=== PATIENT | male | born 1975 | race Caucasian/White ===

== ENCOUNTER 2020-08-22 19:32 | Emergency (ER) | payer OTHER, SELFPAY ==
--- NOTE | ~2020-08-22 | XR_ITS ---
XR toe 1st RT min 2V DATE: 08/22/2020 19:53 INDICATION: Injury; patient with toe backwards. Proximal phalanx pain. TECHNIQUE: 4 views COMPARISON: None FINDINGS: There is mild osteoarthritis at the first metatarsophalangeal joint. No fracture, dislocation, periosteal reaction or bone destruction. IMPRESSION: No fracture or dislocation Reviewed, dictated and finalized at location A. IMPRESSION: No fracture or dislocation
--- NOTE | 2020-08-22 19:42 | ED.LOWEXIN ---
HPI - Extremity Injury (Lower) General Chief Complaint: Extremity Injury, Lower Stated Complaint: right big toe Time Seen by Provider: 08/22/20 19:34 Source: patient and RN notes reviewed Limitations: no limitations History of Present Illness HPI Narrative: This is a 45-year-old male that presented to urgent care today with complaints of right great toe pain status post injury that occurred today. The patient tripped over a stick and his big great toe turned upward. Afterwards he developed pain with discoloration to the right toe. Patient is able to bear weight on that right foot no neurological deficiency, normal capillary refill pulses are palpable sensation present patient able to flex digits. The patient denies SOB, CP, palpitation, extremity numbness, lightheadedness, dizziness, constipation, diarrhea, chills, or fever. MD complaint: foot injury (Right great toe) Related Data Home Medications Medication Instructions Recorded Confirmed Jardiance 25 mg DAILY 08/22/20 08/22/20 aspirin 325 mg DAILY 08/22/20 08/22/20 atorvastatin 40 mg DAILY 08/22/20 08/22/20 glimepiride 4 mg DAILY 08/22/20 08/22/20 lisinopril 40 mg DAILY 08/22/20 08/22/20 metformin 1,000 mg BID 08/22/20 08/22/20 niacin 1,000 mg PO DAILY 08/22/20 08/22/20 Allergies Allergy/AdvReac Type Severity Reaction Status Date / Time No Known Allergies Allergy Unknown Unverified 03/24/16 17:12 Review of Systems Review of Systems: Narrative: A 14 organ system Review of Systems was performed and pertinent positives included in the HPI, otherwise remaining ROS is negative. [facility] Family History Family History (Updated 08/22/20 @ 19:48 by SHY Wheatley) Other Family history non-contributory Social History Social History Gender identity (if verbalized by the patient): Male Exam Narrative: Exam Narrative: GENERAL: This is a well-nourished, well-developed patient, in no apparent distress. HEAD: normocephalic, atraumatic. EYES: PERRL. Sclera clear/white. Vision is grossly intact. EARS: External ears normal, auditory canals clear and without drainage, TMs normal without perforation. Hearing grossly intact. NOSE: External nose normal with no obvious nasal discharge, nares without redness, no rhinorrhea. THROAT: Mucous membranes moist, posterior pharynx clear. NECK: Neck supple, non-tender without lymphadenopathy, masses or thyromegaly. CARDIOVASCULAR: Regular rate and rhythm without murmurs, gallops, or rubs. RESPIRATORY: Clear to auscultation. Breath sounds equal bilaterally. No wheezes, rales, or rhonchi. GASTROINTESTINAL: Abdomen soft, non-tender, nondistended. Bowel sounds are active. No hepato-splenomegaly, or palpable masses. No guarding. SKIN: warm, intact with no suspicious lesions or rash, good texture and turgor. NEURO: awake, alert, and oriented to person, place and time. There were no obvious focal neurologic abnormalities. Steady gait EXTREMITIES: Normal range of motion. Pain with movement of the right great toe. Right great toe edema and ecchymosis. No calf tenderness. Negative Homans sign bilaterally. Right great toe and base painful with palpation BACK: Nontender without deformity or crepitance. No flank tenderness. Course Vital Signs Vital signs: Vital Signs Temperature 98.4 F 08/22/20 19:43 Pulse Rate 95 08/22/20 19:43 Respiratory Rate 20 08/22/20 19:43 Blood Pressure 129/92 H 08/22/20 19:43 Pulse Oximetry 100 08/22/20 19:43 Temperature 98.4 F 08/22/20 19:43 Pulse Rate 95 08/22/20 19:43 Respiratory Rate 20 08/22/20 19:43 Blood Pressure 129/92 H 08/22/20 19:43 Pulse Oximetry 100 08/22/20 19:43 MDM - Extremity Injury (Lower) Differential Diagnosis Differential diagnosis: Likely puncture wound of foot, fracture of toe and other (Foot sprain and strain) Discharge Plan Discharge Clinical Impression: Sprain and strain Traumatic ecchymosis of toe of right foot Qualifiers: Encounter
[2020-08-22 19:43] VITALS: BP 129/92; PULSE 95; RESP 20; TEMP 36.9; O2SAT 100
== END 2020-08-22 20:15 | disposition home or self-care (01) ==
PROVIDERS: Emergency Provider Nurse Practitioner; PCP Family Medicine
DX: S93.501A Unspecified sprain of right great toe, initial encounter (principal); S96.911A Strain of unspecified muscle and tendon at ankle and foot level, right foot, initial encounter; W22.8XXA Striking against or struck by other objects, initial encounter; S90.111A Contusion of right great toe without damage to nail, initial encounter
CPT/HCPCS: 73660; 99213; G0463

== ENCOUNTER 2020-10-23 19:32 | Emergency (ER) | payer OTHER, SELFPAY ==
--- NOTE | 2020-10-23 19:37 | ED.EYEPROB ---
HPI - Eye Problem General Chief complaint: Eye Problems Stated complaint: Rt eye Time Seen by Provider: 10/23/20 19:37 Source: patient and RN notes reviewed Mode of arrival: ambulatory Limitations: no limitations History of Present Illness HPI Narrative: 45-year-old male presents to the [facility] with complaints of a bruise to the medial aspect lower lid right eye. Denies any trauma to the eye. Denies any blurry vision or change in vision. States it was not there when he got up this morning to brush his teeth and brushes hair. Noticed it approximately 2 PM today. Denies any painful area. Does not wear glasses nor contacts. Related Data Home Medications Medication Instructions Recorded Confirmed Jardiance 25 mg DAILY 08/22/20 10/23/20 aspirin 325 mg DAILY 08/22/20 10/23/20 atorvastatin 40 mg DAILY 08/22/20 10/23/20 glimepiride 4 mg DAILY 08/22/20 10/23/20 lisinopril 40 mg DAILY 08/22/20 10/23/20 metformin 1,000 mg BID 08/22/20 10/23/20 niacin 1,000 mg PO DAILY 08/22/20 10/23/20 Allergies Allergy/AdvReac Type Severity Reaction Status Date / Time No Known Allergies Allergy Unknown Verified 10/23/20 19:34 Review of Systems Review of Systems: All systems reviewed & are unremarkable except as noted in HPI and below Constitutional: Constitutional: Reports no additional constitutional complaints, Denies chills and Denies fever(s) Eyes: Eyes: Reports as per HPI, Denies change in vision and Denies photophobia Comments: bruising right medial lid ENT: Reports system reviewed and no additional complaints, except as documented Cardiovascular: Cardiovascular: Reports no additional cardiovascular complaints Respiratory: Respiratory: Reports no additional respiratory complaints Musculoskeletal: Musculoskeletal: Reports no additional musculoskeletal complaints Integumentary/Breasts: Skin/Breast: Reports as per HPI, Denies erythema and Denies rash Neurologic: Reports system reviewed and no additional complaints, except as documented Hematologic/Lymphatic: Hematologic/Lymphatic: Reports as per HPI and Reports easy bruising Allergic/Immunologic: Allergic/Immunologic: Reports no additional allergic/immunologic complaints PMFSH Past Medical History Medical History (Updated 10/23/20 @ 19:53 by Gayathri Mann) Diabetes Hypertension Family History Family History Other Family history non-contributory Social History Social History Gender identity (if verbalized by the patient): Male Comments At the time of my signature, I reviewed and agree with the nursing past medical, surgical, social, and family history. There is no relevant family history pertinent to the patient complaint. Exam Const: General: healthy appearing, no acute distress and alert Nutritional Appearance: well nourished Orientation/consciousness: patient oriented x3 Limitations: no limitations HENMT: Head: normal to inspection Ears: external ears normal General nose exam: Normal external nose present, Normal nares present and Normal nasal mucous membranes and turbinates present Face and sinus: face symmetric Mouth: Yes Normal oral and palatal mucosa present and Yes lip normal Eyes: General: appearance normal, both eyes and all related structures Visual Palacio: normal visual palacio by confrontation Alignment and Position: alignment normal and position normal Periorbital: periorbital findings abnormal right periorbital ecchymosis (0.5 x 1 cm bruising medial lower lid); no swelling and no tenderness Conjunctivae: conjunctivae normal Sclera: sclerae normal Cornea: corneas normal and fluorescein used Pupils: Equal, round and reactive pupils present EOM: EOMs intact bilaterally Direct Ophthalmoscopy: no photophobia Eyes/upper lids images: 1. 0.5 x 1 cm bruise noted with no eye involvement. No conjunctival swelling. No hyphema. Rodrigues lamp exam d
[2020-10-23 19:43] VITALS: BP 143/91; PULSE 97; RESP 18; TEMP 36.2; O2SAT 97
[2020-10-23 19:44] VITALS: BP 143/91; PULSE 97; RESP 18; TEMP 36.2; O2SAT 97
== END 2020-10-23 20:01 | disposition home or self-care (01) ==
PROVIDERS: Emergency Provider Nurse Practitioner; PCP Family Medicine
DX: S00.11XA Contusion of right eyelid and periocular area, initial encounter (principal); X58.XXXA Exposure to other specified factors, initial encounter; E11.9 Type 2 diabetes mellitus without complications; I10 Essential (primary) hypertension; Z79.82 Long term (current) use of aspirin
CPT/HCPCS: 99212; A9270; G0463

== ENCOUNTER 2020-11-24 18:50 | Emergency (ER) | payer OTHER, SELFPAY ==
--- NOTE | ~2020-11-24 | XR_ITS ---
XR hip RT min 2V DATE: 11/24/2020 19:30 INDICATION: Hip pain. TECHNIQUE: AP, lateral and crosstable lateral views of right hip COMPARISON: None FINDINGS: Possible old fracture deformities of the right superior and inferior pubic rami. Normal alignment at the pubic symphysis and sacroiliac joint. Degenerative change at the right sacroi liac joint. Transitional lumbosacral vertebra. No recent fracture or dislocation of the right hip. No evidence of avascular necrosis or bone destruc tion. Small calcifications are noted at the superolateral aspect of the right hip joint. IMPRESSION: Possible old fracture deformities of the right superior and inferior pubic rami Transitional lumbosacral vertebra Degenerative change of the right sacroiliac joint. No recent fracture, dislocation, avascular necrosis or bone destruction of right hip Reviewed, dictated and finalized at location A. IMPRESSION: Possible old fracture deformities of the right superior and inferio r pubic rami Transitional lumbosacral vertebra Degenerative change of the right sacroiliac joint. No recent fracture, dislocation, avascular necrosis or bone destruction of righ t hip
[2020-11-24 19:07] VITALS: BP 141/81; PULSE 89; RESP 16; TEMP 36.9; O2SAT 98
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
== END 2020-11-24 19:52 | disposition home or self-care (01) ==
PROVIDERS: Emergency Provider Nurse Practitioner; PCP Family Medicine
DX: S76.211A Strain of adductor muscle, fascia and tendon of right thigh, initial encounter (principal); E11.9 Type 2 diabetes mellitus without complications; I10 Essential (primary) hypertension; Z79.82 Long term (current) use of aspirin; Z79.84 Long term (current) use of oral hypoglycemic drugs; X58.XXXA Exposure to other specified factors, initial encounter
CPT/HCPCS: 73502; 99213; G0463

== ENCOUNTER → 2020-12-02 13:59 | Outpatient (CLI) | payer OTHER, SELFPAY ==
--- NOTE | ~2020-12-02 | XR_ITS ---
EXAMINATION: XR knee RT 2V DATE: 12/02/2020 14:17 INDICATION: Right knee pain. TECHNIQUE: 2 views of right knee standing were obtained. COMPARISON: None. FINDINGS: Bone alignment is normal. No fracture. There is mild tricompartmental osteoarthritis charac terized by tiny osteophytes. No joint space narrowing. There is a small knee joint effusion. IMPRESSION: 1. Mild right knee osteoarthritis. 2. Small right knee joint effusion. Reviewed, dictated and finalized at location A.
== END ==
PROVIDERS: PCP Physician Assistant; Visit Provider Physician Assistant
DX: M25.561 Pain in right knee (principal); M17.11 Unilateral primary osteoarthritis, right knee; M25.461 Effusion, right knee
CPT/HCPCS: 73560

== ENCOUNTER 2022-03-22 01:10 | Day surgery (SDC) | payer OTHER, SELFPAY ==
[2022-03-09 10:01] VITALS: BMI 30.6
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
[2022-03-22 10:18] VITALS: BP 134/68; PULSE 90; RESP 18; TEMP 36.5; O2SAT 99
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
[2022-03-22] MEDS: LACTATED RINGERS 1,000 ML 150 ML IV CONT (10:27)
[2022-03-22 10:33] LABS: Glucose Point of Care 127 mg/dl (65-105)
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
[2022-03-22 11:08] VITALS: BP 110/71; PULSE 84; RESP 15; O2SAT 100
[2022-03-22 11:18] VITALS: BP 127/90; PULSE 84; RESP 16; O2SAT 99
[2022-03-22 11:20] VITALS: BP 130/84; PULSE 86; RESP 19; O2SAT 98
== END 2022-03-22 11:38 | disposition home or self-care (01) ==
PROVIDERS: PCP Physician Assistant; Visit Provider Internal Medicine Gastroenterology
PROC: 0DJD8ZZ Inspection of Lower Intestinal Tract, Via Natural or Artificial Opening Endoscopic (ICD-10-PCS; CPT 45378; principal; 2022-03-22 11:00)
DX: Z12.11 Encounter for screening for malignant neoplasm of colon (principal); K63.5 Polyp of colon; K64.8 Other hemorrhoids; Z83.71 Family history of colonic polyps; I25.10 Atherosclerotic heart disease of native coronary artery without angina pectoris; E11.9 Type 2 diabetes mellitus without complications; E78.5 Hyperlipidemia, unspecified; I10 Essential (primary) hypertension; F17.210 Nicotine dependence, cigarettes, uncomplicated; E66.9 Obesity, unspecified; Z68.33 Body mass index [BMI] 33.0-33.9, adult; Z79.82 Long term (current) use of aspirin; Z79.84 Long term (current) use of oral hypoglycemic drugs
CPT/HCPCS: 45385; 82948; 88305; J2704; J7120

== ENCOUNTER 2022-05-04 15:54 | Outpatient (CLI) | payer OTHER, SELFPAY ==
--- NOTE | ~2022-05-04 | XR_ITS ---
XR shoulder RT min 2V 05/04/2022 16:22 Indication: Right shoulder pain Procedure: 4 views right shoulder Comparison: 09/04/2018 Findings: There is mild osteoarthritis of the acromioclavicular joint. No fracture, subluxation or di slocation. No significant soft tissue abnormality. The lung parenchyma is unremarkable. Impression: 1: Mild osteoarthritis of the right acromioclavicular joint. Reviewed, dictated and finalized at location B. R AND DELIVERY REGISTERED NURSE Impression: 1: Mild osteoarthritis of the right acromioclavicular joint.
== END 2022-05-04 15:55 | disposition home or self-care (01) ==
PROVIDERS: PCP Physician Assistant; Visit Provider Physician Assistant
DX: M19.011 Primary osteoarthritis, right shoulder (principal)
CPT/HCPCS: 73030

== ENCOUNTER 2022-09-30 09:02 | Outpatient (CLI) | payer OTHER, SELFPAY ==
--- NOTE | ~2022-09-30 | MR_ITS ---
MRI of the cervical spine Clinical History: Radiculopathy Technique: Axial T2-weighted and gradient images, and sagittal T1-weighted, T2-weighted, and STIR joslyn ges were acquired. COMPARISON: 08/26/2029 Findings: There is no acute fracture or subluxation of the cervical spine. There is anterior fusion f rom the C5-C6 vertebral bodies, with associated susceptibility artifact. No suspicious bone marrow si gnal abnormality seen. At C2-C3, there is no disc bulge or herniation. No spinal canal stenosis, cord compression, or neural foraminal narrowing. At C3-C4, there is minimal disc ossify convex. No spinal canal stenosis, cord compression, or neural foraminal narrowing. At C4-C5, there is minimal disc osteophyte complex. No spinal canal stenosis, cord compression, or ne ural foraminal narrowing. At C5-C6, there is no disc bulge or herniation. No spinal canal stenosis, cord compression, or neural foraminal narrowing. At C6-C7, there is no disc bulge or herniation. No spinal canal stenosis or cord compression. Probabl e mild bilateral neural foraminal narrowing present. No abnormal signal seen in the spinal cord. Paravertebral soft tissues are otherwise unremarkable. Impression: Anterior fusion hardware from C5 to C6. Minimal degenerative spondylosis otherwise, as above. Reviewed, dictated and finalized at location . Impression: Anterior fusion hardware from C5 to C6. Minimal degenerative spondylosis otherwise, as above.
== END 2022-09-30 09:03 | disposition home or self-care (01) ==
PROVIDERS: PCP Physician Assistant; Visit Provider Nurse Practitioner Acute Care
DX: M50.10 Cervical disc disorder with radiculopathy, unspecified cervical region (principal); Z98.1 Arthrodesis status; M47.22 Other spondylosis with radiculopathy, cervical region
CPT/HCPCS: 72141

== ENCOUNTER 2023-04-04 06:36 | Day surgery (SDC) | payer OTHER, SELFPAY ==
[2023-03-29 09:50] VITALS: BMI 33.9
[2023-04-04 07:54] VITALS: BP 135/87; PULSE 90; RESP 18; TEMP 36.6; O2SAT 94; BMI 33.4
[2023-04-04] MEDS: LACTATED RINGERS 1,000 ML 150 ML IV CONT (08:13)
[2023-04-04 08:22] LABS: Glucose Point of Care 184 mg/dl (65-105)
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
[2023-04-04] MEDS: SIMETHICONE ORAL SUSPENSION 20 MG/0.3 ML 30 ML BOTTLE 0.6 ML IRRIGATION (09:08)
[2023-04-04 09:27] VITALS: BP 112/81; PULSE 92; RESP 16; O2SAT 96
[2023-04-04 09:37] VITALS: BP 117/81; PULSE 84; RESP 16; O2SAT 95
[2023-04-04 09:48] VITALS: BP 133/100; PULSE 88; RESP 16; O2SAT 94
--- NOTE | 2023-04-04 09:49 | WPDANESPN ---
Anes - Prog Note Post-Op Date/Time: 04/04/23 09:49 Cardiovascular status: normal Respiratory status: normal Airway patency: baseline Mental status: baseline Post-Op hydration status: normal Vital Signs: Last Vital Signs Temp 36.6 C 04/04/23 07:54 Pulse 88 04/04/23 09:48 Resp 16 04/04/23 09:48 BP 133/100 H 04/04/23 09:48 Pulse Ox 94 04/04/23 09:48 O2 Del Method Room Air 04/04/23 09:48 Pain Score (VAS): 0/10 I/O: Intake & Output 04/03/23 04/04/23 04/04/23 23:59 07:59 15:59 Intake Total 500 Balance 500 04/04/23 08:20 POC Capillary Glucose 184 H Patient Feedback: Patient satisfied with anesthetic care.
== END 2023-04-04 10:00 | disposition home or self-care (01) ==
PROVIDERS: PCP Physician Assistant; Visit Provider Internal Medicine Gastroenterology
PROC: 0DJD8ZZ Inspection of Lower Intestinal Tract, Via Natural or Artificial Opening Endoscopic (ICD-10-PCS; CPT 45378; principal; 2023-04-04 09:00)
DX: Z86.010 Personal history of colon polyps (principal); D12.5 Benign neoplasm of sigmoid colon; K64.8 Other hemorrhoids
CPT/HCPCS: 45385

== ENCOUNTER 2023-04-04 07:12 | Outpatient (NON) | payer OTHER, SELFPAY | END 2023-04-04 07:13 | disposition home or self-care (01) | LOC: ANHLAB 04-05 07:14 | PROVIDERS: PCP Physician Assistant; Visit Provider Internal Medicine Gastroenterology | DX: Z12.11 Encounter for screening for malignant neoplasm of colon (principal); K63.5 Polyp of colon | CPT/HCPCS: 88305 ==

== ENCOUNTER 2023-09-08 08:13 | Emergency (ER) | payer OTHER, SELFPAY ==
[2023-09-08 08:20] VITALS: BP 130/72; PULSE 90; RESP 16; TEMP 36.3; O2SAT 97
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
== END 2023-09-08 09:11 | disposition home or self-care (01) ==
PROVIDERS: Emergency Provider Nurse Practitioner Family; PCP Family Medicine
DX: L60.0 Ingrowing nail (principal); F17.210 Nicotine dependence, cigarettes, uncomplicated; M19.90 Unspecified osteoarthritis, unspecified site; I25.10 Atherosclerotic heart disease of native coronary artery without angina pectoris; E11.9 Type 2 diabetes mellitus without complications; E78.5 Hyperlipidemia, unspecified; I10 Essential (primary) hypertension
CPT/HCPCS: 99213; G0463

== ENCOUNTER 2024-02-29 09:14 | Emergency (ER) | payer OTHER, SELFPAY ==
--- NOTE | ~2024-02-29 | XR_ITS ---
EXAMINATION: XR chest 2V DATE: 02/29/2024 10:10 INDICATION: Cough. TECHNIQUE: Frontal and lateral views of the chest were obtained. COMPARISON: Chest 2 views 12/08/2006 FINDINGS: There is no pneumonia, pleural effusion, or pneumothorax. The heart size is normal. There a re changes of anterior fusion procedure in cervical spine. IMPRESSION: 1. No acute cardiopulmonary disease. Reviewed, dictated and finalized at location A. 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
[2024-02-29 09:34] VITALS: BP 131/74; PULSE 88; RESP 18; TEMP 36.5; O2SAT 97
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
--- OUTSIDE RECORDS SUMMARY | 2024-03-07 11:04 | XMS_ITS | Encounter Summary ---
Author Name [facility] [place] [facility] Address [address] [place] [address] Care Team Providers Care Supervisor Cereal Name Role Phone SANDRA MUNOZ Primary Care Provider Unavailabl e Insurance Providers: All historical and current Section Date Range: From patient's date of to the date document was created. This section includes the names of all active insurance providers for the patient. Insurance Provider Type of Coverage Plan Name Start of Policy Coverage End of Policy Coverage Group Number Member ID Insurance Provider's Telephone Number Policy Sparks's Name Patient's Relationship to Policy Sparks [employer] PRES[employer] ION RX PLAN Apr 11, 2019 [id number] [phone] Christoph TILLEY SPOUSE [facility] Mar 11, 2017 [id number] [phone] Nino TILLEY SPOUSE [facility] Mar 11, 2019 [id number] [phone] Nino TILLEY SPOUSE [facility] POINT OF SERVICE [facility] Mar 11, 2017 [id number] [phone] Nino TILLEY SPOUSE Selected Encounter This section includes the information on record at [place] for the Encounter. Date/Time Encounter Type Encounter Description Reason Provider Source Apr 26, 2023 03:30 PM OFFICE O/P NEW MOD 45 MIN ENDOCRINOLOGY ICD-10-CM E78.5 Hyperlipidemia, unspecified DORANROBIN [facility] Encounter Template Text not used by [place] Assessments - Encounter Diagnoses This section includes the primary and secondary diagnoses documented for the Encounter. Date/Time Primary/Secondary Diagnosis Diagnosis Name Provider Source May 20, 2023 11:58 AM PRIMARY Hyperlipidemia, unspecified ESDRASROBIN M [facility] May 20, 2023 11:58 AM SECONDARY Type 2 diabetes mellitus without complications ESDRASROBIN M [facility] Plan of Treatment: Future Appointments (+ 6 months) and Future Tests (+/- 45 days) The Plan of Treatment section includes future care activities for the patient [facility] [place] [facility] This section includes future appointments and future orders which are active, pending or scheduled. Future Appointments This section includes appointments that were scheduled to occur 6 months from the date of the Encounter, up to a maximum of 20 appointments. The data comes from all [place] treatment facilities. Appointment Date/Time Appointment Type Appointme nt Facility Name May 01, 2023 11:30 AM AMBULATORY - MEDICINE [facility] July 24, 2023 10:00 AM AMBULATORY - SURGERY [facility] July 26, 2023 12:00 PM AMBULATORY - MEDICINE [facility] Lab Results: +/- 30 days of the encounter This section includes the Chemistry and Hematology Lab Results on record with [place] for the patient. Radiology Reports and Pathology Reports are provided separately, in subsequent sections. Lab Results This section contains the Chemistry/Hematology Results that were resulted 30 days before or 30 daysafter the date of the Encounter. Date/Time Source Result Type Result - Unit Interpretation Reference Range Comment May 01, 2023 11:32 AM [facility] GLUCOSE,BLOOD-poct (STL) Specimen Type: BLOOD Comment: Test Performed by: [id number] Meter #: [id number] Ordering Provider: SANDAR MUNOZ Report Released Date/Time: May 01, 2023 04:01 PM Reporting Lab: [address] [address] Performing Lab: [address] [address] GLUCOSE,BLOOD- poct (STL) 120 mg/dL H 72-99 Apr 30, 2023 08:28 AM [facility] MICRAL/CREAT PROFILE (STL) Specimen Type: URINE No comment entered. Ordering Provider: ROBIN DORAN Report Released Date/Time: Apr 26, 2023 04:19 PM Reporting Lab: [facility] [address] [address] Performing Lab: [facility] [address] [facility] [address] URINE ALBUMIN (PB-STL) 29.6 mg/L uACR (STL) 47 mg/g H 0-29 CREATININE URINE/OTHERS 62.7 mg/dL L 63-166 Apr 30, 2023 08:17 AM [facility] LIPID PANEL (STL) Specimen Type: PLASMA Comment: LDL Unable to be calculated LDL calculation invalid when Triglyceride exceeds 250 mg/dl Direct LDL invalid when Triglyceride exceeds 1420 mg/dl CALCULATED LDL reported incorrectly as EXCEPTION by [[id number]] . Changed to comment on Apr 30, 2023@09:54 by [[id number]] . DIRECT LDL units reported incorrectly as mg/dL by [[id number]] . Changed to mg/dl on Apr 30, 2023@09:54 by [[id number]] . DIRECT LDL reference low reported incorrectly as 100 by [[id number]] . Changed to <no value> on Apr 30, 2023@09:54 by [[id number]] . DIRECT LDL reference high reported incorrectly as <no value> by [[id number]] . Changed to 99.9 on Apr 30, 2023@09:54 by [[id number]] . Ordering Provider: ROBIN DORAN Report Released Date/Time: Apr 26, 2023 03:58 PM Reporting Lab: [facility] [address] [facility] [address] Performing Lab: [facility] [address] [address] CHOLESTEROL 330 mg/dL H 0-200 TRIGLYCERIDE 1999 mg/dL H 0-150 DIRECT LDL comment mg/dL <99.9 CALCULATED LDL comment mg/dL HDL(New) 33 mg/dL L >40 Apr 30, 2023 08:17 AM [facility] TSH (MA-PB-STL) Specimen Type: SERUM No comment entered. Ordering Provider: ROBIN DORAN Report Released Date/Time: Apr 26, 2023 04:19 PM Reporting Lab: [address] [address] Performing Lab: [address] [address] TSH 0.643 u[IU]/mL 0.47-5 Apr 30, 2023 08:17 AM [facility] FREE T4 Specimen Type: SERUM No comment entered. Ordering Provider: ROBIN DORAN Report Released Date/Time: Apr 26, 2023 04:19 PM Reporting Lab: [address] [address] Performing Lab: [address] [address] FREE T4 0.85 ng/mL 0.7-1.48 Vital Signs: All taken on the encounter date This section contains inpatient and outpatient Vital Signs collected on the date of the Encounter. Date/Time Temperature Pulse Blood Pressure Respiratory Rate SP02 Pain Height Weight Body Mass Index Source Apr 26, 2023 03:18 PM 146/79 [facility] N Apr 26, 2023 03:18 PM 97.4 105 146/68 18 94 4 256.[address] [facility] N Encounter Notes: All associated encounter notes This section contains the clinical notes associated to the Encounter. Date/Time Encounter Note(s) Provider Source May 30, 2023 11:43 AM ADDENDUM: LOCAL TITLE: Addendum STANDARD TITLE: ADDENDUM DATE OF NOTE: MAY 30, 2023@11:43:54 ENTRY DATE: MAY 30, 2023@11:43:55 AUTHOR: BLAKE LANGE EXP COSIGNER: URGENCY: STATUS: COMPLETED [place] left message on endo VM, wanting to know if his results/progress note back from outside, Social Media Project Manager, came to through fax. Returned his call, and he said he spoke with Bill about getting the papers. Contacted Endo operations manager station, Kayce, and he wanted to know the following: He does have the papers, and Dr. Doran has to review them, likely tomorrow, then I'm assuming his Ozempic or other GLP-1 will be approved. Mr. Tilley was satisfied with the return phone call and information. /es/ BLAKE LANGE REGISTERED NURSE Signed: 05/30/2023 11:50 Receipt Acknowledged By: 05/30/2023 12:06 /es/ Kayce Robert RN, BSN REGISTERED NURSE 06/01/2023 13:28 /es/ ROBIN DORAN MD Endocrinology Physician --- Original Document --- 04/26/23 ENDOCRINOLOGY OUTPATIENT CONSULT STL: HPI: BRODY TILLEY is a 47 yo WHITE MALE with PMH T2DM, Htn presenting for initial consult for hypertriglyceridemia. 1.) Hypertriglyceridemia: No prior pancreatitis He thinks parents had hyperlipidemia, but not confirmed Diet: AM-eggs in the AM, 2 pancakes, 2 sausage links, carlin, hashbrowns at [facility], [employer], 4 slices of pizza Alcohol: 3-4 per week Currently on niacin 100 mg qhs He thinks labs from 03/02 was fasting Report Released Date/Time: Mar 08, 2023@09:54 TRIGLYCERIDE 1053 H mg/dL 0 - 150 [657] Report Released Date/Time: Aug 17, 2022@12:53 TRIGLYCERIDE 228 H mg/dL 0 - 150 [657] Report Released Date/Time: Aug 28, 2018@07:56 TRIGLYCERIDE 437 H mg/dl Ref: <=150 [657] 2.)T2DM: Duration:20 yrs A1c: 7.3 Regimen: metformin 1 g BID, alogliptin, glimepiride 4 mg BID, jardiance 25 mg No prior DKA/HHNS Bg: he does not check bg at home Diet: see above Exercise/Weight: Alcohol/smokin drinks/week, cigs/day Denies prior pancreatitis, personal or FH of MTC/MEN syndrome Complications: Optho: no known retinopathy, teleretinal screen 08/31 Macrovascular: no SD/CVA, no chest pain Neuropathy:no and no prior amputations Nephropathy: none, UACR 32 on lisinopril 40 mg HLD:LDL 69 on lipitor 80 mg Family history: Father-HF, Both-diabetes SOCIAL HISTORY: Marital status: Tobacco: yes 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-pt ROS neg except HPI Active Outpatient Medications (including Supplies): Active Outpatient Medications Status 1) ACCU-CHEK GUIDE (GLUCOSE) TEST STRIP USE 1 STRIP FOR ACTIVE BLOOD TEST WEEKLY FOR BLOOD SUGAR MONITORING AND NEEDED FOR LOW BLOOD SUGAR *HYPOGLYCEMIA, 100 STRIPS PER YEAR* Oct 365 DAY SUPPLY 2) ALCOHOL PREP PAD USE/APPLY PAD TO AFFECTED AREA(S) ACTIVE NEEDED DIRECTED FOR SKIN CLEANSING 3) ALOGLIPTIN 25MG TAB TAKE ONE TABLET BY MOUTH ONCE A ACTIVE (S) DAY FOR DIABETES 4) ASPIRIN 81MG EC TAB TAKE ONE TABLET BY MOUTH ONCE A ACTIVE DAY WITH FOOD FOR PREVENTION OF HEART DISEASE 5) ATORVASTATIN CALCIUM 80MG TAB TAKE ONE-HALF TABLET BY ACTIVE MOUTH EVERY EVENING FOR HIGH CHOLESTEROL 6) CHOLECALCIF 50MCG (D3-2,000UNIT) TAB TAKE ONE TABLET ACTIVE (S) BY MOUTH ONCE A DAY 7) EMPAGLIFLOZIN 25MG TAB TAKE ONE TABLET BY MOUTH ONCE ACTIVE A DAY FOR DIABETES 8) GLIMEPIRIDE 4MG TAB TAKE TWO TABLETS BY MOUTH EVERY ACTIVE MORNING FOR DIABETES TAKE WITH BREAKFAST OR FIRST FOOD. 9) LANCET,SOFTCLIX USE LANCET FOR BLOOD TEST DIRECTED ACTIVE FOR BLOOD SUGAR MONITORING *MUST USE NEW NEEDLE EACH TIME* 10) LISINOPRIL 40MG TAB TAKE ONE TABLET BY MOUTH ONCE A ACTIVE DAY FOR HIGH BLOOD PRESSURE 11) LORATADINE 10MG TAB TAKE ONE TABLET BY MOUTH ONCE A ACTIVE DAY FOR ALLERGIC RHINITIS ON EMPTY STOMACH 12) METFORMIN HCL 1000MG TAB TAKE ONE TABLET BY MOUTH ACTIVE (S) TWICE A DAY WITH MEALS FOR DIABETES TAKE WITH FOOD. AVOID ALCOHOL. DISCONTINUE BEFORE GETTING XRAY DYE. 13) NIACIN (EQV-NIASPAN) 1000MG SA TAB TAKE ONE TABLET BY ACTIVE MOUTH AT BEDTIME FOR HIGH CHOLESTEROL AFTER A LOW FAT SNACK Active Non-VA Medications Status 1) Non-VA METFORMIN HCL 1000MG TAB 1000MG BY MOUTH ACTIVE DAILY. 14 Total Medications Allergies: Patient has answered NKA PAST HISTORY: 1) Diabetes mellitus 2) Hypertension 3) Shoulder pain 4) Abnormal liver function 5) Medical examinations/reports status 6) Cervical radiculopathy 7) Vitamin D deficiency 8) Tobacco use 9) Erectile dysfunction PHYSICAL EXAM: Vital Signs- Temperature: 97.4 F [36.3 C] (04/26/2023 15:18) HR: 105 (04/26/2023 15:18) BP: Measurement DT BP 04/26/2023 15:18 146/79 04/26/2023 15:18 146/68 12/05/2022 10:50 149/75 Weight: 256.2 lb [116.21 kg] (04/26/2023 15:18) Patient Weight History - Last Four 1. 256.2 lbs. / 116.2 kg. on APR 26, 2023@15:18:24 2. 250.0 lbs. / 113.4 kg. on OCT 26, 2022@10:00:29 3. 250.0 lbs. / 113.4 kg. on AUG 17, 2022@08:56:06 4. 246.4 lbs. / 111.8 kg. 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 LABS: SODIUM 139 mEq/L 03/08/2023 08:56 POTASSIUM 4.2 mEq/L 03/08/2023 08:56 CHLORIDE 106 mEq/L 03/08/2023 08:56 UREA NITROGEN 14.4 mg/dL 03/08/2023 08:56 CREATININE 0.83 mg/dL 03/08/2023 08:56 CALCIUM 9.1 mg/dL 03/08/2023 08:56 CARBON DIOXIDE 21 L mEq/L 03/08/2023 08:56 GLUCOSE 143 H mg/dL 03/08/2023 08:56 EGFR (CKD-EPI 2020) 107.3 03/08/2023 08:56 Microalb/creat: CREATuF: 78.3 (03/22/23 07:17) M/CREAT: 32 (03/22/23 07:17) MICRAL: 25.3 (03/22/23 07:17) No MICRAL/CREAT RATIO (STL) data found HGA1C 7.3 H % 03/08/2023 08:56 HGA1C 7.0 H % 08/17/2022 10:34 HGA1C 7.0 H % 08/28/2018 07:03 Lipid Panel: TRIGLYCERIDE 1053 H mg/dL 03/08/2023 08:56 CHOLESTEROL 273 H mg/dL 03/08/2023 08:56 HDL(New) 33 L mg/dL 03/08/2023 08:56 DIRECT LDL 69 L mg/dL 03/08/2023 08:56 CALCULATED LDL comment mg/dL 03/08/2023 08:56 TSH 0.592 uIU/mL 08/17/2022 10:34 A/P: BRODY TILLEY Rodolfo is a 47 yo WHITE MALE with PMH T2DM, Htn presenting for initial consult for hypertriglyceridemia. 1.) Type 2 diabetes: above goal A1c 7.3 recently on 4 agents. Will stop alogliptin and start Ozempic titrated to 1 mg. -continue metformin 1 g BID, glimepiride 4 mg BID, jardiance 25 mg -my try to wean off sulfonylurea in the future Optho: no known retinopathy, teleretinal screen 08/31 Macrovascular: no SD/CVA, no chest pain Neuropathy:no and no prior amputations Nephropathy: none, UACR 32 on lisinopril 40 mg, repeat UACR and may need additional agent if elevated HLD:LDL 69 on lipitor 80 mg 2.) Hypertriglyceridemia: likely genetic with dietary contribution. Reviewed foods to reduce and avoid alcohol. No medicaitons. Will stop niacin and start fenofibrate. No prior pancreatitis. -stop niacin, continue lipitor 80 mg, start fenofibrate 160 mg -dietary guidelines provided -check TSH, FT4 /kristen DORAN MD Endocrinology Physician Signed: 04/26/2023 16:18 04/26/2023 ADDENDUM STATUS: COMPLETED IN Please schedule him for follow up wtih me in 3 mos Thanks /kristen DORAN MD Endocrinology Physician Signed: 04/26/2023 16:18 Receipt Acknowledged By: 05/18/2023 14:00 /bennett/ MIA FRANCIS ADVANCED DRILLING ASSISTANT 05/03/2023 ADDENDUM STATUS: COMPLETED I called patient: his Tg was 1998 and discussed risk of pancreatitis. we have sent a form of foods to avoid and particularly alcohol. He will start fenofibrate, and I have put in request for vascepa. HE should start on niacin, but this is less effective than the others. He can't get eye appt until June. [place] [facility] [facility] [place] this is [place]. /bennett/ ROBIN DORAN MD Endocrinology Physician Signed: 05/03/2023 16:19 05/04/2023 ADDENDUM STATUS: COMPLETED Al I placed an outside Rx order in your box. Would you be able to mail to patient? Thanks! Jenifer /kristen DORAN MD Endocrinology Physician Signed: 05/04/2023 05:49 Receipt Acknowledged By: 05/06/2023 10:49 /bennett/ Kayce Robert, RN, BSN REGISTERED NURSE 05/13/2023 ADDENDUM STATUS: COMPLETED Mr. Tilley requires prior authorization be requested via [employer] ([employer]) before an order for Ozempic will be covered by them. That process requires an MD, I am unable to complete it. Another option might be to offer Mr. Tilley a PO weight loss medication, gauge his response, and then request [facility]epbound through [facility] after a trial of PO. I will try to revisit this before the end of this week. Alerting Dr. Doran in the mean time. /bennett/ Kayce Robert, RN, BSN REGISTERED NURSE Signed: 05/13/2023 10:53 Receipt Acknowledged By: 05/13/2023 11:51 /kristen DORAN MD Endocrinology Physician 05/13/2023 ADDENDUM STATUS: COMPLETED Hi Please let him know we will not be able to complete the [facility] outside [facility]. He needs to get his eye appointment updated PAT so we can get ozempic here for his diabetes. /kristen DORAN MD Endocrinology Physician Signed: 05/13/2023 11:56 Receipt Acknowledged By: 05/14/2023 14:17 /bennett/ Kayce Robert, RN, BSN REGISTERED NURSE 05/14/2023 ADDENDUM STATUS: COMPLETED Mr. Tilley sees [facility] on 07/07. He may try to move that appointment up. Otherwise will await those results and anticipate efforts to have [facility]empic provided through [facility] afterward. /bennett/ Kayce Robert RN, BSN REGISTERED NURSE Signed: 05/14/2023 14:18 BLAKE LANGE [facility] May 13, 2023 11:55 AM ADDENDUM: LOCAL TITLE: Addendum STANDARD TITLE: ADDENDUM DATE OF NOTE: MAY 13, 2023@11:55:41 ENTRY DATE: MAY 13, 2023@11:55:42 AUTHOR: ROBIN DORAN EXP COSIGNER: URGENCY: STATUS: COMPLETED Hi Please let him know we will not be able to complete the [place] [facility]. He needs to get his eye appointment updated PAT so we can get ozempic here for his diabetes. /kristen DORAN MD Endocrinology Physician Signed: 05/13/2023 11:56 Receipt Acknowledged By: 05/14/2023 14:17 /bennett/ Kayce Robert, RN, BSN REGISTERED NURSE --- Original Document --- 04/26/23 ENDOCRINOLOGY OUTPATIENT CONSULT STL: HPI: BRODY TILLEY is a 47 yo WHITE MALE with PMH T2DM, Htn presenting for initial consult for hypertriglyceridemia. 1.) Hypertriglyceridemia: No prior pancreatitis He thinks parents had hyperlipidemia, but not confirmed Diet: AM-eggs in the AM, 2 pancakes, 2 sausage links, carlin, hashbrowns at [employer], [place], 4 slices of pizza Alcohol: 3-4 per week Currently on niacin 100 mg qhs He thinks labs from 03/02 was fasting Report Released Date/Time: Mar 08, 2023@09:54 TRIGLYCERIDE 1053 H mg/dL 0 - 150 [657] Report Released Date/Time: Aug 17, 2022@12:53 TRIGLYCERIDE 228 H mg/dL 0 - 150 [657] Report Released Date/Time: Aug 28, 2018@07:56 TRIGLYCERIDE 437 H mg/dl Ref: <=150 [657] 2.)T2DM: Duration:20 yrs A1c: 7.3 Regimen: metformin 1 g BID, alogliptin, glimepiride 4 mg BID, jardiance 25 mg No prior DKA/HHNS Bg: he does not check bg at home Diet: see above Exercise/Weight: Alcohol/smokin drinks/week, cigs/day Denies prior pancreatitis, personal or FH of MTC/MEN syndrome Complications: Optho: no known retinopathy, teleretinal screen 08/31 Macrovascular: no SD/CVA, no chest pain Neuropathy:no and no prior amputations Nephropathy: none, UACR 32 on lisinopril 40 mg HLD:LDL 69 on lipitor 80 mg Family history: Father-HF, Both-diabetes SOCIAL HISTORY: Marital status: Tobacco: yes 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-pt ROS neg except HPI Active Outpatient Medications (including Supplies): Active Outpatient Medications Status 1) ACCU-CHEK GUIDE (GLUCOSE) TEST STRIP USE 1 STRIP FOR ACTIVE BLOOD TEST WEEKLY FOR BLOOD SUGAR MONITORING AND NEEDED FOR LOW BLOOD SUGAR *HYPOGLYCEMIA, 100 STRIPS PER YEAR* Oct 365 DAY SUPPLY 2) ALCOHOL PREP PAD USE/APPLY PAD TO AFFECTED AREA(S) ACTIVE NEEDED DIRECTED FOR SKIN CLEANSING 3) ALOGLIPTIN 25MG TAB TAKE ONE TABLET BY MOUTH ONCE A ACTIVE (S) DAY FOR DIABETES 4) ASPIRIN 81MG EC TAB TAKE ONE TABLET BY MOUTH ONCE A ACTIVE DAY WITH FOOD FOR PREVENTION OF HEART DISEASE 5) ATORVASTATIN CALCIUM 80MG TAB TAKE ONE-HALF TABLET BY ACTIVE MOUTH EVERY EVENING FOR HIGH CHOLESTEROL 6) CHOLECALCIF 50MCG (D3-2,000UNIT) TAB TAKE ONE TABLET ACTIVE (S) BY MOUTH ONCE A DAY 7) EMPAGLIFLOZIN 25MG TAB TAKE ONE TABLET BY MOUTH ONCE ACTIVE A DAY FOR DIABETES 8) GLIMEPIRIDE 4MG TAB TAKE TWO TABLETS BY MOUTH EVERY ACTIVE MORNING FOR DIABETES TAKE WITH BREAKFAST OR FIRST FOOD. 9) LANCET,SOFTCLIX USE LANCET FOR BLOOD TEST DIRECTED ACTIVE FOR BLOOD SUGAR MONITORING *MUST USE NEW NEEDLE EACH TIME* 10) LISINOPRIL 40MG TAB TAKE ONE TABLET BY MOUTH ONCE A ACTIVE DAY FOR HIGH BLOOD PRESSURE 11) LORATADINE 10MG TAB TAKE ONE TABLET BY MOUTH ONCE A ACTIVE DAY FOR ALLERGIC RHINITIS ON EMPTY STOMACH 12) METFORMIN HCL 1000MG TAB TAKE ONE TABLET BY MOUTH ACTIVE (S) TWICE A DAY WITH MEALS FOR DIABETES TAKE WITH FOOD. AVOID ALCOHOL. DISCONTINUE BEFORE GETTING XRAY DYE. 13) NIACIN (EQV-NIASPAN) 1000MG SA TAB TAKE ONE TABLET BY ACTIVE MOUTH AT BEDTIME FOR HIGH CHOLESTEROL AFTER A LOW FAT SNACK Active Non-VA Medications Status 1) Non-VA METFORMIN HCL 1000MG TAB 1000MG BY MOUTH ACTIVE DAILY. 14 Total Medications Allergies: Patient has answered NKA PAST HISTORY: 1) Diabetes mellitus 2) Hypertension 3) Shoulder pain 4) Abnormal liver function 5) Medical examinations/reports status 6) Cervical radiculopathy 7) Vitamin D deficiency 8) Tobacco use 9) Erectile dysfunction PHYSICAL EXAM: Vital Signs- Temperature: 97.4 F [36.3 C] (04/26/2023 15:18) HR: 105 (04/26/2023 15:18) BP: Measurement DT BP 04/26/2023 15:18 146/79 04/26/2023 15:18 146/68 12/05/2022 10:50 149/75 Weight: 256.2 lb [116.21 kg] (04/26/2023 15:18) Patient Weight History - Last Four 1. 256.2 lbs. / 116.2 kg. on APR 26, 2023@15:18:24 2. 250.0 lbs. / 113.4 kg. on OCT 26, 2022@10:00:29 3. 250.0 lbs. / 113.4 kg. on AUG 17, 2022@08:56:06 4. 246.4 lbs. / 111.8 kg. 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 LABS: SODIUM 139 mEq/L 03/08/2023 08:56 POTASSIUM 4.2 mEq/L 03/08/2023 08:56 CHLORIDE 106 mEq/L 03/08/2023 08:56 UREA NITROGEN 14.4 mg/dL 03/08/2023 08:56 CREATININE 0.83 mg/dL 03/08/2023 08:56 CALCIUM 9.1 mg/dL 03/08/2023 08:56 CARBON DIOXIDE 21 L mEq/L 03/08/2023 08:56 GLUCOSE 143 H mg/dL 03/08/2023 08:56 EGFR (CKD-EPI 2020) 107.3 03/08/2023 08:56 Microalb/creat: CREATuF: 78.3 (03/22/23 07:17) M/CREAT: 32 (03/22/23 07:17) MICRAL: 25.3 (03/22/23 07:17) No MICRAL/CREAT RATIO (STL) data found HGA1C 7.3 H % 03/08/2023 08:56 HGA1C 7.0 H % 08/17/2022 10:34 HGA1C 7.0 H % 08/28/2018 07:03 Lipid Panel: TRIGLYCERIDE 1053 H mg/dL 03/08/2023 08:56 CHOLESTEROL 273 H mg/dL 03/08/2023 08:56 HDL(New) 33 L mg/dL 03/08/2023 08:56 DIRECT LDL 69 L mg/dL 03/08/2023 08:56 CALCULATED LDL comment mg/dL 03/08/2023 08:56 TSH 0.592 uIU/mL 08/17/2022 10:34 A/P: BRODY TILLEY is a 47 yo WHITE MALE with PMH T2DM, Htn presenting for initial consult for hypertriglyceridemia. 1.) Type 2 diabetes: above goal A1c 7.3 recently on 4 agents. Will stop alogliptin and start Ozempic titrated to 1 mg. -continue metformin 1 g BID, glimepiride 4 mg BID, jardiance 25 mg -my try to wean off sulfonylurea in the future Optho: no known retinopathy, teleretinal screen 08/31 Macrovascular: no SD/CVA, no chest pain Neuropathy:no and no prior amputations Nephropathy: none, UACR 32 on lisinopril 40 mg, repeat UACR and may need additional agent if elevated HLD:LDL 69 on lipitor 80 mg 2.) Hypertriglyceridemia: likely genetic with dietary contribution. Reviewed foods to reduce and avoid alcohol. No medicaitons. Will stop niacin and start fenofibrate. No prior pancreatitis. -stop niacin, continue lipitor 80 mg, start fenofibrate 160 mg -dietary guidelines provided -check TSH, FT4 /bennett/ ROBIN DORAN MD Endocrinology Physician Signed: 04/26/2023 16:18 04/26/2023 ADDENDUM STATUS: COMPLETED HI Please schedule him for follow up wtih me in 3 mos Thanks /bnenett/ ROBIN DORAN MD Endocrinology Physician Signed: 04/26/2023 16:18 Receipt Acknowledged By: * AWAITING SIGNATURE * MIA FRANCIS 05/03/2023 ADDENDUM STATUS: COMPLETED I called patient: his Tg was 1998 and discussed risk of pancreatitis. we have sent a form of foods to avoid and particularly alcohol. He will start fenofibrate, and I have put in request for vascepa. HE should start on niacin, but this is less effective than the others. He can't get eye appt until June. [place] [facility] [place] is completed. /bennett/ ROBIN DORAN MD Endocrinology Physician Signed: 05/03/2023 16:19 05/04/2023 ADDENDUM STATUS: COMPLETED Hi I placed an outside Rx order in your box. Would you be able to mail to patient? Thanks! Jenifer /bennett/ ROBIN DORAN MD Endocrinology Physician Signed: 05/04/2023 05:49 Receipt Acknowledged By: 05/06/2023 10:49 /bennett/ Kayce Robert RN, BSN REGISTERED NURSE 05/13/2023 ADDENDUM STATUS: COMPLETED Mr. Tilley requires prior authorization be requested via [employer] ([employer]) before an order for Ozempic will be covered by them. That process requires an MD, I am unable to complete it. Another option might be to offer Mr. Tilley a PO weight loss medication, gauge his response, and then request [facility] after a trial of PO. I will try to revisit this before the end of this week. Alerting Dr. Doran in the mean time. /bennett/ Kayce Robert RN, BSN REGISTERED NURSE Signed: 05/13/2023 10:53 Receipt Acknowledged By: 05/13/2023 11:51 /bennett/ ROBIN DORAN MD Endocrinology Physician 05/14/2023 ADDENDUM STATUS: UNSIGNED You may not VIEW this UNSIGNED Addendum. ROBIN DROAN [facility] May 13, 2023 10:48 AM ADDENDUM: LOCAL TITLE: Addendum STANDARD TITLE: ADDENDUM DATE OF NOTE: MAY 13, 2023@10:48:40 ENTRY DATE: MAY 13, 2023@10:48:41 AUTHOR: KAYCE ROBERT EXP COSIGNER: URGENCY: STATUS: COMPLETED Mr. Tilley requires prior authorization be requested via [employer]) before an order for Ozempic will be covered by them. That process requires an MD, I am unable to complete it. Another option might be to offer Mr. Tilley a PO weight loss medication, gauge his response, and then [facility] after a trial of PO. I will try to revisit this before the end of this week. Alerting Dr. Doran in the mean time. /es/ Kayce Robert, RN, BSN REGISTERED NURSE Signed: 05/13/2023 10:53 Receipt Acknowledged By: 05/13/2023 11:51 /es/ ROBIN DORAN MD Endocrinology Physician --- Original Document --- 04/26/23 ENDOCRINOLOGY OUTPATIENT CONSULT STL: HPI: BRODY TILLEY is a 47 yo WHITE MALE with PMH T2DM, Htn presenting for initial consult for hypertriglyceridemia. 1.) Hypertriglyceridemia: No prior pancreatitis He thinks parents had hyperlipidemia, but not confirmed Diet: AM-eggs in the AM, 2 pancakes, 2 sausage links, carlin, hashbrowns at [facility], 4 slices of pizza Alcohol: 3-4 per week Currently on niacin 100 mg qhs He thinks labs from 03/02 was fasting Report Released Date/Time: Mar 08, 2023@09:54 TRIGLYCERIDE 1053 H mg/dL 0 - 150 [657] Report Released Date/Time: Aug 17, 2022@12:53 TRIGLYCERIDE 228 H mg/dL 0 - 150 [657] Report Released Date/Time: Aug 28, 2018@07:56 TRIGLYCERIDE 437 H mg/dl Ref: <=150 [657] 2.)T2DM: Duration:20 yrs A1c: 7.3 Regimen: metformin 1 g BID, alogliptin, glimepiride 4 mg BID, jardiance 25 mg No prior DKA/HHNS Bg: he does not check bg at home Diet: see above Exercise/Weight: Alcohol/smokin drinks/week, cigs/day Denies prior pancreatitis, personal or FH of MTC/MEN syndrome Complications: Optho: no known retinopathy, teleretinal screen 08/31 Macrovascular: no SD/CVA, no chest pain Neuropathy:no and no prior amputations Nephropathy: none, UACR 32 on lisinopril 40 mg HLD:LDL 69 on lipitor 80 mg Family history: Father-HF, Both-diabetes SOCIAL HISTORY: Marital status: Tobacco: yes 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-pt ROS neg except HPI Active Outpatient Medications (including Supplies): Active Outpatient Medications Status 1) ACCU-CHEK GUIDE (GLUCOSE) TEST STRIP USE 1 STRIP FOR ACTIVE BLOOD TEST WEEKLY FOR BLOOD SUGAR MONITORING AND NEEDED FOR LOW BLOOD SUGAR *HYPOGLYCEMIA, 100 STRIPS PER YEAR* Oct 365 DAY SUPPLY 2) ALCOHOL PREP PAD USE/APPLY PAD TO AFFECTED AREA(S) ACTIVE NEEDED DIRECTED FOR SKIN CLEANSING 3) ALOGLIPTIN 25MG TAB TAKE ONE TABLET BY MOUTH ONCE A ACTIVE (S) DAY FOR DIABETES 4) ASPIRIN 81MG EC TAB TAKE ONE TABLET BY MOUTH ONCE A ACTIVE DAY WITH FOOD FOR PREVENTION OF HEART DISEASE 5) ATORVASTATIN CALCIUM 80MG TAB TAKE ONE-HALF TABLET BY ACTIVE MOUTH EVERY EVENING FOR HIGH CHOLESTEROL 6) CHOLECALCIF 50MCG (D3-2,000UNIT) TAB TAKE ONE TABLET ACTIVE (S) BY MOUTH ONCE A DAY 7) EMPAGLIFLOZIN 25MG TAB TAKE ONE TABLET BY MOUTH ONCE ACTIVE A DAY FOR DIABETES 8) GLIMEPIRIDE 4MG TAB TAKE TWO TABLETS BY MOUTH EVERY ACTIVE MORNING FOR DIABETES TAKE WITH BREAKFAST OR FIRST FOOD. 9) LANCET,SOFTCLIX USE LANCET FOR BLOOD TEST DIRECTED ACTIVE FOR BLOOD SUGAR MONITORING *MUST USE NEW NEEDLE EACH TIME* 10) LISINOPRIL 40MG TAB TAKE ONE TABLET BY MOUTH ONCE A ACTIVE DAY FOR HIGH BLOOD PRESSURE 11) LORATADINE 10MG TAB TAKE ONE TABLET BY MOUTH ONCE A ACTIVE DAY FOR ALLERGIC RHINITIS ON EMPTY STOMACH 12) METFORMIN HCL 1000MG TAB TAKE ONE TABLET BY MOUTH ACTIVE (S) TWICE A DAY WITH MEALS FOR DIABETES TAKE WITH FOOD. AVOID ALCOHOL. DISCONTINUE BEFORE GETTING XRAY DYE. 13) NIACIN (EQV-NIASPAN) 1000MG SA TAB TAKE ONE TABLET BY ACTIVE MOUTH AT BEDTIME FOR HIGH CHOLESTEROL AFTER A LOW FAT SNACK Active Non-VA Medications Status 1) Non-VA METFORMIN HCL 1000MG TAB 1000MG BY MOUTH ACTIVE DAILY. 14 Total Medications Allergies: Patient has answered NKA PAST HISTORY: 1) Diabetes mellitus 2) Hypertension 3) Shoulder pain 4) Abnormal liver function 5) Medical examinations/reports status 6) Cervical radiculopathy 7) Vitamin D deficiency 8) Tobacco use 9) Erectile dysfunction PHYSICAL EXAM: Vital Signs- Temperature: 97.4 F [36.3 C] (04/26/2023 15:18) HR: 105 (04/26/2023 15:18) BP: Measurement DT BP 04/26/2023 15:18 146/79 04/26/2023 15:18 146/68 12/05/2022 10:50 149/75 Weight: 256.2 lb [116.21 kg] (04/26/2023 15:18) Patient Weight History - Last Four 1. 256.2 lbs. / 116.2 kg. on APR 26, 2023@15:18:24 2. 250.0 lbs. / 113.4 kg. on OCT 26, 2022@10:00:29 3. 250.0 lbs. / 113.4 kg. on AUG 17, 2022@08:56:06 4. 246.4 lbs. / 111.8 kg. 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 LABS: SODIUM 139 mEq/L 03/08/2023 08:56 POTASSIUM 4.2 mEq/L 03/08/2023 08:56 CHLORIDE 106 mEq/L 03/08/2023 08:56 UREA NITROGEN 14.4 mg/dL 03/08/2023 08:56 CREATININE 0.83 mg/dL 03/08/2023 08:56 CALCIUM 9.1 mg/dL 03/08/2023 08:56 CARBON DIOXIDE 21 L mEq/L 03/08/2023 08:56 GLUCOSE 143 H mg/dL 03/08/2023 08:56 EGFR (CKD-EPI 2020) 107.3 03/08/2023 08:56 Microalb/creat: CREATuF: 78.3 (03/22/23 07:17) M/CREAT: 32 (03/22/23 07:17) MICRAL: 25.3 (03/22/23 07:17) No MICRAL/CREAT RATIO (STL) data found HGA1C 7.3 H % 03/08/2023 08:56 HGA1C 7.0 H % 08/17/2022 10:34 HGA1C 7.0 H % 08/28/2018 07:03 Lipid Panel: TRIGLYCERIDE 1053 H mg/dL 03/08/2023 08:56 CHOLESTEROL 273 H mg/dL 03/08/2023 08:56 HDL(New) 33 L mg/dL 03/08/2023 08:56 DIRECT LDL 69 L mg/dL 03/08/2023 08:56 CALCULATED LDL comment mg/dL 03/08/2023 08:56 TSH 0.592 uIU/mL 08/17/2022 10:34 A/P: BRODY TILLEY is a 47 yo WHITE MALE with PMH T2DM, Htn presenting for initial consult for hypertriglyceridemia. 1.) Type 2 diabetes: above goal A1c 7.3 recently on 4 agents. Will stop alogliptin and start Ozempic titrated to 1 mg. -continue metformin 1 g BID, glimepiride 4 mg BID, jardiance 25 mg -my try to wean off sulfonylurea in the future Optho: no known retinopathy, teleretinal screen 08/31 Macrovascular: no SD/CVA, no chest pain Neuropathy:no and no prior amputations Nephropathy: none, UACR 32 on lisinopril 40 mg, repeat UACR and may need additional agent if elevated HLD:LDL 69 on lipitor 80 mg 2.) Hypertriglyceridemia: likely genetic with dietary contribution. Reviewed foods to reduce and avoid alcohol. No medicaitons. Will stop niacin and start fenofibrate. No prior pancreatitis. -stop niacin, continue lipitor 80 mg, start fenofibrate 160 mg -dietary guidelines provided -check TSH, FT4 /bennett/ ROBIN DORAN MD Endocrinology Physician Signed: 04/26/2023 16:18 04/26/2023 ADDENDUM STATUS: COMPLETED IN Please schedule him for follow up wtih me in 3 mos Thanks /kristen DORAN MD Endocrinology Physician Signed: 04/26/2023 16:18 Receipt Acknowledged By: * AWAITING SIGNATURE * MIA FRANCIS 05/03/2023 ADDENDUM STATUS: COMPLETED I called patient: his Tg was 1998 and discussed risk of pancreatitis. we have sent a form of foods to avoid and particularly alcohol. He will start fenofibrate, and I have put in request for vascepa. HE should start on niacin, but this is less effective than the others. He can't get eye appt until June. [facility] is [facility]. /kristen DORAN MD Endocrinology Physician Signed: 05/03/2023 16:19 05/04/2023 ADDENDUM STATUS: COMPLETED Al I placed an outside Rx order in your box. Would you be able to mail to patient? Thanks! Jenifer /kristen DORAN MD Endocrinology Physician Signed: 05/04/2023 05:49 Receipt Acknowledged By: 05/06/2023 10:49 /bennett/ Kayce Robert, RN, BSN REGISTERED NURSE ROSANNA,KAYCE Langford [facility] May 04, 2023 05:48 AM ADDENDUM: LOCAL TITLE: Addendum STANDARD TITLE: ADDENDUM DATE OF NOTE: MAY 04, 2023@05:48:39 ENTRY DATE: MAY 04, 2023@05:48:39 AUTHOR: ROBIN DORAN EXP COSIGNER: URGENCY: STATUS: COMPLETED Al I placed an outside Rx order in your box. Would you be able to mail to patient? Thanks! Jenifer cabrera/ ROBIN DORAN MD Endocrinology Physician Signed: 05/04/2023 05:49 Receipt Acknowledged By: 05/06/2023 10:49 /bennett/ Kayce Robert, RN, BSN REGISTERED NURSE --- Original Document --- 04/26/23 ENDOCRINOLOGY OUTPATIENT CONSULT STL: HPI: BRODY TILLEY is a 47 yo WHITE MALE with PMH T2DM, Htn presenting for initial consult for hypertriglyceridemia. 1.) Hypertriglyceridemia: No prior pancreatitis He thinks parents had hyperlipidemia, but not confirmed Diet: AM-eggs in the AM, 2 pancakes, 2 sausage links, carlin, hashbrowns at [employer], [facility], 4 slices of pizza Alcohol: 3-4 per week Currently on niacin 100 mg qhs He thinks labs from 03/02 was fasting Report Released Date/Time: Mar 08, 2023@09:54 TRIGLYCERIDE 1053 H mg/dL 0 - 150 [657] Report Released Date/Time: Aug 17, 2022@12:53 TRIGLYCERIDE 228 H mg/dL 0 - 150 [657] Report Released Date/Time: Aug 28, 2018@07:56 TRIGLYCERIDE 437 H mg/dl Ref: <=150 [657] 2.)T2DM: Duration:20 yrs A1c: 7.3 Regimen: metformin 1 g BID, alogliptin, glimepiride 4 mg BID, jardiance 25 mg No prior DKA/HHNS Bg: he does not check bg at home Diet: see above Exercise/Weight: Alcohol/smokin drinks/week, cigs/day Denies prior pancreatitis, personal or FH of MTC/MEN syndrome Complications: Optho: no known retinopathy, teleretinal screen 08/31 Macrovascular: no SD/CVA, no chest pain Neuropathy:no and no prior amputations Nephropathy: none, UACR 32 on lisinopril 40 mg HLD:LDL 69 on lipitor 80 mg Family history: Father-HF, Both-diabetes SOCIAL HISTORY: Marital status: Tobacco: yes 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-pt ROS neg except HPI Active Outpatient Medications (including Supplies): Active Outpatient Medications Status 1) ACCU-CHEK GUIDE (GLUCOSE) TEST STRIP USE 1 STRIP FOR ACTIVE BLOOD TEST WEEKLY FOR BLOOD SUGAR MONITORING AND NEEDED FOR LOW BLOOD SUGAR *HYPOGLYCEMIA, 100 STRIPS PER YEAR* Oct 365 DAY SUPPLY 2) ALCOHOL PREP PAD USE/APPLY PAD TO AFFECTED AREA(S) ACTIVE NEEDED DIRECTED FOR SKIN CLEANSING 3) ALOGLIPTIN 25MG TAB TAKE ONE TABLET BY MOUTH ONCE A ACTIVE (S) DAY FOR DIABETES 4) ASPIRIN 81MG EC TAB TAKE ONE TABLET BY MOUTH ONCE A ACTIVE DAY WITH FOOD FOR PREVENTION OF HEART DISEASE 5) ATORVASTATIN CALCIUM 80MG TAB TAKE ONE-HALF TABLET BY ACTIVE MOUTH EVERY EVENING FOR HIGH CHOLESTEROL 6) CHOLECALCIF 50MCG (D3-2,000UNIT) TAB TAKE ONE TABLET ACTIVE (S) BY MOUTH ONCE A DAY 7) EMPAGLIFLOZIN 25MG TAB TAKE ONE TABLET BY MOUTH ONCE ACTIVE A DAY FOR DIABETES 8) GLIMEPIRIDE 4MG TAB TAKE TWO TABLETS BY MOUTH EVERY ACTIVE MORNING FOR DIABETES TAKE WITH BREAKFAST OR FIRST FOOD. 9) LANCET,SOFTCLIX USE LANCET FOR BLOOD TEST DIRECTED ACTIVE FOR BLOOD SUGAR MONITORING *MUST USE NEW NEEDLE EACH TIME* 10) LISINOPRIL 40MG TAB TAKE ONE TABLET BY MOUTH ONCE A ACTIVE DAY FOR HIGH BLOOD PRESSURE 11) LORATADINE 10MG TAB TAKE ONE TABLET BY MOUTH ONCE A ACTIVE DAY FOR ALLERGIC RHINITIS ON EMPTY STOMACH 12) METFORMIN HCL 1000MG TAB TAKE ONE TABLET BY MOUTH ACTIVE (S) TWICE A DAY WITH MEALS FOR DIABETES TAKE WITH FOOD. AVOID ALCOHOL. DISCONTINUE BEFORE GETTING XRAY DYE. 13) NIACIN (EQV-NIASPAN) 1000MG SA TAB TAKE ONE TABLET BY ACTIVE MOUTH AT BEDTIME FOR HIGH CHOLESTEROL AFTER A LOW FAT SNACK Active Non-VA Medications Status 1) Non-VA METFORMIN HCL 1000MG TAB 1000MG BY MOUTH ACTIVE DAILY. 14 Total Medications Allergies: Patient has answered NKA PAST HISTORY: 1) Diabetes mellitus 2) Hypertension 3) Shoulder pain 4) Abnormal liver function 5) Medical examinations/reports status 6) Cervical radiculopathy 7) Vitamin D deficiency 8) Tobacco use 9) Erectile dysfunction PHYSICAL EXAM: Vital Signs- Temperature: 97.4 F [36.3 C] (04/26/2023 15:18) HR: 105 (04/26/2023 15:18) BP: Measurement DT BP 04/26/2023 15:18 146/79 04/26/2023 15:18 146/68 12/05/2022 10:50 149/75 Weight: 256.2 lb [116.21 kg] (04/26/2023 15:18) Patient Weight History - Last Four 1. 256.2 lbs. / 116.2 kg. on APR 26, 2023@15:18:24 2. 250.0 lbs. / 113.4 kg. on OCT 26, 2022@10:00:29 3. 250.0 lbs. / 113.4 kg. on AUG 17, 2022@08:56:06 4. 246.4 lbs. / 111.8 kg. 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 LABS: SODIUM 139 mEq/L 03/08/2023 08:56 POTASSIUM 4.2 mEq/L 03/08/2023 08:56 CHLORIDE 106 mEq/L 03/08/2023 08:56 UREA NITROGEN 14.4 mg/dL 03/08/2023 08:56 CREATININE 0.83 mg/dL 03/08/2023 08:56 CALCIUM 9.1 mg/dL 03/08/2023 08:56 CARBON DIOXIDE 21 L mEq/L 03/08/2023 08:56 GLUCOSE 143 H mg/dL 03/08/2023 08:56 EGFR (CKD-EPI 2020) 107.3 03/08/2023 08:56 Microalb/creat: CREATuF: 78.3 (03/22/23 07:17) M/CREAT: 32 (03/22/23 07:17) MICRAL: 25.3 (03/22/23 07:17) No MICRAL/CREAT RATIO (STL) data found HGA1C 7.3 H % 03/08/2023 08:56 HGA1C 7.0 H % 08/17/2022 10:34 HGA1C 7.0 H % 08/28/2018 07:03 Lipid Panel: TRIGLYCERIDE 1053 H mg/dL 03/08/2023 08:56 CHOLESTEROL 273 H mg/dL 03/08/2023 08:56 HDL(New) 33 L mg/dL 03/08/2023 08:56 DIRECT LDL 69 L mg/dL 03/08/2023 08:56 CALCULATED LDL comment mg/dL 03/08/2023 08:56 TSH 0.592 uIU/mL 08/17/2022 10:34 A/P: BRODY TILLEY is a 47 yo WHITE MALE with PMH T2DM, Htn presenting for initial consult for hypertriglyceridemia. 1.) Type 2 diabetes: above goal A1c 7.3 recently on 4 agents. Will stop alogliptin and start Ozempic titrated to 1 mg. -continue metformin 1 g BID, glimepiride 4 mg BID, jardiance 25 mg -my try to wean off sulfonylurea in the future Optho: no known retinopathy, teleretinal screen 08/31 Macrovascular: no SD/CVA, no chest pain Neuropathy:no and no prior amputations Nephropathy: none, UACR 32 on lisinopril 40 mg, repeat UACR and may need additional agent if elevated HLD:LDL 69 on lipitor 80 mg 2.) Hypertriglyceridemia: likely genetic with dietary contribution. Reviewed foods to reduce and avoid alcohol. No medicaitons. Will stop niacin and start fenofibrate. No prior pancreatitis. -stop niacin, continue lipitor 80 mg, start fenofibrate 160 mg -dietary guidelines provided -check TSH, FT4 /kristen DORAN MD Endocrinology Physician Signed: 04/26/2023 16:18 04/26/2023 ADDENDUM STATUS: COMPLETED HI Please schedule him for follow up wtih me in 3 mos Thanks /kristen DORAN MD Endocrinology Physician Signed: 04/26/2023 16:18 Receipt Acknowledged By: * AWAITING SIGNATURE * MIA FRANCIS 05/03/2023 ADDENDUM STATUS: COMPLETED I called patient: his Tg was 1998 and discussed risk of pancreatitis. we have sent a form of foods to avoid and particularly alcohol. He will start fenofibrate, and I have put in request for vascepa. HE should start on niacin, but this is less effective than the others. He can't get eye appt until June. [facility] is completed. /kristen DORAN MD Endocrinology Physician Signed: 05/03/2023 16:19 ROBIN DORAN [facility] May 03, 2023 04:19 PM PHARMACY OUTPATIEN T NOTE: LOCAL TITLE: OUTSIDE PRESCRIPTIONS ST STANDARD TITLE: PHARMACY OUTPATIENT NOTE DATE OF NOTE: MAY 03, 2023@16:19 ENTRY DATE: MAY 03, 2023@16:19:35 AUTHOR: ROBIN DORAN EXP COSIGNER: URGENCY: STATUS: COMPLETED [facility] Division of the [address] [address] ext [phone] LYNDA #: Date: MAY 03, 2023 Patient: BRODY TILLEY Address: [address] [place] [address] ID: [id number] [place] Date of : Jun BIN: [id number] Person Code: 01 PCN: [id number] RX Group: [id number] For questions, please call the [facility] Pocket[facility] Pharm[facility] Help Desk at . *Hours of Operation: 24 Hours a Day / 7 Days a Week / 365 Days a Year Medication: ozempic 0.5 mg Qty: 2 Sig: Month 1: 0.25 mg under skn weekly, Month 2: 0.5 mg weekly Refills: 1 Medication: ozempic 1 mg weekly Qty: 2 Sig: Month 3: 1 mg under skin weekly and continue Refills: 1 ___ Substitution Permitted Dispense As Written /bennett/ ROBIN DORAN MD Endocrinology Physician Signed: 05/03/2023 16:20 ROBIN DORAN [facility] Apr 26, 2023 04:18 PM ADDENDUM: LOCAL TITLE: Addendum STANDARD TITLE: ADDENDUM DATE OF NOTE: APR 26, 2023@16:18:18 ENTRY DATE: APR 26, 2023@16:18:19 AUTHOR: ROBIN DORAN EXP COSIGNER: URGENCY: STATUS: COMPLETED HI Please schedule him for follow up wtih me in 3 mos Thanks /bennett/ ROBIN DORAN MD Endocrinology Physician Signed: 04/26/2023 16:18 Receipt Acknowledged By: 05/18/2023 14:00 /bennett/ MIA FRANCIS ADVANCED DRILLING ASSISTANT --- Original Document --- 04/26/23 ENDOCRINOLOGY OUTPATIENT CONSULT STL: HPI: TILLEYBRODY DELGADILLO is a 47 yo WHITE MALE with PMH T2DM, Htn presenting for initial consult for hypertriglyceridemia. 1.) Hypertriglyceridemia: No prior pancreatitis He thinks parents had hyperlipidemia, but not confirmed Diet: AM-eggs in the AM, 2 pancakes, 2 sausage links, carlin, hashbrowns at [facility], 4 slices of pizza Alcohol: 3-4 per week Currently on niacin 100 mg qhs He thinks labs from 03/02 was fasting Report Released Date/Time: Mar 08, 2023@09:54 TRIGLYCERIDE 1053 H mg/dL 0 - 150 [657] Report Released Date/Time: Aug 17, 2022@12:53 TRIGLYCERIDE 228 H mg/dL 0 - 150 [657] Report Released Date/Time: Aug 28, 2018@07:56 TRIGLYCERIDE 437 H mg/dl Ref: <=150 [657] 2.)T2DM: Duration:20 yrs A1c: 7.3 Regimen: metformin 1 g BID, alogliptin, glimepiride 4 mg BID, jardiance 25 mg No prior DKA/HHNS Bg: he does not check bg at home Diet: see above Exercise/Weight: Alcohol/smokin drinks/week, cigs/day Denies prior pancreatitis, personal or FH of MTC/MEN syndrome Complications: Optho: no known retinopathy, teleretinal screen 08/31 Macrovascular: no SD/CVA, no chest pain Neuropathy:no and no prior amputations Nephropathy: none, UACR 32 on lisinopril 40 mg HLD:LDL 69 on lipitor 80 mg Family history: Father-HF, Both-diabetes SOCIAL HISTORY: Marital status: Tobacco: yes 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-pt ROS neg except HPI Active Outpatient Medications (including Supplies): Active Outpatient Medications Status 1) ACCU-CHEK GUIDE (GLUCOSE) TEST STRIP USE 1 STRIP FOR ACTIVE BLOOD TEST WEEKLY FOR BLOOD SUGAR MONITORING AND NEEDED FOR LOW BLOOD SUGAR *HYPOGLYCEMIA, 100 STRIPS PER YEAR* Oct 365 DAY SUPPLY 2) ALCOHOL PREP PAD USE/APPLY PAD TO AFFECTED AREA(S) ACTIVE NEEDED DIRECTED FOR SKIN CLEANSING 3) ALOGLIPTIN 25MG TAB TAKE ONE TABLET BY MOUTH ONCE A ACTIVE (S) DAY FOR DIABETES 4) ASPIRIN 81MG EC TAB TAKE ONE TABLET BY MOUTH ONCE A ACTIVE DAY WITH FOOD FOR PREVENTION OF HEART DISEASE 5) ATORVASTATIN CALCIUM 80MG TAB TAKE ONE-HALF TABLET BY ACTIVE MOUTH EVERY EVENING FOR HIGH CHOLESTEROL 6) CHOLECALCIF 50MCG (D3-2,000UNIT) TAB TAKE ONE TABLET ACTIVE (S) BY MOUTH ONCE A DAY 7) EMPAGLIFLOZIN 25MG TAB TAKE ONE TABLET BY MOUTH ONCE ACTIVE A DAY FOR DIABETES 8) GLIMEPIRIDE 4MG TAB TAKE TWO TABLETS BY MOUTH EVERY ACTIVE MORNING FOR DIABETES TAKE WITH BREAKFAST OR FIRST FOOD. 9) LANCET,SOFTCLIX USE LANCET FOR BLOOD TEST DIRECTED ACTIVE FOR BLOOD SUGAR MONITORING *MUST USE NEW NEEDLE EACH TIME* 10) LISINOPRIL 40MG TAB TAKE ONE TABLET BY MOUTH ONCE A ACTIVE DAY FOR HIGH BLOOD PRESSURE 11) LORATADINE 10MG TAB TAKE ONE TABLET BY MOUTH ONCE A ACTIVE DAY FOR ALLERGIC RHINITIS ON EMPTY STOMACH 12) METFORMIN HCL 1000MG TAB TAKE ONE TABLET BY MOUTH ACTIVE (S) TWICE A DAY WITH MEALS FOR DIABETES TAKE WITH FOOD. AVOID ALCOHOL. DISCONTINUE BEFORE GETTING XRAY DYE. 13) NIACIN (EQV-NIASPAN) 1000MG SA TAB TAKE ONE TABLET BY ACTIVE MOUTH AT BEDTIME FOR HIGH CHOLESTEROL AFTER A LOW FAT SNACK Active Non-VA Medications Status 1) Non-VA METFORMIN HCL 1000MG TAB 1000MG BY MOUTH ACTIVE DAILY. 14 Total Medications Allergies: Patient has answered NKA PAST HISTORY: 1) Diabetes mellitus 2) Hypertension 3) Shoulder pain 4) Abnormal liver function 5) Medical examinations/reports status 6) Cervical radiculopathy 7) Vitamin D deficiency 8) Tobacco use 9) Erectile dysfunction PHYSICAL EXAM: Vital Signs- Temperature: 97.4 F [36.3 C] (04/26/2023 15:18) HR: 105 (04/26/2023 15:18) BP: Measurement DT BP 04/26/2023 15:18 146/79 04/26/2023 15:18 146/68 12/05/2022 10:50 149/75 Weight: 256.2 lb [116.21 kg] (04/26/2023 15:18) Patient Weight History - Last Four 1. 256.2 lbs. / 116.2 kg. on APR 26, 2023@15:18:24 2. 250.0 lbs. / 113.4 kg. on OCT 26, 2022@10:00:29 3. 250.0 lbs. / 113.4 kg. on AUG 17, 2022@08:56:06 4. 246.4 lbs. / 111.8 kg. 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 LABS: SODIUM 139 mEq/L 03/08/2023 08:56 POTASSIUM 4.2 mEq/L 03/08/2023 08:56 CHLORIDE 106 mEq/L 03/08/2023 08:56 UREA NITROGEN 14.4 mg/dL 03/08/2023 08:56 CREATININE 0.83 mg/dL 03/08/2023 08:56 CALCIUM 9.1 mg/dL 03/08/2023 08:56 CARBON DIOXIDE 21 L mEq/L 03/08/2023 08:56 GLUCOSE 143 H mg/dL 03/08/2023 08:56 EGFR (CKD-EPI 2020) 107.3 03/08/2023 08:56 Microalb/creat: CREATuF: 78.3 (03/22/23 07:17) M/CREAT: 32 (03/22/23 07:17) MICRAL: 25.3 (03/22/23 07:17) No MICRAL/CREAT RATIO (STL) data found HGA1C 7.3 H % 03/08/2023 08:56 HGA1C 7.0 H % 08/17/2022 10:34 HGA1C 7.0 H % 08/28/2018 07:03 Lipid Panel: TRIGLYCERIDE 1053 H mg/dL 03/08/2023 08:56 CHOLESTEROL 273 H mg/dL 03/08/2023 08:56 HDL(New) 33 L mg/dL 03/08/2023 08:56 DIRECT LDL 69 L mg/dL 03/08/2023 08:56 CALCULATED LDL comment mg/dL 03/08/2023 08:56 TSH 0.592 uIU/mL 08/17/2022 10:34 A/P: BRODY TILLEY is a 47 yo WHITE MALE with PMH T2DM, Htn presenting for initial consult for hypertriglyceridemia. 1.) Type 2 diabetes: above goal A1c 7.3 recently on 4 agents. Will stop alogliptin and start Ozempic titrated to 1 mg. -continue metformin 1 g BID, glimepiride 4 mg BID, jardiance 25 mg -my try to wean off sulfonylurea in the future Optho: no known retinopathy, teleretinal screen 08/31 Macrovascular: no SD/CVA, no chest pain Neuropathy:no and no prior amputations Nephropathy: none, UACR 32 on lisinopril 40 mg, repeat UACR and may need additional agent if elevated HLD:LDL 69 on lipitor 80 mg 2.) Hypertriglyceridemia: likely genetic with dietary contribution. Reviewed foods to reduce and avoid alcohol. No medicaitons. Will stop niacin and start fenofibrate. No prior pancreatitis. -stop niacin, continue lipitor 80 mg, start fenofibrate 160 mg -dietary guidelines provided -check TSH, FT4 /bennett/ ROBIN DORAN MD Endocrinology Physician Signed: 04/26/2023 16:18 05/03/2023 ADDENDUM STATUS: COMPLETED I called patient: his Tg was 1998 and discussed risk of pancreatitis. we have sent a form of foods to avoid and particularly alcohol. He will start fenofibrate, and I have put in request for vascepa. HE should start on niacin, but this is less effective than the others. He can't get eye appt until June. Will send for [facility]empic outside [facility] until this is completed. /bennett/ ROBIN DORAN MD Endocrinology Physician Signed: 05/03/2023 16:19 05/04/2023 ADDENDUM STATUS: COMPLETED Hi I placed an outside Rx order in your box. Would you be able to mail to patient? Thanks! Jenifer /bennett/ ROBIN DORAN MD Endocrinology Physician Signed: 05/04/2023 05:49 Receipt Acknowledged By: 05/06/2023 10:49 /bennett/ Kayce Robert RN, BSN REGISTERED NURSE 05/13/2023 ADDENDUM STATUS: COMPLETED Mr. Tilley requires prior authorization be requested via [employer]) before an order for Ozempic will be covered by them. That process requires an MD, I am unable to complete it. Another option might be to offer Mr. Tilley a PO weight loss medication, gauge his response, and [facility] after a trial of PO. I will try to revisit this before the end of this week. Alerting Dr. Doran in the mean time. /kristen Robert RN, BSN REGISTERED NURSE Signed: 05/13/2023 10:53 Receipt Acknowledged By: 05/13/2023 11:51 /bennett/ ROBIN DORAN MD Endocrinology Physician 05/13/2023 ADDENDUM STATUS: COMPLETED Hi Please let him know we will not be able to complete the [facility] outside [facility]. He needs to get his eye appointment updated [facility] so we can get ozempic here for his diabetes. /kristen DORAN MD Endocrinology Physician Signed: 05/13/2023 11:56 Receipt Acknowledged By: 05/14/2023 14:17 /bennett/ Kayce Robert RN, BSN REGISTERED NURSE 05/14/2023 ADDENDUM STATUS: COMPLETED Mr. Tilley sees [facility] on 07/07. He may try to move that appointment up. Otherwise will await those results and anticipate efforts to have Ozempic provided through [facility] afterward. /kristen Robert RN, BSN REGISTERED NURSE Signed: 05/14/2023 14:18 ROBIN DORAN [facility] Apr 26, 2023 03:20 PM ENDOCRINOLOGY CONS ULT: LOCAL TITLE: ENDOCRINOLOGY OUTPATIENT CONSULT STL STANDARD TITLE: ENDOCRINOLOGY CONSULT DATE OF NOTE: APR 26, 2023@15:20 ENTRY DATE: APR 26, 2023@15:20:53 AUTHOR: ROBIN DORAN EXP COSIGNER: URGENCY: STATUS: COMPLETED ENDOCRINOLOGY OUTPATIENT CONSULT STL Has ADDENDA HPI: BRODY TILLEY is a 47 yo WHITE MALE with PMH T2DM, Htn presenting for initial consult for hypertriglyceridemia. 1.) Hypertriglyceridemia: No prior pancreatitis He thinks parents had hyperlipidemia, but not confirmed Diet: AM-eggs in the AM, 2 pancakes, 2 sausage links, carlin, hashbrowns at [place], subway, 4 slices of pizza Alcohol: 3-4 per week Currently on niacin 100 mg qhs He thinks labs from 03/02 was fasting Report Released Date/Time: Mar 08, 2023@09:54 TRIGLYCERIDE 1053 H mg/dL 0 - 150 [657] Report Released Date/Time: Aug 17, 2022@12:53 TRIGLYCERIDE 228 H mg/dL 0 - 150 [657] Report Released Date/Time: Aug 28, 2018@07:56 TRIGLYCERIDE 437 H mg/dl Ref: <=150 [657] 2.)T2DM: Duration:20 yrs A1c: 7.3 Regimen: metformin 1 g BID, alogliptin, glimepiride 4 mg BID, jardiance 25 mg No prior DKA/HHNS Bg: he does not check bg at home Diet: see above Exercise/Weight: Alcohol/smokin drinks/week, cigs/day Denies prior pancreatitis, personal or FH of MTC/MEN syndrome Complications: Optho: no known retinopathy, teleretinal screen 08/31 Macrovascular: no SD/CVA, no chest pain Neuropathy:no and no prior amputations Nephropathy: none, UACR 32 on lisinopril 40 mg HLD:LDL 69 on lipitor 80 mg Family history: Father-HF, Both-diabetes SOCIAL HISTORY: Marital status: Tobacco: yes 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-pt ROS neg except HPI Active Outpatient Medications (including Supplies): Active Outpatient Medications Status 1) ACCU-CHEK GUIDE (GLUCOSE) TEST STRIP USE 1 STRIP FOR ACTIVE BLOOD TEST WEEKLY FOR BLOOD SUGAR MONITORING AND NEEDED FOR LOW BLOOD SUGAR *HYPOGLYCEMIA, 100 STRIPS PER YEAR* Oct 365 DAY SUPPLY 2) ALCOHOL PREP PAD USE/APPLY PAD TO AFFECTED AREA(S) ACTIVE NEEDED DIRECTED FOR SKIN CLEANSING 3) ALOGLIPTIN 25MG TAB TAKE ONE TABLET BY MOUTH ONCE A ACTIVE (S) DAY FOR DIABETES 4) ASPIRIN 81MG EC TAB TAKE ONE TABLET BY MOUTH ONCE A ACTIVE DAY WITH FOOD FOR PREVENTION OF HEART DISEASE 5) ATORVASTATIN CALCIUM 80MG TAB TAKE ONE-HALF TABLET BY ACTIVE MOUTH EVERY EVENING FOR HIGH CHOLESTEROL 6) CHOLECALCIF 50MCG (D3-2,000UNIT) TAB TAKE ONE TABLET ACTIVE (S) BY MOUTH ONCE A DAY 7) EMPAGLIFLOZIN 25MG TAB TAKE ONE TABLET BY MOUTH ONCE ACTIVE A DAY FOR DIABETES 8) GLIMEPIRIDE 4MG TAB TAKE TWO TABLETS BY MOUTH EVERY ACTIVE MORNING FOR DIABETES TAKE WITH BREAKFAST OR FIRST FOOD. 9) LANCET,SOFTCLIX USE LANCET FOR BLOOD TEST DIRECTED ACTIVE FOR BLOOD SUGAR MONITORING *MUST USE NEW NEEDLE EACH TIME* 10) LISINOPRIL 40MG TAB TAKE ONE TABLET BY MOUTH ONCE A ACTIVE DAY FOR HIGH BLOOD PRESSURE 11) LORATADINE 10MG TAB TAKE ONE TABLET BY MOUTH ONCE A ACTIVE DAY FOR ALLERGIC RHINITIS ON EMPTY STOMACH 12) METFORMIN HCL 1000MG TAB TAKE ONE TABLET BY MOUTH ACTIVE (S) TWICE A DAY WITH MEALS FOR DIABETES TAKE WITH FOOD. AVOID ALCOHOL. DISCONTINUE BEFORE GETTING XRAY DYE. 13) NIACIN (EQV-NIASPAN) 1000MG SA TAB TAKE ONE TABLET BY ACTIVE MOUTH AT BEDTIME FOR HIGH CHOLESTEROL AFTER A LOW FAT SNACK Active Non-VA Medications Status 1) Non-VA METFORMIN HCL 1000MG TAB 1000MG BY MOUTH ACTIVE DAILY. 14 Total Medications Allergies: Patient has answered NKA PAST HISTORY: 1) Diabetes mellitus 2) Hypertension 3) Shoulder pain 4) Abnormal liver function 5) Medical examinations/reports status 6) Cervical radiculopathy 7) Vitamin D deficiency 8) Tobacco use 9) Erectile dysfunction PHYSICAL EXAM: Vital Signs- Temperature: 97.4 F [36.3 C] (04/26/2023 15:18) HR: 105 (04/26/2023 15:18) BP: Measurement DT BP 04/26/2023 15:18 146/79 04/26/2023 15:18 146/68 12/05/2022 10:50 149/75 Weight: 256.2 lb [116.21 kg] (04/26/2023 15:18) Patient Weight History - Last Four 1. 256.2 lbs. / 116.2 kg. on APR 26, 2023@15:18:24 2. 250.0 lbs. / 113.4 kg. on OCT 26, 2022@10:00:29 3. 250.0 lbs. / 113.4 kg. on AUG 17, 2022@08:56:06 4. 246.4 lbs. / 111.8 kg. 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 LABS: SODIUM 139 mEq/L 03/08/2023 08:56 POTASSIUM 4.2 mEq/L 03/08/2023 08:56 CHLORIDE 106 mEq/L 03/08/2023 08:56 UREA NITROGEN 14.4 mg/dL 03/08/2023 08:56 CREATININE 0.83 mg/dL 03/08/2023 08:56 CALCIUM 9.1 mg/dL 03/08/2023 08:56 CARBON DIOXIDE 21 L mEq/L 03/08/2023 08:56 GLUCOSE 143 H mg/dL 03/08/2023 08:56 EGFR (CKD-EPI 2020) 107.3 03/08/2023 08:56 Microalb/creat: CREATuF: 78.3 (03/22/23 07:17) M/CREAT: 32 (03/22/23 07:17) MICRAL: 25.3 (03/22/23 07:17) No MICRAL/CREAT RATIO (STL) data found HGA1C 7.3 H % 03/08/2023 08:56 HGA1C 7.0 H % 08/17/2022 10:34 HGA1C 7.0 H % 08/28/2018 07:03 Lipid Panel: TRIGLYCERIDE 1053 H mg/dL 03/08/2023 08:56 CHOLESTEROL 273 H mg/dL 03/08/2023 08:56 HDL(New) 33 L mg/dL 03/08/2023 08:56 DIRECT LDL 69 L mg/dL 03/08/2023 08:56 CALCULATED LDL comment mg/dL 03/08/2023 08:56 TSH 0.592 uIU/mL 08/17/2022 10:34 A/P: BRODY TILLEY is a 47 yo WHITE MALE with PMH T2DM, Htn presenting for initial consult for hypertriglyceridemia. 1.) Type 2 diabetes: above goal A1c 7.3 recently on 4 agents. Will stop alogliptin and start Ozempic titrated to 1 mg. -continue metformin 1 g BID, glimepiride 4 mg BID, jardiance 25 mg -my try to wean off sulfonylurea in the future Optho: no known retinopathy, teleretinal screen 08/31 Macrovascular: no SD/CVA, no chest pain Neuropathy:no and no prior amputations Nephropathy: none, UACR 32 on lisinopril 40 mg, repeat UACR and may need additional agent if elevated HLD:LDL 69 on lipitor 80 mg 2.) Hypertriglyceridemia: likely genetic with dietary contribution. Reviewed foods to reduce and avoid alcohol. No medicaitons. Will stop niacin and start fenofibrate. No prior pancreatitis. -stop niacin, continue lipitor 80 mg, start fenofibrate 160 mg -dietary guidelines provided -check TSH, FT4 /bennett/ ROBIN DORAN MD Endocrinology Physician Signed: 04/26/2023 16:18 04/26/2023 ADDENDUM STATUS: COMPLETED HI Please schedule him for follow up wtih me in 3 mos Thanks /bennett/ ROBIN DORAN MD Endocrinology Physician Signed: 04/26/2023 16:18 Receipt Acknowledged By: 05/18/2023 14:00 /bennett/ MIA FRANCIS ADVANCED DRILLING ASSISTANT 05/03/2023 ADDENDUM STATUS: COMPLETED I called patient: his Tg was 1998 and discussed risk of pancreatitis. we have sent a form of foods to avoid and particularly alcohol. He will start fenofibrate, and I have put in request for vascepa. HE should start on niacin, but this is less effective than the others. He can't get eye appt until June. [facility] until this is completed. /bennett/ ROBIN DORAN MD Endocrinology Physician Signed: 05/03/2023 16:19 05/04/2023 ADDENDUM STATUS: COMPLETED Hi I placed an outside Rx order in your box. Would you be able to mail to patient? Thanks! Jenifer /kristen DORAN MD Endocrinology Physician Signed: 05/04/2023 05:49 Receipt Acknowledged By: 05/06/2023 10:49 /bennett/ Kayce Robert RN, BSN REGISTERED NURSE 05/13/2023 ADDENDUM STATUS: COMPLETED Mr. Tilley requires prior authorization be requested via [employer]) before an order for Ozempic will be covered by them. That process requires an MD, I am unable to complete it. Another option might be to offer Mr. Tilley a PO weight loss medication, gauge his response, and then request [facility] after a trial of PO. I will try to revisit this before the end of this week. Alerting Dr. Doran in the mean time. /bennett/ Kayce Robert, RN, BSN REGISTERED NURSE Signed: 05/13/2023 10:53 Receipt Acknowledged By: 05/13/2023 11:51 /kristen DORAN MD Endocrinology Physician 05/13/2023 ADDENDUM STATUS: COMPLETED Hi Please let him know we will not be able to complete the [facility] outside [facility]. He needs to get his eye appointment updated [facility] so we can get ozempic here for his diabetes. /kristen DORAN MD Endocrinology Physician Signed: 05/13/2023 11:56 Receipt Acknowledged By: 05/14/2023 14:17 /bennett/ Kayce Robert, RN, BSN REGISTERED NURSE 05/14/2023 ADDENDUM STATUS: COMPLETED Mr. Tilley sees [facility] on 07/07. He may try to move that appointment up. Otherwise will await those results and anticipate efforts to have Ozempic provided through [facility] afterward. /bennett/ Kayce Robert, RN, BSN REGISTERED NURSE Signed: 05/14/2023 14:18 05/30/2023 ADDENDUM STATUS: COMPLETED [place] left message on endo VM, wanting to know if his results/progress note back from outside, Social Media Project Manager, came to [facility] through fax. Returned his call, and he said he spoke with Bill about getting the papers. Contacted Endo operations manager station, Kayce, and he wanted to know the following: He does have the papers, and Dr. Doran has to review them, likely tomorrow, then I'm assuming his Ozempic or other GLP-1 will be approved. Mr. Tilley was satisfied with the return phone call and information. /bennett/ BLAKE LANGE REGISTERED NURSE Signed: 05/30/2023 11:50 Receipt Acknowledged By: * AWAITING SIGNATURE * KAYCE ROBERT * AWAITING SIGNATURE * ROBIN DORAN RONG M [facility]
--- OUTSIDE RECORDS SUMMARY | 2024-03-07 11:04 | XMS_ITS ---
Author Name [facility] Address [address] [place] [address] Care Team Providers Care Customer Service Cashier Name Role Phone TAMMY SANDRA Primary Care Provider Unavailabl e Insurance Providers: [...] ION RX PLAN Apr 11, 2019 [id number] [phone] Christoph TILLEY SPOUSE [facility] Mar 11, 2017 [id number] [phone] Nino TILLEY SPOUSE [facility] Mar 11, 2019 [id number] [phone] Nino TILLEY SPOUSE [facility] POINT OF SERVICE [facility] Mar 11, 2017 [id number] [phone] Nino TILLEY SPOUSE Selected Encounter This section includes the information on record at [place] for the Encounter. Date/Time Encounter Type Encounter Description Reason Provider Source Apr 24, 2023 12:30 PM Outpatient Encounter TELEPHONE/MEDICINE ICD-10-CM Z72.0 Tobacco use FRANCISCA MCGILL [facility] Encounter Template Text not used by [place] Assessments - Encounter Diagnoses This section includes the primary and secondary diagnoses documented for the Encounter. Date/Time Primary/Secondary Diagnosis Diagnosis Name Provider Source Apr 24, 2023 12:30 PM PRIMARY Tobacco use FRANCISCA MCGILL [facility] Apr 24, 2023 12:30 PM SECONDARY Elevated white blood cell count, unspecified FRANCSICA MCGILL [facility] Apr 24, 2023 12:30 PM SECONDARY Secondary polycythemia FRANCISCA MCGILL [facility] Plan of Treatment: Future Appointments (+ 6 months) and Future Tests (+/- 45 days) The Plan of Treatment section includes [facility] care activities for the [facility] [place] [facility] This section includes future appointments and future orders which are active, pending or scheduled. Future Appointments This section includes appointments that were scheduled to occur 6 months from the date of the Encounter, up to a maximum of 20 appointments. The data comes from all [place] treatment facilities. Appointment Date/Time Appointment Type Appointme nt Facility Name Apr 26, 2023 03:30 PM AMBULATORY - MEDICINE [facility] May 01, 2023 11:30 AM AMBULATORY - MEDICINE [facility] July 24, 2023 10:00 AM AMBULATORY - SURGERY [facility] July 26, 2023 12:00 PM AMBULATORY - MEDICINE [facility] Lab Results: +/- 30 days of the encounter This section includes the Chemistry and Hematology Lab Results on record with [place] for the patient. Radiology Reports and Pathology Reports are provided separately, in subsequent sections. Lab Results This section contains the Chemistry/Hematology Results that were resulted 30 days before or 30 daysafter the date of the Encounter. Date/Time Source Result Type Result - Unit Interpretation Reference Range Comment May 01, 2023 11:32 AM [facility] GLUCOSE,BLOOD-poct (STL) Specimen Type: BLOOD Comment: Test Performed by: [id number] Meter #: [id number] Ordering Provider: SANDRA MUNOZ Report Released Date/Time: May 01, 2023 04:01 PM Reporting Lab: [address] [address] Performing Lab: [facility] [address] [facility] [address] GLUCOSE,BLOOD- poct (STL) 120 mg/dL H 72-99 Apr 30, 2023 08:28 AM [facility] MICRAL/CREAT PROFILE (STL) Specimen Type: URINE No comment entered. Ordering Provider: ROBIN DEWITT Report Released Date/Time: Apr 26, 2023 04:19 PM Reporting Lab: [facility] [address] [facility] [address] Performing Lab: [facility] [address] [facility] [address] URINE ALBUMIN (PB-STL) 29.6 mg/L uACR (STL) 47 mg/g H 0-29 CREATININE URINE/OTHERS 62.7 mg/dL L 63-166 Apr 30, 2023 08:17 AM [facility] LIPID PANEL (STL) Specimen Type: PLASMA Comment: LDL Unable to be calculated LDL calculation invalid when Triglyceride exceeds 250 mg/dl Direct LDL invalid when Triglyceride exceeds 1420 mg/dl CALCULATED LDL reported incorrectly as EXCEPTION by [[id number]] . Changed to comment on Apr 30, 2023@09:54 by [[id number]] . DIRECT LDL units reported incorrectly as mg/dL by [[id number]] . Changed to mg/dl on Apr 30, 2023@09:54 by [[id number]] . DIRECT LDL reference low reported incorrectly as 100 by [[id number]] . Changed to <no value> on Apr 30, 2023@09:54 by [[id number]] . DIRECT LDL reference high reported incorrectly as <no value> by [[id number]] . Changed to 99.9 on Apr 30, 2023@09:54 by [[id number]] . Ordering Provider: ROBIN DEWITT Report Released Date/Time: Apr 26, 2023 03:58 PM Reporting Lab: [facility] [address] [facility] [address] Performing Lab: [facility] [address] [facility] [address] CHOLESTEROL 330 mg/dL H 0-200 TRIGLYCERIDE 1999 mg/dL H 0-150 DIRECT LDL comment mg/dL <99.9 CALCULATED LDL comment mg/dL HDL(New) 33 mg/dL L >40 Apr 30, 2023 08:17 AM [facility] TSH (MA-PB-STL) Specimen Type: SERUM No comment entered. Ordering Provider: ROBIN DEWITT Report Released Date/Time: Apr 26, 2023 04:19 PM Reporting Lab: [facility] [address] [facility] [address] Performing Lab: [address] [address] TSH 0.643 u[IU]/mL 0.47-5 Apr 30, 2023 08:17 AM [facility] FREE T4 Specimen Type: SERUM No comment entered. Ordering Provider: ROBIN DEWITT Report Released Date/Time: Apr 26, 2023 04:19 PM Reporting Lab: [place] [address] [facility] [address] Performing Lab: [address] [address] FREE T4 0.85 ng/mL 0.7-1.48 Encounter Notes: All associated encounter notes This section contains the clinical notes associated to the Encounter. Date/Time Encounter Note(s) Provider Source Apr 24, 2023 02:53 PM HEMATOLOGY AND ONC OLOGY TELEPHONE ENCOUNTER NOTE: LOCAL TITLE: HEMATOLOGY ONCOLOGY TELEPHONE NOTE [facility] STANDARD TITLE: HEMATOLOGY AND ONCOLOGY TELEPHONE ENCOUNTER NOTE DATE OF NOTE: APR 24, 2023@14:53 ENTRY DATE: APR 24, 2023@14:53:30 AUTHOR: NETO MCGILL EXP COSIGNER: URGENCY: STATUS: COMPLETED Telephone Visit: Patient verbally agreed to a telephone visit in place of today's face to face visit to minimize patient and healthcare worker exposure during COVID-19. Patient verified name and last 4 of his SSN prior to the start of the visit. Call Start Time: 1445 Call End Time: 1452 INTERIM HISTORY: This is a phone visit to follow-up on laboratory work-up that was done for the patient's initial consultation for Leukocytosis and subsequent polycythemia. On phone visit today, no changes since he initially saw us in November 2022. He did recently see his primary care physician and is planning on exploring the whole health programs to consider weight reduction and healthy lifestyle. RECENT CLINICAL DATA: All: Patient has answered NKA Current Meds: Reviewed as per CPRS PE: Temperature: 97.3 F [36.3 C] (12/05/2022 10:50) Blood Pressure: 149/75 (12/05/2022 10:50) Pulse: 110 (12/05/2022 10:50) Respirations: 20 (12/05/2022 10:50) Limited Exam Given Phone Visit: GEN: Pleasant in NAD RESP: Speaking in full sentences, no audible respiratory distress PSYCH: Mood appropriate, Judgement normal NEURO: A/Ox3 Lab Data: Reviewed recent laboratory data in CPRS with notable findings: BCR ABL negative JAK2 negative Erythropoietin 10.1 IMPRESSION/PLAN: Leukocytosis and polycythemia, reactive secondary to tobacco exposure as well as obesity I reviewed the above with the patient. No additional hematologic work-up is required at this time. Encouraged healthy lifestyle and smoking cessation. Follow-up as needed. /bennett/ NETO MCGILL MD STAFF PHYSICIAN, HEMATOLOGY/ONCOLOGY Signed: 04/24/2023 14:55 NETO MCGILL [facility]
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
--- OUTSIDE RECORDS SUMMARY | 2024-03-07 11:04 | XMS_ITS | Continuity of Care Document ---
Author Name [facility] Organization [facility] Care Team Providers Care Bee Rancher Name Role Phone [facility] Unavailable Unavailable Problems Combined list of problems from Department of Defense and Veterans Affairs facilities. It does not include entries that were removed or entered in error. Problem Status Onset Date Problem Type Date of Resolution Comments Source Abnormal liver function Active Condition [facility] Acute sinusitis Active Condition [facility] Back pain Active Condition [facility] Cervical radiculopathy Active Condition [facility] Chronic pain Active Condition [facility] Diabetes mellitus Active Condition [facility] Erectile dysfunction Active Condition [facility] Hyperlipidemia Active Condition [facility] Hypertension Active Condition [facility] Medical examinations/report s status Active Condition [facility] Shoulder pain Active Condition [facility] Tobacco use Active Condition [facility] Vitamin D deficiency Active Condition [facility] Diagnosis: ICD-10-CM Z12.2 Encntr screen for malignant neoplasm of respiratory organs Active Diagnosis [facility] Diagnosis: ICD-10-CM E78.5 Hyperlipidemia, unspecified Active Diagnosis [facility] Diagnosis: ICD-10-CM Z13.5 Encounter for screening for eye and ear disorders Active Diagnosis [facility] Diagnosis: ICD-10-CM 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 Diagnosis [facility] Diagnosis: ICD-10-CM M54.50 Low back pain, unspecified Active Diagnosis [facility] Diagnosis: ICD-10-CM E11.9 Type 2 diabetes mellitus without complications Active Diagnosis [facility] Diagnosis: ICD-10-CM M54.2 Cervicalgia Active Diagnosis [facility] Diagnosis: ICD-10-CM Z23 Encounter for immunization Active Diagnosis [facility] Diagnosis: ICD-10-CM G89.29 Other chronic pain Active Diagnosis [facility] Diagnosis: ICD-10-CM Z72.0 Tobacco use Active Diagnosis [facility] Diagnosis: ICD-10-CM N52.9 Male erectile dysfunction, unspecified Active Diagnosis [facility] Diagnosis: ICD-10-CM D72.829 Elevated white blood cell count, unspecified Active Diagnosis [facility] Diagnosis: ICD-10-CM I10 Essential (primary) hypertension Active Diagnosis [facility] Diagnosis: ICD-10-CM M99.51 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 Medication Details Route Status Patient Instructions Prescription Expires Prescription Number Last Dispense Date Ordering Provider Order Date Order Qty Source ALOGLIPTIN 25MG TAB TAKE ONE TABLET BY MOUTH ONCE A DAY FOR DIABETES ORAL DISCONT INUED BY PROVIDE R 03/21/2024 [id number] 4 SKYE MUNOZ 2023 90 [facility] ALOGLIPTIN 25MG TAB TAKE ONE TABLET BY MOUTH ONCE A DAY FOR DIABETES ORAL DISCONT INUED 09/05/2023 [id number] 4 SKYE MUNOZ 2022 90 [facility] aspirin 325 mg oral tablet TAKE ONE TABLET DAILY, # 90 EA, 3 total refill(s ), Acute Complet ed 04/16/2023 90.0 Ambulat ory Pharmac y ASPIRIN 81MG TAB,EC TAKE ONE TABLET BY MOUTH ONCE A DAY WITH FOOD FOR PREVENTI ON OF HEART DISEASE ORAL ACTIVE 05/10/2024 [id number] 4 SKYE MUNOZ 2023 120 [facility] ASPIRIN 81MG TAB,EC TAKE ONE TABLET BY MOUTH ONCE A DAY WITH FOOD FOR PREVENTI ON OF HEART DISEASE ORAL DISCONT INUED 03/15/2024 [id number] 4 SKYE MUNOZ 2023 120 [facility] ASPIRIN 81MG TAB,EC TAKE ONE TABLET BY MOUTH ONCE A DAY WITH FOOD FOR PREVENTI ON OF HEART DISEASE ORAL DISCONT INUED 10/27/2023 [id number] 4 Lester HUERTA 2022 120 [facility] atorvastati n 40 mg oral tablet TAKE ONE TABLET DAILY, # 90 EA, 2 total refill(s ), Acute Complet ed 04/16/2023 90.0 Ambulat ory Pharmac y ATORVASTATI N CA 80MG TAB TAKE ONE TABLET BY MOUTH EVERY EVENING FOR HIGH CHOLESTE ROL ORAL SUSPEND ED 02/10/2025 [id number] 5 SKYE MUNOZ N 2024 90 [facility] ATORVASTATI N CA 80MG TAB TAKE ONE TABLET BY MOUTH EVERY EVENING FOR HIGH CHOLESTE ROL ORAL DISCONT INUED 05/01/2024 [id number] 4 SKYE MUNOZ N 2023 90 [facility] ATORVASTATI N CA 80MG TAB TAKE ONE-HALF TABLET BY MOUTH EVERY EVENING FOR HIGH CHOLESTE ROL ORAL DISCONT INUED (EDIT) 09/05/2023 [id number] 4 SKYE MUNOZ N 2022 45 [facility] CAMPHOR/MEN THOL/METHYL SALICYLATE LARGE PATCH APPLY 1 PATCH TO SKIN SITE ONCE A DAY (EXTERNA L USE ONLY) TRANSD ERMAL ACTIVE 02/10/2025 [id number] 4 SKYE MUNOZ N 2023 30 [facility] CHOLECALCIF DANA 50MCG (2,000UNIT) TAB TAKE ONE TABLET BY MOUTH ONCE A DAY ORAL SUSPEND ED 02/10/2025 [id number] 5 SKYE MUNOZ N 2024 100 [facility] CHOLECALCIF DANA 50MCG (2,000UNIT) TAB TAKE ONE TABLET BY MOUTH ONCE A DAY ORAL DISCONT INUED 03/21/2024 [id number] 4 SKYE MUNOZ N 2023 100 [facility] CHOLECALCIF DANA 50MCG (2,000UNIT) TAB TAKE ONE TABLET BY MOUTH ONCE A DAY ORAL DISCONT INUED 08/19/2023 [id number] 3 SKYE MUNOZ N 2022 100 [facility] CYCLOBENZAP RINE HCL 10MG TAB TAKE ONE TABLET BY MOUTH THREE TIMES A DAY MAY CAUSE DROWSINE SS. DO NOT DRINK ALCOHOL WHILE TAKING THIS MEDICATI ON. ORAL 12/19/2023 [id number] 4 GASTON LIND 2023 21 [facility] empaglifloz in 25 mg oral tablet TAKE ONE TABLET DAILY, # 90 EA, 3 total refill(s ), Acute Complet ed 02/20/2023 90.0 Ambulat ory Pharmac y EMPAGLIFLOZ IN 25MG TAB TAKE ONE TABLET BY MOUTH ONCE A DAY FOR DIABETES ORAL ACTIVE 07/26/2024 [id number] 4 Lester HUERTA 2023 90 [facility] EMPAGLIFLOZ IN 25MG TAB TAKE ONE TABLET BY MOUTH ONCE A DAY FOR DIABETES ORAL DISCONT INUED 10/27/2023 [id number] 4 Lester HUERTA 2022 90 [facility] FENOFIBRATE 145MG TAB TAKE ONE-HALF TABLET BY MOUTH ONCE A DAY - TAKE WITH FOOD ORAL ACTIVE 02/10/2025 [id number] 4 SKYE MUNOZ N 2023 45 [facility] FENOFIBRATE 160MG TAB TAKE ONE TABLET BY MOUTH ONCE A DAY FOR HIGH TRIGLYCE RIDES - TAKE WITH FOOD ORAL DISCONT INUED (EDIT) 01/17/2025 [id number] 5 SEN DEWITT 2024 90 [facility] FENOFIBRATE 160MG TAB TAKE ONE TABLET BY MOUTH ONCE A DAY FOR HIGH TRIGLYCE RIDES - TAKE WITH FOOD ORAL DISCONT INUED 04/26/2024 [id number] 4 SEN DEWITT 2023 90 [facility] FLUTICASONE PROPIONATE 50MCG/SPRAY SOLN,NASAL, 16GM INSTILL 1 SPRAY IN NOSTRIL( S) ONCE A DAY (MUST BE USED DIRECTED FOR MINIMUM OF 21 DAYS TO PROVIDE ADEQUATE BENEFITS ) NASAL ACTIVE 02/10/2025 [id number] 4 SKYE MUNOZA N 2023 2 [facility] glimepiride 4 mg oral tablet TAKE TWO TABLETS BY MOUTH EVERY DAY DIRECTED , # 180 EA, 2 total refill(s ), Acute Complet ed 04/16/2023 180.0 Ambulat ory Pharmac y GLIMEPIRIDE 4MG TAB TAKE ONE TABLET BY MOUTH EVERY MORNING TAKE WITH BREAKFAS T OR FIRST FOOD. ORAL ACTIVE 02/10/2025 [id number] 4 SKYE MUNOZA N 2023 90 [facility] GLIMEPIRIDE 4MG TAB TAKE TWO TABLETS BY MOUTH EVERY MORNING FOR DIABETES TAKE WITH BREAKFAS T OR FIRST FOOD. ORAL DISCONT INUED (EDIT) 11/21/2024 [id number] 4 SKYE MUNOZA N 2023 180 [facility] GLIMEPIRIDE 4MG TAB TAKE TWO TABLETS BY MOUTH EVERY MORNING FOR DIABETES TAKE WITH BREAKFAS T OR FIRST FOOD. ORAL DISCONT INUED 09/05/2023 [id number] 4 SKYE MUNOZ N 2022 180 [facility] Januvia 100 mg tablet See dose instruct ions in comments , # 90 EA, 2 total refill(s ), Acute Complet ed 04/16/2023 90.0 Ambulat ory Pharmac y Jardiance 25 mg tablet See dose instruct ions in comments , # 90 EA, 3 total refill(s ), Acute Complet ed 04/16/2023 90.0 Ambulat ory Pharmac y lisinopril 40 mg oral tablet TAKE ONE TABLET BY MOUTH EVERY DAY, # 90 EA, 1 total refill(s ), Acute Complet ed 12/25/2022 90.0 Ambulat ory Pharmac y LISINOPRIL 40MG TAB TAKE ONE TABLET BY MOUTH ONCE A DAY FOR HIGH BLOOD PRESSURE ORAL SUSPEND ED 02/10/2025 [id number] 5 SKYE MUNOZA N 2024 90 [facility] LISINOPRIL 40MG TAB TAKE ONE TABLET BY MOUTH ONCE A DAY FOR HIGH BLOOD PRESSURE ORAL DISCONT INUED 03/21/2024 [id number] 4 SKYE MUNOZA N 2023 90 [facility] LISINOPRIL 40MG TAB TAKE ONE TABLET BY MOUTH ONCE A DAY FOR HIGH BLOOD PRESSURE ORAL DISCONT INUED 09/05/2023 [id number] 3 SKYE MUNOZA N 2022 90 [facility] LORATADINE 10MG TAB TAKE ONE TABLET BY MOUTH ONCE A DAY FOR ALLERGIC RHINITIS ON EMPTY STOMACH ORAL SUSPEND ED 09/24/2024 [id number] 5 SKYE MUNOZA N 2023 90 [facility] LORATADINE 10MG TAB TAKE ONE TABLET BY MOUTH ONCE A DAY FOR ALLERGIC RHINITIS ON EMPTY STOMACH ORAL DISCONT INUED 08/18/2023 [id number] 4 SKYE MUNOZ N 2022 90 [facility] MELOXICAM 15MG TAB TAKE ONE TABLET BY MOUTH ONCE A DAY FOR OSTEOART HRITIS ORAL ACTIVE 11/06/2024 [id number] 4 SKYE MUNOZA N 2023 90 [facility] MELOXICAM 15MG TAB TAKE ONE TABLET BY MOUTH ONCE A DAY FOR OSTEOART HRITIS ORAL DISCONT INUED 05/01/2024 [id number] 4 SKYE MUNOZA N 2023 90 [facility] MENTHOL/MET HYL SALICYLATE (10-15%) LOW CONC. CREAM,TOP APPLY LIGHTLY TO AFFECTED AREA(S) FOUR TIMES A DAY FOR PAIN (EXTERNA L USE ONLY) TOPICA L ACTIVE 05/01/2024 [id number] 4 SKYE MUNOZA N 2023 90 [facility] metFORMIN 1000 mg oral tablet TAKE ONE TABLET BY MOUTH TWICE A DAY, # 180 EA, 3 total refill(s ), Acute Complet ed 04/16/2023 180.0 Ambulat ory Pharmac y METFORMIN HCL 1000MG TAB TAKE ONE TABLET BY MOUTH TWICE A DAY WITH MEALS FOR DIABETES TAKE WITH FOOD. AVOID ALCOHOL. DISCONTI NUE BEFORE GETTING XRAY DYE. ORAL SUSPEND ED 02/10/2025 [id number] 5 SKYE MUNOZ N 2024 180 [facility] METFORMIN HCL 1000MG TAB TAKE ONE TABLET BY MOUTH TWICE A DAY WITH MEALS FOR DIABETES TAKE WITH FOOD. AVOID ALCOHOL. DISCONTI NUE BEFORE GETTING XRAY DYE. ORAL DISCONT INUED 03/21/2024 [id number] 4 SKYE MUNOZA N 2023 180 [facility] METFORMIN HCL 1000MG TAB TAKE ONE TABLET BY MOUTH TWICE A DAY WITH MEALS FOR DIABETES TAKE WITH FOOD. AVOID ALCOHOL. DISCONTI NUE BEFORE GETTING XRAY DYE. ORAL DISCONT INUED 09/05/2023 [id number] 4 SKYE MUONZ N 2022 180 [facility] METFORMIN HCL 1000MG TAB TAKE ONE TABLET BY MOUTH DAILY. ORAL ACTIVE SKYE MUNOZ N 2022 [facility] NIACIN (EQV-NIASPA N) 1000MG TAB,SA TAKE ONE TABLET BY MOUTH AT BEDTIME AFTER A LOW FAT SNACK ORAL DISCONT INUED BY PROVIDE R 05/01/2024 [id number] SEN DEWITT 2023 90 [facility] NIACIN (EQV-NIASPA N) 1000MG TAB,SA TAKE ONE TABLET BY MOUTH AT BEDTIME FOR HIGH CHOLESTE ROL AFTER A LOW FAT SNACK ORAL DISCONT INUED BY PROVIDE R 09/05/2023 [id number] 4 SKYE MUNOZ MARA N 2022 90 [facility] niacin 1000 mg oral tablet, extended release TAKE ONE TABLET BY MOUTH ONCE DAILY, # 90 EA, 2 total refill(s ), Acute Complet ed 04/17/2023 90.0 Ambulat ory Pharmac y OMEGA-3-ACI D ETHYL ESTERS 1000MG CAP,ORAL TAKE TWO CAPSULES BY MOUTH TWICE A DAY FOR HIGH TRIGLYCE RIDES ORAL ACTIVE 05/09/2024 [id number] 4 SEN DEWITT 2023 120 [facility] SEMAGLUTIDE 0.25MG/0.37 5ML INJ,SOLN,PE N,3ML INJECT 0.5MG UNDER THE SKIN EVERY WEEK FOR DIABETES SUBCUT ANEOUS DISCONT INUED BY JOSE Bernard 06/01/2024 [id number] SEN DEWITT 2023 1 [facility] SEMAGLUTIDE 0.25MG/0.37 5ML INJ,SOLN,PE N,3ML INJECT 0.25MG UNDER THE SKIN EVERY WEEK FOR 4 WEEKS, THEN INJECT 0.5MG EVERY WEEK FOR DIABETES SUBCUT ANEOUS DISCONT INUED 06/01/2024 [id number] 4 SEN DEWITT 2023 1 [facility] SEMAGLUTIDE 1MG/0.75ML INJ,SOLN,PE N,3ML INJECT 1MG UNDER THE SKIN EVERY WEEK FOR DIABETES SUBCUT ANEOUS DISCONT INUED 07/26/2024 [id number] 4 SEN DEWITT 2023 1 [facility] SEMAGLUTIDE 2MG/0.75ML INJ,SOLN,PE N,3ML INJECT 2MG UNDER THE SKIN EVERY WEEK FOR DIABETES SUBCUT ANEOUS ACTIVE 02/28/2025 [id number] 4 SEN DEWITT 2023 3 [facility] SEMAGLUTIDE 2MG/0.75ML INJ,SOLN,PE N,3ML INJECT 2MG UNDER THE SKIN EVERY WEEK FOR DIABETES SUBCUT ANEOUS DISCONT INUED 08/31/2024 [id number] 4 SEN DEWITT 2023 1 [facility] SEMAGLUTIDE 2MG/0.75ML INJ,SOLN,PE N,3ML INJECT 2MG UNDER THE SKIN EVERY WEEK FOR DIABETES SUBCUT ANEOUS DISCONT INUED 07/26/2024 [id number] 4 SEN DEWITT 2023 3 [facility] SILDENAFIL CITRATE 100MG TAB TAKE ONE-HALF TABLET BY MOUTH ONE HOUR PRIOR TO SEXUAL ACTIVITY NEEDED - LIMIT 6 DOSES PER 30 DAYS ORAL ACTIVE 02/10/2025 [id number] 4 TAMMYSKYE TERRY N 2023 9 [facility] SITagliptin 100 mg oral tablet TAKE ONE TABLET BY MOUTH EVERY DAY, # 90 EA, 1 total refill(s ), Acute Complet ed 12/25/2022 90.0 Ambulat ory Pharmac y SODIUM CHLORIDE 0.65% SOLN,NASAL SPRAY USE 1 SPRAY INTO NOSTRIL( S) EVERY 4 HOURS NEEDED NASAL ACTIVE 02/10/2025 [id number] 4 TAMMYSKYE TERRY N 2023 45 [facility] Results Combined list of recent chemistry, hematology and other laboratory results from Department of Defense and Veterans Affairs, ranging from 15 months to all on record, depending upon the facility. Order Name Results Value Reference Range Date Interpretation Specimen Comments Source GLUCOSE,B LOOD-poct (STL) GLUCOSE [MASS/VOLUM E] IN BLOOD BY AUTOMATED TEST STRIP 118 mg/dL 72 - 99 02/09 H Specimen Type: BLOOD Comment: Test Performed by: [id number] Meter #: [id number] Ordering Provider: TERELL MARQUEZ Report Released Date/Time: Feb 10, 2024 04:17 PM Reporting Lab: [address] [address] Performing Lab: [address] [phone] [facility] MICRAL/CR EAT PROFILE (STL) ALBUMIN [MASS/VOLUM E] IN URINE 9.6 mg/L 01/23 Specimen Type: URINE No comment entered. Ordering Provider: KIARA MUNOZ Report Released Date/Time: May 01, 2023 12:17 PM Reporting Lab: [facility] [address] [place] [phone] Performing Lab: [facility] [address] [place] [phone] [facility] MICRAL/CR EAT PROFILE (STL) ALBUMIN/CRE ATININE [MASS RATIO] IN URINE 16 mg/g 0 - 29 01/23 Specimen Type: URINE No comment entered. Ordering Provider: KIARA MUNOZ Report Released Date/Time: May 01, 2023 12:17 PM Reporting Lab: [address] [phone] Performing Lab: [address] [phone] [facility] MICRAL/CR EAT PROFILE (STL) CREATININE [MASS/VOLUM E] IN URINE 61.8 mg/dL 63 - 166 01/23 L Specimen Type: URINE No comment entered. Ordering Provider: KIARA MUNOZ Report Released Date/Time: May 01, 2023 12:17 PM Reporting Lab: [address] [phone] Performing Lab: [address] [phone] [facility] LIPID PANEL (STL) CHOLESTEROL [MASS/VOLUM E] IN SERUM OR PLASMA 95 mg/dL 0 - 200 01/23 Specimen Type: PLASMA Comment: No hemolysis noted. Ordering Provider: KIARA MUNOZ Report Released Date/Time: May 01, 2023 12:17 PM Reporting Lab: [address] [phone] Performing Lab: [address] [address] [facility] LIPID PANEL (STL) TRIGLYCERID E [MASS/VOLUM E] IN SERUM OR PLASMA 57 mg/dL 0 - 150 01/23 Specimen Type: PLASMA Comment: No hemolysis noted. Ordering Provider: KIARA MUNOZ Report Released Date/Time: May 01, 2023 12:17 PM Reporting Lab: [address] [phone] Performing Lab: [address] [place] [address] [facility] LIPID PANEL (STL) CHOLESTEROL IN LDL [MASS/VOLUM E] IN SERUM OR PLASMA BY CALCULATION 49 mg/dL 01/23 Specimen Type: PLASMA Comment: No hemolysis noted. Ordering Provider: KIARA MUNOZ Report Released Date/Time: May 01, 2023 12:17 PM Reporting Lab: [address] [phone] Performing Lab: [address] [phone] [facility] LIPID PANEL (STL) CHOLESTEROL IN HDL [MASS/VOLUM E] IN SERUM OR PLASMA 35 mg/dL 40 01/23 L Specimen Type: PLASMA Comment: No hemolysis noted. Ordering Provider: KIARA MUNOZ Report Released Date/Time: May 01, 2023 12:17 PM Reporting Lab: [address] [address] Performing Lab: [address] [address] [facility] HGA1C HEMOGLOBIN A1C/HEMOGLO BIN.TOTAL IN BLOOD 5.8 4.0 - 6.0 01/23 Specimen Type: BLOOD No comment entered. Ordering Provider: KIARA MUNOZ Report Released Date/Time: May 01, 2023 12:17 PM Reporting Lab: [address] [address] Performing Lab: [address] [address] [facility] COMPREHEN SIVE METABOLIC PANEL CREATININE [MASS/VOLUM E] IN SERUM OR PLASMA 0.95 mg/dL 0.7 - 1.3 01/23 Specimen Type: PLASMA Comment: No hemolysis noted. Ordering Provider: KIARA MUNOZ Report Released Date/Time: May 01, 2023 12:17 PM Reporting Lab: [address] [phone] Performing Lab: [facility] [address] [facility] [phone] [facility] COMPREHEN SIVE METABOLIC PANEL UREA NITROGEN [MASS/VOLUM E] IN SERUM OR PLASMA 23.5 mg/dL 9.0 - 25.0 01/23 Specimen Type: PLASMA Comment: No hemolysis noted. Ordering Provider: KIARA MUNOZ Report Released Date/Time: May 01, 2023 12:17 PM Reporting Lab: [facility] [address] [place] [phone] Performing Lab: [address] [phone] [facility] COMPREHEN SIVE METABOLIC PANEL GLUCOSE [MASS/VOLUM E] IN SERUM OR PLASMA 110 mg/dL 72 - 99 01/23 H Specimen Type: PLASMA Comment: No hemolysis noted. Ordering Provider: KIARA MUNOZ Report Released Date/Time: May 01, 2023 12:17 PM Reporting Lab: [address] [address] Performing Lab: [address] [phone] [facility] COMPREHEN SIVE METABOLIC PANEL SODIUM [MOLES/VOLU ME] IN SERUM OR PLASMA 144 meq/L 136 - 145 01/23 Specimen Type: PLASMA Comment: No hemolysis noted. Ordering Provider: KIARA MUNOZ Report Released Date/Time: May 01, 2023 12:17 PM Reporting Lab: [facility] [address] [place] [phone] Performing Lab: [address] [phone] [facility] COMPREHEN SIVE METABOLIC PANEL POTASSIUM [MOLES/VOLU ME] IN SERUM OR PLASMA 4.4 meq/L 3.5 - 5 01/23 Specimen Type: PLASMA Comment: No hemolysis noted. Ordering Provider: KIARA MUNOZ Report Released Date/Time: May 01, 2023 12:17 PM Reporting Lab: [facility] [address] [facility] [address] Performing Lab: [facility] [address] [facility] [phone] [facility] COMPREHEN SIVE METABOLIC PANEL CHLORIDE [MOLES/VOLU ME] IN SERUM OR PLASMA 111 meq/L 98 - 107 01/23 H Specimen Type: PLASMA Comment: No hemolysis noted. Ordering Provider: KIARA MUNOZ Report Released Date/Time: May 01, 2023 12:17 PM Reporting Lab: [facility] [address] [place] [phone] Performing Lab: [address] [address] [facility] COMPREHEN SIVE METABOLIC PANEL CARBON DIOXIDE, TOTAL [MOLES/VOLU ME] IN SERUM OR PLASMA 24 meq/L 22 - 31 01/23 Specimen Type: PLASMA Comment: No hemolysis noted. Ordering Provider: KIARA MUNOZ Report Released Date/Time: May 01, 2023 12:17 PM Reporting Lab: [facility] [address] [place] [phone] Performing Lab: [address] [address] [facility] COMPREHEN SIVE METABOLIC PANEL CALCIUM [MASS/VOLUM E] IN SERUM OR PLASMA 10.4 mg/dL 8.4 - 10.4 01/23 Specimen Type: PLASMA Comment: No hemolysis noted. Ordering Provider: KIARA MUNOZ Report Released Date/Time: May 01, 2023 12:17 PM Reporting Lab: [facility] [address] [place] [phone] Performing Lab: [facility] [address] [place] [phone] [facility] COMPREHEN SIVE METABOLIC PANEL PROTEIN [MASS/VOLUM E] IN SERUM OR PLASMA 7.2 g/dL 6 - 8.6 01/23 Specimen Type: PLASMA Comment: No hemolysis noted. Ordering Provider: KIARA MUNOZ Report Released Date/Time: May 01, 2023 12:17 PM Reporting Lab: [facility] [address] [facility] [address] Performing Lab: [facility] [address] [place] [phone] [facility] COMPREHEN SIVE METABOLIC PANEL ALBUMIN [MASS/VOLUM E] IN SERUM OR PLASMA 4.5 g/dL 3.4 - 5 01/23 Specimen Type: PLASMA Comment: No hemolysis noted. Ordering Provider: KIARA MUNOZ Report Released Date/Time: May 01, 2023 12:17 PM Reporting Lab: [address] [address] Performing Lab: [address] [phone] [place] [address] COMPREHEN SIVE METABOLIC PANEL BILIRUBIN.T OTAL [MASS/VOLUM E] IN SERUM OR PLASMA 0.4 mg/dL 0.2 - 1.2 01/23 Specimen Type: PLASMA Comment: No hemolysis noted. Ordering Provider: KIARA MUNOZ Report Released Date/Time: May 01, 2023 12:17 PM Reporting Lab: [address] [address] Performing Lab: [address] [address] [facility] COMPREHEN SIVE METABOLIC PANEL ALKALINE PHOSPHATASE [ENZYMATIC ACTIVITY/VO LUME] IN SERUM OR PLASMA 29 U/L 40 - 150 01/23 L Specimen Type: PLASMA Comment: No hemolysis noted. Ordering Provider: KIARA MUNOZ Report Released Date/Time: May 01, 2023 12:17 PM Reporting Lab: [facility] [address] [place] [phone] Performing Lab: [address] [address] [facility] COMPREHEN SIVE METABOLIC PANEL ASPARTATE AMINOTRANSF ERASE [ENZYMATIC ACTIVITY/VO LUME] IN SERUM OR PLASMA 23 U/L 5 - 34 01/23 Specimen Type: PLASMA Comment: No hemolysis noted. Ordering Provider: KIARA MUNOZ Report Released Date/Time: May 01, 2023 12:17 PM Reporting Lab: [address] [address] Performing Lab: [phone] [place] [address] COMPREHEN SIVE METABOLIC PANEL ALANINE AMINOTRANSF ERASE [ENZYMATIC ACTIVITY/VO LUME] IN SERUM OR PLASMA 29 U/L 8 - 40 01/23 Specimen Type: PLASMA Comment: No hemolysis noted. Ordering Provider: KIARA MUNOZ Report Released Date/Time: May 01, 2023 12:17 PM Reporting Lab: [address] [phone] Performing Lab: [phone] [place] [address] COMPREHEN SIVE METABOLIC PANEL GLOMERULAR FILTRATION RATE/1.73 SQ M.PREDICTED [VOLUME RATE/AREA] IN SERUM, PLASMA OR BLOOD BY CREATININE- BASED FORMULA (CKD-EPI 2020) 97.5 60 01/23 Specimen Type: PLASMA Comment: No hemolysis noted. Ordering Provider: KIARA MUNOZ Report Released Date/Time: May 01, 2023 12:17 PM Reporting Lab: [address] [phone] Performing Lab: [phone] [place] [address] PROST. SPECIFIC AG.(PB-ST L) PROSTATE SPECIFIC AG [MASS/VOLUM E] IN SERUM OR PLASMA 0.508 ng/mL 0 - 4 01/23 Specimen Type: SERUM Comment: The listed sex of this patient may not be a typical indication for this test. Therefore, reference ranges or interpretiv e criteria listed may not be valid. Clinical correlation suggested. Ordering Provider: KIARA MUNOZ Report Released Date/Time: May 01, 2023 12:17 PM Reporting Lab: [address] [place] [address] Performing Lab: [address] VITAMIN D, 25-HYDROX Y 25-HYDROXYV ITAMIN D3 [MASS/VOLUM E] IN SERUM OR PLASMA 30.5 ng/mL 30 - 96 01/23 Specimen Type: SERUM Comment: The listed sex of this patient may not be a typical indication for this test. Therefore, reference ranges or interpretiv e criteria listed may not be valid. Clinical correlation suggested. Ordering Provider: KIARA MUNOZ Report Released Date/Time: May 01, 2023 12:17 PM Reporting Lab: [place] [address] Performing Lab: [address] HGA1C HEMOGLOBIN A1C/HEMOGLO BIN.TOTAL IN BLOOD 6.8 4.0 - 6.0 07/25 H Specimen Type: BLOOD No comment entered. Ordering Provider: ROBIN DEWITT Report Released Date/Time: July 26, 2023 12:26 PM Reporting Lab: [place] [phone] Performing Lab: [phone] [place] [address] LIPID PANEL (STL) CHOLESTEROL [MASS/VOLUM E] IN SERUM OR PLASMA 132 mg/dL 0 - 200 07/25 Specimen Type: PLASMA No comment entered. Ordering Provider: ROBIN DEWITT Report Released Date/Time: July 26, 2023 12:26 PM Reporting Lab: [place] [address] Performing Lab: [phone] LIPID PANEL (STL) TRIGLYCERID E [MASS/VOLUM E] IN SERUM OR PLASMA 118 mg/dL 0 - 150 07/25 Specimen Type: PLASMA No comment entered. Ordering Provider: ROBIN DEWITT Report Released Date/Time: July 26, 2023 12:26 PM Reporting Lab: [address] [phone] Performing Lab: [address] [phone] [facility] LIPID PANEL (STL) CHOLESTEROL IN LDL [MASS/VOLUM E] IN SERUM OR PLASMA BY CALCULATION 68 mg/dL 07/25 Specimen Type: PLASMA No comment entered. Ordering Provider: ROBIN DEWITT Report Released Date/Time: July 26, 2023 12:26 PM Reporting Lab: [address] [phone] Performing Lab: [address] [phone] [facility] LIPID PANEL (STL) CHOLESTEROL IN HDL [MASS/VOLUM E] IN SERUM OR PLASMA 40 mg/dL 40 07/25 Specimen Type: PLASMA No comment entered. Ordering Provider: ROBIN DEWITT Report Released Date/Time: July 26, 2023 12:26 PM Reporting Lab: [address] [phone] Performing Lab: [address] [phone] [facility] GLUCOSE,B LOOD-poct (L) GLUCOSE [MASS/VOLUM E] IN BLOOD BY AUTOMATED TEST STRIP 120 mg/dL 72 - 99 05/01 H Specimen Type: BLOOD Comment: Test Performed by: [id number] Meter #: [id number] Ordering Provider: KIARA MUNOZ Report Released Date/Time: May 01, 2023 04:01 PM Reporting Lab: [address] [phone] Performing Lab: [address] [phone] [facility] Vital Signs Combined list of inpatient and outpatient Vital Signs from Department of Defense and Veterans Affairs, ranging from 12 months to all on record, depending upon the facility. Vital Sign Value Date Comments Source No data available for this section Ambulatory Pharm acy SYSTOLIC BLOOD PRESSURE 170 02/10/20 13:59:34 [facility] DIASTOLIC BLOOD PRESSURE 98 024 13:59:34 [facility] PULSE OXIMETRY 96 02/10/2024 13:59:34 [facility] WEIGHT 221.5 02/10/2024 13:59:34 [facility] BMI 30kg/m2 02/10/2024 13:59:34 [facility] PAIN 5 02/10/2024 13:59:34 [facility] HEIGHT 72 02/10/2024 13:59:34 [facility] TEMPERATURE 98 02/10/2024 13:59:34 [facility] PULSE 86 02/10/2024 13:59:34 [facility] RESPIRATION 18 02/10/2024 13:59:34 [facility] SYSTOLIC BLOOD PRESSURE 112 11/19/19 24 10:00:00 [facility] DIASTOLIC BLOOD PRESSURE 76 024 10:00:00 [facility] PAIN 4 11/19/2023 10:00:00 [facility] TEMPERATURE 98.4 11/19/2023 10:00:00 [facility] PULSE 87 11/19/2023 10:00:00 [facility] RESPIRATION 16 11/19/2023 10:00:00 [facility] SYSTOLIC BLOOD PRESSURE 144 07/26/19 24 12:02:00 [facility] DIASTOLIC BLOOD PRESSURE 80 024 12:02:00 [facility] PULSE OXIMETRY 96 07/26/2023 12:02:00 [facility] WEIGHT 244 07/26/2023 12:02:00 [facility] BMI 33kg/m2 07/26/2023 12:02:00 [facility] PAIN 2 07/26/2023 12:02:00 [facility] TEMPERATURE 97.6 07/26/2023 12:02:00 [facility] PULSE 89 07/26/2023 12:02:00 [facility] RESPIRATION 18 07/26/2023 12:02:00 [facility] SYSTOLIC BLOOD PRESSURE 133 05/01/19 24 11:29:49 [facility] DIASTOLIC BLOOD PRESSURE 86 024 11:29:49 [facility] PULSE OXIMETRY 96 05/01/2023 11:29:49 [facility] WEIGHT 259 05/01/2023 11:29:49 [facility] BMI 35kg/m2 05/01/2023 11:29:49 [facility] PAIN 3 05/01/2023 11:29:49 [facility] HEIGHT 72 05/01/2023 11:29:49 [facility] TEMPERATURE 97.6 05/01/2023 11:29:49 [facility] PULSE 92 05/01/2023 11:29:49 [facility] RESPIRATION 18 05/01/2023 11:29:49 [facility] SYSTOLIC BLOOD PRESSURE 146 04/26/19 15:18:24 [facility] DIASTOLIC BLOOD PRESSURE 68 024 15:18:24 [facility] PULSE OXIMETRY 94 04/26/2023 15:18:24 [facility] WEIGHT 256.2 04/26/2023 15:18:24 [facility] BMI 35kg/m2 04/26/2023 15:18:24 [facility] PAIN 4 04/26/2023 15:18:24 [facility] TEMPERATURE 97.4 04/26/2023 15:18:24 [facility] PULSE 105 04/26/2023 15:18:24 [facility] RESPIRATION 18 04/26/2023 15:18:24 [facility] Encounters Combined list of: 1) Encounters from Department of [facility] Affairs facilities going back up to thelast 18 months. 2) Encounters from the Department of Defense facilities going back up to 280 months. Location Location Details Encounter Type Encounter Number Reason For Visit Attending Provider ADM Date DC Date Status Disposition Source [facility] OFFICE O/P EST LOW 20-29 MIN [id number] Diagnos is: ICD-10- CM M54.12 Radicul opathy, cervica l region< br/> ROSI MUNOZ N 09/13 [facility] Outpatient Encounter [id number] SELENE PLAZA L 09/13 [facility] Outpatient Encounter [id number] 10/02 [facility] Outpatient Encounter [id number] Diagnos is: ICD-10- CM 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< br/> JOHN RAMAN RIL L 10/03 [facility] OFF/OP CONSLTJ NEW/EST HI 55 [id number] Diagnos is: ICD-10- CM E11.9 Type 2 diabete s mellitu s without complic ations< br/> CHRISSIE KELLEY M 10/26 [facility] 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 Out[facility] Encounter [id number] 11/02 [facility] Outpatient Encounter [id number] 11/09 [facility] Outpatient Encounter [id number] 11/13 [facility] OFF/OP CNSLTJ NEW/EST LOW 30 [id number] Diagnos is: ICD-10- CM D72.829 Elevate d white blood cell count, unspeci fied
NETO MCGILL 12/05 [facility] Outpatient Encounter [id number] 12/27 [facility] OFFICE O/P EST MOD 30-39 MIN [id number] Diagnos is: ICD-10- CM M54.2 Cervica lgia
SAW,GUNNAR HN 01/16 [facility] Outpatient Encounter [id number] ROSI MUNOZ ROHIT N 02/27 [facility] Outpatient Encounter [id number] ROSI MUNOZ ROHIT N 03/21 [facility] Outpatient Encounter [id number] Diagnos is: ICD-10- CM N52.9 Male erectil e dysfunc tion, unspeci fied
ROSI MUNOZ ROHIT N 03/21 [facility] Outpatient Encounter [id number] Diagnos is: ICD-10- CM Z72.0 Tobacco use<br/ > NANO ,NETO M 04/24 [facility] OFFICE O/P NEW MOD 45 MIN [id number] Diagnos is: ICD-10- CM E78.5 Hyperli pidemia , unspeci fied
ROBIN DEWITT M 04/26 [facility] N [facility] OFFICE O/P EST MOD 30 MIN [id number] Diagnos is: ICD-10- CM G89.29 Other chronic pain
ROSI MUNOZ N 05/01 [facility] QNHP OL DIG ASSMT&MGMT 5-10 [id number] Diagnos is: ICD-10- CM E78.5 Hyperli pidemia , unspeci fied
NICHOLAS CHANDLER 05/02 [facility] QNHP OL DIG ASSMT&MGMT 5-10 [id number] Diagnos is: ICD-10- CM E78.5 Hyperli pidemia , unspeci fied
NICHOLAS CHANDLER [facility] FLU IMM NO ADMIN DOC MAYANK [id number] Diagnos is: ICD-10- CM Z23 Encount er for immuniz ation<b r/> TRISTAN BRASWELL RA 05/09 [facility] QNHP OL DIG ASSMT&MGMT 5-10 [id number] Diagnos is: ICD-10- CM E11.9 Type 2 diabete s mellitu s without complic ations< br/> SHWETHA ESPARZA 06/[address] [facility] [facility] [address] [facility] HC PRO PHONE CALL 5-10 MIN [id number] Diagnos is: ICD-10- CM E11.9 Type 2 diabete s mellitu s without complic ations< br/> SHIRLEY ARAGON M 07/09 [facility] OFFICE O/P EST MOD 30 MIN [id number] Diagnos is: ICD-10- CM M54.2 Cervica lgia
DANISHAAP RIL L 07/23 [facility] Outpatient Encounter [id number] 07/24 [facility] OFFICE O/P EST MOD 30 MIN [id number] Diagnos is: ICD-10- CM E11.9 Type 2 diabete s mellitu s without complic ations< br/> DEWITTSENG M 07/25 [facility] Outpatient Encounter [id number] HALLEY JOHANSEN R 07/28 [facility] Outpatient Encounter [id number] 08/25 [facility] Outpatient Encounter [id number] 10/07 [facility] EMERGENCY DEPT VISIT LOW MDM [id number] [id number] Diagnos is: ICD-10- CM M54.50 Low back pain, unspeci fied
MUDALLAL,O MAR 11/18 [facility] Outpatient Encounter [id number] 01/16 [facility] Outpatient Encounter [id number] SELENE PLAZA L 01/22 [facility] Outpatient Encounter [id number] 02/02 [facility] Outpatient Encounter [id number] 02/06 [facility] OFFICE O/P EST MOD 30 MIN [id number] Diagnos is: ICD-10- CM M54.51 Vertebr ogenic low back pain
ROSI MUNOZ N 02/09 [facility] Outpatient Encounter [id number] 02/09 [facility] FUNDUS PHOTOGRAPH Y W/I&R [id number] Diagnos is: ICD-10- CM Z13.5 Encount er for screeni ng for eye and ear disorde rs
STACIE MARQUEZ 02/09 [facility] Outpatient Encounter [id number] Diagnos is: ICD-10- CM Z13.5 Encount er for screeni ng for eye and ear disorde rs
STACIE MARQUEZ C 02/09 [facility] OFFICE O/P EST MOD 30 MIN [id number] Diagnos is: ICD-10- CM E78.5 Hyperli pidemia , unspeci fied
VICTORIANO,MEHD IA 03/02 [facility] OFF/OP CNSLTJ NEW/EST LOW 30 [id number] Diagnos is: ICD-10- CM Z12.2 Encntr screen for maligna nt neoplas m of respira tory organs< br/> Leonid SEGURA JR 03/02 [facility] Procedures Combined list of: 1) Procedures from Department of [facility] facilities [facility], not all [place] non-surgical procedures are included; 2) All procedures from the Department of [facility] facilities. Procedure Procedure Type Code Date Perfomer Comments Sourc e No data available for this section Ambulato ry Pharmacy NONINVASIVE EAR OR PULSE OXIMETRY FOR OXYGEN SATURATION; SINGLE DETERMINATION 12/31/2001 [facility] Social History Combined list of available smoking, tobacco, and other social history from Department of [facility] and [facility] facilities. 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 DoD Assessment and Plan Combined list of future care activities from Department of Defense and Veterans Affairs facilities (e.g., assessment and plan notes, appointments, orders, and referrals). Additional future care activities may be listed in the Plan of Care section. Result Assessment and Plan Date Source Assessment and Plan No data available for this section 03/07/2024 Ambulatory Pharmacy Plan of Care List of future care activities from Department [facility] facilities. Additional future care activities may be listed in the Assessment and Plan section. Date/Time Care Activity Care Activity Detail Facili ty 03/10/2024 AMBULATORY - MEDICINE AMBULATORY - MEDICI NE [facility] 03/10/2024 AMBULATORY - REHAB MEDICINE AMBULATORY - REHAB MEDICINE [facility] 04/09/2024 AMBULATORY - NONE AMBULATORY - NONE [facility] 07/20/2024 AMBULATORY - MEDICINE AMBULATORY - MEDICI NE [facility] 08/10/2024 AMBULATORY - MEDICINE AMBULATORY - MEDICI NE [facility] 02/10/2024 Consult Order PT OUTPT STL Con s Pharmaceutical Service Representative's Choice [facility] 03/02/2024 Laboratory - Dentofacial Orthopedics Dentist ry Order LIPID PANEL (STL) GREEN LI/HEP BLD/PLAS PLASMA SP [facility] 03/02/2024 Laboratory - Dentofacial Orthopedics Dentist ry Order [id number] BLOOD SP [facility] 04/09/2024 Imaging - CT Scan Order LDCT ASIF G CANCER SCREENING [facility] Functional Status Combined list of recent functional and cognitive assessments recorded at Department of Defense and Veterans Affairs ([facility]).VA Functional Evans Measurement (FIM) Scale: 1 = Total Assistance (Subject = 0% +), 2 = Maximal Assistance (Subject = 25% +), 3 = Moderate Assistance (Subject = 50% +), 4 = Minimal Assistance (Subject = 75% +), 5 = Supervision, 6 = Modified Evans (Device), 7 = Complete Evans (Timely, Safely). Assessment Date/Time Source Assessment Type Assessment Skill Assessment Score Assessment Details No data available for this section
--- OUTSIDE RECORDS SUMMARY | 2024-03-07 11:04 | XMS_ITS | Encounter Summary ---
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 Sandra Munoz MD. Staff Physcian. Signed: 10/12/2023 20:39 Receipt Acknowledged By: 10/15/2023 11:42 /bennett/ YENI DAVEY RN REGISTERED NURSE 10/15/2023 ADDENDUM STATUS: COMPLETED RNCM called to inform [facility] of above information. /bennett/ YENI DAVEY RN REGISTERED NURSE Signed: 10/15/2023 11:43 SANDRA MUNOZ [facility] May 01, 2023 11:35 AM NURSING NOTE: LOCAL TITLE: V15 PACT FACE TO FACE NOTE STL STANDARD TITLE: NURSING NOTE DATE OF NOTE: MAY 01, 2023@11:35 ENTRY DATE: MAY 01, 2023@11:35:10 AUTHOR: MARY ANN PLAZA EXP COSIGNER: URGENCY: STATUS: COMPLETED Provider Visit: Patient Identifiers : Full Name Date of Reason for visit: Established Follow-Up Mode of Arrival: Ambulatory Allergy Review: Patient has answered NKA Allergy list reviewed and remains current. Recent Vital Signs: Temperature: 97.6 F [36.4 C] (05/01/2023 11:29) Pulse: 92 (05/01/2023 11:29) Respiration: 18 (05/01/2023 11:29) B/P: 133/86 (05/01/2023 11:29) Pain: 3 (05/01/2023 11:29) Wt: 259 lb [117.48 kg] (05/01/2023 11:29) Ht: 72 in [182.9 cm] (05/01/2023 11:29) BMI: 35.2 POX: 96% (05/01/2023 11:29) PERSONAL HEALTH INVENTORY Notes: No data available for PHI note titles PERSONAL HEALTH INVENTORY - MAP: 09/13/2022 Phis What Do You Live For Living life Would you like to discuss any personal problem, family problem, alcohol use, drug use, or a mental or emotional illness? No My [facility] ([facility]), please select appointment type: Face to face: No- Are you interested in getting this done? No Contact provided Primary Care phone number and encouraged to call if any questions or concerns. Review that after hours nurse line [phone] and emergency room are available 01/10 for patient use. Contact verbalized good understanding. /bennett/ MARY ANN PLAZA LPN LICENSED PRACTICAL NURSE Signed: 05/01/2023 11:36 MARY ANN PLAZA [facility]
--- OUTSIDE RECORDS SUMMARY | 2024-03-07 11:04 | XMS_ITS | Encounter Summary ---
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 Name Role Phone SANDRA MUNOZ Primary Care [...] ION RX PLAN Apr 11, 2019 [id number] [phone] Christoph TILLEY SPOUSE [facility] COMM Mar 11, 2017 [id number] [phone] Nino TILLEY SPOUSE [facility] COMM Mar 11, 2019 [id number] [phone] Nino TILLEY SPOUSE [facility] POINT OF SERVICE [facility] COMM Mar 11, 2017 [id number] [phone] Nino TILLEY SPOUSE Selected Encounter This section includes the information on record at [place] for the Encounter. Date/Time Encounter Type Encounter Description Reason Provider Source Mar 21, 2023 10:30 AM Outpatient Encounter PRIMARY CARE/MEDICINE SANDRA MUNOZ IHNino Encounter Template Text not used by [place] Plan of Treatment: Future Appointments (+ 6 months) and Future Tests (+/- 45 days) The Plan of Treatment section includes future care activities for the patient from [facility] This section includes future appointments and future orders which are active, pending or scheduled. Future Appointments This section includes appointments that were scheduled to occur 6 months from the date of the Encounter, up to a maximum of 20 appointments. The data comes from all [place] treatment facilities. Appointment Date/Time Appointment Type Appointme nt Facility Name Apr 24, 2023 12:30 PM AMBULATORY - MEDICINE [facility] Apr 26, 2023 03:30 PM AMBULATORY - MEDICINE [facility] May 01, 2023 11:30 AM AMBULATORY - MEDICINE [facility] July 24, 2023 10:00 AM AMBULATORY - SURGERY [facility] July 26, 2023 12:00 PM AMBULATORY - MEDICINE [facility] Lab Results: +/- 30 days of the encounter This section includes the Chemistry and Hematology Lab Results on record with [place] for the patient. Radiology Reports and Pathology Reports are provided separately, in subsequent sections. Lab Results This section contains the Chemistry/Hematology Results that were resulted 30 days before or 30 daysafter the date of the Encounter. Date/Time Source Result Type Result - Unit Interpretation Reference Range Comment Mar 22, 2023 07:17 AM [facility] MICRAL/CREAT PROFILE (STL) Specimen Type: URINE No comment entered. Ordering Provider: SANDRA MUNOZ Report Released Date/Time: Mar 21, 2023 10:53 AM Reporting Lab: [facility] [address] [facility] [address] Performing Lab: [facility] [address] [address] URINE ALBUMIN (PB-STL) 25.3 mg/L uACR (STL) 32 mg/g H 0-29 CREATININE URINE/OTHERS 78.3 mg/dL 63-166 Mar 22, 2023 07:15 AM [facility] TESTOSTERONE, FREE PANEL Specimen Type: SERUM Comment: For additional information, please refer to http://[email or web address].KaraokeSmart.co/faq/ TotalTestosteron [id number] (This link is being provided for informational/ educational purposes only.) This test was developed and its analytical performance characteristics have been determined by [facility] [place], [place]. It has not been cleared or approved by the U.S. Food and Drug Administration. This assay has been validated pursuant to the CLIA regulations and is used for clinical purposes. Test Performed by [facility], [facility], [address] [place], [place] Hunter Tejada M.D., Ph.D., Director of Laboratories , CLIA [id number] Ordering Provider: SANDRA MUNOZ Report Released Date/Time: Mar 21, 2023 10:54 AM Reporting Lab: [facility] [address] [place] [phone] Performing Lab: [facility] [id number] [place] [address] TESTOSTERONE, TOTAL 315 ng/dL 250-1100 ALBUMIN (PB-sendout) 4.5 g/dL 3.6-5.1 TESTOSTERONE,FR EE (sendout) 87.7 pg/mL 46.0-224.0 TESTOSTERONE,BI OAVAILABLE (MA-PB-SO 180.4 ng/dL 110.0-575. 0 SEX HORMONE BINDING GLOBULIN 10 nmol/L 10-50 Mar 08, 2023 08:56 AM [facility] LIPID PANEL (STL) Specimen Type: PLASMA Comment: LDL calculation invalid when Triglyceride exceeds 250 mg/dl Ordering Provider: SANDRA MUNOZ Report Released Date/Time: Sep 13, 2022 10:42 AM Reporting Lab: [facility] [address] [place] [phone] Performing Lab: [address] [address] CHOLESTEROL 273 mg/dL H 0-200 TRIGLYCERIDE 1053 mg/dL H 0-150 DIRECT LDL 69 mg/dL L >100 CALCULATED LDL comment mg/dL HDL(New) 33 mg/dL L >40 Mar 08, 2023 08:56 AM [facility] COMPREHENSIVE METABOLIC PANEL Specimen Type: PLASMA Comment: LDL calculation invalid when Triglyceride exceeds 250 mg/dl Ordering Provider: SANDRA MUNOZ Report Released Date/Time: Sep 13, 2022 10:42 AM Reporting Lab: [facility] [address] [facility] [address] Performing Lab: [place] [address] [facility] [address] CREATININE 0.83 mg/dL 0.7-1.3 UREA NITROGEN 14.4 [...] 107.3 >60 Mar 08, 2023 08:56 AM [facility] HGA1C Specimen Type: BLOOD No comment entered. Ordering Provider: SANDRA MUNOZ Report Released Date/Time: Sep 13, 2022 10:42 AM Reporting Lab: [facility] [address] [facility] [address] Performing Lab: [address] [address] HGA1C 7.3 H 4.0-6.0 Mar 08, 2023 08:56 AM [facility] VITAMIN D, 25-HYDROXY Specimen Type: SERUM No comment entered. Ordering Provider: SANDRA MUNOZ Report Released Date/Time: Sep 13, 2022 10:42 AM Reporting Lab: [address] [address] Performing Lab: [address] [address] VITAMIN D, 25-HYDROXY 29.3 ng/mL L 30-96 Mar 08, 2023 08:[address] [facility] ERYTHROPOIETIN Specimen Type: SERUM Comment: Test Performed by [facility], [facility], [address] [place] [address] Hunter Tejada M.D., Ph.D., Director of Laboratories , CAPRIIA [id number] Ordering Provider: CRISTI MCGILL Report Released Date/Time: Dec 11, 2022 03:28 PM Reporting Lab: [address] [address] Performing Lab: [facility] [id number] [place] [address] ERYTHROPOIETIN 10.1 m[IU]/mL 2.6-18.5 Mar 08, 2023 08:55 AM [facility] JAK2 MUTATION (STL-PB) Specimen Type: PLASMA Comment: [...] Dec 11, 2022 03:28 PM Reporting Lab: [facility] [address] [place] [address] Performing Lab: [facility] [id number] [place] [address] JAK2 MUTATION (STL-PB) NOT DETECTED NOT DETECTED Social History: Smoking Status (Most current) and Tobacco Use (All prior to encounter date) This section includes the most current, and the historical, smoking and tobacco- related health factors from the [place] facility where the Encounter took place. Current Smoking Status This section includes the most current smoking, or tobacco-related health factor, from the [place] facility where the Encounter took place. Date/Time Current Smoking Status Comment Facil ity Aug 17, 2022 09:00 AM VA-TOBACCO USE WI 30 MIN OF WAKEUP [facility] Tobacco Use History This section includes a history of the smoking, or tobacco-related health factors, that were collected on or before the date of the Encounter. The data comes from the [place] facility where the Encounter took place. Date/Time Smoking Status/Tobacco Use Comment F acility Aug 17, 2022 09:00 AM VA-TOBACCO USE ADVICE [facility] Aug 17, 2022 09:00 AM VA-TOBACCO USE UNIT COORDINATOR NO [facility] Aug 17, 2022 09:00 AM VA-TOBACCO USE MED NO [facility] Aug 17, 2022 09:00 AM VA-TOBACCO USE WI 30 MIN OF WAKEUP [facility] Aug 17, 2022 09:00 AM VA-TOBACCO USER EVERY DAY [facility] Aug 27, 2018 11:37 AM VA-TOBACCO DOESNT USE WI 30 MIN [facility] Aug 27, 2018 11:37 AM VA-TOBACCO USE > 1 5 LESS THAN 30 YEARS [facility] Aug 27, 2018 11:37 AM VA-TOBACCO USE ADVICE [facility] Aug 27, 2018 11:37 AM VA-TOBACCO USE UNIT COORDINATOR NO [facility] Aug 27, 2018 11:37 AM VA-TOBACCO USE MED [facility] Aug 27, 2018 11:37 AM VA-TOBACCO USER EVERY DAY [facility]
--- OUTSIDE RECORDS SUMMARY | 2024-03-07 11:05 | XMS_ITS | Encounter Summary ---
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 Date/Time Encounter Type Encounter Description Reason Pro vider Source July 25, 2023 09:53 AM Outpatient Encounter CLINICAL PHARMACY [facility] Encounter Template Text not used by [place] Plan of Treatment: Future Appointments (+ 6 months) and Future Tests (+/- 45 days) The Plan of Treatment section includes future care activities for the patient from all [place] [facility] This section includes future appointments and future orders which are active, pending or scheduled. Future Appointments This section includes appointments that were scheduled to occur 6 months from the date of the Encounter, up to a maximum of 20 appointments. The data comes from all [place] treatment facilities. Appointment Date/Time Appointment Type Appointme nt Facility Name July 26, 2023 12:00 PM AMBULATORY - MEDICINE [facility] Nov 19, 2023 09:49 AM AMBULATORY - MEDICINE [facility] Lab Results: +/- 30 days of the encounter This section includes the Chemistry and Hematology Lab Results on record with [place] for the patient. Radiology Reports and Pathology Reports are provided separately, in subsequent sections. Lab Results This section contains the Chemistry/Hematology Results that were resulted 30 days before or 30 daysafter the date of the Encounter. Date/Time Source Result Type Result - Unit Interpretation Reference Range Comment July 26, 2023 12:36 PM [facility] HGA1C Specimen Type: BLOOD No comment entered. Ordering Provider: ROBIN DEWITT Report Released Date/Time: July 26, 2023 12:26 PM Reporting Lab: [address] [address] Performing Lab: [address] [address] HGA1C 6.8 H 4.0-6.0 July 26, 2023 12:36 PM [facility] LIPID PANEL (STL) Specimen Type: PLASMA No comment entered. Ordering Provider: ROBIN DEWITT Report Released Date/Time: July 26, 2023 12:26 PM Reporting Lab: [address] [address] Performing Lab: [address] [address] CHOLESTEROL 132 mg/dL 0-200 TRIGLYCERIDE 118 mg/dL 0-150 CALCULATED LDL 68 mg/dL HDL(New) 40 mg/dL >40 Encounter Notes: All associated encounter notes This section contains the clinical notes associated to the Encounter. Date/Time Encounter Note(s) Provider Source July 25, 2023 09:53 AM ADMINISTRATIVE NOT E: LOCAL TITLE: ADMINISTRATIVE STL STANDARD TITLE: ADMINISTRATIVE NOTE DATE OF NOTE: JULY 25, 2023@09:53 ENTRY DATE: JULY 25, 2023@09:53:43 AUTHOR: JESSICA CHANDLER EXP COSIGNER: URGENCY: STATUS: COMPLETED Covering CPP alerted to auto-renewal request for: EMPAGLIFLOZIN TAB,ORAL 25MG TAKE ONE TABLET BY MOUTH ONCE A DAY FOR DIABETES Quantity: 90 Refills: 3 Indication: FOR DIABETES Vet last seen by CPP 10/2022. Alerting care team for further renewals if deemed clinically appropriate. /es/ Jessica Chandler, Pharm.D., BCPS Clinical Filter Pulp Washer Signed: 07/25/2023 09:55 Receipt Acknowledged By: 07/27/2023 10:52 /es/ Sandra Munoz MD. [facility] 07/26/2023 12:02 /es/ ROBIN DEWITT MD Endocrinology Physician JESSICA CHANDLER [facility]
--- OUTSIDE RECORDS SUMMARY | 2024-03-07 11:05 | XMS_ITS | Encounter Summary ---
Author Name [facility] ([place]) Organization [facility] Address [address] [place] [address] Care Team Providers Care Silviculture Professor Name Role Phone SANDRA MUNOZ Primary Care [...] ION RX PLAN Apr 11, 2019 [id number] [phone] Christoph TILLEY SPOUSE [facility] Mar 11, 2017 [id number] [phone] Nino TILLEY SPOUSE [facility] Mar 11, 2019 [id number] [phone] Nino TILLEY SPOUSE [facility] POINT OF SERVICE [facility] COMM Mar 11, 2017 [id number] [phone] Nino TILLEY SPOUSE Selected Encounter This section includes the information on record at [place] for the Encounter. Date/Time Encounter Type Encounter Description Reason Provider Source July 24, 2023 10:00 AM OFFICE O/P EST MOD 30 MIN NEUROSURGERY ICD-10-CM M54.2 Cervicalgia BETO RAMAN IHE Encounter Template Text not used by [place] Assessments - Encounter Diagnoses This section includes the primary and secondary diagnoses documented for the Encounter. Date/Time Primary/Secondary Diagnosis Diagnosis Name Provider Source August 06, 2023 07:42 AM PRIMARY Cervicalgia BETO RAMAN [facility] August 06, 2023 07:42 AM SECONDARY Other cervical disc degeneration, unsp cervical region BETO RAMAN [facility] Plan of Treatment: Future Appointments (+ 6 months) and Future Tests (+/- 45 days) The Plan of Treatment section includes future care activities for the patient from all [place] [facility] This section includes future appointments and future orders which are active, pending or scheduled. Future Appointments This section includes appointments that were scheduled to occur 6 months from the date of the Encounter, up to a maximum of 20 appointments. The data comes from all [place] treatment facilities. Appointment Date/Time Appointment Type Appointme nt Facility Name July 26, 2023 12:00 PM AMBULATORY - MEDICINE [facility] Nov 19, 2023 09:49 AM AMBULATORY - MEDICINE [facility] Lab Results: +/- 30 days of the encounter This section includes the Chemistry and Hematology Lab Results on record with [place] for the patient. Radiology Reports and Pathology Reports are provided separately, in subsequent sections. Lab Results This section contains the Chemistry/Hematology Results that were resulted 30 days before or 30 daysafter the date of the Encounter. Date/Time Source Result Type Result - Unit Interpretation Reference Range Comment July 26, 2023 12:36 PM [facility] HGA1C Specimen Type: BLOOD No comment entered. Ordering Provider: ROBIN DEWITT Report Released Date/Time: July 26, 2023 12:26 PM Reporting Lab: [facility] [address] [facility] [id number] Performing Lab: [facility] [address] [place] [id number] HGA1C 6.8 H 4.0-6.0 July 26, 2023 12:36 PM [facility] LIPID PANEL (STL) Specimen Type: PLASMA No comment entered. Ordering Provider: ROBIN DEWITT Report Released Date/Time: July 26, 2023 12:26 PM Reporting Lab: [facility] [address] [facility] [address] Performing Lab: [facility] [address] [facility] [address] CHOLESTEROL 132 mg/dL 0-200 TRIGLYCERIDE 118 mg/dL 0-150 CALCULATED LDL 68 mg/dL HDL(New) 40 mg/dL >40 Encounter Notes: All associated encounter notes This section contains the clinical notes associated to the Encounter. Date/Time Encounter Note(s) Provider Source July 24, 2023 09:52 AM NEUROSURGERY NOTE: LOCAL TITLE: NEUROSURGERY ST STANDARD TITLE: NEUROSURGERY NOTE DATE OF NOTE: JULY 24, 2023@09:52 ENTRY DATE: JULY 24, 2023@09:52:28 AUTHOR: BETO RAMAN EXP COSIGNER: URGENCY: STATUS: COMPLETED Modality of Care: Clinical Telehealth Visit conducted by Clinical PHONE Telehealth. Patient/surrogate provided verbal consent for PHONE telehealth. Patient location confirmed. Emergency number confirmed. Patient Contact Details: Address:[address] [place] [address], [place] [address] HPI: Too Tilley is a pleasant 48 y/o with a h/o ACDF C5-6 in 2013, seen in consultation 10/03/22, with neck pain and tingling radiating down the LEFT arm to the hand and all of the fingers. He denied pain radiating down the arms. He denied known injury to the neck. He denied bowel or bladder incontinence or urinary retention. He stated looking up and left made the pain worse. Pain was better if he stretched his neck to the right. CT cervical spine revealed post-surgical changes of ACDF C5-6, multilevel degenerative changes with small disc osteophytes without significant canal stenosis. There is bilateral foraminal narrowing at C6-7. There was no cervical MRI available for review but he reported having a recent MRI done at an OSH. At that time, I recommended obtain cervical MRI CD and report from [facility], obtain cervical MRI CD and reports and operative note from [facility] from 2016- present, & consider EMG LUE if MRI did not explain his symptoms. OP report received--> ACDF C5-6 done in 2013. MRI cervical spine done at [facility] in 09/2022--> revealed postsurgical changes at C5-6. At C6-7, there was a left sided disc protrusion resulting in left sided foraminal stenosis. on 11/07/22, I spoke with regarding the results. He stated his arm symptoms were not bothering him anymore but he still had neck pain and stiffness. He stated the pain was worse with PT. We discussed other options for treatment, such as pain mgmt injections, massage, acupuncture. He stated he wanted to try pain mgmt injections. Order was placed. On 01/16/23, he had a follow up visit with ANNALISE Whyte. He reported doing well. He reported an intermittent dull achy pain in the neck but denied radicular arm pain. He reported intermittent tingling in the LEFT arm, hand, and all fingers. He was offered an EMG/NVC for the LEFT upper extremity to r/o a peripheral ulnar or median nerve entrapment vs acute or chronic cervical radiculopathy; however, he declined this. He states he was not interested in surgery at the time. He was advised to follow up in 6 months Today, 07/24/23, he reports ongoing intermittent dull achy pain in the neck but denies radicular arm pain. He reports ongoing intermittent tingling in the LEFT arm, hand, and all fingers and states it only occurs 1-2 times a week , which is better than it had been last year. He states they were way worse in 2022. He denies bowel or bladder incontinence or urinary retention. He voices no new concerns. Conservative therapy: PT made the pain worse. He states he did not proceed with cervical injection in because the pain is not at that point . 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 SMOKING HISTORY: 1 PPD or less ETOH: couple drinks per week DRUG ABUSE: negative PAST SPINE SURGERY: ACDF C5-[address] Mundo Jaimes in 2013 (not 2017 as previously reported) SIGNIFICANT PAST MEDICAL HISTORY: 1) Diabetes mellitus 2) Hypertension 3) Shoulder pain 4) Abnormal liver function 5) Medical examinations/reports status 6) Cervical radiculopathy 7) Vitamin D deficiency 8) Tobacco use 9) Erectile dysfunction 10) Chronic pain Active Outpatient Medications (including Supplies): Active Outpatient [...] DISEASE 4) ATORVASTATIN CALCIUM 80MG TAB TAKE ONE TABLET BY ACTIVE MOUTH EVERY EVENING FOR [...] FOR ALLERGIC RHINITIS ON EMPTY STOMACH 12) MELOXICAM 15MG TAB TAKE ONE TABLET BY MOUTH ONCE A ACTIVE DAY FOR OSTEOARTHRITIS 13) MENTHOL/M-SALICYLATE 10-15% TOP CREAM APPLY LIGHTLY ACTIVE TO AFFECTED AREA(S) FOUR TIMES A DAY FOR PAIN (EXTERNAL USE ONLY) 14) METFORMIN HCL 1000MG TAB TAKE ONE TABLET BY MOUTH ACTIVE TWICE A DAY WITH MEALS FOR DIABETES TAKE WITH FOOD. AVOID ALCOHOL. DISCONTINUE BEFORE GETTING XRAY DYE. 15) NIACIN (EQV-NIASPAN) 1000MG SA TAB TAKE ONE TABLET BY ACTIVE MOUTH AT BEDTIME AFTER A LOW FAT SNACK 16) HWEMH-3-ELRN ETHYL ESTERS 1000MG CAP TAKE TWO ACTIVE CAPSULES BY MOUTH TWICE A DAY FOR HIGH TRIGLYCERIDES 17) SEMAGLUTIDE 0.25MG/0.375ML INJ PEN 3ML INJECT 0.5MG ACTIVE UNDER THE SKIN EVERY WEEK FOR DIABETES Active Non-VA Medications Status 1) Non-VA METFORMIN HCL 1000MG TAB 1000MG BY MOUTH ACTIVE DAILY. EXAMINATION: limited by C General evaluation and mental status: Pleasant, alert and oriented to time, place and person, memory and speech intact Mood: Normal He is moving all extremities. IMAGING: [facility] 09/30/22 MRI of the cervical spine Findings: There is no acute fracture or subluxation of the cervical spine. There is anterior fusion from the C5-C6 vertebral bodies, with associated susceptibility artifact. No suspicious bone marrow, signal abnormality seen. At C2-C3, there is no disc bulge or herniation. No spinal canal stenosis, cord compression, or neural foraminal narrowing. At C3-C4, there is minimal disc ossify convex, No spinal canal stenosis, cord compression, or neural foraminal narrowing. At C4-C5, there is minimal disc osteophyte complex. No spinal canal stenosis, cord compression, or neural foraminal arriving. At C5-C6, there is no disc bulge or herniation. No spinal canal stenosis, cord compression, or neural foraminal narrowing. At C6-C7, there is no disc bulge or herniation. No spinal canal stenosis or cord compression. Probable mild bilateral neural foraminal narrowing present No abnormal signal seen in the spinal cord. Paravertebral soft tissues are otherwise unremarkable. Impression: Anterior fusion hardware from C5 to C6, Minimal degenerative spondylosis otherwise. as above. Electronically signed by Tamanna Brown, on Report Status: Verified Date Reported: SEP 07, 2022 Date Verified: SEP 07, 2022 Garden Machinery Mechanic E-Sig:/ES/SHANE SAXENA Report: INDICATION: evaluate cervical radiculopathy COMPARISON: Radiographs 08/17/2022 TECHNIQUE: CT cervical spine without intravenous contrast. FINDINGS: There is opacification in the visualized right maxillary sinus. Straightening. There are postsurgical changes of anterior discectomy and interbody fusion at C5-C6. There is osseous bridging between the C5 and C6 vertebral body centrally. Nonspecific subcentimeter lymph nodes scattered in the neck. 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 No abnormal thickening of the prevertebral soft tissues. No acute displaced fracture. No traumatic subluxation. CT lacks the tissue resolution of MRI to evaluate the central canal. C2-C3: No significant osseous neuroforaminal stenosis. C3-C4: Small posterior marginal osteophytes. No significant osseous neuroforaminal stenosis. C4-C5: Small posterior marginal osteophytes. No significant osseous neuroforaminal stenosis. C5-C6: Artifact limits evaluation. Residual marginal osteophytes extending into bilateral neural foramina asymmetric on the left and into the central canal. There is resulting mild osseous central canal stenosis. C6-C7: Subtotal intervertebral disc space height loss, endplate remodeling and marginal osteophyte formation. Left greater than right osseous neuroforaminal stenosis. C7-T1: Facet arthropathy asymmetric on the right with trace vacuum phenomena. Mild right-sided osseous neuroforaminal stenosis. T1-T2: Facet arthropathy results in osseous neuroforaminal stenosis. Impression: Post-surgical changes of anterior discectomy and interbody fusion at C5-C6. Degenerative changes as discussed above. Primary Interpreting Staff: SHANE SAXENA, RADIOLOGIST (Garden Machinery Mechanic) / NEUROSURGERY IMPRESSION & PLAN: Too Tilley is a pleasant 47 y/o with a h/o ACDF C5-6 in 2013 who continues to experience intermittent dull achy neck pain with intermittent tingling (1-2 x/week) radiating down the LEFT arm to the hand and all of the fingers. CT cervical spine from 2022 revealed post-surgical changes of ACDF C5-6, multilevel degenerative changes with small disc osteophytes without significant canal stenosis. There is bilateral foraminal narrowing at C6-7. MRI cervical spine in 09/2022 revealed post-surgical changes at C5-6. At C6-7, there was a left sided disc protrusion resulting in left sided foraminal stenosis. We again discussed treatment options. he tried PT without significant relief. He did not follow through with the pain mgmt consult for cervical injections because he does not feel the pain is bad enough to warrant steroid injections at this time. He is not interested in further work up with EMG and is not interested in surgery. Therefore, I recommend he continue conservative mgmt of his symptoms and follow up with us PRN should his symptoms worsen or he develop new symptoms. He is in agreement with this. RTC: PRN He has my direct contact information and was instructed to call if any new or worsening symptoms. He verbalized understanding and is in agreement with the plan of care. /bennett/ BETO RAMAN DNP, BUCKLE ATTACHER, BC NURSE PRACTITIONER, NEUROSURGERY Signed: 07/24/2023 10:18 BETO RAMAN [facility]
--- OUTSIDE RECORDS SUMMARY | 2024-03-07 11:05 | XMS_ITS | Encounter Summary ---
Author Name [facility] [place] Organization [facility] Address [address] [place] [address] Care Team Providers Care Beef Boner Name Role Phone SANDRA MUNOZ Primary Care [...] ION RX PLAN Apr 11, 2019 [id number] [phone] Christoph TILLEY SPOUSE [facility] Mar 11, 2017 [id number] [phone] Nino TILLEY SPOUSE [facility] Mar 11, 2019 [id number] [phone] Nino TILLEY SPOUSE [facility] POINT OF SERVICE [facility] COMM Mar 11, 2017 [id number] [phone] Nino TILLEY SPOUSE Selected Encounter This section includes the information on record at [place] for the Encounter. Date/Time Encounter Type Encounter Description Reason Provider Source July 10, 2023 02:31 PM HC PRO PHONE CALL 5-10 MIN TELEPHONE/MEDICIN E ICD-10-CM E11.9 Type 2 diabetes mellitus without complications BLAINE ARAGON [facility] Encounter Template Text not used by [place] Assessments - Encounter Diagnoses This section includes the primary and secondary diagnoses documented for the Encounter. Date/Time Primary/Secondary Diagnosis Diagnosis Name Provider Source July 10, 2023 02:31 PM PRIMARY Type 2 diabetes mellitus without complications CHRISTIAN ARAGON [facility] Plan of Treatment: Future Appointments (+ 6 months) and Future Tests (+/- 45 days) The Plan of Treatment section includes future care activities for the patient from all [place] [facility]. This section includes future appointments and future orders which are active, pending or scheduled. Future Appointments This section includes appointments that were scheduled to occur 6 months from the date of the Encounter, up to a maximum of 20 appointments. The data comes from all [place] treatment facilities. Appointment Date/Time Appointment Type Appointme nt Facility Name July 24, 2023 10:00 AM AMBULATORY - SURGERY [facility] July 26, 2023 12:00 PM AMBULATORY - MEDICINE [facility] Nov 19, 2023 09:49 AM AMBULATORY - MEDICINE [facility] Lab Results: +/- 30 days of the encounter This section includes the Chemistry and Hematology Lab Results on record with [place] for the patient. Radiology Reports and Pathology Reports are provided separately, in subsequent sections. Lab Results This section contains the Chemistry/Hematology Results that were resulted 30 days before or 30 daysafter the date of the Encounter. Date/Time Source Result Type Result - Unit Interpretation Reference Range Comment July 26, 2023 12:36 PM [facility] HGA1C Specimen Type: BLOOD No comment entered. Ordering Provider: ROBIN DEWITT Report Released Date/Time: July 26, 2023 12:26 PM Reporting Lab: [facility] [address] [facility] [id number] Performing Lab: [facility] [address] [facility] [address] HGA1C 6.8 H 4.0-6.0 July 26, 2023 12:36 PM [facility] LIPID PANEL (STL) Specimen Type: PLASMA No comment entered. Ordering Provider: ROBIN DEWITT Report Released Date/Time: July 26, 2023 12:26 PM Reporting Lab: [facility] [address] [facility] [address] Performing Lab: [facility] [address] [facility] [address] CHOLESTEROL 132 mg/dL 0-200 TRIGLYCERIDE 118 mg/dL 0-150 CALCULATED LDL 68 mg/dL HDL(New) 40 mg/dL >40 Encounter Notes: All associated encounter notes This section contains the clinical notes associated to the Encounter. Date/Time Encounter Note(s) Provider Source July 10, 2023 02:35 PM INTERNAL MEDICINE NOTE: LOCAL TITLE: MEDICINE SERVICE E-ASSESSMENT STL STANDARD TITLE: INTERNAL MEDICINE NOTE DATE OF NOTE: JULY 10, 2023@14:35 ENTRY DATE: JULY 10, 2023@14:35:04 AUTHOR: SUSAN ARAGON EXP COSIGNER: URGENCY: STATUS: COMPLETED Medical decision:medication refill Time spent in minutes:5 /bennett/ SUSAN DEMARCO RN REGISTERED NURSE Signed: 07/10/2023 14:35 SUSAN ARAGON [facility] July 10, 2023 02:31 PM NURSING NOTE: LOCAL TITLE: [place] PROGRESS NOTE STL STANDARD TITLE: NURSING NOTE DATE OF NOTE: JULY 10, 2023@14:31 ENTRY DATE: JULY 10, 2023@14:31:59 AUTHOR: SUSAN ARAGON EXP COSIGNER: URGENCY: STATUS: COMPLETED 1432: RTN call to regarding his Ozempic refill -left message on recorder -medication released on 07/09 and should be receiving medication in the mail. /bennett/ SUSAN DEMARCO RN REGISTERED NURSE Signed: 07/10/2023 14:34 SUSAN ARAGON [facility]
--- OUTSIDE RECORDS SUMMARY | 2024-03-07 11:05 | XMS_ITS | Encounter Summary ---
Author Name [facility] [place] Organization [facility] [place] Address [address] [place] [address] Care Team Providers Care Service Desk Specialist Name Role Phone SANDRA MUNOZ Primary Care [...] ION RX PLAN Apr 11, 2019 [id number] [phone] Christoph TILLYE SPOUSE [facility] Mar 11, 2017 [id number] [phone] Nino TILLEY SPOUSE [facility] Mar 11, 2019 [id number] [phone] Nino TILLEY SPOUSE [facility] POINT OF SERVICE [facility] Mar 11, 2017 [id number] [id number] [phone] Nino TILLEY SPOUSE Selected Encounter This section includes the information on record at [place] for the Encounter. Date/Time Encounter Type Encounter Description Reason Pro vider Source Oct 08, 2023 08:20 AM Outpatient Encounter ADMIN PAT ACTIVTIES (MASNONCT) IHE Encounter Template Text not used by [place] Plan of Treatment: Future Appointments (+ 6 months) and Future Tests (+/- 45 days) The Plan of Treatment section includes future care activities for the patient from all [place] [facility]. This section includes future appointments and future orders which are active, pending or scheduled. Future Appointments This section includes appointments that were scheduled to occur 6 months from the date of the Encounter, up to a maximum of 20 appointments. The data comes from all [place] treatment facilities. Appointment Date/Time Appointment Type Appointme nt Facility Name Nov 19, 2023 09:49 AM AMBULATORY - MEDICINE [facility] Feb 10, 2024 02:00 PM AMBULATORY - MEDICINE [facility] Feb 10, 2024 03:00 PM AMBULATORY - NONE [facility] Mar 02, 2024 08:00 AM AMBULATORY - MEDICINE [facility] Mar 02, 2024 09:00 AM AMBULATORY - MEDICINE [facility] Mar 10, 2024 08:30 AM AMBULATORY - MEDICINE [facility] Mar 10, 2024 09:30 AM AMBULATORY - REHAB [facility] Apr 09, 2024 08:00 AM AMBULATORY - NONE [facility] Encounter Notes: All associated encounter notes This section contains the clinical notes associated to the Encounter. Date/Time Encounter Note(s) Provider Source Oct 08, 2023 08:20 AM ADMINISTRATIVE NOT E: LOCAL TITLE: ADMINISTRATIVE STL STANDARD TITLE: ADMINISTRATIVE NOTE DATE OF NOTE: OCT 08, 2023@08:20 ENTRY DATE: OCT 08, 2023@08:20:52 AUTHOR: COLTON WAGNER EXP COSIGNER: URGENCY: STATUS: COMPLETED FAX RECEIVED FROM [employer] AND PLACED INTO PCP FOLDER /bennett/ COLTON WAGNER ADVANCED NDT INSPECTOR Signed: 10/08/2023 08:21 COLTON WAGNER [facility]
--- OUTSIDE RECORDS SUMMARY | 2024-03-07 11:05 | XMS_ITS ---
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 Date/Time Encounter Type Encounter Description Reason Provider Source May 10, 2023 02:29 PM FLU IMM NO ADMIN DOC [facility] PRIMARY CARE/MEDICINE ICD-10-CM Z23 Encounter for immunization ZEYNEP BRASWELL IHNino Encounter Template Text not used by [place] Assessments - Encounter Diagnoses This section includes the primary and secondary diagnoses documented for the Encounter. Date/Time Primary/Secondary Diagnosis Diagnosis Name Provider Source May 20, 2023 03:18 PM PRIMARY Encounter for immunization ZEYNEP BRASWELL [facility] Plan of Treatment: Future Appointments (+ 6 months) and Future Tests (+/- 45 days) The Plan of Treatment section includes future care activities for the patient from all [place] treatmentfacilities. This section includes future appointments and future orders which are active, pending or scheduled. Future Appointments This section includes appointments that were scheduled to occur 6 months from the date of the Encounter, up to a maximum of 20 appointments. The data comes from all [place] treatment facilities. Appointment Date/Time Appointment Type Appointme nt Facility Name July 24, 2023 10:00 AM AMBULATORY - SURGERY [facility] July 26, 2023 12:00 PM [facility] Lab Results: +/- 30 days of the encounter This section includes the Chemistry and Hematology Lab Results on record with [place] for the patient. Radiology Reports and Pathology Reports are provided separately, in subsequent sections. Lab Results This section contains the Chemistry/Hematology Results that were resulted 30 days before or 30 daysafter the date of the Encounter. Date/Time Source Result Type Result - Unit Interpretation Reference Range Comment May 01, 2023 11:32 AM [facility] GLUCOSE,BLOOD-poct (STL) Specimen Type: BLOOD Comment: Test Performed by: [id number] Meter #: [id number] Ordering Provider: SANDRA MUNOZ Report Released Date/Time: May 01, 2023 04:01 PM Reporting Lab: [address] [address] Performing Lab: [address] [address] GLUCOSE,BLOOD- poct (STL) 120 mg/dL H 72-99 Apr 30, 2023 08:28 AM [facility] MICRAL/CREAT PROFILE (STL) Specimen Type: URINE No comment entered. Ordering Provider: ROBIN DEWITT Report Released Date/Time: Apr 26, 2023 04:19 PM Reporting Lab: [facility] [address] [facility] [address] Performing Lab: [facility] [address] [facility] [address] URINE ALBUMIN (PB-STL) 29.6 mg/L uACR (STL) 47 mg/g H 0-29 CREATININE URINE/OTHERS 62.7 mg/dL L 63-166 Apr 30, 2023 08:17 AM [facility] LIPID PANEL (STL) Specimen Type: PLASMA Comment: LDL Unable to be calculated LDL calculation invalid when Triglyceride exceeds 250 mg/dl Direct LDL invalid when Triglyceride exceeds 1420 mg/dl CALCULATED LDL reported incorrectly as EXCEPTION by [[id number]] . Changed to comment on Apr 30, 2023@09:54 by [[id number]] . DIRECT LDL units reported incorrectly as mg/dL by [[id number]] . Changed to mg/dl on Apr 30, 2023@09:54 by [[id number]] . DIRECT LDL reference low reported incorrectly as 100 by [[id number]] . Changed to <no value> on Apr 30, 2023@09:54 by [[id number]] . DIRECT LDL reference high reported incorrectly as <no value> by [[id number]] . Changed to 99.9 on Apr 30, 2023@09:54 by [[id number]] . Ordering Provider: ROBIN DEWITT Report Released Date/Time: Apr 26, 2023 03:58 PM Reporting Lab: [facility] [address] [facility] [address] Performing Lab: [facility] [address] [facility] [address] CHOLESTEROL 330 mg/dL H 0-200 TRIGLYCERIDE 1999 mg/dL H 0-150 DIRECT LDL comment mg/dL <99.9 CALCULATED LDL comment mg/dL HDL(New) 33 mg/dL L >40 Apr 30, 2023 08:17 AM [facility] TSH (MA-PB-STL) Specimen Type: SERUM No comment entered. Ordering Provider: ROBIN DEWITT Report Released Date/Time: Apr 26, 2023 04:19 PM Reporting Lab: [place] [address] [facility] [address] Performing Lab: [address] [address] TSH 0.643 u[IU]/mL 0.47-5 Apr 30, 2023 08:17 AM [facility] FREE T4 Specimen Type: SERUM No comment entered. Ordering Provider: ROBIN DEWITT Report Released Date/Time: Apr 26, 2023 04:19 PM Reporting Lab: [address] [address] Performing Lab: [address] [address] FREE T4 0.85 ng/mL 0.7-1.48 Encounter Notes: All associated encounter notes This section contains the clinical notes associated to the Encounter. Date/Time Encounter Note(s) Provider Source May 10, 2023 02:29 PM IMMUNIZATION NOTE: LOCAL TITLE: FLU [facility] STANDARD TITLE: IMMUNIZATION NOTE DATE OF NOTE: MAY 10, 2023@14:29 ENTRY DATE: MAY 10, 2023@14:29:35 AUTHOR: ZEYNEP BRASWELL EXP COSIGNER: URGENCY: STATUS: COMPLETED Influenza Immunization: The patient declines to receive the recommended dose of seasonal influenza vaccine. Immunization: INFLUENZA, UNSPECIFIED FORMULATION Refusal Reason: PATIENT DECISION Patient refuses all immunization(s) in the FLU group Date Documented: 05/10/23 14:29 Only verbalized in our phone conversation that he dosen't want to receive the flu vaccine for this season. /bennett/ ZEYNEP BRASWELL RN BSN Vaccine Solar Resource Assessor Signed: 05/10/2023 14:31 ZEYNEP BRASWELL [facility]
--- OUTSIDE RECORDS SUMMARY | 2024-03-07 11:05 | XMS_ITS | Encounter Summary ---
Author Name [facility] Address [address] [place] [address] Care Team Providers Care Zanjero Name Role Phone SANDRA MUNOZ Primary Care [...] ION RX PLAN Apr 11, 2019 [id number] [phone] Christoph TILLEY SPOUSE [facility] Mar 11, 2017 [id number] [phone] Nino TILLEY SPOUSE [facility] COMM Mar 11, 2019 [id number] [phone] Nino TILLEY SPOUSE [facility] POINT OF SERVICE [facility] COMM Mar 11, 2017 [id number] [id number] [phone] Nino TILLEY SPOUSE Selected Encounter This section includes the information on record at [place] for the Encounter. Date/Time Encounter Type Encounter Description Reason Provider Source July 26, 2023 12:00 PM OFFICE O/P EST MOD 30 MIN ENDOCRINOLOGY ICD-10-CM E11.9 Type 2 diabetes mellitus without complications ROBIN DEWITT [facility] Encounter Template Text not used by [place] Assessments - Encounter Diagnoses This section includes the primary and secondary diagnoses documented for the Encounter. Date/Time Primary/Secondary Diagnosis Diagnosis Name Provider Source August 04, 2023 08:19 AM PRIMARY Type 2 diabetes mellitus without complications ROBIN DEWITT [facility] August 04, 2023 08:19 AM SECONDARY Essential (primary) hypertension ROBIN DEWITT [facility] August 04, 2023 08:19 AM SECONDARY Hyperlipidemia, unspecified ROBIN DEWITT [facility] Plan of Treatment: Future Appointments (+ 6 months) and Future Tests (+/- 45 days) The Plan of Treatment section includes [facility] care [facility] the [facility] [place] [facility] This section includes future appointments and future orders which are active, pending or scheduled. Future Appointments This section includes appointments that were scheduled to occur 6 months from the date of the Encounter, up to a maximum of 20 appointments. The data comes from all [place] treatment facilities. Appointment Date/Time Appointment Type Appointme nt Facility Name Nov 19, 2023 09:49 AM AMBULATORY - MEDICINE [facility] Lab Results: +/- 30 days of the encounter This section includes the Chemistry and Hematology Lab Results on record with [place] for the patient. Radiology Reports and Pathology Reports are provided separately, in subsequent sections. Lab Results This section contains the Chemistry/Hematology Results that were resulted 30 days before or 30 daysafter the date of the Encounter. Date/Time Source Result Type Result - Unit Interpretation Reference Range Comment July 26, 2023 12:36 PM [facility] HGA1C Specimen Type: BLOOD No comment entered. Ordering Provider: ROBIN DEWITT Report Released Date/Time: July 26, 2023 12:26 PM Reporting Lab: [facility] [address] [facility] [address] Performing Lab: [place] [id number] [facility] [address] HGA1C 6.8 H 4.0-6.0 July 26, 2023 12:36 PM [facility] LIPID PANEL (STL) Specimen Type: PLASMA No comment entered. Ordering Provider: ROBIN DEWITT Report Released Date/Time: July 26, 2023 12:26 PM Reporting Lab: [facility] [address] [facility] [address] Performing Lab: [facility] [address] [facility] [address] CHOLESTEROL 132 mg/dL 0-200 TRIGLYCERIDE 118 mg/dL 0-150 CALCULATED LDL 68 mg/dL HDL(New) 40 mg/dL >40 Vital Signs: All taken on the encounter date This section contains inpatient and outpatient Vital Signs collected on the date of the Encounter. Date/Time Temperature Pulse Blood Pressure Respiratory Rate SP02 Pain Height Weight Body Mass Index Source July 26, 2023 12:02 PM 138/80 [facility] N July 26, 2023 12:02 PM 97.6 89 144/80 18 96 2 244 33 [facility] N Encounter Notes: All associated encounter notes This section contains the clinical notes associated to the Encounter. Date/Time Encounter Note(s) Provider Source July 26, 2023 02:28 PM ADDENDUM: LOCAL TITLE: Addendum STANDARD TITLE: ADDENDUM DATE OF NOTE: JULY 26, 2023@14:28:07 ENTRY DATE: JULY 26, 2023@14:28:09 AUTHOR: ROBIN DEWITT EXP COSIGNER: URGENCY: STATUS: COMPLETED Hi Pt was interested in getting a portable CPAP mask-not sure he does this? Thanks /bennett/ ROBIN DEWITT MD Endocrinology Physician Signed: 07/26/2023 14:29 Receipt Acknowledged By: 07/27/2023 10:51 /es/ Sandra Munoz MD. Staff Physcian. 07/29/2023 13:58 /bennett/ TAMICA PALMER, RN REGISTERED NURSE for YENI HOYOS --- Original Document --- 07/26/23 ENDOCRINOLOGY OUTPATIENT FOLLOW UP STL: HPI: BRODY TILLEY is a 47 yo WHITE MALE with PMH T2DM, Htn presenting for initial consult for hypertriglyceridemia. 1.) Hypertriglyceridemia: last visit Tg 1998 not fasting No prior pancreatitis He thinks parents had hyperlipidemia, but not confirmed Diet: AM-eggs +/- carlin, No Lunch, Dinner-pizza, subway, steak Alcohol: drinking 0-1 case Currently: lipitor 80 mg, fenofibrate 160 mg, fish oil 1000 mg Previously on niacin 1000 mg, but stopped at last visit He thinks labs from 03/02 was fasting Report Released Date/Time: Mar 08, 2023@09:54 TRIGLYCERIDE 1053 H mg/dL 0 - 150 [657] Report Released Date/Time: Aug 17, 2022@12:53 TRIGLYCERIDE 228 H mg/dL 0 - 150 [657] Report Released Date/Time: Aug 28, 2018@07:56 TRIGLYCERIDE 437 H mg/dl Ref: <=150 [657] 2.)T2DM: Duration: 20 yrs A1c: 7.3 Regimen: ozempic 0.5 mg, metformin 1 g qhs, glimepiride 4 mg BID, jardiance 25 mg Stopped alogliptin No prior DKA/HHNS Bg: he does not check bg at home Diet: see above, has reduced appetite from ozempic Exercise/Weight: lost 12 lbs since 05/04, walking daily Alcohol/smokin drinks/week, cigs/day Denies prior pancreatitis, personal or FH of MTC/MEN syndrome Complications: Optho: no known retinopathy, teleretinal screen 08/31 but [facility] Macrovascular: no MA/CVA, no chest pain Neuropathy: no and no prior amputations Nephropathy: none, UACR 32 on lisinopril 40 mg HLD:LDL 69 on lipitor 80 mg Family history: Father-HF, Both-diabetes SOCIAL HISTORY: Marital status: Tobacco: yes ETOH:yes 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 19 Total Medications Allergies: Patient has answered NKA PAST HISTORY: 1) Diabetes mellitus 2) Hypertension 3) Shoulder pain 4) Abnormal liver function 5) Medical examinations/reports status 6) Cervical radiculopathy 7) Vitamin D deficiency 8) Tobacco use 9) Erectile dysfunction 10) Chronic pain PHYSICAL EXAM: Vital Signs- Temperature: 97.6 F [36.4 C] (05/01/2023 11:29) HR: 92 (05/01/2023 11:29) BP: Measurement DT BP 05/01/2023 11:29 133/86 04/26/2023 15:18 146/79 04/26/2023 15:18 146/68 Weight: 259 lb [117.48 kg] (05/01/2023 11:29) Patient Weight History - Last Four 1. 259.0 lbs. / 117.5 kg. on MAY 01, 2023@11:29:49 2. 256.2 lbs. / 116.2 kg. on APR 26, 2023@15:18:24 3. 250.0 lbs. / 113.4 kg. on OCT 26, 2022@10:00:29 4. 250.0 lbs. / 113.4 kg. on AUG 17, 2022@08:56:06 BMI: 35.2 General: 50MALE NAD, WNWD HEENT: sclera anicteric NECK: Supple, no thyromegaly LUNGS: CTAB, regular unlabored CVS: RRR, S1 S2, no S3 S4 or murmurs GI: obese/non distended, +BS EXT: no edema FEET: no lesion/calluses/deformities, 2+pedal pulses MOOD: appropriate, pleasant TOE TRIMMER: non focal LABS: SODIUM 139 mEq/L 03/08/2023 08:56 POTASSIUM 4.2 mEq/L 03/08/2023 08:56 CHLORIDE 106 mEq/L 03/08/2023 08:56 UREA NITROGEN 14.4 mg/dL 03/08/2023 08:56 CREATININE 0.83 mg/dL 03/08/2023 08:56 CALCIUM 9.1 mg/dL 03/08/2023 08:56 CARBON DIOXIDE 21 L mEq/L 03/08/2023 08:56 GLUCOSE 143 H mg/dL 03/08/2023 08:56 EGFR (CKD-EPI 2020) 107.3 03/08/2023 08:56 Microalb/creat: CREATuF: 62.7 (04/30/23 08:28) M/CREAT: 47 (04/30/23 08:28) MICRAL: 29.6 (04/30/23 08:28) No MICRAL/CREAT RATIO (STL) data found HGA1C 7.3 H % 03/08/2023 08:56 HGA1C 7.0 H % 08/17/2022 10:34 HGA1C 7.0 H % 08/28/2018 07:03 Lipid Panel: TRIGLYCERIDE 1999 H mg/dL 04/30/2023 08:17 CHOLESTEROL 330 H mg/dL 04/30/2023 08:17 HDL(New) 33 L mg/dL 04/30/2023 08:17 DIRECT LDL comment mg/dl 04/30/2023 08:17 CALCULATED LDL comment mg/dL 04/30/2023 08:17 TSH 0.643 uIU/mL 04/30/2023 08:17 A/P: BRODY TILLEY Rodolfo is a 48 yo WHITE MALE with PMH T2DM, Htn presenting for initial consult for hypertriglyceridemia. 1.) Type 2 diabetes: He is doing well on ozempic and will increase to optimize weight loss benefits -continue metformin 1 g BID, glimepiride 4 mg BID, jardiance 25 mg -increase ozempic to 1 mg->2 mg Optho: no known retinopathy, teleretinal screen 08/31, [place] 20[place] Macrovascular: no MA/CVA, no chest pain Neuropathy:no and no prior amputations Nephropathy: UACR 47 on lisinopril 40 mg HLD:LDL 69 on lipitor 80 mg 2.) Hypertriglyceridemia: likely genetic with dietary contribution. Reviewed foods to reduce and avoid alcohol-unlikely patient will adhere to these per his report. No prior pancreatitis. Will recheck Tg on current regimen -continue lipitor 80 mg, fenofibrate 160 mg, fish oil 1000 mg daily -dietary guidelines provided -check lipids /es/ ROBIN DEWITT MD Endocrinology Physician Signed: 07/26/2023 14:25 07/28/2023 ADDENDUM STATUS: COMPLETED I called pt: his A1c is at goal 6.8 and Tg improved to 118. Will continue current regimen /bennett/ ROBIN DEWITT MD Endocrinology Physician Signed: 07/28/2023 21:25 ROBIN DEWITT [facility] July 26, 2023 11:58 AM [facility] NOTE: LOCAL TITLE: ENDOCRINOLOGY OUTPATIENT FOLLOW UP ST STANDARD TITLE: ENDOCRINOLOGY OUTPATIENT NOTE DATE OF NOTE: JULY 26, 2023@11:58 ENTRY DATE: JULY 26, 2023@11:58:39 AUTHOR: ROBIN DEWITT EXP COSIGNER: URGENCY: STATUS: COMPLETED ENDOCRINOLOGY OUTPATIENT FOLLOW UP ST Has ADDENDA HPI: BRODY TILLEY is a 47 yo WHITE MALE with PMH T2DM, Htn presenting for initial consult for hypertriglyceridemia. 1.) Hypertriglyceridemia: last visit Tg 1998 not fasting No prior pancreatitis He thinks parents had hyperlipidemia, but not confirmed Diet: AM-eggs +/- carlin, No Lunch, Dinner-pizza, subway, steak Alcohol: drinking 0-1 case Currently: lipitor 80 mg, fenofibrate 160 mg, fish oil 1000 mg Previously on niacin 1000 mg, but stopped at last visit He thinks labs from 03/02 was fasting Report Released Date/Time: Mar 08, 2023@09:54 TRIGLYCERIDE 1053 H mg/dL 0 - 150 [657] Report Released Date/Time: Aug 17, 2022@12:53 TRIGLYCERIDE 228 H mg/dL 0 - 150 [657] Report Released Date/Time: Aug 28, 2018@07:56 TRIGLYCERIDE 437 H mg/dl Ref: <=150 [657] 2.)T2DM: Duration: 20 yrs A1c: 7.3 Regimen: ozempic 0.5 mg, metformin 1 g qhs, glimepiride 4 mg BID, jardiance 25 mg Stopped alogliptin No prior DKA/HHNS Bg: he does not check bg at home Diet: see above, has reduced appetite from ozempic Exercise/Weight: lost 12 lbs since 05/04, walking daily Alcohol/smokin drinks/week, cigs/day Denies prior pancreatitis, personal or FH of MTC/MEN syndrome Complications: Optho: no known retinopathy, teleretinal screen 08/31 but [facility] Macrovascular: no MA/CVA, no chest pain Neuropathy: no and no prior amputations Nephropathy: none, UACR 32 on lisinopril 40 mg HLD:LDL 69 on lipitor 80 mg Family history: Father-HF, Both-diabetes SOCIAL HISTORY: Marital status: Tobacco: yes ETOH: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 19 Total Medications Allergies: Patient has answered NKA PAST HISTORY: 1) Diabetes mellitus 2) Hypertension 3) Shoulder pain 4) Abnormal liver function 5) Medical examinations/reports status 6) Cervical radiculopathy 7) Vitamin D deficiency 8) Tobacco use 9) Erectile dysfunction 10) Chronic pain PHYSICAL EXAM: Vital Signs- Temperature: 97.6 F [36.4 C] (05/01/2023 11:29) HR: 92 (05/01/2023 11:29) BP: Measurement DT BP 05/01/2023 11:29 133/86 04/26/2023 15:18 146/79 04/26/2023 15:18 146/68 Weight: 259 lb [117.48 kg] (05/01/2023 11:29) Patient Weight History - Last Four 1. 259.0 lbs. / 117.5 kg. on MAY 01, 2023@11:29:49 2. 256.2 lbs. / 116.2 kg. on APR 26, 2023@15:18:24 3. 250.0 lbs. / 113.4 kg. on OCT 26, 2022@10:00:29 4. 250.0 lbs. / 113.4 kg. on AUG 17, 2022@08:56:06 BMI: 35.2 General: 50MALE NAD, WNWD HEENT: sclera anicteric NECK: Supple, no thyromegaly LUNGS: CTAB, regular unlabored CVS: RRR, S1 S2, no S3 S4 or murmurs GI: obese/non distended, +BS EXT: no edema FEET: no lesion/calluses/deformities, 2+pedal pulses MOOD: appropriate, pleasant TOE TRIMMER: non focal LABS: SODIUM 139 mEq/L 03/08/2023 08:56 POTASSIUM 4.2 mEq/L 03/08/2023 08:56 CHLORIDE 106 mEq/L 03/08/2023 08:56 UREA NITROGEN 14.4 mg/dL 03/08/2023 08:56 CREATININE 0.83 mg/dL 03/08/2023 08:56 CALCIUM 9.1 mg/dL 03/08/2023 08:56 CARBON DIOXIDE 21 L mEq/L 03/08/2023 08:56 GLUCOSE 143 H mg/dL 03/08/2023 08:56 EGFR (CKD-EPI 2020) 107.3 03/08/2023 08:56 Microalb/creat: CREATuF: 62.7 (04/30/23 08:28) M/CREAT: 47 (04/30/23 08:28) MICRAL: 29.6 (04/30/23 08:28) No MICRAL/CREAT RATIO (STL) data found HGA1C 7.3 H % 03/08/2023 08:56 HGA1C 7.0 H % 08/17/2022 10:34 HGA1C 7.0 H % 08/28/2018 07:03 Lipid Panel: TRIGLYCERIDE 1999 H mg/dL 04/30/2023 08:17 CHOLESTEROL 330 H mg/dL 04/30/2023 08:17 HDL(New) 33 L mg/dL 04/30/2023 08:17 DIRECT LDL comment mg/dl 04/30/2023 08:17 CALCULATED LDL comment mg/dL 04/30/2023 08:17 TSH 0.643 uIU/mL 04/30/2023 08:17 A/P: BRODY TILLEY is a 48 yo WHITE MALE with PMH T2DM, Htn presenting for initial consult for hypertriglyceridemia. 1.) Type 2 diabetes: He is doing well on ozempic and will increase to optimize weight loss benefits -continue metformin 1 g BID, glimepiride 4 mg BID, jardiance 25 mg -increase ozempic to 1 mg->2 mg Optho: no known retinopathy, teleretinal screen [place]31, [place] [facility] Macrovascular: no MA/CVA, no chest pain Neuropathy:no and no prior amputations Nephropathy: UACR 47 on lisinopril 40 mg HLD:LDL 69 on lipitor 80 mg 2.) Hypertriglyceridemia: likely genetic with dietary contribution. Reviewed foods to reduce and avoid alcohol-unlikely patient will adhere to these per his report. No prior pancreatitis. Will recheck Tg on current regimen -continue lipitor 80 mg, fenofibrate 160 mg, fish oil 1000 mg daily -dietary guidelines provided -check lipids /bennett/ ROBIN DEWITT MD Endocrinology Physician Signed: 07/26/2023 14:25 07/26/2023 ADDENDUM STATUS: COMPLETED Nm Pt was interested in getting a portable CPAP mask-not sure he does this? Thanks /bennett/ ROBIN DEWITT MD Endocrinology Physician Signed: 07/26/2023 14:29 Receipt Acknowledged By: 07/27/2023 10:51 /es/ Sandra Munoz MD. Staff Physcian. * AWAITING SIGNATURE * YENI HOYOS 07/28/2023 ADDENDUM STATUS: COMPLETED I called pt: his A1c is at goal 6.8 and Tg improved to 118. Will continue current regimen /bennett/ ROBIN DEWITT MD Endocrinology Physician Signed: 07/28/2023 21:25 ROBIN DEWITT [facility]
--- OUTSIDE RECORDS SUMMARY | 2024-03-07 11:05 | XMS_ITS | Encounter Summary ---
Author Name [facility] [place] Organization [facility] [place] Address [address] [place] [address] Care Team Providers Care Bumper Straightener Name Role Phone TAMMY, SANDRA Primary Care Provider Unavailabl e Insurance [...] ION RX PLAN Apr 11, 2019 [id number] [phone] Christoph TILLEY SPOUSE [facility] Mar 11, 2017 [id number] [phone] Nino TILLEY SPOUSE [facility] Mar 11, 2019 [id number] [phone] Nino TILLEY SPOUSE [facility] POINT OF SERVICE [facility] Mar 11, 2017 [id number] [phone] Nino TILLEY SPOUSE Selected Encounter This section includes the information on record at [place] for the Encounter. Date/Time Encounter Type Encounter Description Reason Provider Source July 29, 2023 02:01 PM Outpatient Encounter TELEPHONE PRIMARY CARE ELENO,KASEY R IHE Encounter Template Text not used by [facility] Plan of Treatment: Future Appointments (+ 6 months) and Future Tests (+/- 45 days) The Plan of Treatment section includes future care activities for the patient from all [place] [facility] This section includes future appointments and future orders which are active, pending or scheduled. Future Appointments This section includes appointments that were scheduled to occur 6 months from the date of the Encounter, up to a maximum of 20 appointments. The data comes from all [place] treatment facilities. Appointment Date/Time Appointment Type Appointme nt Facility Name Nov 19, 2023 09:49 AM AMBULATORY - MEDICINE [facility] Lab Results: +/- 30 days of the encounter This section includes the Chemistry and Hematology Lab Results on record with [place] for the patient. Radiology Reports and Pathology Reports are provided separately, in subsequent sections. Lab Results This section contains the Chemistry/Hematology Results that were resulted 30 days before or 30 daysafter the date of the Encounter. Date/Time Source Result Type Result - Unit Interpretation Reference Range Comment July 26, 2023 12:36 PM [facility] HGA1C Specimen Type: BLOOD No comment entered. Ordering Provider: ROBIN DEWITT Report Released Date/Time: July 26, 2023 12:26 PM Reporting Lab: [facility] [address] [facility] [address] Performing Lab: [address] [address] HGA1C 6.8 H 4.0-6.0 July 26, 2023 12:36 PM [facility] LIPID PANEL (STL) Specimen Type: PLASMA No comment entered. Ordering Provider: ROBIN DEWITT Report Released Date/Time: July 26, 2023 12:26 PM Reporting Lab: [facility] [address] [facility] [address] Performing Lab: [address] [address] CHOLESTEROL 132 mg/dL 0-200 TRIGLYCERIDE 118 mg/dL 0-150 CALCULATED LDL 68 mg/dL HDL(New) 40 mg/dL >40 Encounter Notes: All associated encounter notes This section contains the clinical notes associated to the Encounter. Date/Time Encounter Note(s) Provider Source July 29, 2023 02:01 PM NURSING NOTE: LOCAL TITLE: V15 PACT TELEPHONE CONTACT NOTE ST[facility] STANDARD TITLE: NURSING NOTE DATE OF NOTE: JULY 29, 2023@14:01 ENTRY DATE: JULY 29, 2023@14:01:29 AUTHOR: KASEY JOHANSEN EXP COSIGNER: URGENCY: STATUS: COMPLETED Patient/Other contacted: Patient Patient Identifiers : Full Name Date of Other: Re: Portable CPAP Mask Denies current symptoms, recent trauma/exposure, or other health concerns; confirmed patient safety. Contact provided Primary Care phone number and encouraged to call if any questions or concerns. Review that after hours nurse line ext. [phone] and emergency room are available 01/10 for patient use. Comments: Called and provided contact information for [facility]AP Clinic ext. [phone] to inquire about a portable CPAP mask. Contact understanding verified by teach back: Yes Total time spent on phone: 5-10 minutes /bennett/ TAMICA PALMER, RN REGISTERED NURSE Signed: 07/29/2023 14:04 KASEY JOHANSEN [facility]
--- OUTSIDE RECORDS SUMMARY | 2024-03-07 11:05 | XMS_ITS | Encounter Summary ---
Author Name [facility] [place] [facility] Address [address] [place] [address] Care Team Providers Care Replenishment Merchandising Associate Name Role Phone SANDRA MUNOZ Primary Care [...] ION RX PLAN Apr 11, 2019 [id number] 09 [phone] Christoph TILLEY SPOUSE [facility] Mar 11, 2017 [id number] [phone] Nino TILLEY SPOUSE [facility] Mar 11, 2019 [id number] [phone] Nino TILLEY SPOUSE [facility] POINT OF SERVICE [facility] Mar 11, 2017 [id number] [phone] Nino TILLEY SPOUSE Selected Encounter This section includes the information on record at [place] for the Encounter. Date/Time Encounter Type Encounter Description Reason Provider Source May 09, 2023 12:14 PM Q[facility]P OL DIG ASSMT&MGMT 5-10 CLINICAL PHARMACY ICD-10-CM E78.5 Hyperlipidemia, unspecified JESSICA CHANDLER IHNino Encounter Template Text not used by [place] Assessments - Encounter Diagnoses This section includes the primary and secondary diagnoses documented for the Encounter. Date/Time Primary/Secondary Diagnosis Diagnosis Name Provider Source May 09, 2023 12:18 PM PRIMARY Hyperlipidemia, unspecified JESSICA CHANDLER [facility] Plan of Treatment: Future Appointments (+ 6 months) and Future Tests (+/- 45 days) The Plan of Treatment section includes future care activities for the patient from all [place] [facility]. This section includes future appointments and future orders which are active, pending or scheduled. Future Appointments This section includes appointments that were scheduled to occur 6 months from the date of the Encounter, up to a maximum of 20 appointments. The data comes from all [place] treatment facilities. Appointment Date/Time Appointment Type Appointme nt Facility Name July 24, 2023 10:00 AM AMBULATORY - SURGERY [facility] July 26, 2023 12:00 PM AMBULATORY - MEDICINE [facility] Lab Results: +/- 30 days of the encounter This section includes the Chemistry and Hematology Lab Results on record with [place] for the patient. Radiology Reports and Pathology Reports are provided separately, in subsequent sections. Lab Results This section contains the Chemistry/Hematology Results that were resulted 30 days before or 30 daysafter the date of the Encounter. Date/Time Source Result Type Result - Unit Interpretation Reference Range Comment May 01, 2023 11:32 AM [facility] GLUCOSE,BLOOD-poct (STL) Specimen Type: BLOOD Comment: Test Performed by: [id number] Meter #: [id number] Ordering Provider: SANDRA MUNOZ Report Released Date/Time: May 01, 2023 04:01 PM Reporting Lab: [address] [address] Performing Lab: [address] [address] GLUCOSE,BLOOD- poct (STL) 120 mg/dL H 72-99 Apr 30, 2023 08:28 AM [facility] MICRAL/CREAT PROFILE (STL) Specimen Type: URINE No comment entered. Ordering Provider: ROBIN DEWITT Report Released Date/Time: Apr 26, 2023 04:19 PM Reporting Lab: [facility] [address] [facility] [address] Performing Lab: [facility] [address] [facility] [address] URINE ALBUMIN (PB-STL) 29.6 mg/L uACR (STL) 47 mg/g H 0-29 CREATININE URINE/OTHERS 62.7 mg/dL L 63-166 Apr 30, 2023 08:17 AM [facility] LIPID PANEL (STL) Specimen Type: PLASMA Comment: LDL Unable to be calculated LDL calculation invalid when Triglyceride exceeds 250 mg/dl Direct LDL invalid when Triglyceride exceeds 1420 mg/dl CALCULATED LDL reported incorrectly as EXCEPTION by [[id number]] . Changed to comment on Apr 30, 2023@09:54 by [[id number]] . DIRECT LDL units reported incorrectly as mg/dL by [[id number]] . Changed to mg/dl on Apr 30, 2023@09:54 by [[id number]] . DIRECT LDL reference low reported incorrectly as 100 by [[id number]] . Changed to <no value> on Apr 30, 2023@09:54 by [[id number]] . DIRECT LDL reference high reported incorrectly as <no value> by [[id number]] . Changed to 99.9 on Apr 30, 2023@09:54 by [[id number]] . Ordering Provider: ROBIN DEWITT Report Released Date/Time: Apr 26, 2023 03:58 PM Reporting Lab: [facility] [address] [facility] [address] Performing Lab: [facility] [address] [facility] [address] CHOLESTEROL 330 mg/dL H 0-200 TRIGLYCERIDE 1999 mg/dL H 0-150 DIRECT LDL comment mg/dL <99.9 CALCULATED LDL comment mg/dL HDL(New) 33 mg/dL L >40 Apr 30, 2023 08:17 AM [facility] TSH (MA-PB-STL) Specimen Type: SERUM No comment entered. Ordering Provider: ROBIN DEWITT Report Released Date/Time: Apr 26, 2023 04:19 PM Reporting Lab: [facility] [address] [facility] [address] Performing Lab: [facility] [address] [place] [address] TSH 0.643 u[IU]/mL 0.47-5 Apr 30, 2023 08:17 AM [facility] FREE T4 Specimen Type: SERUM No comment entered. Ordering Provider: ROBIN DEWITT Report Released Date/Time: Apr 26, 2023 04:19 PM Reporting Lab: [address] [address] Performing Lab: [address] [address] FREE T4 0.85 ng/mL 0.7-1.48 Encounter Notes: All associated encounter notes This section contains the clinical notes associated to the Encounter. Date/Time Encounter Note(s) Provider Source May 09, 2023 12:14 PM PHARMACY CONSULT: LOCAL TITLE: PHARMACY PRIOR APPROVAL CONSULT [facility] STANDARD TITLE: PHARMACY CONSULT DATE OF NOTE: MAY 09, 2023@12:14 ENTRY DATE: MAY 09, 2023@12:14:56 AUTHOR: JESSICA CHANDLER EXP COSIGNER: URGENCY: STATUS: COMPLETED The medical record has been reviewed with regard to this prior authorization drug request. Medication requested: [id number] ETHYL ESTERS 1000MG CAP Medication indication: HLD Medical history relevant to this request: BRODY TILLEY is a 47 yo, WHITE, MALE with pertinent PMH significant for HLD, HTN, DM. Endo requesting initiation of Lovaza (keuig-0-dvqc ethyl esters). Current HLD Regimen: niacin (stopped per 04/2023 endo note), atorvastatin 80mg daily, fenofibrate 160mg PO daily (started 04/2023) Pertinent Labs: SODIUM 139 mEq/L 03/08/2023 08:56 POTASSIUM 4.2 [...] 08:56 EGFR (CKD-EPI 2020) 107.3 03/08/2023 08:56 Lipid Panel: TRIGLYCERIDE 1999 H mg/dL 04/30/2023 08:17 CHOLESTEROL 330 H mg/dL 04/30/2023 08:17 HDL(New) 33 L mg/dL 04/30/2023 08:17 DIRECT LDL comment mg/dl 04/30/2023 08:17 CFU Inclusion Criteria: (+) Fasting triglyceride level of > 500 mg/dL on two occasions D/t contract termination w/ fish oil + hx of TG > 500 mg/dl, request approved. The request is approved - A documented therapeutic failure of the preferred formulary alternative(s) exists - No formulary-preferred alternative TIME REVIEWING CHART: 7 minutes /bennett/ Jessica Chandler, Pharm.D., BCPS Clinical Camp Nurse Signed: 05/09/2023 12:22 JESSICA CHANDLER [facility]
--- OUTSIDE RECORDS SUMMARY | 2024-03-07 11:05 | XMS_ITS ---
Author Name [facility] [place] [facility] Address [address] [place] [address] Care Team Providers Care Diver Assistant Name Role Phone SANDRA MUNOZ Primary Care [...] ION RX PLAN Apr 11, 2019 [id number] [phone] Christoph TILLEY SPOUSE [facility] Mar 11, 2017 [id number] [phone] Nino TILLEY SPOUSE [facility] Mar 11, 2019 [id number] [phone] Nino TILLEY SPOUSE [facility] POINT OF SERVICE [facility] Mar 11, 2017 [id number] [id number] [phone] Nino TILLEY SPOUSE Selected Encounter This section includes the information on record at [place] for the Encounter. Date/Time Encounter Type Encounter Description Reason Provider Source May 02, 2023 09:15 AM Q[facility]P OL DIG ASSMT&MGMT 5-10 CLINICAL PHARMACY ICD-10-CM E78.5 Hyperlipidemia, unspecified JESSICA CHANDLER IHNino Encounter Template Text not used by [place] Assessments - Encounter Diagnoses This section includes the primary and secondary diagnoses documented for the Encounter. Date/Time Primary/Secondary Diagnosis Diagnosis Name Provider Source May 02, 2023 09:24 AM PRIMARY Hyperlipidemia, unspecified JESSICA CHANDLER [facility] Plan of Treatment: Future Appointments (+ 6 months) and Future Tests (+/- 45 days) The Plan of Treatment section includes future care activities for the patient from all [place] [facility]. This section includes future appointments and future orders which are active, pending or scheduled. Future Appointments This section includes appointments that were scheduled to occur 6 months from the date of the Encounter, up to a maximum of 20 appointments. The data comes from all [place] treatment facilities. Appointment Date/Time Appointment Type Appointme nt Facility Name July 24, 2023 10:00 AM AMBULATORY - SURGERY [facility] July 26, 2023 12:00 PM AMBULATORY - MEDICINE [facility] Lab Results: +/- 30 days of the encounter This section includes the Chemistry and Hematology Lab Results on record with [place] for the patient. Radiology Reports and Pathology Reports are provided separately, in subsequent sections. Lab Results This section contains the Chemistry/Hematology Results that were resulted 30 days before or 30 daysafter the date of the Encounter. Date/Time Source Result Type Result - Unit Interpretation Reference Range Comment May 01, 2023 11:32 AM [facility] GLUCOSE,BLOOD-poct (STL) Specimen Type: BLOOD Comment: Test Performed by: [id number] Meter #: [id number] Ordering Provider: SANDRA MUNOZ Report Released Date/Time: May 01, 2023 04:01 PM Reporting Lab: [address] [address] Performing Lab: [address] [address] GLUCOSE,BLOOD- poct (STL) 120 mg/dL H 72-99 Apr 30, 2023 08:28 AM [facility] MICRAL/CREAT PROFILE (STL) Specimen Type: URINE No comment entered. Ordering Provider: ROBIN DEWITT Report Released Date/Time: Apr 26, 2023 04:19 PM Reporting Lab: [facility] [address] [facility] [address] Performing Lab: [facility] [address] [facility] [address] URINE ALBUMIN (PB-STL) 29.6 mg/L uACR (STL) 47 mg/g H 0-29 CREATININE URINE/OTHERS 62.7 mg/dL L 63-166 Apr 30, 2023 08:17 AM [facility] LIPID PANEL (STL) Specimen Type: PLASMA Comment: LDL Unable to be calculated LDL calculation invalid when Triglyceride exceeds 250 mg/dl Direct LDL invalid when Triglyceride exceeds 1420 mg/dl CALCULATED LDL reported incorrectly as EXCEPTION by [[id number]] . Changed to comment on Apr 30, 2023@09:54 by [[id number]] . DIRECT LDL units reported incorrectly as mg/dL by [[id number]] . Changed to mg/dl on Apr 30, 2023@09:54 by [[id number]] . DIRECT LDL reference low reported incorrectly as 100 by [[id number]] . Changed to <no value> on Apr 30, 2023@09:54 by [[id number]] . DIRECT LDL reference high reported incorrectly as <no value> by [[id number]] . Changed to 99.9 on Apr 30, 2023@09:54 by [[id number]] . Ordering Provider: ROBIN DEWITT Report Released Date/Time: Apr 26, 2023 03:58 PM Reporting Lab: [facility] [address] [facility] [address] Performing Lab: [facility] [address] [facility] [address] CHOLESTEROL 330 mg/dL H 0-200 TRIGLYCERIDE 1999 mg/dL H 0-150 DIRECT LDL comment mg/dL <99.9 CALCULATED LDL comment mg/dL HDL(New) 33 mg/dL L >40 Apr 30, 2023 08:17 AM [facility] TSH (MA-PB-STL) Specimen Type: SERUM No comment entered. Ordering Provider: ROBIN DEWITT Report Released Date/Time: Apr 26, 2023 04:19 PM Reporting Lab: [facility] [address] [facility] [address] Performing Lab: [facility] [address] [place] [address] TSH 0.643 u[IU]/mL 0.47-5 Apr 30, 2023 08:17 AM [facility] FREE T4 Specimen Type: SERUM No comment entered. Ordering Provider: ROBIN DEWITT Report Released Date/Time: Apr 26, 2023 04:19 PM Reporting Lab: [address] [address] Performing Lab: [address] [address] FREE T4 0.85 ng/mL 0.7-1.48 Encounter Notes: All associated encounter notes This section contains the clinical notes associated to the Encounter. Date/Time Encounter Note(s) Provider Source May 02, 2023 09:16 AM PHARMACY CONSULT: LOCAL TITLE: PHARMACY PRIOR APPROVAL CONSULT [facility] STANDARD TITLE: PHARMACY CONSULT DATE OF NOTE: MAY 02, 2023@09:16 ENTRY DATE: MAY 02, 2023@09:16:39 AUTHOR: JESSICA CHANDLER EXP COSIGNER: URGENCY: STATUS: COMPLETED The medical record has been reviewed with regard to this prior authorization drug request. Medication requested: ICOSAPENT ETHYL 1GM CAP Medication indication: HLD Medical history relevant to this request: BRODY TILLEY is a 47 yo, WHITE, MALE with pertinent PMH signficant for DM, HTN. Endocrinology requesting initiation of icosapent ethyl. Current HLD Regimen: fenofibrate 160mg PO daily (ordered 04/26/23); atorvastatin 80mg PO QPM, niacin 1000mg PO QHS Pertinent Labs: SODIUM 139 mEq/L 03/08/2023 08:56 [...] DIRECT LDL comment mg/dl 04/30/2023 08:17 CFU Exclusion Criteria: (-) Contraindication: History of hypersensitivity to icosapent ethyl or to any of its components (-) Not on a statin or unable to tolerate statins (-) Severe NYHA Class IV congestive heart failure (-) Severe renal insufficiency (e.g., creatinine clearance <30 mL/min) or on dialysis (-) Severe comorbid non-cardiovascular condition(s) expected to limit life expectancy to <2 years (-) Uncontrolled or poorly controlled diabetes (e.g., HGB A1C > 10 %) A1c 7.3% 02/2023 CFU Inclusion Criteria: (-) > 45 years of age with established cardiovascular disease (+) Receiving a moderate to high dose statin (or maximally tolerated statin) and LDL is between 41 mg/dL and 100 mg/dL. Statin doses should be maximized (as tolerated) prior to adding icosapent ethyl. (+) Fasting triglyceride level of > 150 mg/dL Vet without hx of ASCVD per chart review, not eligible to receive Vascepa at this time. Can consider addition of Lovaza as TG > 500 mg/dl x2. The request does not meet criteria - Compelling evidence for the requested indication is lacking TIME REVIEWING CHART:7. (minutes) /bennett/ Jessica Chandler, Pharm.D., BCPS Clinical Pathological Technician Signed: 05/02/2023 09:25 Receipt Acknowledged By: 05/04/2023 05:48 /bennett/ ROBIN DEWITT MD Endocrinology Physician JESSICA CHANDLER [facility]
--- OUTSIDE RECORDS SUMMARY | 2024-03-07 11:05 | XMS_ITS ---
Author Name [facility] [place] [facility] Address [address] [place] [address] Care Team Providers Care Edge Finisher Name Role Phone SANDRA MUNOZ Primary Care [...] ION RX PLAN Apr 11, 2019 [id number] [phone] Christoph TILLEY SPOUSE [facility] Mar 11, 2017 [id number] [phone] Nino TILLEY SPOUSE [facility] Mar 11, 2019 [id number] [phone] Nino TILLEY SPOUSE [facility] POINT OF SERVICE [facility] Mar 11, 2017 [id number] [phone] Nino TILLEY SPOUSE Selected Encounter This section includes the information on record at [place] for the Encounter. Date/Time Encounter Type Encounter Description Reason Provider Source Jun 05, 2023 08:35 AM Q[facility]P OL DIG ASSMT&MGMT 5-10 CLINICAL PHARMACY ICD-10-CM E11.9 Type 2 diabetes mellitus without complications KENDRA ESPARZA IHE Encounter Template Text not used by [place] Assessments - Encounter Diagnoses This section includes the primary and secondary diagnoses documented for the Encounter. Date/Time Primary/Secondary Diagnosis Diagnosis Name Provider Source Jun 05, 2023 08:38 AM PRIMARY Type 2 diabetes mellitus without complications KENDRA ESPARZA [facility] Plan of Treatment: Future Appointments (+ 6 months) and Future Tests (+/- 45 days) The Plan of Treatment section includes future care activities for the patient from all [place] [facility]. This section includes future appointments and future orders which are active, pending or scheduled. Future Appointments This section includes appointments that were scheduled to occur 6 months from the date of the Encounter, up to a maximum of 20 appointments. The data comes from all [place] treatment facilities. Appointment Date/Time Appointment Type Appointme nt Facility Name July 24, 2023 10:00 AM AMBULATORY - SURGERY [facility] July 26, 2023 12:00 PM AMBULATORY - MEDICINE [facility] Nov 19, 2023 09:49 AM AMBULATORY - MEDICINE [facility] Encounter Notes: All associated encounter notes This section contains the clinical notes associated to the Encounter. Date/Time Encounter Note(s) Provider Source Jun 05, 2023 08:35 AM PHARMACY CONSULT: LOCAL TITLE: PHARMACY PRIOR APPROVAL CONSULT ST STANDARD TITLE: PHARMACY CONSULT DATE OF NOTE: JUN 05, 2023@08:35 ENTRY DATE: JUN 05, 2023@08:35:29 AUTHOR: KENDRA ESPARZA EXP COSIGNER: URGENCY: STATUS: COMPLETED The medical record has been reviewed with regard to this prior authorization drug request. Medication requested: SEMAGLUTIDE 0.25MG/0.375ML INJ PEN 3ML Medication indication: DM Medical history relevant to this request: HGA1C 7.3 H % 03/08/2023 08:56 Last Eye Exam:06/[address] History of pancreatitis or self/family history of thyroid cancer: NO If yes, please explain: Current Therapy or Previous Medications tried:Metformin, Sulfonylureas, SGLT2-inhibitors Justification: (Other therapies tried, pertinent patient history, other labs, etc) not controlled on 4 orals (alogliptin, empagliflozin, metformin and glimepiride) - no CI for use - switching alogliptin to ozempic - approved The request is approved - A documented therapeutic failure of the preferred formulary alternative(s) exists TIME REVIEWING CHART:5. (minutes) /bennett/ Kendra Esparza, PharmD, BCACP, [facility] TELEHEALTH CLINICAL PHARMACIST Signed: 06/05/2023 08:38 KENDRA ESPARZA [facility]
--- OUTSIDE RECORDS SUMMARY | 2024-03-07 11:05 | XMS_ITS ---
Author Name [facility] [place] [facility] [place] [facility] [place] Address [address] [place] [address] Care Team Providers Care Cook Ship Name Role Phone SANDRA MUNOZ Primary Care [...] ION RX PLAN Apr 11, 2019 [id number] [phone] Christoph TILLEY SPOUSE [facility] COMM Mar 11, 2017 [id number] [phone] Nino TILLEY SPOUSE [facility] COMM Mar 11, 2019 [id number] [phone] Nino TILLEY SPOUSE [facility] POINT OF SERVICE [facility] COMM Mar 11, 2017 [id number] [id number] [phone] Nino TILLEY SPOUSE Selected Encounter This section includes the information on record at [place] for the Encounter. Date/Time Encounter Type Encounter Description Reason Provider Source Nov 19, 2023 09:49 AM EMERGENCY DEPT VISIT LOW MDM EMERGENCY DEPT ICD-10-CM M54.50 Low back pain, unspecified GASTON LIND I[facility] Encounter Template Text not used by [place] Assessments - Encounter Diagnoses This section includes the primary and secondary diagnoses documented for the Encounter. Date/Time Primary/Secondary Diagnosis Diagnosis Name Provider Source Nov 19, 2023 11:09 AM PRIMARY Low back pain, unspecified GASTON LIND [facility] Plan of Treatment: Future Appointments (+ 6 months) and Future Tests (+/- 45 days) The Plan of Treatment section includes future care activities for the patient from all [place] [facility]. This section includes future appointments and future orders which are active, pending or scheduled. Future Appointments This section includes appointments that were scheduled to occur 6 months from the date of the Encounter, up to a maximum of 20 appointments. The data comes from all [facility]. Appointment Date/Time Appointment Type Appointme nt Facility Name Feb 10, 2024 02:00 PM AMBULATORY - MEDICINE [facility] Feb 10, 2024 03:00 PM AMBULATORY - NONE [facility] Mar 02, 2024 08:00 AM AMBULATORY - MEDICINE [facility] Mar 02, 2024 09:00 AM AMBULATORY - MEDICINE [facility] Mar 10, 2024 08:30 AM AMBULATORY - MEDICINE [facility] Mar 10, 2024 09:30 AM AMBULATORY - REHAB MEDICIN [facility] Apr 09, 2024 08:00 AM AMBULATORY - NONE [facility] Vital Signs: All taken on the encounter date This section contains inpatient and outpatient Vital Signs collected on the date of the Encounter. Date/Time Temperature Pulse Blood Pressure Respiratory Rate SP02 Pain Height Weight Body Mass Index Source Nov 19, 2023 10:00 AM 98.4 87 112/76 16 4 [facility] Encounter Notes: All associated encounter notes This section contains the clinical notes associated to the Encounter. Date/Time Encounter Note(s) Provider Source Nov 19, 2023 10:12 AM PHYSICIAN EMERGENC Y DEPT NOTE: LOCAL TITLE: EMERGENCY DEPARTMENT STL STANDARD TITLE: PHYSICIAN EMERGENCY DEPT NOTE DATE OF NOTE: NOV 19, 2023@10:12 ENTRY DATE: NOV 19, 2023@10:12:44 AUTHOR: MUDALLAL,GASTON EXP COSIGNER: URGENCY: STATUS: COMPLETED TRIAGE CHIEF COMPLAINT: back pain HPI: Patient is a 48 y.o. w/ M history of chronic back pain presents with acute flare for the past 2 days. Pain is triggered when he stands up. He denies fall/trauma, extremity weakness or numbness, fevers or chills, fecal or urinary incontinence. Pain is lumbosacral area, 2 out of 10, nonradiant. Currently he is pain free. REVIEW OF SYSTEMS: See HPI for further details. All 10 systems reviewed and otherwise negative unless otherwise detailed herein. PAST MEDICAL HISTORY: 1) Diabetes mellitus 2) Hypertension 3) Shoulder pain 4) Abnormal liver function 5) Medical examinations/reports status 6) Cervical radiculopathy 7) Vitamin D deficiency 8) Tobacco use 9) Erectile dysfunction 10) Chronic pain CURRENT MEDICATIONS: Active Outpatient Medications (including Supplies): Active Outpatient Medications Status 1) ATORVASTATIN CALCIUM 80MG TAB TAKE ONE TABLET BY ACTIVE MOUTH EVERY EVENING FOR HIGH CHOLESTEROL 2) CHOLECALCIF 50MCG (D3-2,000UNIT) TAB TAKE ONE TABLET ACTIVE BY MOUTH ONCE A DAY 3) EMPAGLIFLOZIN 25MG TAB TAKE ONE TABLET BY MOUTH ONCE ACTIVE A DAY FOR DIABETES 4) FENOFIBRATE 160MG TAB TAKE ONE TABLET BY MOUTH ONCE A ACTIVE DAY FOR HIGH TRIGLYCERIDES - TAKE WITH FOOD 5) LISINOPRIL 40MG TAB TAKE ONE TABLET BY MOUTH ONCE A ACTIVE DAY FOR HIGH BLOOD PRESSURE 6) LORATADINE 10MG TAB TAKE ONE TABLET BY MOUTH ONCE A ACTIVE DAY FOR ALLERGIC RHINITIS ON EMPTY STOMACH 7) MELOXICAM 15MG TAB TAKE ONE TABLET BY MOUTH ONCE A ACTIVE DAY FOR OSTEOARTHRITIS 8) MENTHOL/M-SALICYLATE 10-15% TOP CREAM APPLY LIGHTLY ACTIVE TO AFFECTED AREA(S) FOUR TIMES A DAY FOR PAIN (EXTERNAL USE ONLY) 9) METFORMIN HCL 1000MG TAB TAKE ONE TABLET BY MOUTH ACTIVE TWICE A DAY WITH MEALS FOR DIABETES TAKE WITH FOOD. AVOID ALCOHOL. DISCONTINUE BEFORE GETTING XRAY DYE. 10) [id number] ETHYL ESTERS 1000MG CAP TAKE TWO ACTIVE CAPSULES BY MOUTH TWICE A DAY FOR HIGH TRIGLYCERIDES 11) SEMAGLUTIDE 2MG/0.75ML INJ PEN 3ML INJECT 2MG UNDER ACTIVE THE SKIN EVERY WEEK FOR DIABETES Pending Outpatient Medications Status 1) CYCLOBENZAPRINE HCL 10MG TAB TAKE ONE TABLET BY MOUTH PENDING THREE TIMES A DAY MAY CAUSE DROWSINESS. DO NOT DRINK ALCOHOL WHILE TAKING THIS MEDICATION. 2) MENTHOL/M-SALICYLATE 10-15% TOP CREAM APPLY LIBERALLY PENDING TO AFFECTED AREA(S) FOUR TIMES A DAY (EXTERNAL USE ONLY) Active Non-VA Medications Status 1) Non-VA METFORMIN HCL 1000MG TAB 1000MG BY MOUTH ACTIVE DAILY. 14 Total Medications I have reviewed the patient's medication list with the patient and/or his/her care-metrologist. Any medication discrepancies have been resolved. Patient will be provided with an updated list of his/her medication(s). SURGICAL HISTORY: not pertinent FAMILY HISTORY: not pertinent SOCIAL HISTORY: Social History Main Topics: Smoking status: No data available for: Current Tobacco User Alcohol Use: not indorsed ____ Illicit Drug Use: not indorsed Sexual Activity: Other Topics of Concern: ALLERGIES: Review of patient's allergies indicates: Patient has answered NKA PHYSICAL EXAM: VITAL SIGNS: 112/76 (11/19/2023 10:00)87 (11/19/2023 10:00)96% (07/26/2023 12:02)98.4 F [36.9 C] (11/19/2023 10:00)16 (11/19/2023 10:00)The OBJECT WEIGHT LAST 3 was NOT found...Contact IRM. MAThe OBJECT was NOT found...Contact IRM.PAIN ASSESSMENTThe OBJECT was NOT found...Contact IRM. Measurement DT PAIN 11/19/2023 10:00 4 CONSTITUTIONAL: No acute distress, Non-toxic appearance BACK: No tenderness, No CVA tenderness EXTREMITIES: Normal range of motion, Intact distal pulses, No edema, No tenderness LYMPHATIC: No LAD appreciated NEUROLOGIC: Alert & oriented x 3, Normal motor function, Normal gait, no ataxia, No focal deficits appreciated on cursory screening exam SKIN: Warm, Dry, No erythema, No rash LABS: RADIOLOGY: ECG IMPRESSION: ED COURSE & MEDICAL DECISION MAKING: Nursing notes, medications, vital signs, allergies and pertinent labs & imaging studies reviewed (see chart for details) with lab results reviewed with patient/family and radiology results reviewed with patient/family. Stable, alert, nontoxic, nonfocal with clinically apparent 48 y.o. M p/w LBP w/o alarming signs/symptoms. He is pain free now. MEDICATIONS GIVEN IN ED: [ ] YES [ x] NO DECISION to ADMIT / DISCHARGE TIME: 1015 discharge. DISPOSITION CONDITION:[x ] Improved [ ] Unchanged [ ] Deteriorated CLINICAL IMPRESSION: 1 -back pain/sprain 2 - 3 - DISCHARGE INSTRUCTIONS AND PATIENT-DIRECTED FOLLOW-UP RECOMMENDATIONS: DIET: regular ACTIVITY: ad lynn NEW MEDS: Flexeril, Bengay. MEDICATION RECONCILIATION: CONTINUE ALL PRESCRIBED MEDICATIONS DIRECTED. FOLLOW-UP WITH [facility]IMARY [facility] INTERPRETIVE SPECIALIST/SPECIALIST: routine in 1-2 weeks if not improving, sooner if worse RETURN TO EMERGENCY: if any worries or concerns ADDITIONAL SIGNATURE PCP: [ ] YES [ ] NO [ ] not listed Active Outpatient Medications (including Supplies): Active Outpatient Medications Status 1) ATORVASTATIN CALCIUM 80MG TAB TAKE ONE TABLET BY ACTIVE MOUTH EVERY EVENING FOR HIGH CHOLESTEROL 2) CHOLECALCIF 50MCG (D3-2,000UNIT) TAB TAKE ONE TABLET ACTIVE BY MOUTH ONCE A DAY 3) EMPAGLIFLOZIN 25MG TAB TAKE ONE TABLET BY MOUTH ONCE ACTIVE A DAY FOR DIABETES 4) FENOFIBRATE 160MG TAB TAKE ONE TABLET BY MOUTH ONCE A ACTIVE DAY FOR HIGH TRIGLYCERIDES - TAKE WITH FOOD 5) LISINOPRIL 40MG TAB TAKE ONE TABLET BY MOUTH ONCE A ACTIVE DAY FOR HIGH BLOOD PRESSURE 6) LORATADINE 10MG TAB TAKE ONE TABLET BY MOUTH ONCE A ACTIVE DAY FOR ALLERGIC RHINITIS ON EMPTY STOMACH 7) MELOXICAM 15MG TAB TAKE ONE TABLET BY MOUTH ONCE A ACTIVE DAY FOR OSTEOARTHRITIS 8) MENTHOL/M-SALICYLATE 10-15% TOP CREAM APPLY LIGHTLY ACTIVE TO AFFECTED AREA(S) FOUR TIMES A DAY FOR PAIN (EXTERNAL USE ONLY) 9) METFORMIN HCL 1000MG TAB TAKE ONE TABLET BY MOUTH ACTIVE TWICE A DAY WITH MEALS FOR DIABETES TAKE WITH FOOD. AVOID ALCOHOL. DISCONTINUE BEFORE GETTING XRAY DYE. 10) OORXZ-5-UVCO ETHYL ESTERS 1000MG CAP TAKE TWO ACTIVE CAPSULES BY MOUTH TWICE A DAY FOR HIGH TRIGLYCERIDES 11) SEMAGLUTIDE 2MG/0.75ML INJ PEN 3ML INJECT 2MG UNDER ACTIVE THE SKIN EVERY WEEK FOR DIABETES Pending Outpatient Medications Status 1) CYCLOBENZAPRINE HCL 10MG TAB TAKE ONE TABLET BY MOUTH PENDING THREE TIMES A DAY MAY CAUSE DROWSINESS. DO NOT DRINK ALCOHOL WHILE TAKING THIS MEDICATION. 2) MENTHOL/M-SALICYLATE 10-15% TOP CREAM APPLY LIBERALLY PENDING TO AFFECTED AREA(S) FOUR TIMES A DAY (EXTERNAL USE ONLY) Active Non-VA Medications Status 1) Non-VA METFORMIN HCL 1000MG TAB 1000MG BY MOUTH ACTIVE DAILY. 14 Total Medications /es/ GASTON LIND M.D. EMERGENCY MEDICINE PHYSICIAN Signed: 11/19/2023 10:15 GASTON LIND [facility] Nov 19, 2023 09:59 AM EMERGENCY DEPT TRI AGE NOTE: LOCAL TITLE: EMERGENCY DEPARTMENT TRIAGE NOTE STANDARD TITLE: EMERGENCY DEPT TRIAGE NOTE DATE OF NOTE: NOV 19, 2023@09:59 ENTRY DATE: NOV 19, 2023@09:59:17 AUTHOR: TANYA HOPKINS COSIGNER: URGENCY: STATUS: COMPLETED Emergency Department/Urgent Care Center Triage Patient age:48 Sex: MALE On arrival patient was: AMBULATORY Patient phone number: Allergies: Patient has answered NKA Subjective/Chief Complaint: low back pain Objective: mid low back pain x 2 days. no injury. pt has taken nothing for pain at home. The patient is not a fall risk. BP: P: R: WT: T: HT: Temperature 98.4 F (36.9 C) Pulse 87 Respirations 16 Blood Pressure 112/76 Pain scale recorded: 4 Pulse Oximetry 98 Sepsis Screening Evaluation Emergency Severity Index (CHRIS) level Level 4 Current Medications: Active Outpatient Medications (including Supplies): Active Outpatient Medications Status 1) ATORVASTATIN CALCIUM 80MG TAB TAKE ONE TABLET BY ACTIVE MOUTH EVERY EVENING FOR HIGH CHOLESTEROL 2) CHOLECALCIF 50MCG (D3-2,000UNIT) TAB TAKE ONE TABLET ACTIVE BY MOUTH ONCE A DAY 3) EMPAGLIFLOZIN 25MG TAB TAKE ONE TABLET BY MOUTH ONCE ACTIVE A DAY FOR DIABETES 4) FENOFIBRATE 160MG TAB TAKE ONE TABLET BY MOUTH ONCE A ACTIVE DAY FOR HIGH TRIGLYCERIDES - TAKE WITH FOOD 5) LISINOPRIL 40MG TAB TAKE ONE TABLET BY MOUTH ONCE A ACTIVE DAY FOR HIGH BLOOD PRESSURE 6) LORATADINE 10MG TAB TAKE ONE TABLET BY MOUTH ONCE A ACTIVE DAY FOR ALLERGIC RHINITIS ON EMPTY STOMACH 7) MELOXICAM 15MG TAB TAKE ONE TABLET BY MOUTH ONCE A ACTIVE DAY FOR OSTEOARTHRITIS 8) MENTHOL/M-SALICYLATE 10-15% TOP CREAM APPLY LIGHTLY ACTIVE TO AFFECTED AREA(S) FOUR TIMES A DAY FOR PAIN (EXTERNAL USE ONLY) 9) METFORMIN HCL 1000MG TAB TAKE ONE TABLET BY MOUTH ACTIVE TWICE A DAY WITH MEALS FOR DIABETES TAKE WITH FOOD. AVOID ALCOHOL. DISCONTINUE BEFORE GETTING XRAY DYE. 10) [id number] ETHYL ESTERS 1000MG CAP TAKE TWO ACTIVE CAPSULES BY MOUTH TWICE A DAY FOR HIGH TRIGLYCERIDES 11) SEMAGLUTIDE 2MG/0.75ML INJ PEN 3ML INJECT 2MG UNDER ACTIVE THE SKIN EVERY WEEK FOR DIABETES Active Non-VA Medications Status 1) Non-VA METFORMIN HCL 1000MG TAB 1000MG BY MOUTH ACTIVE DAILY. 12 Total Medications Current Problems: 1) Diabetes mellitus 2) Hypertension 3) Shoulder pain 4) Abnormal liver function 5) Medical examinations/reports status 6) Cervical radiculopathy 7) Vitamin D deficiency 8) Tobacco use 9) Erectile dysfunction 10) Chronic pain Suicide Screen: [place] Suicide Severity Rating Scale (C-SSRS) screener 1. Over the past month, have you wished you were or wished you could go to sleep and not wake up? No 2. Over the past month, have you had any actual thoughts of killing yourself? No 3. Over the past month, have you been thinking about how you might do this? Response not required due to responses to other questions. 4. Over the past month, have you had these thoughts and had some intention of acting on them? Response not required due to responses to other questions. 5. Over the past month, have you started to work out or worked out the details of how to kill yourself? Response not required due to responses to other questions. 6. If yes, at any time in the past month did you intend to carry out this plan? Response not required due to responses to other questions. 7. In your lifetime, have you ever done anything, started to do anything, or prepared to do anything to end your life (for example, collected pills, obtained a gun, gave away valuables, went to the roof but didn't jump)? No 8. If YES, was this within the past 3 months? Response not required due to responses to other questions. /bennett/ TANYA DUTTAN RN REGISTERED NURSE Signed: 11/19/2023 10:00 TANYA HOPKINS [facility]
--- OUTSIDE RECORDS SUMMARY | 2024-03-07 11:05 | XMS_ITS ---
Author Name [facility] [place] Organization [facility] [place] Address [address] [place] [address] Care Team Providers Care Agency Operator Name Role Phone SANDRA MUNOZ Primary Care [...] ION RX PLAN Apr 11, 2019 [id number] [phone] Christoph TILLEY SPOUSE [facility] COMM Mar 11, 2017 [id number] [phone] Nino TILLEY SPOUSE [facility] COMM Mar 11, 2019 [id number] [phone] Nino TILLEY SPOUSE [facility] POINT OF SERVICE [facility] COMM Mar 11, 2017 [id number] [phone] Nino TILLEY SPOUSE Selected Encounter This section includes the information on record at [place] for the Encounter. Date/Time Encounter Type Encounter Description Reason Pro vider Source Aug 26, 2023 08:25 PM Outpatient Encounter ADMIN PAT ACTIVTIES (MASNONCT) IHE Encounter Template Text not used by [place] Plan of Treatment: Future Appointments (+ 6 [...] 19, 2023 09:49 AM AMBULATORY - MEDICINE [facility] Feb 10, 2024 02:00 PM AMBULATORY - MEDICINE [facility] Feb 10, 2024 03:00 PM AMBULATORY - NONE [facility] Encounter Notes: All associated encounter notes This section contains the clinical notes associated to the Encounter. Date/Time Encounter Note(s) Provider Source Aug 26, 2023 08:25 PM ADMINISTRATIVE NOT E: LOCAL TITLE: CCC: SCHEDULING ADMINISTRATION STANDARD TITLE: ADMINISTRATIVE NOTE DATE OF NOTE: AUG 26, 2023@20:25:57 ENTRY DATE: AUG 26, 2023@20:25:58 AUTHOR: SHYAM DIAZ EXP COSIGNER: URGENCY: STATUS: COMPLETED Patient Demographics Patient Name: BRODY TILLEY Patient Primary Phone: [phone] Patient Primary Address: [address] [place] [address] Patient : 1975 Patient Age: 48 Call Back Number: [phone] Caller/Recipient Relation to Patient: Self Scheduling Patient Expects Callback: Yes Administrative Administrative Note Reason: Other Administrative Note Comments: Paden has taken second shot of 1mg ozempic. /bennett/ SHYAM DIAZ CCCMSA Signed: 08/26/2023 20:26 Receipt Acknowledged By: 08/31/2023 14:01 /bennett/ ROBIN DEWITT MD Endocrinology Physician SHYAM DIAZ [facility]
--- OUTSIDE RECORDS SUMMARY | 2024-03-07 11:06 | XMS_ITS | Encounter Summary ---
Author Organization [facility] Address [address] [place] [address]. [place] [address] [place] [address] Care Team Providers Care Slot Editor Name Role Phone Samuel Jeffries MD Primary Care Provider [phone] Encounter Details Date Type Department Care Team (Latest Contact Info) Description 11/02/2022 Travel Social History Tobacco Use Types Packs/Day Years Used Date Smoking Tobacco: Never Assessed Sex and Gender Information Value Date Recorded Sex Assigned at Not on file Legal Sex Male 5:41 PM CDT Gender Identity Not on file Sexual Orientation Not on file documented as of this encounter Plan of Treatment Not on file documented as of this encounter Visit Diagnoses Not on filedocumented in this encounter Care Teams Slot Editor Relationship Specialty Start Date End Date Samuel Jeffries MD [address] [place] [id number] PCP - General FAMILY PRACTICE 11/02/22 documented as of this encounter
--- OUTSIDE RECORDS SUMMARY | 2024-03-07 11:06 | XMS_ITS | Encounter Summary ---
Author Organization [facility] Address [address] [place] [address]. [place], [place] [id number] [place] [address] Care Team Providers Care Granite Polisher Machine Name Role Phone Unavailable Primary Care Provider Unavailabl e Encounter Details Date Type Department Care Team (Latest Contact Info) Description 08/21/2012 Abstract [facility] Social History Tobacco Use Types Packs/Day Years [...]
--- OUTSIDE RECORDS SUMMARY | 2024-03-07 11:06 | XMS_ITS | Encounter Summary ---
Author Name [facility] [place] [facility] Address [address] [place] [address] Care Team Providers Care Highway Patrol Pilot Name Role Phone TAMMY, SANDRA Primary Care [...] ION RX PLAN Apr 11, 2019 [id number] [phone] Christoph TILLEY SPOUSE [facility] Mar 11, 2017 [id number] [phone] Nino TILLEY SPOUSE [facility] Mar 11, 2019 [id number] [phone] Nino TILLEY SPOUSE [facility] POINT OF SERVICE [facility] Mar 11, 2017 [id number] [phone] Nino TILLEY SPOUSE Selected Encounter This section includes the information on record at [place] for the Encounter. Date/Time Encounter Type Encounter Description Reason Provider Source Jan 23, 2024 01:34 PM Outpatient Encounter TELEPHONE PRIMARY CARE [facility] Nino Encounter Template Text not used by [facility] Plan of Treatment: Future Appointments (+ 6 months) and Future Tests (+/- 45 days) The Plan of Treatment section includes future care activities for the patient from all [place] [facility]. This section includes future appointments and future orders which are active, pending or scheduled. Future Appointments This section includes appointments that were scheduled to occur 6 months from the date of the Encounter, up to a maximum of 20 appointments. The data comes from all [facility]. Appointment Date/Time Appointment Type Appointme nt Facility Name Feb 10, 2024 02:00 PM AMBULATORY - MEDICINE [facility] Feb 10, 2024 03:00 PM AMBULATORY - NONE [facility] Mar 02, 2024 08:00 AM AMBULATORY - MEDICINE [facility] Mar 02, 2024 09:00 AM AMBULATORY - MEDICINE [facility] Mar 10, 2024 08:30 AM AMBULATORY - MEDICINE [facility] Mar 10, 2024 09:30 AM AMBULATORY - REHAB MEDICIN E [facility] Apr 09, 2024 08:00 AM AMBULATORY - NONE [facility] July 20, 2024 09:00 AM AMBULATORY - MEDICINE [facility] Active, Pending, and Scheduled Orders This section includes a listing of several types of active, pending, and scheduled orders, including clinic medications orders, diagnostic test orders, procedure orders and consult orders; where the start date of the order is 45 days before the date of the Encounter or 45 days after the date of theEncounter. The data comes from all [facility]. Test Date/Time Test Type Test Details Facility Name Feb 10, 2024 02:46 PM Consult Order PT OUTPT S TL Cons Branner Machine T[employer] [facility] Mar 02, 2024 12:00 AM Laboratory - Chemi stry Order LIPID PANEL (STL) GREEN LI/HEP BLD/PLAS PLASMA SP [facility] Mar 02, 2024 12:00 AM Laboratory - Chemi stry Order HGA1C BLOOD SP [facility] Lab Results: +/- 30 days of the encounter This section includes the Chemistry and Hematology Lab Results on record with [facility] for the patient. Radiology Reports and Pathology Reports are provided separately, in subsequent sections. Lab Results This section contains the Chemistry/Hematology Results that were resulted 30 days before or 30 daysafter the date of the Encounter. Date/Time Source Result Type Result - Unit Interpretation Reference Range Comment Feb 10, 2024 02:07 PM [facility] GLUCOSE,BLOOD-poct (STL) Specimen Type: BLOOD Comment: Test Performed by: [id number] Meter #: [id number] Ordering Provider: TERELL MARQUEZ Report Released Date/Time: Feb 10, 2024 04:17 PM Reporting Lab: [facility] [address] [facility] [id number] Performing Lab: [address] [address] GLUCOSE,BLOOD-p oct (STL) 118 mg/dL H 72-99 Jan 24, 2024 08:36 AM [facility] MICRAL/CREAT PROFILE (STL) Specimen Type: URINE No comment entered. Ordering Provider: SANDRA MUNOZ Report Released Date/Time: May 01, 2023 12:17 PM Reporting Lab: [facility] [address] [facility] [address] Performing Lab: [facility] [address] [facility] [address] URINE ALBUMIN (PB-STL) 9.6 mg/L uACR (STL) 16 mg/g 0-29 CREATININE URINE/OTHERS 61.8 mg/dL L 63-166 Jan 24, 2024 08:29 AM [facility] LIPID PANEL (STL) Specimen Type: PLASMA Comment: No hemolysis noted. Ordering Provider: SANDRA MUNOZ Report Released Date/Time: May 01, 2023 12:17 PM Reporting Lab: [facility] [address] [facility] [address] Performing Lab: [facility] [address] [place] [phone] CHOLESTEROL 95 mg/dL 0-200 TRIGLYCERIDE 57 mg/dL 0-150 CALCULATED LDL 49 mg/dL HDL(New) 35 mg/dL L >40 Jan 24, 2024 08:29 AM [facility] COMPREHENSIVE METABOLIC PANEL Specimen Type: PLASMA Comment: No hemolysis noted. Ordering Provider: SANDRA MUNOZ Report Released Date/Time: May 01, 2023 12:17 PM Reporting Lab: [address] [address] Performing Lab: [address] [address] CREATININE 0.95 mg/dL 0.7-1.3 UREA NITROGEN 23.5 mg/dL 9.0-25.0 GLUCOSE 110 mg/dL H 72-99 SODIUM 144 meq/L 136-145 POTASSIUM 4.4 meq/L 3.5-5 CHLORIDE 111 meq/L H 98-107 CARBON DIOXIDE 24 meq/L 22-31 CALCIUM 10.4 mg/dL 8.4-10.4 PROTEIN 7.2 g/dL 6-8.6 ALBUMIN 4.5 g/dL 3.4-5 TOTAL BILIRUBIN 0.4 mg/dL 0.2-1.2 ALKALINE PHOSPHATASE 29 U/L L 40-150 AST/SGOT 23 U/L 5-34 ALT/SGPT 29 U/L 8-40 EGFR (CKD-EPI 2020) 97.5 >60 Jan 24, 2024 08:29 AM [facility] PROST. SPECIFIC AG.(PB-STL) Specimen Type: SERUM Comment: The listed sex of this patient may not be a typical indication for this test. Therefore, reference ranges or interpretive criteria listed may not be valid. Clinical correlation suggested. Ordering Provider: SANDRA MUNOZ Report Released Date/Time: May 01, 2023 12:17 PM Reporting Lab: [address] [address] Performing Lab: [address] [address] PROST. SPECIFIC AG.(PB-STL) 0.508 ng/mL 0-4 Jan 24, 2024 08:29 AM [facility] HGA1C Specimen Type: BLOOD No comment entered. Ordering Provider: SANDRA MUNOZ Report Released Date/Time: May 01, 2023 12:17 PM Reporting Lab: [address] [address] Performing Lab: [address] [address] HGA1C 5.8 4.0-6.0 Jan 24, 2024 08:29 AM [facility] VITAMIN D, 25-HYDROXY Specimen Type: SERUM Comment: The listed sex of this patient may not be a typical indication for this test. Therefore, reference ranges or interpretive criteria listed may not be valid. Clinical correlation suggested. Ordering Provider: SANDRA MUNOZ Report Released Date/Time: May 01, 2023 12:17 PM Reporting Lab: [facility] [address] [facility] [address] Performing Lab: [facility] [address] [facility] [address] VITAMIN D, 25-HYDROXY 30.5 ng/mL - Encounter Notes: All associated encounter notes This section contains the clinical notes associated to the Encounter. Date/Time Encounter Note(s) Provider Source Jan 23, 2024 01:34 PM NURSING NOTE: LOCAL TITLE: V15 PACT TELEPHONE CONTACT NOTE [facility] STANDARD TITLE: NURSING NOTE DATE OF NOTE: JAN 23, 2024@13:34 ENTRY DATE: JAN 23, 2024@13:34:39 AUTHOR: M[facility] EXP COSIGNER: URGENCY: STATUS: COMPLETED Unable to contact: Left general message and directed to contact team with questions. Outbound call to patient for: 02/03/24 10:00 am [facility] pact b4 pcp Message left regarding labs. /bennett/ MARY [facility] LPN LICENSED PRACTICAL NURSE Signed: 01/23/2024 13:36 M[facility]ZA [facility]
--- OUTSIDE RECORDS SUMMARY | 2024-03-07 11:06 | XMS_ITS | Encounter Summary ---
Author Organization [facility] Address [address] [place] [address]. [place], [place] [id number] [place] [address] Care Team Providers Care Self Propelled Mining Machine Operator Name Role Phone Unavailable Primary Care Provider Unavailabl e Encounter Details Date Type Department Care Team (Latest Contact Info) Description 10/15/2012 Abstract [facility] Social History Tobacco Use [...]
--- OUTSIDE RECORDS SUMMARY | 2024-03-07 11:06 | XMS_ITS | Encounter Summary ---
Author Organization [facility] Address [address] [place] [address]. [place], [place] [address] [place] [address] Care Team Providers Care Post Doctoral Researcher Name Role Phone Unavailable Primary Care Provider Unavailabl e Reason for Referral * Sleep Lab (Routine) - Closed Specialty Diagnoses / Procedures Referred By Davon johns Referred To Contact [facility] Sleep Disorders Diagnoses JIMENA (obstructive sleep apnea) Procedures Diagnostic PSG (79552, [id number]) Christian Grier MD [address] [place] [address] Phone: tel: fax: [facility] [address] [place] [address] Phone: tel: fax: Referral ID Status Reason Start Date Expiration Date Visits Re quested Visits Authorized [id number] Closed 09/05/2022 03/04/2023 1 1 Encounter Details Date Type Department Care Team (Late st Contact Info) Description 09/05/2022 Transcribe Orders [facility] [address] [place], [place] [id number] Rosaline Brooks, [facility] Social History Tobacco Use Types Packs/Day Years Used Date Smoking Tobacco: Never Assessed Sex and Gender Information Value Date Recorded Sex Assigned at Not on file Legal Sex Male 5:41 PM CDT Gender Identity Not on file Sexual Orientation Not on file documented as of this encounter Plan of Treatment Not on file documented as of this encounter Results * Diagnostic PSG (25683, [id number]) (11/02/2022 8:30 PM CDT) Narrative [facility] - 11/02/2022 8:30 PM CDT Logan Garcia MD ? 11/29/2022 ??2:31 PM ??[facility] ?[place], [place] ?SPLIT NIGHT POLYSOMNOGRAM INTERPRETATION ? PATIENT NAME: Too Chu DATE OF : 1975 DATE OF SERVICE: 11/02/2022 PATIENT TYPE: CLI Ordering Phy Exam Description Christian Grier MD SL PSG 4+PARAMETERS W/CPAP ATTENDING PHYSICIAN: Logan Garcia MD REFERRING PHYSICIAN: Christian Grier MD GENERAL INFORMATION Total Sleep Time: 414.0 minutes Sleep Efficiency Index: 87.4% Sleep Latency: 2.1 minutes REM Latency: 119.0 minutes Apnea-Hypopnea Index: 60.2 per hour ?? Post Apnea-Hypopnea Index: 0.8 per hour on CPAP of 12.0 cm h2O Procedure: The overnight polysomnogram was an attended study using a multiple channel system including simultaneous monitoring and recording of electroencephalography (EEG), right and left electrooculography (EOC), submental electromyography (EOG), submental electromyography (EMG), EKG, oral/nasal airflow, snoring, respiratory effort, oxygen saturations, right and left anterior tibialis electromyography, and body position. Sleep Architecture: During the diagnostic phase of the study, the patient slept for of 130.5 minutes during 161.1 minutes of recording time. Latency to sleep onset was 2.1 minutes with sleep efficiency of 81.0% and a REM latency of 119.0 minutes. Patient spent 34.5% (45.0 minutes) in stage N1, 52.5% (68.5 minutes) in stage N2, 2.3% (3.0 minutes) in Stage N3, 10.7% (14.0 minutes) in REM. The patient slept 19.2% of the time in supine position, 0.0% of the time in prone position, 38.3% of the time in left-sided position, and 42.5% of the time in right-sided position. There were 128 arousals, of which 93 were associated with respiratory events and 22 were spontaneous. Arousal index was 58.9 per hour. During the treatment phase of the study, the patient slept for of 283.5 minutes during 312.4 minutes of recording time. Latency to sleep onset was 1.5 minutes with sleep efficiency of 90.7%. Slow-wave sleep represented 0.0% of sleep time. REM sleep represented 23.6% of sleep time, with a REM latency of 57.0 minutes. Patient spent 10.1% (28.5 minutes) in stage N1, 66.3% (188.0 minutes) in stage N2, 0.0% (0.0 minutes) in Stage N3, 23.6% (67.0 minutes) in REM. The patient slept 52.6% of the time in supine position, 0.0% of the time in prone position, 47.4% of the time in left-sided position, and 0.0% of the time in right-sided position. There were 51 arousals, of which 11 were associated with respiratory events and 28 were spontaneous. Arousal index was 10.8 per hour. Limb Activity Summary: During the diagnostic phase of the study, the patient demonstrated a total of 15 leg movements during the night, of which 9 had the appearance of periodic limb movements. There were a total of 13 arousals associated with leg movements for an arousal index with leg movements of 6.0 per hour. The periodic limb movement index was 4.1 per hour. During the treatment phase of the study, the patient demonstrated a total of 14 leg movements during the night, of which 5 had the appearance of periodic limb movements. There were a total of 12 arousals associated with leg movements for an arousal index with leg movements of 2.5 per hour. The periodic limb movement index was 1.1 per hour. Cardiac Events Summary: The average heart rate was 75.5 beats per minute. No cardiac events were noted during this study. Respiratory Events Summary: During the diagnostic phase of the study, there were a total of 140 apneas and hypopneas, of which - were apneas. Of those apneas, - were Obstructive, - were Central and - were Mixed. There were an additional 30 respiratory event-related arousals. The overall AHI was 60.2 per hour and the overall RDI was 74.0 per hour.?? During non-supine sleep, the overall AHI was 51.8 per hour.?? During supine sleep, the overall AHI was96.0 per hour. NREM AHI was 59.7 per hour and REM AHI was 64.3 per hour. During the treatment phase of the study, there were a total of 4 apneas and hypopneas, of which - were apneas. Of those apneas, - were Obstructive, - were Central and - were Mixed. There were an additional 11 respiratory event-related arousals. The overall AHI was 0.8 per hour and the overall RDI was 3.2 per hour. During non-supine sleep, the overall AHI was - per hour. During supine sleep, the overall AHI was 1.6 per hour. NREM AHI was - per hour and REM AHI was 3.6 per hour. Oxygen Saturation Summary: During the diagnostic phase of the test, the patient? s average saturation was 89.3% during REM and 90.2% during NREM.?? The patient? s lowest saturation was 85.0% during REM and 84.0% during NREM. Saturation was less than or equal to 88% for 21.9 minutes. During the treatment phase of the test, the patient? s average saturation was 92.1% during REM and 92.6% during NREM.?? The patient? s lowest saturation was 86.0% during REM and 89.0% during NREM. Saturation was 90% or higher for 96.9% of the total sleep time. Saturation was less than or equal to 88% for 0.2% of the total sleep time or 0.7 minutes. CPAP/BiLevel Therapy Summary: The patient underwent CPAP titration starting at 8 cm H2O, up to a maximum of 12 cm H2O. The patient slept for 165.0 minutes while on the optimal pressure of 12 cm H2O with an AHI of 0.0 per hour, arousal index of 7.3 per hour and minimum oxygen saturation of 90.0%. ASSESMENT/PLAN: Severe Obstructive Sleep Apnea. This patient was fully titrated in the allotted time during this study. I recommend initiation of CPAP at home set at 12.0 cm h2O with heated humidity. A one month follow up should be scheduled with the ordering physician to assess the benefit and tolerance of this therapy. If respiratory events persist, further evaluation and possible pressure adjustments may need to be made as clinically indicated. The patient used a ResMed AirFit P10 nasal pillow mask, size medium, during this study. This patient? s oxygen saturation was at or below 88.0% for 21.9 minutes during the diagnostic segment of this study. Possible need to do additional testing with full night titration with possible supplemental oxygen addition if there are still significant desaturations when patient? s AHI is within normal limits should be considered.?? Also, the possibility of additional medical evaluation based on noted desaturations should be considered. This patient should maintain a consistent sleep/wake schedule with adequate hours of sleep and avoid hazardous activities when sleepy. The patient should be cautioned about factors that may potentially exacerbate snoring and other sleep-related issues, such as [employer] depressants, especially at bedtime. This document was electronically signed by: Logan Garcia M.D. on 11/29/2022 at 10:50 AM. Christian Grier MD SLEEP CENTER ORDERABLES Final R esult [facility] [address] [place] [address], [place] [phone] documented in this encounter Visit Diagnoses Diagnosis JIMENA (obstructive sleep apnea)- Primary Obstructive sleep apnea (adult) (pediatric) JIMENA (obstructive sleep apnea) Obstructive sleep apnea (adult) (pediatric) documented in this encounter
--- OUTSIDE RECORDS SUMMARY | 2024-03-07 11:06 | XMS_ITS | Encounter Summary ---
Author Name [facility] ([place]) Organization [facility] Address [address] [place] [address] Care Team Providers Care Sap Payroll Consultant Name Role Phone SANDRA MUNOZ Primary Care [...] ION RX PLAN Apr 11, 2019 [id number] [phone] Christoph TILLEY SPOUSE [facility] Mar 11, 2017 [id number] [phone] Nino TILLEY SPOUSE [facility] Mar 11, 2019 [id number] [phone] Nino TILLEY SPOUSE [facility] POINT OF SERVICE [facility] Mar 11, 2017 [id number] [phone] Nino TILLEY SPOUSE Selected Encounter This section includes the information on record at ID for the Encounter. Date/Time Encounter Type Encounter Description Reason Provider Source Feb 10, 2024 03:00 PM [employer] W/I&R EYE TELE SCREENING ICD-10-CM Z13.5 Encounter for screening for eye and ear disorders STACIE MARQUEZAndrea Goodwin [facility] Encounter Template Text not used by ID Assessments - Encounter Diagnoses This section includes the primary and secondary diagnoses documented for the Encounter. Date/Time Primary/Secondary Diagnosis Diagnosis Name Provider Source Feb 10, 2024 03:00 PM PRIMARY Encounter for screening for eye and ear disorders TERELL MARQUEZ [facility] Feb 10, 2024 03:00 PM SECONDARY Type 2 diabetes mellitus without complications TERELL MARQUEZ [facility] Plan of Treatment: Future Appointments (+ 6 months) and Future Tests (+/- 45 days) The Plan of Treatment section includes future care activities for the patient from all [facility]. This section includes future appointments and future orders which are active, pending or scheduled. Future Appointments This section includes appointments that were scheduled to occur 6 months from the date of the Encounter, up to a maximum of 20 appointments. The data comes from all [facility]. Appointment Date/Time Appointment Type Appointme nt Facility Name Mar 02, 2024 08:00 AM AMBULATORY - MEDICINE [facility] Mar 02, 2024 09:00 AM AMBULATORY - MEDICINE [facility] Mar 10, 2024 08:30 AM AMBULATORY - MEDICINE [facility] Mar 10, 2024 09:30 AM AMBULATORY - REHAB MEDICIN E [facility] Apr 09, 2024 08:00 AM AMBULATORY - NONE [facility] July 20, 2024 09:00 AM AMBULATORY - MEDICINE [facility] Aug 10, 2024 10:00 AM AMBULATORY - MEDICINE [facility] Active, Pending, and Scheduled Orders This section [...] Consult Order PT OUTPT S TL Cons Quill Fix[facility] Choice [facility] Mar 02, 2024 12:00 AM Laboratory - Chemi stry Order LIPID PANEL (STL) GREEN LI/HEP BLD/PLAS PLASMA SP [facility] Mar 02, 2024 12:00 AM Laboratory - Chemi stry Order HGA1C BLOOD SP [facility] Lab Results: +/- 30 days of the [...] Range Comment Feb 10, 2024 02:07 PM [facility] GLUCOSE,BLOOD-poct (STL) Specimen Type: BLOOD Comment: Test Performed by: [id number] Meter #: [id number] Ordering Provider: TERELL MARQUEZ Report Released Date/Time: Feb 10, 2024 04:17 PM Reporting Lab: [address] [address] Performing Lab: [address] [address] GLUCOSE,BLOOD-p oct (STL) 118 mg/dL H 72-99 Jan 24, 2024 08:36 AM [facility] MICRAL/CREAT PROFILE (STL) Specimen Type: URINE No comment entered. Ordering Provider: SANDRA MUNOZ Report Released Date/Time: May 01, 2023 12:17 PM Reporting Lab: [facility] [address] [place] [address] Performing Lab: [address] [address] URINE ALBUMIN (PB-STL) 9.6 mg/L uACR (STL) 16 mg/g 0-29 CREATININE URINE/OTHERS 61.8 mg/dL L 63-166 Jan 24, 2024 08:29 AM [facility] LIPID PANEL (STL) Specimen Type: PLASMA Comment: No hemolysis noted. Ordering Provider: SANDRA MUNOZ Report Released Date/Time: May 01, 2023 12:17 PM Reporting Lab: [address] [address] Performing Lab: [facility] [address] [place] [address] [place] [address] CHOLESTEROL 95 mg/dL 0-200 TRIGLYCERIDE 57 mg/dL 0-150 CALCULATED LDL 49 mg/dL HDL(New) 35 mg/dL L >40 Jan 24, 2024 08:29 AM [facility] HGA1C Specimen Type: BLOOD No comment entered. Ordering Provider: SANDRA MUNOZ Report Released Date/Time: May 01, 2023 12:17 PM Reporting Lab: [address] [address] Performing Lab: [address] [address] HGA1C 5.8 4.0-6.0 Jan 24, 2024 08:29 AM [facility] COMPREHENSIVE METABOLIC PANEL Specimen Type: PLASMA Comment: No hemolysis noted. Ordering Provider: SANDRA MUNOZ Report Released Date/Time: May 01, 2023 12:17 PM Reporting Lab: [address] [address] Performing Lab: [address] [address] CREATININE 0.95 mg/dL 0.7-1.3 UREA NITROGEN 23.5 [...] 97.5 >60 Jan 24, 2024 08:29 AM [facility] PROST. SPECIFIC AG.(PB-STL) Specimen Type: SERUM Comment: The listed sex of this patient may not be a typical indication for this test. Therefore, reference ranges or interpretive criteria listed may not be valid. Clinical correlation suggested. Ordering Provider: SANDRA MUNOZ Report Released Date/Time: May 01, 2023 12:17 PM Reporting Lab: [facility] [address] [facility] [address] Performing Lab: [address] [address] PROST. SPECIFIC AG.(PB-STL) 0.508 ng/mL 0-4 Jan 24, 2024 08:29 AM [facility] VITAMIN D, 25-HYDROXY Specimen Type: SERUM Comment: The listed sex of this patient may not be a typical indication for this test. Therefore, reference ranges or interpretive criteria listed may not be valid. Clinical correlation suggested. Ordering Provider: SANDRA MUNOZ Report Released Date/Time: May 01, 2023 12:17 PM Reporting Lab: [facility] [address] [facility] [address] Performing Lab: [address] [address] VITAMIN D, 25-HYDROXY 30.5 ng/mL 30-96 Vital Signs: All taken on the encounter date This section contains inpatient and outpatient Vital Signs collected on the date of the Encounter. Date/Time Temperature Pulse Blood Pressure Respiratory Rate SP02 Pain Height Weight Body Mass Index Source Feb 10, 2024 02:11 PM 155/88 [facility] Feb 10, 2024 01:59 PM 98 86 170/98 18 96 5 72 221.5 30 [facility] Social History: Smoking Status (Most current) and Tobacco Use (All prior to encounter date) This section includes the most current, and the historical, smoking and tobacco- related health factors from the [facility] where the Encounter took place. Current Smoking Status This section includes the most current smoking, or tobacco-related health factor, from the ID facility where the Encounter took place. Date/Time Current Smoking Status Comment Ansley mendosa Feb 10, 2024 02:00 PM VA-TOBACCO USE [place] RY DAY CIGARETTES [facility] Tobacco Use History This section includes a history of the smoking, or tobacco-related health factors, that were collected on or before the date of the Encounter. The data comes from the ID facility where the Encounter took place. Date/Time Smoking Status/Tobacco Use Comment F bethility Feb 10, 2024 02:00 PM VA-TOBACCO SCREEN FOLLOW-UP [facility] Feb 10, 2024 02:00 PM VA-TOBACCO USE ADVICE [facility] Feb 10, 2024 02:00 PM VA-TOBACCO USE WEIGHING STATION OPERATOR NO [facility] Feb 10, 2024 02:00 PM VA-TOBACCO USE [place] RY DAY CIGARETTES [facility] Feb 10, 2024 02:00 PM VA-TOBACCO USE MED NO [facility] Aug 17, 2022 09:00 AM VA-TOBACCO USE 30 YEARS OR MORE [facility] Aug 17, 2022 09:00 AM VA-TOBACCO USE ADVICE [facility] Aug 17, 2022 09:00 AM VA-TOBACCO USE 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 STATION 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 [facility] Aug 17, 2022 09:00 AM VA-TOBACCO USE MED NO [facility] Aug 17, 2022 09:00 AM VA-TOBACCO USE WI 30 MIN OF WAKEUP [facility] Aug 17, 2022 09:00 AM VA-TOBACCO USER EVERY DAY [facility] Aug 27, 2018 11:37 AM VA-TOBACCO DOESNT USE WI 30 MIN WAKEUP [facility] Aug 27, 2018 11:37 AM VA-TOBACCO USE > 1 5 LESS THAN 30 YEARS [facility] Aug 27, 2018 11:37 AM VA-TOBACCO USE ADVICE [facility] Aug 27, 2018 11:37 AM VA-TOBACCO USE 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 Date/Time Encounter Note(s) Provider Source Feb 10, 2024 02:55 PM OPTOMETRY CONSULT: LOCAL TITLE: TELE-EYE SCREENING CONSULT STANDARD TITLE: OPTOMETRY CONSULT DATE OF NOTE: FEB 10, 2024@14:55 ENTRY DATE: FEB 10, 2024@14:55:29 AUTHOR: TERELL MARQUEZ EXP COSIGNER: URGENCY: STATUS: COMPLETED INITIAL Note PATIENT DEMOGRAPHICS: Sex: MALE Date of : Jun Patient race: WHITE Patient ethnicity: NOT OR REASON FOR REQUEST: Tele-Eye Screening for patient at-risk for the following eye condition(s): Patient is diabetic and at risk for DIABETIC RETINOPATHY: Diabetes Diagnosis Information: Encounter Diagnosis: 01/24/2024@08:29 E11.9 (ICD-10-CM) Type 2 Diabetes Mellitus without Complications rank: SECONDARY Prov. Narr. - Type 2 Diabetes Mellitus without Complications There is a risk of developing and/or worsening of retinopathy during the first 18 months of GLP-1A use, so more frequent monitoring is recommended (e.g., 3-6 month intervals). GLP-1 AGONIST RETINOPATHY RISK Cohort: Reminder Term: [facility] SEMAGLUTIDE RX Drug: SEMAGLUTIDE 2MG/0.75ML INJ PEN 3ML Outpatient Medication: SEMAGLUTIDE 2MG/0.75ML INJ PEN 3ML 02/10/2024@06:45:34 Status: ACTIVE Start date: 02/10/2024@06:45:34 Stop date: 03/09/2024@06:45:34 Duration: 0 D Last release date: 02/10/2024@06:45:34 Days supply: 28 Type 2 Diabetic Patient Duration of diabetes (years): 6 or more years: Sep, 2018 Information obtained by: Chart documentation CURRENT DIABETES THERAPY: Oral agent Comment: Metformin/Empagliflozin History of diabetic eye treatment: None Patient states that there is family Hx of or Glaucoma on mother side. Patient states that there has been no significant eye trauma. Patient states that he is not having any eye pain or vision issues. Patient states he has lasik surgery in 2004. Patient identity was verified with 2 separate identifiers prior to the beginning of visit: Yes Patient was informed that their information and images will be uploaded securely to the ID computer system and sent to be remotely interpreted by a licensed ID eye care provider. Findings/recommendations will be conveyed to the primary care provider who will (either directly or by designee) ensure results are communicated timely and follow up care is coordinated as necessary. Patient verbalized understanding of process and consents to proceed: Yes Last Retinal Evaluation: OPTOMETRY CLINIC LOCATION LIST [place] Date: Nov Method of retinal evaluation: Energy Efficiency Engineer Exam Comment: Dr Oscar Rossi [facility] Eye care in [facility] Information obtained by: Patient report Date of Next Eye Appointment: FUTURE EYE APPT No future appointment scheduled: desires eye care through the [facility] LABS/VITALS: SLT - Lab Tests Selected Collection DT Specimen Test Name Result Units Ref Range 01/24/2024 08:29 BLOOD HGA1C 5.8 % 4.0 - 6.0 07/26/2023 12:36 BLOOD HGA1C 6.8 H % 4.0 - 6.0 03/08/2023 08:56 BLOOD HGA1C 7.3 H % 4.0 - 6.0 HgbA1c range: 4-6 Blood Pressure: 155/88 (02/10/2024 14:11) INTRAOCULAR PRESSURE (IOP) SCREENING: IOP measured by director of corporate sponsorships during eye screening Date/Time: Feb@03:00 Device Used: Rebound tonometer (iCare) Right Eye: IOP= 13 Left Eye: IOP= 13 PUPIL DILATION: Pupils NOT dilated by director of corporate sponsorships for eye screening EDUCATION: Patient received patient education on routine eye care and the following: Diabetic Eye Disease, Glaucoma, Macular Degeneration Patient was informed on how and when results should be received. Patient was instructed on how to contact the appropriate clinical area if results are not received within expected timeframe. Yes /es/ TERELL MARQUEZ Telehealth Clinical [place] Signed: 02/10/2024 15:05 TERELL MARQUEZ [facility]
--- OUTSIDE RECORDS SUMMARY | 2024-03-07 11:06 | XMS_ITS | Encounter Summary ---
Author Name Department of Vetera [facility] ([place]) Organization [facility] [place] Address [address] [place] [address] Care Team Providers Care Insurance Sales Specialist Name Role Phone SANDRA MUNOZ Primary [...] ION RX PLAN Apr 11, 2019 [id number] [phone] Christoph TILLEY SPOUSE [facility] Mar 11, 2017 [id number] [phone] Nino TILLEY SPOUSE [facility] Mar 11, 2019 [id number] [phone] Nino TILLEY SPOUSE [facility] POINT OF SERVICE [facility] COMM Mar 11, 2017 [id number] [phone] Nino TILLEY SPOUSE Selected Encounter This section includes the information on record at ND for the Encounter. Date/Time Encounter Type Encounter Description Reason Pro vider Source Feb 03, 2024 05:53 AM Outpatient Encounter ADMIN PAT ACTIVTIES (MASNONCT) IHE Encounter Template Text not used by [facility] Plan of Treatment: Future Appointments (+ 6 months) and Future Tests (+/- 45 days) The Plan of Treatment section includes future care activities for the patient from all [facility]. This section includes future appointments and future orders which are active, pending or scheduled. Future Appointments This section includes appointments that were scheduled to occur 6 months from the date of the Encounter, up to a maximum of 20 appointments. The data comes from all [facility]. Appointment Date/Time Appointment Type Appointme nt Facility Name Feb 10, 2024 02:00 PM AMBULATORY - MEDICINE [facility] Feb 10, 2024 03:00 PM AMBULATORY - NONE [facility] Mar 02, 2024 08:00 AM AMBULATORY - MEDICINE [facility] Mar 02, 2024 09:00 AM AMBULATORY - MEDICINE [facility] Mar 10, 2024 08:30 AM AMBULATORY - MEDICINE [facility] Mar 10, 2024 09:30 AM AMBULATORY - REHAB MEDICIN E [facility] Apr 09, 2024 08:00 AM AMBULATORY - NONE [facility] July 20, 2024 09:00 AM AMBULATORY - MEDICINE [facility] Active, Pending, and Scheduled Orders This section includes a listing of several types of active, pending, and scheduled orders, including clinic medications orders, diagnostic test orders, procedure orders and consult orders; where the start date of the order is 45 days before the date of the Encounter or 45 days after the date of theEncounter. The data comes from all [facility]. Test Date/Time Test Type Test Details Facility Name Feb 10, 2024 02:46 PM Consult Order PT OUTPT S TL Cons [employer] Teammate's Choice [facility] Mar 02, 2024 12:00 AM Laboratory - Chemi stry Order LIPID PANEL (STL) GREEN LI/HEP BLD/PLAS PLASMA SP [facility] Mar 02, 2024 12:00 AM Laboratory - Chemi stry Order HGA1C BLOOD SP [facility] Lab Results: +/- 30 days of [...] Range Comment Feb 10, 2024 02:07 PM [facility] GLUCOSE,BLOOD-poct (STL) Specimen Type: BLOOD Comment: Test Performed by: [id number] Meter #: [id number] Ordering Provider: TERELL MARQUEZ Report Released Date/Time: Feb 10, 2024 04:17 PM Reporting Lab: [facility] [address] [facility] [address] Performing Lab: [address] [address] GLUCOSE,BLOOD-p oct (STL) 118 mg/dL H 72-99 Jan 24, 2024 08:36 AM [facility] MICRAL/CREAT PROFILE (STL) Specimen Type: URINE No comment entered. Ordering Provider: SANDRA MUNOZ Report Released Date/Time: May 01, 2023 12:17 PM Reporting Lab: [facility] [address] [facility] [address] Performing Lab: [facility] [address] [facility] [address] URINE ALBUMIN (PB-STL) 9.6 mg/L uACR (STL) 16 mg/g 0-29 CREATININE URINE/OTHERS 61.8 mg/dL L 63-166 Jan 24, 2024 08:29 AM [facility] LIPID PANEL (STL) Specimen Type: PLASMA Comment: No hemolysis noted. Ordering Provider: SANDRA MUNOZ Report Released Date/Time: May 01, 2023 12:17 PM Reporting Lab: [facility] [address] [facility] [address] Performing Lab: [facility] [address] [facility] [address] CHOLESTEROL 95 mg/dL 0-200 TRIGLYCERIDE 57 mg/dL 0-150 CALCULATED LDL 49 mg/dL HDL(New) 35 mg/dL L >40 Jan 24, 2024 08:29 AM [facility] HGA1C Specimen Type: BLOOD No comment entered. Ordering Provider: SANDRA MUNOZ Report Released Date/Time: May 01, 2023 12:17 PM Reporting Lab: [place] [address] [facility] [address] Performing Lab: [address] [address] HGA1C 5.8 4.0-6.0 Jan 24, 2024 08:29 AM [facility] COMPREHENSIVE METABOLIC PANEL Specimen Type: PLASMA Comment: No hemolysis noted. Ordering Provider: SANDRA MUNOZ Report Released Date/Time: May 01, 2023 12:17 PM Reporting Lab: [place] [address] [facility] [address] Performing Lab: [address] [address] CREATININE 0.95 mg/dL 0.7-1.3 UREA NITROGEN 23.5 [...] 97.5 >60 Jan 24, 2024 08:29 AM [facility] PROST. SPECIFIC AG.(PB-STL) Specimen Type: SERUM Comment: The listed sex of this patient may not be a typical indication for this test. Therefore, reference ranges or interpretive criteria listed may not be valid. Clinical correlation suggested. Ordering Provider: SANDRA MUNOZ Report Released Date/Time: May 01, 2023 12:17 PM Reporting Lab: [place] [address] [facility] [address] Performing Lab: [place] [address] [facility] [address] PROST. SPECIFIC AG.(PB-STL) 0.508 ng/mL 0-4 Jan 24, 2024 08:29 AM [facility] VITAMIN D, 25-HYDROXY Specimen Type: SERUM Comment: The listed sex of this patient may not be a typical indication for this test. Therefore, reference ranges or interpretive criteria listed may not be valid. Clinical correlation suggested. Ordering Provider: SANDRA MUNOZ Report Released Date/Time: May 01, 2023 12:17 PM Reporting Lab: [facility] [address] [facility] [address] Performing Lab: [facility] [address] [facility] [address] VITAMIN D, 25-HYDROXY 30.5 ng/mL 30- Encounter Notes: All associated encounter notes This section contains the clinical notes associated to the Encounter. Date/Time Encounter Note(s) Provider Source Feb 03, 2024 05:53 AM ADMINISTRATIVE NOT E: LOCAL TITLE: CCC: SCHEDULING ADMINISTRATION STANDARD TITLE: ADMINISTRATIVE NOTE DATE OF NOTE: FEB 03, 2024@05:53:21 ENTRY DATE: FEB 03, 2024@05:53:21 AUTHOR: MARNI AVILEZ COSIGNER: URGENCY: STATUS: COMPLETED Patient Demographics Patient Name: BRODY TILLEY Patient Primary Phone: [phone] Patient Primary [address]: [address] [place] [address] Patient : 1975 Patient Age: 48 Caller/Recipient Relation to Patient: Self Caller Name: BRODY TILLEY Scheduling Patient Expects Callback: No Administrative Administrative Note Reason: Other Administrative Note Comments: [place] is not able to make the appointment for 02/02, he has to go to work. Appt rescheduled for 02/09. PN entered to alert the clinic IMPORTANT: This note was created by [facility] Clinical Contact Center staff. Please do not alert the staff member by adding them as a signer for future communications. Alerts are not monitored by this user. /bennett/ MARNI AVILEZ Signed: 02/03/2024 05:53 Receipt Acknowledged By: 02/04/2024 11:16 /bennett/ LUIS SKINNER [facility] 02/04/2024 08:17 /es/ MARY ANN PLAZA LPN LICENSED PRACTICAL NURSE MARNI AVILEZ [facility]
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
--- OUTSIDE RECORDS SUMMARY | 2024-03-07 11:06 | XMS_ITS | Encounter Summary ---
Author Name [facility] [place] [facility] [place] [facility] Address [address] [place] [address] Care Team Providers Care Miller Kil[employer] Dried Salt Name Role Phone SANDRA MUNOZ Primary Care [...] ION RX PLAN Apr 11, 2019 [id number] [phone] Christoph TILLEY SPOUSE [facility] Mar 11, 2017 [id number] [phone] Nino TILLEY SPOUSE [facility] Mar 11, 2019 [id number] [phone] Nino TILLEY SPOUSE [facility] POINT OF SERVICE [facility] Mar 11, 2017 [id number] [phone] Nino TILLEY SPOUSE Selected Encounter This section includes the information on record at [place] for the Encounter. Date/Time Encounter Type Encounter Description Reason Pro vider Source Jan 17, 2024 01:33 PM Outpatient Encounter TELEPHONE TRIAGE I[facility] Encounter Template Text not used by [facility] Plan of Treatment: Future Appointments (+ 6 months) and Future Tests (+/- 45 days) The Plan of Treatment section includes future care activities for the patient from all [place] [facility] This section includes future appointments and future orders which are active, pending or scheduled. Future Appointments This section includes appointments that were scheduled to occur 6 months from the date of the Encounter, up to a maximum of 20 appointments. The data comes from all [facility]. Appointment Date/Time Appointment Type Appointme nt Facility Name Feb 10, 2024 02:00 PM AMBULATORY - MEDICINE [facility] Feb 10, 2024 03:00 PM AMBULATORY - NONE [facility] Mar 02, 2024 08:00 AM AMBULATORY - MEDICINE [facility] Mar 02, 2024 09:00 AM AMBULATORY - MEDICINE [facility] Mar 10, 2024 08:30 AM AMBULATORY - MEDICINE [facility] Mar 10, 2024 09:30 AM AMBULATORY - REHAB MEDICIN E [facility] Apr 09, 2024 08:00 AM AMBULATORY - NONE [facility] Active, Pending, and Scheduled Orders This section includes a listing of several types of active, pending, and scheduled orders, including clinic medications orders, diagnostic test orders, procedure orders and consult orders; where the start date of the order is 45 days before the date of the Encounter or 45 days after the date of theEncounter. The data comes from all [facility]. Test Date/Time Test Type Test Details Facility Name Feb 10, 2024 02:46 PM Consult Order PT OUTPT S TL Cons Complex Case Manager's Choice [facility] Mar 02, 2024 12:00 AM Laboratory - Chemi stry Order LIPID PANEL (STL) GREEN LI/HEP BLD/PLAS PLASMA SP [facility] Mar 02, 2024 12:00 AM Laboratory - Chemi stry Order HGA1C BLOOD SP [facility] Lab Results: +/- 30 days [...] Range Comment Feb 10, 2024 02:07 PM [facility] GLUCOSE,BLOOD-poct (STL) Specimen Type: BLOOD Comment: Test Performed by: [id number] Meter #: [id number] Ordering Provider: TERELL MARQUEZ Report Released Date/Time: Feb 10, 2024 04:17 PM Reporting Lab: [address] [phone] Performing Lab: [address] [phone] GLUCOSE,BLOOD-p oct (STL) 118 mg/dL H 72-99 Jan 24, 2024 08:36 AM [facility] MICRAL/CREAT PROFILE (L) Specimen Type: URINE No comment entered. Ordering Provider: SANDRA MUNOZ Report Released Date/Time: May 01, 2023 12:17 PM Reporting Lab: [facility] [address] [place] [phone] Performing Lab: [facility] [address] [place] [phone] URINE ALBUMIN (PB-STL) 9.6 mg/L uACR (STL) 16 mg/g 0-29 CREATININE URINE/OTHERS 61.8 mg/dL L 63-166 Jan 24, 2024 08:29 AM [facility] LIPID PANEL (STL) Specimen Type: PLASMA Comment: No hemolysis noted. Ordering Provider: SANDRA MUNOZ Report Released Date/Time: May 01, 2023 12:17 PM Reporting Lab: [facility] [address] [place] [phone] Performing Lab: [facility] [address] [place] [phone] CHOLESTEROL 95 mg/dL 0-200 TRIGLYCERIDE 57 mg/dL 0-150 CALCULATED LDL 49 mg/dL HDL(New) 35 mg/dL L >40 Jan 24, 2024 08:29 AM [facility] COMPREHENSIVE METABOLIC PANEL Specimen Type: PLASMA Comment: No hemolysis noted. Ordering Provider: SANDRA MUNOZ Report Released Date/Time: May 01, 2023 12:17 PM Reporting Lab: [facility] [address] [facility] [phone] Performing Lab: [facility] [address] [facility] [phone] CREATININE 0.95 mg/dL 0.7-1.3 UREA NITROGEN 23.5 [...] 97.5 >60 Jan 24, 2024 08:29 AM [facility] HGA1C Specimen Type: BLOOD No comment entered. Ordering Provider: SANDRA MUNOZ Report Released Date/Time: May 01, 2023 12:17 PM Reporting Lab: [address] [phone] Performing Lab: [address] [address] HGA1C 5.8 4.0-6.0 Jan 24, 2024 08:29 AM [facility] PROST. SPECIFIC AG.(PB-STL) Specimen Type: SERUM Comment: The listed sex of this patient may not be a typical indication for this test. Therefore, reference ranges or interpretive criteria listed may not be valid. Clinical correlation suggested. Ordering Provider: SANDRA MUNOZ Report Released Date/Time: May 01, 2023 12:17 PM Reporting Lab: [facility] [address] [place] [phone] Performing Lab: [address] [phone] PROST. SPECIFIC AG.(PB-STL) 0.508 ng/mL 0-4 Jan 24, 2024 08:29 AM [facility] VITAMIN D, 25-HYDROXY Specimen Type: SERUM Comment: The listed sex of this patient may not be a typical indication for this test. Therefore, reference ranges or interpretive criteria listed may not be valid. Clinical correlation suggested. Ordering Provider: SANDRA MUNOZ Report Released Date/Time: May 01, 2023 12:17 PM Reporting Lab: [facility] [address] [facility] [phone] Performing Lab: [facility] [address] [facility] [phone] VITAMIN D, 25-HYDROXY 30.5 ng/mL 30- Encounter Notes: All associated encounter notes This section contains the clinical notes associated to the Encounter. Date/Time Encounter Note(s) Provider Source Jan 17, 2024 01:33 PM PHARMACY NOTE: LOCAL TITLE: PHARMACY CONTACT CENTER NOTE STANDARD TITLE: PHARMACY NOTE DATE OF NOTE: JAN 17, 2024@13:33 ENTRY DATE: JAN 17, 2024@13:33:22 AUTHOR: CARMEN QUINTERO EXP COSIGNER: URGENCY: STATUS: COMPLETED PHARMACY CONTACT CENTER NOTE Has ADDENDA MEDICATION RENEW [id number] SUBSTANCE: Who is contacting the [place]? [place]/Patient Contact via: Phone Requesting renewal of medication: FENOFIBRATE 160MG TAB [id number] ACTIVE 90 04/26/2024 04/26/2023 01/13/2024 0 ROBIN DEWITT 19.566 TAKE ONE TABLET BY MOUTH ONCE A DAY FOR HIGH TRIGLYCERIDES - TAKE WITH Please send medication: Mail Disposition: Notification forwarded to provider for review of renewal request. /bennett/ CARMEN QUINTERO Pharm D VISN 15 P[facility] PHARMACIST Signed: 01/17/2024 13:33 01/17/2024 ADDENDUM STATUS: COMPLETED endo provider no longer in [facility], 90 day rx filled a few days ago. vet has enough until february endo appointment /bennett/ CARMEN QUINTERO Pharm Natalia [facility] P[facility] PHARMACIST Signed: 01/17/2024 13:36 CARMEN QUINTERO [facility]
--- OUTSIDE RECORDS SUMMARY | 2024-03-07 11:06 | XMS_ITS | Encounter Summary ---
Author Organization [facility] - [facility] Address [address] [place] [address]. [place] [address] [place] [address] Care Team Providers Care Cmo Name Role Phone Unavailable Primary Care Provider Unavailabl e Encounter Details Date Type Department Care Team (Late st Contact Info) Description 10/27/2012 Abstract [facility] Medical Group Multispecialty Care - [address], [address] [place] [address] Elmer Harris MD Social History Tobacco Use Types Packs/Day Years Used Date Smoking Tobacco: Never Assessed Sex and Gender Information Value Date Recorded Sex Assigned at Not on file Legal Sex Male 5:41 PM CDT Gender Identity Not on file Sexual Orientation Not on file documented as of this encounter Last Filed Vital Signs Vital Sign Reading Time Taken Comments Blood Pressure 108/78 10/27/2012 3:57 PM CDT Pulse 88 10/27/2012 3:57 PM CDT Temperature - - Respiratory Rate - - Oxygen Saturation - - Inhaled Oxygen Concentration - - Weight 111.1 kg (245 lb) 10/27/2012 3:57 PM CDT Height 182.9 cm (6') 10/27/2012 3:57 PM CDT Body Mass Index 33.23 10/27/2012 3:57 PM CDT documented in this encounter Progress Notes * Elmer Harris MD - 10/27/2012 3:[address] 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 MRI C SPINE 08-26-12 XR C SPINE 08-21-12 LATEST INCIDENT STARTED WITH LEFT SHOULDER PAIN 2 MONTHS AG0. 4 YEARS AGO HAD PRIOR PAIN TO LEFT SHOULDER AND LEFT ARM THAT DIDNT GET BETTER WITH CORTISONE SHOT TO LEFT SHOULDER BUT DID GET BETTER PRIOR TO A MONTH OF THERAPY. INTERMITTENT ACHING PAIN, NUMBNESS AND TINGLING TO TOP OF LEFT SHOULDER TO POSTERIOR LEFT ARM TO ALL FINGERTIPS. LEFT ARM PAIN > NECK PAIN LAST TIME HAD PAIN TO NECK WAS 3 WEEKS AGO. INTERMITTENT. TILTING HEAD FORWARD AND TO THE LEFT INCREASES PAIN TO LEFT SIDE OF NECK. RAISING LEFT ARM ABOVE HEAD EASES PAIN. NO WEAKNESS TO LEFT ARM P.T. FOR ONE MONTH AFTER CORTISONE SHOT.. 4 YEARS AGO [facility] [place]...HAD TRACTION 4 DAYS AGO NO HELP CURRENTLY IN P.T. NO CHIRO DR.YANG DIAS MGMT FOUR YEARS AGO..HAD INJECTIONS THAT HELPED. RECENTLY...HAD 2ND INJECTION 1-2 WEEKS AGO HELPED NECK AND LEFT ARM PAIN 50% VICODIN 10/325MG TID PRN AND BACLOFEN DAILY FOR THE LAST 4-6 WEEKS. 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 He has been referred for evaluation of a cervical disc herniation. 3 months ago the patient developed left arm pain. He localizes the pain to the posterior arm. Raising his arm above his head relieves pain. He has had 2 epidural injections which have relieved the pain by 50%. He currently takes Vicodin 10 t.i.d. and baclofen. He currently is attending physical therapy which does not believe is helping. Social History ?? Tobacco Use 305.1 1PPD Vitals [id number] 03:57PM Heart Rate 88 Systolic 108 Diastolic 78 BMI Calculated 33.18 BSA Calculated 2.32 Height 6 ft Weight 245 lb Physical Exam Neurologic examination Higher function alert oriented x3, Ashley Coma Scale 15, speech fluent Cranial nerves pupils equal round react to light, extraocular muscles full, face symmetric, tongue midline Motor examination grossly 5 out 5 in the upper extremities Cerebellar examination no dysmetria finger-nose testing Results/Data MRI cervical spine from August 26, 2012 was reviewed. C5-6 large left paracentral disc herniation occluding the foramen. Assessment 1. Bulging Cervical Disc 722.0 Discussion/Summary Patient is a 37-year-old gentleman who has a 3 month history of left arm pain. MRI demonstrates a large left C5-6 disc herniation. Ultimately this is a surgical lesion. Patient is very anxious about surgery. I encouraged him to run the full course of epidural injections. I will see him in followup in 6-8 weeks. He needs to understand for himself that surgery is likely his best option. Unfortunately because of his insurance status he will not qualify for cervical arthroplasty. The patient smokesone pack per day. He will need to be smoke-free in the perioperative period if he pursues surgery. Thank you for allowing me to participate in his care. Signatures Electronically signed by : Francheska Ojeda, ; Oct 27 2012 4:29PM (Co-author) Electronically signed by : Elmer Harris M.D.; Oct 27 2012 4:54PM (Author) CH COMMUNICATION PROFESSOR documented in this encounter Plan of Treatment Not on file documented as of this encounter Visit Diagnoses Not on filedocumented in this encounter
--- OUTSIDE RECORDS SUMMARY | 2024-03-07 11:06 | XMS_ITS | Encounter Summary ---
Author Name [facility] [place] Organization [facility] Address [address] [place] [address] Care Team Providers Care Acoustics Teacher Name Role Phone SANDRA MUNOZ Primary Care [...] ION RX PLAN Apr 11, 2019 [id number] [phone] Christoph TILLEY SPOUSE [facility] Mar 11, 2017 [id number] [phone] Nino TILLEY SPOUSE [facility] Mar 11, 2019 [id number] [phone] Nino TILLEY SPOUSE [facility] POINT OF SERVICE [facility] Mar 11, 2017 [id number] [phone] Nino TILLEY SPOUSE Selected Encounter This section includes the information on record at [place] for the Encounter. Date/Time Encounter Type Encounter Description Reason Provider Source Feb 10, 2024 03:48 PM Outpatient Encounter EYE TELE SCREENING ICD-10-CM Z13.5 Encounter for screening for eye and ear disorders TERELL MARQUEZ E Encounter Template Text not used by [place] Assessments - Encounter Diagnoses This section includes the primary and secondary diagnoses documented for the Encounter. Date/Time Primary/Secondary Diagnosis Diagnosis Name Provider Source Feb 10, 2024 03:48 PM PRIMARY Encounter for screening for eye and ear disorders AMANDEEP MEMBRENO [facility] Feb 10, 2024 03:48 PM SECONDARY Type 2 diabetes mellitus without complications AMANDEEP MEMBRENO [facility] Plan of Treatment: Future Appointments (+ 6 months) and Future Tests (+/- 45 days) The Plan of Treatment section includes future care activities for the patient from all [place] [facility] This section includes future appointments and future orders which are active, pending or scheduled. Future Appointments This section includes appointments that were scheduled to occur 6 months from the date of the Encounter, up to a maximum of 20 appointments. The data comes from all [facility]. Appointment Date/Time Appointment Type Appointme nt Facility Name Mar 02, 2024 08:00 AM AMBULATORY - MEDICINE [facility] Mar 02, 2024 09:00 AM AMBULATORY - MEDICINE [facility] Mar 10, 2024 08:30 AM AMBULATORY - MEDICINE [facility] Mar 10, 2024 09:30 AM AMBULATORY - REHAB MEDICIN E [facility] Apr 09, 2024 08:00 AM AMBULATORY - NONE [facility] July 20, 2024 09:00 AM AMBULATORY - MEDICINE [facility] Aug 10, 2024 10:00 AM AMBULATORY - MEDICINE [facility] Active, Pending, and Scheduled Orders This section includes a listing of several types of active, pending, and scheduled orders, including clinic medications orders, diagnostic test orders, procedure orders and consult orders; where the start date of the order is 45 days before the date of the Encounter or 45 days after the date of theEncounter. The data comes from all [facility]. Test Date/Time Test Type Test Details Facility Name Feb 10, 2024 02:46 PM Consult Order PT OUTPT S TL Cons Librarian [employer] [facility] Mar 02, 2024 12:00 AM Laboratory - Chemi stry Order LIPID PANEL (STL) GREEN LI/HEP BLD/PLAS PLASMA SP [facility] Mar 02, 2024 12:00 AM Laboratory - Chemi stry Order HGA1C BLOOD SP [facility] Lab Results: +/- 30 days of [...] Range Comment Feb 10, 2024 02:07 PM [facility] GLUCOSE,BLOOD-poct (STL) Specimen Type: BLOOD Comment: Test Performed by: [id number] Meter #: [id number] Ordering Provider: TERELL MARQUEZ Report Released Date/Time: Feb 10, 2024 04:17 PM Reporting Lab: [address] [address] Performing Lab: [address] [address] GLUCOSE,BLOOD-p oct (STL) 118 mg/dL H 72-99 Jan 24, 2024 08:36 AM [facility] MICRAL/CREAT PROFILE (STL) Specimen Type: URINE No comment entered. Ordering Provider: SANDRA MUNOZ Report Released Date/Time: May 01, 2023 12:17 PM Reporting Lab: [facility] [address] [place] [phone] Performing Lab: [address] [address] URINE ALBUMIN (PB-STL) 9.6 mg/L uACR (STL) 16 mg/g 0-29 CREATININE URINE/OTHERS 61.8 mg/dL L 63-166 Jan 24, 2024 08:29 AM [facility] LIPID PANEL (STL) Specimen Type: PLASMA Comment: No hemolysis noted. Ordering Provider: SANDRA MUNOZ Report Released Date/Time: May 01, 2023 12:17 PM Reporting Lab: [facility] [address] [place] [phone] Performing Lab: [address] [place] [address] CHOLESTEROL 95 mg/dL 0-200 TRIGLYCERIDE 57 mg/dL 0-150 CALCULATED LDL 49 mg/dL HDL(New) 35 mg/dL L >40 Jan 24, 2024 08:29 AM [facility] COMPREHENSIVE METABOLIC PANEL Specimen Type: PLASMA Comment: No hemolysis noted. Ordering Provider: SANDRA MUNOZ Report Released Date/Time: May 01, 2023 12:17 PM Reporting Lab: [address] [address] Performing Lab: [address] [address] CREATININE 0.95 mg/dL 0.7-1.3 UREA NITROGEN 23.5 [...] 97.5 >60 Jan 24, 2024 08:29 AM [facility] HGA1C Specimen Type: BLOOD No comment entered. Ordering Provider: SANDRA MUNOZ Report Released Date/Time: May 01, 2023 12:17 PM Reporting Lab: [address] [address] Performing Lab: [address] [address] HGA1C 5.8 4.0-6.0 Jan 24, 2024 08:29 AM [facility] PROST. SPECIFIC AG.(PB-STL) Specimen Type: SERUM Comment: The listed sex of this patient may not be a typical indication for this test. Therefore, reference ranges or interpretive criteria listed may not be valid. Clinical correlation suggested. Ordering Provider: SANDRA MUNOZ Report Released Date/Time: May 01, 2023 12:17 PM Reporting Lab: [address] [address] Performing Lab: [place] [address] [facility] [address] PROST. SPECIFIC AG.(PB-STL) 0.508 ng/mL 0-4 Jan 24, 2024 08:29 AM [facility] VITAMIN D, 25-HYDROXY Specimen Type: SERUM Comment: The listed sex of this patient may not be a typical indication for this test. Therefore, reference ranges or interpretive criteria listed may not be valid. Clinical correlation suggested. Ordering Provider: SANDRA MUNOZ Report Released Date/Time: May 01, 2023 12:17 PM Reporting Lab: [address] [address] Performing Lab: [address] [address] VITAMIN D, 25-HYDROXY 30.5 ng/mL 30-96 Encounter Notes: All associated encounter notes This section contains the clinical notes associated to the Encounter. Date/Time Encounter Note(s) Provider Source Feb 11, 2024 02:27 PM LETTERS: LOCAL TITLE: TELE-EYE RESULTS LETTER STANDARD TITLE: LETTERS DATE OF NOTE: FEB 11, 2024@14:27 ENTRY DATE: FEB 11, 2024@14:27:32 AUTHOR: TERELL MARQUEZ EXP COSIGNER: URGENCY: STATUS: COMPLETED FEB 11, 2024 [place] [id number] [place], [place] [address] Dear Too Tilley: You are receiving this letter in regard to your recent [facility] E[facility] SCREEN[facility]. The purpose of the screening is to detect specific vision-threatening conditions such as diabetic retinopathy (if you are diabetic), macular degeneration, and glaucoma. Early detection of eye disease can be important to reduce the risk of permanent vision loss. Your information and testing was reviewed by a licensed [place] eye care provider. The date of review and findings are noted below: Screening Exam Findings 02/10/2024 No diabetic retinopathy apparent No macular degeneration apparent No glaucoma apparent No other time-sensitive findings apparent Recommendations: 02/10/2024 Return to either [facility] Op[facility] or Optometry in 1 YEAR *Please note that incidental findings outside the primary focus of this screening may be noted within the detailed report of the visit. This report can be accessed online through [employer] ([email or web address]) or requested through your [place] Medical Records/Release of Information office. If you have been seen by a non-VA eye care provider, please bring your records to your next [facility] appointment to be scanned into your medical record. If you are a tobacco user, [place] provides tobacco cessation services which can reduce the risk of eye disease as well as risks to your overall health. Please discuss with your [place] Primary Care team for more information. Thank you for allowing us to serve you. [place] Healthcare Team Digital retinal imaging has been shown to be an effective method of screening for specific eye conditions, but cannot substitute for a comprehensive eye exam. Comprehensive eye exams are recommended every 1-2 years, or more frequently as determined by the presence of risk factors, early signs or symptoms, or known history of eye disease. TERELL MARQUEZ [facility] Feb 10, 2024 03:48 PM OPTOMETRY CONSULT: LOCAL TITLE: DIABETIC TELERETINAL IMAGING CONSULT STANDARD TITLE: OPTOMETRY CONSULT DATE OF NOTE: FEB 10, 2024@15:48 ENTRY DATE: FEB 10, 2024@15:49:03 AUTHOR: CALEB MEMBRENO COSIGNER: URGENCY: STATUS: COMPLETED TELE-EYE SCREENING READER NOTE: IMAGE QUALITY ASSESSMENT: Image quality adequate TELE-EYE SCREENING ASSESSMENT: Diabetic Patient Type 2 RIGHT RETINAL IMAGES: Diabetic Retinopathy Assessment: No Retinopathy Apparent No indication of diabetic macular edema Macula Assessment: No apparent abnormalities Optic Nerve Head Assessment: No apparent abnormalities Other Assessment: No apparent abnormalities LEFT RETINAL IMAGES: Diabetic Retinopathy Assessment: No Retinopathy Apparent No indication of diabetic macular edema Macula Assessment: No apparent abnormalities Optic Nerve Head Assessment: No apparent abnormalities Other Assessment: No apparent abnormalities EYE SCREENING RESULTS: Diabetic Retinopathy: Normal - No diabetic retinopathy apparent Macular Degeneration: Normal - No macular degeneration apparent Glaucoma: Normal - No glaucomatous nerve damage apparent Other Findings: No other referrable findings TIME-SENSITIVITY: No time-sensitive, urgent, emergent or life-threatening results. RECOMMENDATIONS: Refer for [id number] [facility] eye exam Refer to: EITHER [facility] or [facility] Optometry 1 year: Feb Referral/appointment reason: Comprehensive eye exam recommended for next eye care visit Sturgeon verifies that a review of past eye clinic records has been completed (if available) and a review for future eye appointments has been completed to help reduce duplication of care. Yes Cumulative time of review and management: 5 minutes or more * Digital retinal imaging has been shown to be an effective method * * of screening for conditions such as diabetic retinopathy, but it * * cannot substitute for a comprehensive cqjy-qz-lsew eye exam. * * * * Comprehensive eye exams are recommended every 1-2 years, or more * * frequently as determined by the presence of risk factors, early * * signs or symptoms, or known history of ocular disease. * * * * [facility] is a self refer/direct-scheduling service that allows * * you to call to schedule an appointment without a referral being * * required. We recommend calling to schedule your appointment at * * least 90 days in advance of the desired appointment date. * Appendix (abbreviations): AC (Anterior Chamber); AREDS (Age Related Eye Disease Study); ARX (Auto Refraction); BID (Two Times Daily); C:D (Cup-to-Disc); CIC (Care In The Community); MANAGER LAW (Cyclophotocoagulation); CSME (Clinically Significant Macular Edema); DFE (Dilated Fundus Exam); Dorz/Timol (Dorzolamide/Timolol); DSEK (Descemet's Stripping Endothelial Keratoplasty); FAF (Fundus Autofluorescence); F/U (Follow up); GCC (Ganglion Cell Complex); Gonio (Gonioscopy); H/O (History Of); HTN (Hypertension); HVF (Everett Visual Field); IOL (Intraocular Lens); IOP (Intraocular Pressure); K (Keratometry); LASIK (Laser-Assisted In Situ Keratomileusis); MD (Mean Deviation when used with visual field); dB (decibels); MRx (Manifest Refraction); NeoPolyDex/Erythro (Neomycin Polymyxin B Dexamethasone/Erythromyci n); NFL (Nerve Fiber Layer); NPDR (Nonproliferative Diabetic Retinopathy); OCT (Optical Coherence Tomography); OD (Right Eye); OS (Left Eye); OU (Both Eyes); PDR (Proliferative Diabetic Retinopathy); PFATs (Preservative Free Artificial Tears); RK (Radial Keratotomy); RNFL (Retinal Nerve Fiber Layer); RTC (Return To Clinic); scVA (Visual Acuity Without Correction/Glasses); ABDELRAHMAN (Comoran Interactive Threshold Algorithm); TID (Three Times Daily); UV (Ultraviolet); VA (Visual Acuity); WRx (Prescription glasses currently worn); WRx VA (Visual Acuity With Prescription Glasses); YAG (Yttrium Aluminum Friedenswald) /bennett/ CALEB MEMBRENO Scheduling Assistant Signed: 02/10/2024 15:55 Receipt Acknowledged By: 02/11/2024 14:26 /bennett/ TERELL MARQUEZ Telehealth Clinical Lime Mixer CALEB MEMBRENO [facility]
--- OUTSIDE RECORDS SUMMARY | 2024-03-07 11:06 | XMS_ITS | Encounter Summary ---
Author Name [facility] [place] Organization [facility] [facility] [place] Address [address] [place] [address] Care Team Providers Care Memory Care Director Name Role Phone SANDRA MUNOZ Primary Care [...] ION RX PLAN Apr 11, 2019 [id number] [phone] Christoph TILLEY SPOUSE [facility] Mar 11, 2017 [id number] [phone] Nino TILLEY SPOUSE [facility] Mar 11, 2019 [id number] [phone] Nino TILLEY SPOUSE [facility] POINT OF SERVICE [facility] Mar 11, 2017 [id number] [id number] [phone] Nino TILLEY SPOUSE Selected Encounter This section includes the information on record at [place] for the Encounter. Date/Time Encounter Type Encounter Description Reason Pro vider Source Feb 10, 2024 03:00 PM Outpatient Encounter EVENT (HISTORICAL) IHE Encounter Template Text not used by [facility] Plan of Treatment: Future Appointments (+ 6 months) and Future Tests (+/- 45 days) The Plan of Treatment section includes future care activities for the patient from all [place] [facility]. This section includes future appointments and [...] 02, 2024 08:00 AM AMBULATORY - MEDICINE [facility] Mar 02, 2024 09:00 AM AMBULATORY - MEDICINE [facility] Mar 10, 2024 08:30 AM AMBULATORY - MEDICINE [facility] Mar 10, 2024 09:30 AM AMBULATORY - REHAB MEDICIN E [facility] Apr 09, 2024 08:00 AM AMBULATORY - NONE [facility] July 20, 2024 09:00 AM AMBULATORY MEDICINE [facility] Aug 10, 2024 10:00 AM AMBULATORY - MEDICINE [facility] Active, Pending, and Scheduled Orders This section [...] Consult Order PT OUTPT S TL Cons Drafter [employer] [facility] Mar 02, 2024 12:00 AM Laboratory - Chemi stry Order LIPID PANEL (STL) GREEN LI/HEP BLD/PLAS PLASMA SP [facility] Mar 02, 2024 12:00 AM Laboratory - Chemi stry Order HGA1C BLOOD SP [facility] Lab Results: +/- 30 days of the [...] Range Comment Feb 10, 2024 02:07 PM [facility] GLUCOSE,BLOOD-poct (STL) Specimen Type: BLOOD Comment: Test Performed by: [id number] Meter #: [id number] Ordering Provider: TERELL MARQUEZ Report Released Date/Time: Feb 10, 2024 04:17 PM Reporting Lab: [facility] [address] [facility] [address] Performing Lab: [facility] [address] [facility] [address] GLUCOSE,BLOOD-p oct (STL) 118 mg/dL H 72-99 Jan 24, 2024 08:36 AM [facility] MICRAL/CREAT PROFILE (STL) Specimen Type: URINE No comment entered. Ordering Provider: SANDRA MUNZO Report Released Date/Time: May 01, 2023 12:17 PM Reporting Lab: [facility] [address] [facility] [address] Performing Lab: [facility] [address] [facility] [address] URINE ALBUMIN (PB-STL) 9.6 mg/L uACR (STL) 16 mg/g 0-29 CREATININE URINE/OTHERS 61.8 mg/dL L 63-166 Jan 24, 2024 08:29 AM [facility] LIPID PANEL (STL) Specimen Type: PLASMA Comment: No hemolysis noted. Ordering Provider: SANDRA MUNOZ Report Released Date/Time: May 01, 2023 12:17 PM Reporting Lab: [facility] [address] [facility] [address] Performing Lab: [facility] [address] [facility] [address] CHOLESTEROL 95 mg/dL 0-200 TRIGLYCERIDE 57 mg/dL 0-150 CALCULATED LDL 49 mg/dL HDL(New) 35 mg/dL L >40 Jan 24, 2024 08:29 AM [facility] HGA1C Specimen Type: BLOOD No comment entered. Ordering Provider: SANDRA MUNOZ Report Released Date/Time: May 01, 2023 12:17 PM Reporting Lab: [facility] [address] [facility] [address] Performing Lab: [address] [address] HGA1C 5.8 4.0-6.0 Jan 24, 2024 08:29 AM [facility] COMPREHENSIVE METABOLIC PANEL Specimen Type: PLASMA Comment: No hemolysis noted. Ordering Provider: SANDRA MUNOZ Report Released Date/Time: May 01, 2023 12:17 PM Reporting Lab: [address] [address] Performing Lab: [address] [address] CREATININE 0.95 mg/dL 0.7-1.3 UREA NITROGEN 23.5 [...] 97.5 >60 Jan 24, 2024 08:29 AM [facility] PROST. SPECIFIC AG.(PB-STL) Specimen Type: SERUM Comment: The listed sex of this patient may not be a typical indication for this test. Therefore, reference ranges or interpretive criteria listed may not be valid. Clinical correlation suggested. Ordering Provider: SANDRA MUNOZ Report Released Date/Time: May 01, 2023 12:17 PM Reporting Lab: [address] [address] Performing Lab: [place] [address] [facility] [address] PROST. SPECIFIC AG.(PB-STL) 0.508 ng/mL 0-4 Jan 24, 2024 08:29 AM [facility] VITAMIN D, 25-HYDROXY Specimen Type: SERUM Comment: The listed sex of this patient may not be a typical indication for this test. Therefore, reference ranges or interpretive criteria listed may not be valid. Clinical correlation suggested. Ordering Provider: SANDRA MUNOZ Report Released Date/Time: May 01, 2023 12:17 PM Reporting Lab: [facility] [address] [facility] [address] Performing Lab: [facility] [address] [facility] [address] VITAMIN D, 25-HYDROXY 30.5 ng/mL -96
--- OUTSIDE RECORDS SUMMARY | 2024-03-07 11:06 | XMS_ITS | Encounter Summary ---
Author Organization [facility] Address [address] [place] [address]. [place], [place] [id number] [place] [address] Care Team Providers Care Top Trimmer Name Role Phone Unavailable Primary Care Provider Unavailabl e Encounter Details Date Type Department Care Team (Latest Contact Info) Description 08/26/2012 Abstract [facility] Social History Tobacco Use Types [...]
--- OUTSIDE RECORDS SUMMARY | 2024-03-07 11:06 | XMS_ITS ---
Author Name [facility] Organization [facility] [place] [facility] [place] Address [address] [place] [address] Care Team Providers Care Habitat Management Coordinator Name Role Phone SANDRA MUNOZ Primary Care [...] ION RX PLAN Apr 11, 2019 [id number] [phone] Christoph TILLEY SPOUSE [facility] Mar 11, 2017 [id number] [phone] Nino TILLEY SPOUSE [facility] Mar 11, 2019 [id number] [phone] Nino TILLEY SPOUSE [facility] Mar 11, 2017 [id number] [phone] Nino TILLEY SPOUSE Selected Encounter This section includes the information on record at [place] for the Encounter. Date/Time Encounter Type Encounter Description Reason Pro vider Source Feb 07, 2024 10:12 AM Outpatient Encounter ADMIN PAT ACTIVTIES (MASNONCT) [facility] Encounter Template Text not used by [facility] Plan of Treatment: Future Appointments (+ 6 months) and Future Tests (+/- 45 days) The Plan of Treatment section includes future care activities for the patient from all [place] [facility]. This section includes future appointments and future orders which are active, pending or scheduled. Future Appointments This section includes appointments that were scheduled to occur 6 months from the date of the Encounter, up to a maximum of 20 appointments. The data comes from all [facility]. Appointment Date/Time Appointment Type Appointme nt Facility Name Feb 10, 2024 02:00 PM AMBULATORY - MEDICINE [facility] Feb 10, 2024 03:00 PM AMBULATORY - NONE [facility] Mar 02, 2024 08:00 AM AMBULATORY - MEDICINE [facility] Mar 02, 2024 09:00 AM AMBULATORY - MEDICINE [facility] Mar 10, 2024 08:30 AM AMBULATORY - MEDICINE [facility] Mar 10, 2024 09:30 AM AMBULATORY - REHAB MEDICIN E [facility] Apr 09, 2024 08:00 AM AMBULATORY - NONE [facility] July 20, 2024 09:00 AM AMBULATORY - MEDICINE [facility] Active, Pending, and Scheduled Orders This section [...] comes from all [facility]. Test Date/Time Test Type Test Details Facility Name Feb 10, 2024 02:46 PM Consult Order PT OUTPT S TL Cons Contact Acid Plant Operator's Choice [facility] Mar 02, 2024 12:00 AM Laboratory - Chemi stry Order HGA1C BLOOD SP [facility] Mar 02, 2024 12:00 AM Laboratory - Chemi stry Order LIPID PANEL (STL) GREEN LI/HEP BLD/PLAS PLASMA SP [facility] Lab Results: +/- 30 days of the [...] Range Comment Feb 10, 2024 02:07 PM [facility] GLUCOSE,BLOOD-poct (STL) Specimen Type: BLOOD Comment: Test Performed by: [id number] Meter #: [id number] Ordering Provider: TERELL MARQUEZ Report Released Date/Time: Feb 10, 2024 04:17 PM Reporting Lab: [facility] [address] [facility] [address] Performing Lab: [address] [address] GLUCOSE,BLOOD-p oct (STL) 118 mg/dL H 72-99 Jan 24, 2024 08:36 AM [facility] MICRAL/CREAT PROFILE (STL) Specimen Type: URINE No comment entered. Ordering Provider: SANDRA MUNOZ Report Released Date/Time: May 01, 2023 12:17 PM Reporting Lab: [facility] [address] [facility] [address] Performing Lab: [facility] [address] [facility] [address] URINE ALBUMIN (PB-STL) 9.6 mg/L uACR (STL) 16 mg/g 0-29 CREATININE URINE/OTHERS 61.8 mg/dL L 63-166 Jan 24, 2024 08:29 AM [facility] LIPID PANEL (STL) Specimen Type: PLASMA Comment: No hemolysis noted. Ordering Provider: SANDRA MUNOZ Report Released Date/Time: May 01, 2023 12:17 PM Reporting Lab: [facility] [address] [facility] [address] Performing Lab: [facility] [address] [facility] [address] CHOLESTEROL 95 mg/dL 0-200 TRIGLYCERIDE 57 mg/dL 0-150 CALCULATED LDL 49 mg/dL HDL(New) 35 mg/dL L >40 Jan 24, 2024 08:29 AM [facility] COMPREHENSIVE METABOLIC PANEL Specimen Type: PLASMA Comment: No hemolysis noted. Ordering Provider: SANDRA MUNOZ Report Released Date/Time: May 01, 2023 12:17 PM Reporting Lab: [address] [address] Performing Lab: [address] [address] CREATININE 0.95 mg/dL 0.7-1.3 UREA NITROGEN 23.5 [...] 97.5 >60 Jan 24, 2024 08:29 AM [facility] HGA1C Specimen Type: BLOOD No comment entered. Ordering Provider: SANDRA MUNOZ Report Released Date/Time: May 01, 2023 12:17 PM Reporting Lab: [address] [address] Performing Lab: [address] [address] HGA1C 5.8 4.0-6.0 Jan 24, 2024 08:29 AM [facility] PROST. SPECIFIC AG.(PB-STL) Specimen Type: SERUM Comment: The listed sex of this patient may not be a typical indication for this test. Therefore, reference ranges or interpretive criteria listed may not be valid. Clinical correlation suggested. Ordering Provider: SANDRA MUNOZ Report Released Date/Time: May 01, 2023 12:17 PM Reporting Lab: [address] [address] Performing Lab: [address] [address] PROST. SPECIFIC AG.(PB-STL) 0.508 ng/mL 0-4 Jan 24, 2024 08:29 AM [facility] VITAMIN D, 25-HYDROXY Specimen Type: SERUM Comment: The listed sex of this patient may not be a typical indication for this test. Therefore, reference ranges or interpretive criteria listed may not be valid. Clinical correlation suggested. Ordering Provider: SANDRA MUNOZ Report Released Date/Time: May 01, 2023 12:17 PM Reporting Lab: [facility] [address] [facility] [address] Performing Lab: [facility] [address] [facility] [address] VITAMIN D, 25-HYDROXY 30.5 ng/mL 30-96 Encounter Notes: All associated encounter notes This section contains the clinical notes associated to the Encounter. Date/Time Encounter Note(s) Provider Source Feb 07, 2024 10:12 AM ADMINISTRATIVE NOT E: LOCAL TITLE: SCHEDULING NOTE STL STANDARD TITLE: ADMINISTRATIVE NOTE DATE OF NOTE: FEB 07, 2024@10:12 ENTRY DATE: FEB 07, 2024@10:12:11 AUTHOR: TERELL MARQUEZ EXP COSIGNER: URGENCY: STATUS: COMPLETED Additional comments: Called schedule tele-retinal imaging for 02/10/24 at 3pm per patient request. ADDITIONAL RESULTS FROM SCHEDULING ATTEMPTS: Spoke with [place]/Caregiver /bennett/ TERELL MARQUEZ Telehealth Clinical Balance Recesser Signed: 02/07/2024 10:14 TERELL MARQUEZ [facility]
--- OUTSIDE RECORDS SUMMARY | 2024-03-07 11:06 | XMS_ITS | Encounter Summary ---
Author Organization [facility] Address [address] [place] [address]. [place], [place] [address] [place] [address] Care Team Providers Care Director Of Field Coordination Name Role Phone Unavailable Primary Care Provider Unavailabl e Encounter Details Date Type Department Care Team (Late st Contact Info) Description 04/21/1996 Abstract [facility] CONVERSION [address] [place] [address] , Generic Conversion, Social History Tobacco Use Types Packs/Day Years [...]
--- OUTSIDE RECORDS SUMMARY | 2024-03-07 11:06 | XMS_ITS | Encounter Summary ---
Author Organization [facility] Address [address] [place] [address]. [place], [place] [address] [place] [address] Care Team Providers Care Counter Dish Carrier Name Role Phone Samuel Jeffries MD Primary Care Provider [phone] Reason for Referral * Sleep Lab (Routine) - Closed Specialty Diagnoses / Procedures Referred By Davon johns Referred To Contact [facility] Sleep Disorders Diagnoses JIMENA (obstructive sleep apnea) Procedures Diagnostic PSG (02994, [id number]) Christian Grier MD [address] [place] [address] Phone: tel: fax: [facility] Sleep Lab [address] [place] [address] Phone: tel: fax: Referral ID Status Reason Start Date Expiration Date Visits Re quested Visits Authorized [id number] Closed 09/05/2022 03/04/2023 1 1 Reason for Visit * Reason Comments Obstructive Sleep Apnea * Auth/Cert (Routine) Specialty Diagnoses / Procedures Referred By Contac t Referred To Contact Referral ID Status Reason Start Date Expiration Date Visits Re quested Visits Authorized [id number] 1 1 Encounter Details Date Type Department Care Team (Latest Contact Info) Description 11/02/2022 8:29 PM CDT - 11/02/2022 11:59 PM CDT Hospital Encounter [facility] Sleep Lab [address] [place], [place] [id number] Christian Grier MD [address] [place] [address] [place] [address] Obstructive Sleep Apnea Discharge Disposition: Home or Self Care (Routine Discharge) Social History Tobacco Use Types Packs/Day Years Used Date Smoking Tobacco: Never Assessed Sex and Gender Information Value Date Recorded Sex Assigned at Not on file Legal Sex Male 5:41 PM CDT Gender Identity Not on file Sexual Orientation Not on file documented as of this encounter Progress Notes * Logan Garcia MD - 11/02/2022 8:30 PM CDTEncounter addended by: Logan Garcia MD on: 11/29/2022 2:32 PM Actions taken: Pend clinical note, Clinical Note Signed documented in this encounter Procedure Notes * Logan Garcia MD - 11/02/2022 8:30 PM CDTAssociated Order(s): POLYSOMNOGRAPHY 4 OR MORE PARAMETERS [facility]???[place], [place] SPLIT NIGHT POLYSOMNOGRAM INTERPRETATION PATIENT NAME: Too Chu DATE OF : 1975 DATE OF SERVICE: 11/02/2022 PATIENT TYPE: CLI Ordering Phy Exam Description Christian Grier MD SL PSG 4+PARAMETERS W/CPAP ATTENDING PHYSICIAN: Logan Garcia MD REFERRING PHYSICIAN: Christian Grier MD GENERAL INFORMATION Total Sleep Time: 414.0 minutes Sleep Efficiency Index: 87.4% Sleep Latency: 2.1 minutes REM Latency: 119.0 minutes Apnea-Hypopnea Index: 60.2 per hour Post Apnea-Hypopnea Index: 0.8 per hour on CPAP of 12.0 cm h2O Procedure: The overnight polysomnogram was an attended study using a multiple channel system including simultaneous monitoring and recording of electroencephalography (EEG), right and left electrooculography (EOC), submental electromyography (EOG), submental electromyography (EMG), EKG, oral/nasal a irflow, snoring, respiratory effort, oxygen saturations, right and [...] time in prone position, 38.3% of the timein left-sided position, and 42.5% of the time in right-sided position. There were 128 arousals, of which 93 were associated with respiratory events and 22 were spontaneous. Arousal index was 58.9 perhour. During the treatment phase of the study, [...] 47.4% of the time in left-sided position, and0.0% of the time in right-sided position. There were 51 arousals, of which 11 were associated with respiratory events and 28 were spontaneous. Arousal index was 10.8 per hour. Limb Activity Summary: During the diagnostic phase of the study, the patient demonstrated a total of 15 leg movements during the night, of which 9 had the appearance of periodic limb movements. Therewere a total of 13 arousals associated with [...] - were Obstructive, - were Central and -were Mixed. There were an additional 30 respiratory [...] the diagnostic phase of the test, the patient???s average saturation was 89.3% during REM and 90.2% during NREM.?? The patient???s lowest saturation was 85.0% duringREM and 84.0% during NREM. Saturation was less than or equal to 88% for 21.9 minutes. During the treatment phase of the test, the patient???s average saturation was 92.1% during REM and92.6% during NREM.?? The patient???s lowest saturation was 86.0% during REM and 89.0% during NREM. Saturation was 90% or higher for 96.9% of the total sleep time. Saturation was less than or equal to88% for 0.2% of the total sleep time [...] set at 12.0 cm h2O with heated humidity.A one month follow up should be scheduled with the ordering physician to assess the benefit and tolerance of this therapy. If respiratory events persist, further evaluation and possible pressure adjustments may need to be made as clinically indicated. The patient used a ResMed AirFit P10 nasal pillow mask, size medium, during this study. This patient???s oxygen saturation was at or below 88.0% for 21.9 minutes during the diagnostic segment of this study. Possible need to do additional testing with full night titration with possible supplemental oxygen addition if there are still significant desaturations when patient???s AHI is within normal limits should be considered.?? Also, the possibility of additional medical evaluation based on noted desaturations should be considered. This patientshould maintain a consistent sleep/wake schedule with adequate hours of sleep and avoid hazardous activities when sleepy. The patient should be cautioned about factors that may potentially exacerbatesnoring and other sleep-related issues, such as SET UP MACHINIST depressants, especially at bedtime. This document was electronically signed by: Logan Garcia M.D. on 11/29/2022 at 10:50 AM. documented in this encounter Plan of Treatment Not on file documented as of this encounter Procedures Procedure Name Priority Date/Time Associated Diagnosis Comments POLYSOMNOGRAPHY 4 OR MORE PARAMETERS Routine 11/02/2022 8:30 PM CDT JIMENA (obstructive sleep apnea) documented in this encounter Results * Diagnostic PSG (60006, 06345) (11/02/2022 8:30 PM CDT) Narrative [facility] - 11/02/2022 8:30 PM CDT Logan Garcia MD ? 11/29/2022 ??2:31 PM ??[facility] ?[place], [place] ?SPLIT NIGHT POLYSOMNOGRAM INTERPRETATION ? PATIENT [...] snoring and other sleep-related issues, such as SET UP MACHINIST depressants, especially at bedtime. This document was electronically signed by: Logan Garcia M.D. on 11/29/2022 at 10:50 AM. us Christian Grier MD SLEEP CENTER ORDERABLES Final R esult [facility] [address] [place] [address], documented in this encounter Visit Diagnoses Diagnosis JIMENA (obstructive sleep apnea) Obstructive sleep apnea (adult) (pediatric) documented in this encounter Care Teams Counter Dish Carrier Relationship Specialty Start Date End Date Samuel Jeffries MD [address] [place] [address] PCP - General FAMILY PRACTICE 11/02/22 documented as of this encounter
--- OUTSIDE RECORDS SUMMARY | 2024-03-07 11:06 | XMS_ITS | Clinical Summary ---
Author Organization [facility] Address [address] [place] [address]. [place] [address] [place] [address] Care Team Providers Care Fisher Trot Line Name Role Phone Samuel Jeffries MD Primary Care Provider [phone] Social History Tobacco Use Types Packs/Day Years Used Date Smoking Tobacco: Never Assessed Sex and Gender Information Value Date Recorded Sex Assigned at Not on file Legal Sex Male 5:41 PM CDT Gender Identity Not on file Sexual Orientation Not on file Last Filed Vital Signs Vital Sign Reading [...] Mass Index 33.23 10/27/2012 3:57 PM CDT Plan of Treatment Health Maintenance Due Date Last Done Comments Colorectal Cancer Screening Colonoscopy (10 Years) 1975 Annual Physical 1976 Hepatitis C 06/13/1991 DTaP, Tdap and Td Vaccines ( 1 - Tdap) 1992 Hepatitis B Vaccines (1 of 3 - 19+ 3-dose series) 1992 Zoster Vaccines (1 of 2) 06/13/2023 COVID-19 Vaccine (3 - 2023-2 5 season) 2023 03/29/2021, 05/13/2020 Influenza Adult (#1) 2023 Meningococcal Vaccine Aged Out No maxx xochitl eligible based on patient's age to complete this topic Pneumococcal Vaccine: Pediatrics (0 to 5 Years) and At-Risk Patients (6 to 64 Years) Aged Out No longer eligible b ased on patient's age to complete this topic RSV Immunizations Under 20 Months Aged Out No longer eligible b ased on patient's age to complete this topic Insurance [facility] [employer] [facility] Care Teams Fisher Trot Line Relationship Specialty Start Date End Date Samuel Jeffries MD [address] [place] [address] PCP - General FAMILY PRACTICE 11/02/22
--- OUTSIDE RECORDS SUMMARY | 2024-03-07 11:08 | XMS_ITS | Encounter Summary ---
Author Organization [facility] Address [address] [place] [address] Phone Care Team Providers Care Manufacturing Tech Name Role Phone Anjelica Calvo Primary Care Provider [phone] Encounter Details Date Type Department Care Team (Late st Contact Info) Description 09/03/2022 Orders Only [facility] Neurosurgery [address] [facility] [address] [place] [address] Renu Urrutia, ANNALISE [address] [place] [address] Neck pain (Primary Dx) Social History Tobacco Use Types Packs/Day Years Used Date Smoking Tobacco: Some Days Cigarettes Smokeless Tobacco: Never Alcohol Use Standard Drinks/Week Comments Yes 0 (1 standard drink = 0.6 oz pur e alcohol) socially AUDIT-C Answer Date Recorded Q1: How often do you have a drink containing alc ohol? 2-3 times a week 09/07/2022 Q2: How many drinks containi ng alcohol do you have on a typical day when you are drinking? 1 or 2 09/07/2022 Q3: How often do you have si x or more drinks on one occasion? Never 09/07/2022 Sex and Gender Information Value Date Recorded Sex Assigned at Not on file Legal Sex Male 10:19 AM COATING SUPERVISOR Gender Identity Not on file Sexual Orientation Not on file documented as of this encounter Plan of Treatment Not on file documented as of this encounter Visit Diagnoses Diagnosis Neck pain- Primary Cervicalgia documented in this encounter Care Teams Manufacturing Tech Relationship Specialty Start Date End Date Anjelica Calvo PA [address] [place] [address] PCP - General Gastroenterology 09/05/18 12/10/23 documented as of this encounter
--- OUTSIDE RECORDS SUMMARY | 2024-03-07 11:08 | XMS_ITS | Encounter Summary ---
Author Organization [facility] Address [address] [place] [address] Phone Care Team Providers Care Non Emergency Services Ambulance Driver Name Role Phone Anjelica Calvo Primary Care Provider [phone] Encounter Details Date Type Department Care Team (Late st Contact Info) Description 11/06/2018 Orders Only [facility] Orthopaedic Surgery [address] [facility] Medical Office Building [address] [place] [address] Marlin Walker PA [address] [place], [place] [id number] Cervical radiculopathy (Primary Dx) Social History Tobacco Use Types Packs/Day Years Used Date Smoking Tobacco: Every Day Cigarettes Smokeless Tobacco: Never Alcohol Use Standard Drinks/Week Comments Yes 0 (1 standard drink = 0.6 oz pur e alcohol) socially Sex and Gender Information Value Date Recorded Sex Assigned at Not on file Legal Sex Male 10:19 AM PANTRY STEWARD/STEWARDESS Gender Identity Not on file Sexual Orientation Not on file documented as of this encounter Plan of Treatment Not on file documented as of this encounter Visit Diagnoses Diagnosis Cervical radiculopathy- Primary Brachial neuritis or radiculitis nos documented in this encounter Care Teams Non Emergency Services Ambulance Driver Relationship Specialty Start Date End Date Anjelica Calvo PA [address] [place] [address] PCP - General Gastroenterology 09/05/18 12/10/23 documented as of this encounter
--- OUTSIDE RECORDS SUMMARY | 2024-03-07 11:08 | XMS_ITS | Encounter Summary ---
Author Organization [facility] Address [address] [place] [address] Phone Care Team Providers Care Manufacturing Automation Engineer Name Role Phone Anjelica Calvo Primary Care Provider [phone] Reason for Referral * Diagnostic Imaging (Routine) - Closed Specialty Diagnoses / Procedures Referred By Contac t Referred To Contact Diagnoses Neck pain Procedures XR Spine Cervical Complete 4 Or 5 View Renu Urrutia NP [address] [place] [address] Phone: tel: fax: [address] [address] Referral ID Status Reason Start Date Expiration Date Visits Re quested Visits Authorized [id number] Closed 07/03/2022 08/02/2023 1 1 * Consultation (Routine) - Closed Specialty Diagnoses / Procedures Referred By Contac t Referred To Contact Neurosurgery Diagnoses Lumbar back pain Renu Urrutia NP [address] [place] [address] Phone: tel: fax: [facility] (All Locations) Referral ID Status Reason Start Date Expiration Date V isits Requested Visits Authorized [id number] Closed Specialty Services Required 05/21/2022 06/20/2023 1 1 Question Answer Please select the performing region: [facility] (All Locations) [[id number]] # of visits: 1 Reason for Visit * Consultation (Routine) - Closed Specialty Diagnoses / Procedures Referred By Davon t Referred To Contact Neurosurgery Diagnoses Lumbar back pain Renu Urrutia NP [address] [place] [address] Phone: tel: fax: [facility] (All Locations) Referral ID Status Reason Start Date Expiration Date V isits Requested Visits Authorized [id number] Closed Specialty Services Required 05/21/2022 06/20/2023 1 1 Encounter Details Date Type Department Care Team (Late st Contact Info) Description 07/03/2022 9:30 AM CDT Office Visit [facility] Neurosurgery [address] [place] [address] Medical Office Building [address] [place] [address] Renu Urrutia NP [address] [place] [address] Lumbar back pain (Primary Dx); Localized swelling, mass or lump of neck; Neck pain Social History Tobacco Use Types Packs/Day Years Used Date Smoking Tobacco: Some Days Cigarettes Smokeless Tobacco: Never Tobacco Cessation:Ready to Q uit: Not Asked; Counseling Given: Not Answered Alcohol Use Standard Drinks/Week Comments Yes 0 (1 standard drink = 0.6 oz pur e alcohol) socially AUDIT-C Answer Date Recorded Q1: How often do you have a drink containing alc ohol? 2-3 times a week 07/03/2022 Q2: How many drinks containi ng alcohol do you have on a typical day when you are drinking? 1 or 2 07/03/2022 Q3: How often do you have si x or more drinks on one occasion? 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 male Neck and back pain Patient Active Problem List Diagnosis Herniated disc, cervical Cervical radiculopathy Diabetes mellitus (HCC) Hypercholesterolemia Hypertension Knee pain No Known Allergies Current Outpatient Medications: aspirin 325 mg tablet, , Disp: , Rfl: atorvastatin (LIPITOR) 40 mg tablet, , Disp: , Rfl: glimepiride (AMARYL) 4 mg tablet, , Disp: , Rfl: Januvia 100 mg tablet, , Disp: , Rfl: Jardiance 25 mg tablet, , Disp: , Rfl: lisinopriL (PRINIVIL,ZESTRIL) 40 mg tablet, , Disp: , Rfl: metFORMIN (GLUCOPHAGE) 1,000 mg tablet, , Disp: , Rfl: niacin ER (NIASPAN) 1,000 mg CR tablet, , Disp: , Rfl: Past Medical History: Diagnosis Date Arthritis Diabetes mellitus (HCC) Hypercholesteremia Hypertension Personal history of other diseases of the circulatory system History of hypertension - (Added by TW Conv) Personal history of other endocrine, nutritional and metabolic disease History of diabetes mellitus - (Added by TW Conv) Type 2 diabetes mellitus (HCC) Past Surgical History: Procedure Laterality Date CERVICAL FUSION Family History Problem Relation Age of Onset Arthritis Mother Hypertension Mother Gout Mother Diabetes Mother Heart disease Father Arthritis Father Hypertension Father Gout Father Cancer Father Diabetes Father Hypertension Brother Diabetes Brother Hypertension Maternal Grandmother Diabetes Other Diabetes Mellitus - (Added by TW Conv) Hypertension Other Hypertension - (Added by TW Conv) Social History Tobacco Use Smoking Status Some Days Packs/day: 1.00 Types: Cigarettes Smokeless Tobacco Never Vaping Use Vaping Status Not on file Alcohol Use: Not At Risk (07/03/2022) AUDIT-C Frequency of Alcohol Consumption: 2-3 times a week Average Number of Drinks: 1 or 2 Frequency of Binge Drinking: Never Objective Narrative & Impression EXAM: XR SCOLIOSIS 6 OR MORE VIEWS HISTORY: lumbar pain FINDINGS: 8 radiographs of the spine including lumbar flexion and extension views are submitted for interpretation with comparison to prior cervical spine radiographs dated 09/09/2018. Patient is status post antegrade left femoral vivian fixation of a healed mid femur fracture. Patient is status post anterior cervical discectomy and fusion of the upper C5-C6 level. Patient is status post left intramedullary fixation of a humerus fracture. No significant spinal curvature, coronal pelvic obliquity, or truncal imbalance. Multilevel mild degenerative disc disease throughout the lumbar spine. No inducible spondylolisthesis. Lower lumbar spine predominant facet arthropathy. No compression deformity IMPRESSION: Multilevel mild degenerative disc disease throughout the lumbar spine. No significant spinal curvature Dictated by: Hu Lane M.D. This result has not been signed. Information might be incomplete. HPI: I have reviewed the completed spine health history form. New patient referred by Anjelica WHITE for evaluation of neck pains and arm numbness. Patient states that he underwent a prior C5-[address] Jaimes around 10 years ago. He recalls doing reasonably well for a year or so and then he started to notice newer neck pain symptoms. This then progressed into numbness down his arms L>R side without obvious weakness. He reports back pain issues as well but his neck is more of an issue to him. The tingling down his left arm will make it to the palmof his hand. He denies bowel/bladder incontinence, no reports of gait instability Patient reports smoking approx a pack per day, is diabetic but not sure how his glucose levels havebeen running. He is here with spine x-rays ROS: Review of Systems Constitutional: Negative. HENT: Negative. Eyes: Negative. Respiratory: Negative. Cardiovascular: Negative. Gastrointestinal: Negative. Endocrine: Negative. Genitourinary: Negative. Musculoskeletal: Positive for back pain, neck pain and neck stiffness. Skin: Negative. Allergic/Immunologic: Negative. Neurological: Positive for dizziness and headaches. Hematological: Negative. Psychiatric/Behavioral: The patient is nervous/anxious. VITAL SIGNS: height is 182.9 cm (6') and weight is 117.2 kg (258 lb 6.4 oz). His blood pressure is 142/88 and his pulse is 83. Body mass index is 35.05 kg/m??. PHYSICAL EXAM: A comprehensive examination of the spine was performed. The pertinent positive and negative findings are listed below. C Spine Inspection The patients gait is normal. Palpation Tenderness is absent. Range of motion The patient has reduced range of motion. NECK ROM PAIN: mild neck discomfort with ROM, rotation creates numbness down left arm. Extension: mildly limited Right rotation: mildly limited Left rotation: mildly limited Right strength The patient has 5/5 strength throughout. Left strength The patient has 5/5 strength throughout. Right neurovascular Patient has normal light touch sensation. Left neurovascular The patient has normal light touch sensation. Right reflexes The patient has normal reflexes on the right side of their body. Kumari's reflex: negative Left reflexes The patient has normal reflexes on the left side of their body. Kumari's reflex: negative Physical Exam ASSESSMENT: Encounter Diagnoses Name Primary? Lumbar back pain Yes Localized swelling, mass or lump of neck Neck pain PLAN: I have had a long discussion with Too Chu regarding their history, findings on physical examination, and the results of imaging studies available for my review. Patient with prior C5-6 ACDF with newer progressive symptoms of neck pains and numbness/tingling tohis arms L>R. I was pleased to note that he is without weakness and no obvious signs or exam findings of myelopathy. I would like to obtain dynamic x-rays of his neck and have him try some sessions with physical therapy. IF he gets worse or is not better after a few weeks, we will move forward with an updated cervical MRI. I offered a script of diclofenac/NSAID for his pains but he declined the need for this. All questions addressed, I have encouraged him to quit smoking for his overall spine health. We spent a few minutes discussing tobacco use and the effects it has on the spine. He understood, appreciated my time Carbon Copies: Anjelica Calvo PA and Renu Urrutia NP [address] [place] [address] ANNALISE Caldwell NP documented in this encounter Plan of Treatment Scheduled Referrals Name Type Priority Associated Diagnoses Order Schedule Ambulatory referral to Neurosurgery Outpatient Referral Routine Lumbar back pain Expected: 06/04/2022 (Approximate), Expires: 05/22/2023 documented as of this encounter Results * XR Spine Cervical Complete 4 Or 5 View (07/03/2022 10:17 AM CDT) Anatomical Region Laterality Modality Spine N/A Computed Radiogr aphy 07/03/2022 11:2 8 AM CDT Impressions 07/03/2022 1:59 PM CDT 1. ??Unchanged anterior cervical discectomy and fusion C4-C5 without angular excursion of the fused segments with flexion or extension. 2. ??No significant change in mild multilevel degenerative disc disease of the nonfused segments. Dictated by: Saurabh Courtney M.D. The radiology attending physician has personally reviewed this study, and had reviewed and/or edited this written report and agrees with it. Electronically signed by: Malini Freeman MD Narrative 07/03/2022 1:59 PM CDT EXAMINATION: XR SPINE CERVICAL COMPLETE 4 OR 5 VW HISTORY: ??Cervical spondylosis FINDINGS: 5 radiographs of the cervical spine are compared to cervical spine radiograph dated 09/09/2018. The C7 vertebral body and below are obscured by overlapping soft tissues on the lateral view. ??There is unchanged anterior cervical discectomy and fusion C4-C5. ??Instrumentation is intact. ??There is no angular excursion of the fused segments with flexion or extension. No significant change in mild multilevel degenerative disc disease of the nonfused segments. ??There is no listhesis with flexion or extension. Procedure Note Beryl Freeman MD - 07/03/2022 EXAMINATION: XR SPINE CERVICAL COMPLETE 4 OR 5 VW HISTORY: Cervical spondylosis FINDINGS: 5 radiographs of the cervical spine are compared to cervical spine radiograph dated 09/09/2018. The C7 vertebral body and below are obscured by overlapping soft tissues on the lateral view. There is unchanged anterior cervical discectomy and fusion C4-C5. Instrumentation is intact. There is no angular excursion of the fused segments with flexion or extension. No significant change in mild multilevel degenerative disc disease of the nonfused segments. There is no listhesis with flexion or extension. IMPRESSION: 1. Unchanged anterior cervical discectomy and fusion C4-C5 without angular excursion of the fused segments with flexion or extension. 2. No significant change in mild multilevel degenerative disc disease of the nonfused segments. Dictated by: Saurabh Courtney M.D. The radiology attending physician has personally reviewed this study, and had reviewed and/or edited this written report and agrees with it. Electronically signed by: Malini Freeman MD Renu Kenzie Renan [facility] [facility] [facility] IMG XR PROCEDURES Final Result documented in this encounter Visit Diagnoses Diagnosis Lumbar back pain- Primary Lumbago Localized swelling, mass or lump of neck Neck pain Cervicalgia Neck pain Cervicalgia documented in this encounter Discontinued Medications Medication Sig Discontinue Reason Start Date End Da te gabapentin (NEURONTIN) 300 mg capsule Start one tab at night and increase to two tabs at night after 3 day as tolerated Therapy completed 12/23/2018 07/03/2022 diazePAM (VALIUM) 5 mg tablet Take 5 mg by mouth 2 (two) times a day Therapy completed 09/05/2018 07/03/2022 documented as of this encounter Historical Medications * This list may reflect changes made after this encounter. Medication Sig Dispense Quantity Refills Last Filled Start D ate End Date lisinopriL (PRINIVIL,ZESTRIL) 40 mg tablet 04/18/2022 atorvastatin (LIPITOR) 40 mg tablet 04/18/2022 metFORMIN (GLUCOPHAGE) 1,000 mg tablet 06/22/2022 Januvia 100 mg tablet 04/18/2022 glimepiride (AMARYL) 4 mg tablet 04/18/2022 aspirin 81 mg chewable tablet 04/18/2022 niacin ER (NIASPAN) 1,000 mg CR tablet 06/22/2022 Jardiance 25 mg tablet 04/18/2022 added in this encounter Care Teams Manufacturing Automation Engineer Relationship Specialty Start Date End Date Anjelica Calvo PA [address] [place] [id number] PCP - General Gastroenterology 09/05/18 12/10/23 documented as of this encounter
--- OUTSIDE RECORDS SUMMARY | 2024-03-07 11:08 | XMS_ITS | Referral Summary ---
Author Organization [facility] Address [address] [place] [phone] Care Team Providers Care Lead Web Application Developer Name Role Phone Prudence Rivera NP Primary Care Provider [phone] Encounters Date Type Department Care Team Description 12/11/2023 1:30 PM CDT Office Visit [facility] Primary Care at [address] [address] Prudence Rivera NP Controlled type 2 diabetes mellitus without complication, without long-term current use of insulin (CMS/HCC) (HCC) (Primary Dx); Hypertension associated with diabetes (HCC); Lumbar back pain; Hyperlipidemia associated with type 2 diabetes mellitus (HCC) from Last 3 Months Allergies No known active allergies Medications Jardiance 25 mg tablet 04/18/2022 Active niacin ER (NIASPAN) 1,000 mg CR tablet 06/22/2022 Active aspirin 81 mg chewable tablet 04/18/2022 Act kateryna glimepiride (AMARYL) 4 mg tablet 04/18/2022 Active Januvia 100 mg tablet 04/18/2022 Active metFORMIN (GLUCOPHAGE) 1,000 mg tablet 06/22/2022 Act kateryna atorvastatin (LIPITOR) 40 mg tablet 04/18/2022 Active lisinopriL (PRINIVIL,ZESTR IL) 40 mg tablet 04/18/2022 Active semaglutide (OZEMPIC) 2 mg/dose (8 mg/3 mL) pen injector injection Inject under the skin 08/31/2023 Active omega-3 fatty acids (LOVAZA) 1 gram capsule Take 2 capsules (2,000 mg total) by mouth 05/09/2023 Active loratadine (CLARITIN) 10 mg tablet Take 1 tablet (10 mg total) by mouth 09/24/2023 Active fenofibrate (TRIGLIDE) 160 mg tablet Take 1 tablet (160 mg total) by mouth daily Active cyclobenzaprine (FLEXERIL) 5 mg tablet Take 1 tablet (5 mg total) by mouth 3 (three) times a day as needed for muscle spasms 30 tablet 12/11/2023 Active ibuprofen (ADVIL,MOTRIN) 600 mg tablet Take 1 tablet (600 mg total) by mouth every 6 (six) hours as needed for pain 90 tablet 12/11/2023 Active Active Problems Problem Noted Date Diagnosed Date Lumbar back pain 12/11/2023 Assessment & Plan (12/14/2023 9:51 PM CDT): I gave her flexeril and ibuprofen to take prn as directed for back pain. He can make appt as needed for primary care as he [facility] Knee pain 03/01/2017 Herniated disc, cervical 12/11/2012 Cervical radiculopathy 12/11/2012 Controlled type 2 diabetes marianela jeffers without complication, without long-term current use of insulin ([facility]) 12/11/2012 Assessment & Plan (12/14/2023 9:47 PM CDT): Last A1c 6.8% in July 2023. Labs scanned into media. Hyperlipidemia associated with type 2 diabetes marianela jeffers 12/11/2012 Assessment & Plan (12/14/2023 9:48 PM CDT): Lipid abnormalities are stable. Pharmacotherapy as ordered. Continues on atorvastatin Lipids will be reassessed in 6 months. Managed by [facility] Hypertension associated with diabetes 12/11/2012 Assessment & Plan (12/14/2023 9:49 PM CDT): Stable/ Improved. Blood pressure is adequately controlled on lisinopril (Prinivil) . We will not make any medication changes today. Will have him follow-up in 6 months for continued monitoring and management [facility] Immunizations Name Administration Dates Next Due Influenza, Unspecified 12/11/2023(Deferr ed: Patient Refused),03/11/2023(Deferred: Patient Refused) Tdap 11/09/2023 ZOSTER Recombinant 11/09/2023 Social History Tobacco Use Types Packs/Day Years Used Date Smoking Tobacco: Every Day Cigarettes Smokeless Tobacco: Never Tobacco Cessation:Ready to Q uit: Not Asked; Counseling Given: Yes Alcohol Use Standard Drinks/Week Comments Yes 0 [...] more drinks on one occasion? 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 Gender Identity Not on file Sexual Orientation Not on file Last Filed Vital Signs Vital Sign Reading Time Taken Comments Blood Pressure 136/82 12/11/2023 1:39 PM CDT Pulse 86 12/11/2023 1:39 PM CDT Temperature 36.7 ??C (98.1 ??F) 12/11/2023 1:39 PM CD T Respiratory Rate - - Oxygen Saturation 98% 12/11/2023 1:39 PM CDT Inhaled Oxygen Concentration - - Weight 98.9 kg (218 lb) 12/11/2023 1:39 PM CDT Height 182.9 cm (6') 12/11/2023 1:39 PM CDT Body Mass Index 29.57 12/11/2023 1:39 PM CDT Plan of Treatment Not on file Procedures Procedure Name Priority Date/Time Associated Diagnosis Comments HM HEMOGLOBIN A1C Routine 07/26/2023 LIPID PANEL Routine 07/26/2023 HM ALBUMIN CREATININE RATIO, URINE Routine 04/30/2023 EGFR Routine 03/08/2023 from Last 3 Months or Most Recently Relevant to Health Maintenance Results * HM HEMOGLOBIN A1C (07/26/2023) SCRIBED Hemoglobin A1c 6.8 % Historical Provider HEALTH MAINTENANCE Final Result * Lipid panel (07/26/2023) Pathologist [facility] SCRIBED Cholesterol, Total 132 na EXTERNAL LAB SCRIBED HDL 40 na EXTERNAL LAB SCRIBED LDL 68 na EXTERNAL LAB SCRIBED Triglycerides 118 na EXTERNAL LAB Blood Result [facility] Provider LAB BLOOD ORDERABLES Rufina l Result Performing Organization Address City/[facility]/ZIP Co de Phone Number EXTERNAL LAB * HM ALBUMIN CREATININE RATIO, URINE (04/30/2023) SCRIBED HM ALBUMIN CREATININE RATIO, URINE 47 EXTERNAL LAB Result [facility] Provider HEALTH MAINTENANCE Final Result EXTERNAL LAB * EGFR (03/08/2023) Pathologist [facility] SCRIBED eGFR in NonAfrican [place]de[place] 107.3 EXTERNAL LAB Result [facility] Provider HEALTH MAINTENANCE Final Result EXTERNAL LAB from Last 3 Months or Most Recently Relevant to Health Maintenance Insurance [facility] [employer] [facility] H[facility]/PPO Address: [address] [place] [address] CLAIMS [facility] H[facility]/PPO Address: [address] CLAIMS [facility] [employer] [facility] H[facility]/PPO Address: [facility] [address] [place] [address] [facility] CLAIMS Care Teams Lead Web Application Developer Relationship Specialty Start Date End Date Prudence Rivera NP PCP - General Family Medicine 12/11/23
--- OUTSIDE RECORDS SUMMARY | 2024-03-07 11:08 | XMS_ITS | Clinical Summary ---
Author Organization [facility] Address [address] [place] [address] Care Team Providers Care Rubber Trimmer Name Role Phone Prudence Rivera NP Primary Care Provider [phone] Allergies No known active allergies Medications Jardiance [...] gets most of his care from the [place] Knee pain 03/01/2017 Herniated disc, cervical 12/11/2012 Cervical radiculopathy 12/11/2012 Controlled type 2 diabetes marianela jeffers without complication, without long-term current use of insulin (CMS/HCC) 12/11/2012 Assessment & Plan (12/14/2023 9:47 PM CDT): Last A1c 6.8% in July 2023. Labs scanned into media. Hyperlipidemia associated with type 2 diabetes marianela jeffers 12/11/2012 Assessment & Plan (12/14/2023 9:48 PM CDT): Lipid abnormalities are stable. Pharmacotherapy as ordered. Continues on atorvastatin Lipids will be reassessed in 6 months. Managed by MD Hypertension associated with diabetes 12/11/2012 Assessment & Plan (12/14/2023 9:49 PM CDT): Stable/ Improved. Blood pressure is adequately controlled on lisinopril (Prinivil) . We will not make any medication changes today. Will have him follow-up in 6 months for continued monitoring and management Managed by the MD. Encounters Date Type Department Care Team Description 12/11/2023 1:30 PM CDT Office Visit [facility] Primary Care at [address] [address] Prudence Rivera NP Controlled type 2 diabetes mellitus without complication, without long-term current use of insulin (CMS/HCC) (HCC) (Primary Dx); Hypertension associated with diabetes (HCC); Lumbar back pain; Hyperlipidemia associated with type 2 diabetes mellitus (HCC) from Last 3 Months Immunizations Name Administration Dates Next Due Influenza, Unspecified 12/11/2023(Deferr ed: Patient Refused),03/11/2023(Deferred: Patient Refused) Tdap 11/09/2023 ZOSTER Recombinant 11/09/2023 Surgical History Surgery Date Site/Laterality Comments CERVICAL FUSION KNEE SURGERY JOINT REPLACEMENT Medical History Medical History Date Comments Personal history of other en docrine, nutritional and metabolic disease History of diabetes mellitus - (Added by TW Conv) Personal history of other di seases of the circulatory system History of hypertension - (A dded by TW Conv) Arthritis Diabetes mellitus (HCC) Hypercholesteremia Hypertension Type 2 diabetes mellitus (HCC) Family History Medical History Relation Name Comments Diabetes Brother Hypertension Brother Arthritis Father Cancer Father Diabetes Father Gout Father Heart disease Father Hypertension Father Hypertension Maternal Grandmother Arthritis Mother Diabetes Mother Gout Mother Hypertension Mother Diabetes Other 1 Diabetes Mellit - (Added by TW Conv) Hypertension Other 2 Hypertension - (Added by TW Conv) Relation Name Status Comments Brother Father Maternal Grandmother Mother Other 1 Other 2 Social History Tobacco Use Types Packs/Day Years [...] on file 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 Gender Identity Not on file Sexual Orientation Not on file Obstetrics History Last Filed Vital Signs Vital Sign Reading [...] 12/11/2023 1:39 PM CDT Plan of Treatment Health Maintenance Due Date Last Done Comments Colon Cancer Screening-Colonoscopy 1973 Hepatitis C Screening 1973 Prostate Cancer Screening-PSA 1973 Dilated Eye Exam 1973 Foot Exam 1973 Pneumococcal vaccine <65 (1 of 2 - PCV) 06/13/1979 Hepatitis B Screening 06/13/1991 Regular Well Visit/Exam 18-64 06/13/1991 Covid-19 Vaccine ( - season) 2023, 05/13/2020 Influenza Vaccine (#1) 2023 Zoster Vaccine (2 of 2) 01/04/2024 11/09/2023 Hemoglobin A1C 01/26/2024 07/26/2023 eGFR 03/08/2024 03/08/2023 Albumin Creatinine Ratio, Urine 04/30/2024 Lipid Panel 07/25/2024 07/26/2023, 04/30/2023 Depression Screening 12/10/2024 12/11/2023 DTaP/Tdap/Td Vaccine (2 - Td or Tdap) 11/08/2033 Procedures Procedure Name Priority Date/Time Associated Diagnosis Comments HM HEMOGLOBIN A1C Routine 07/26/2023 LIPID PANEL Routine 07/26/2023 HM ALBUMIN CREATININE RATIO, URINE Routine 04/30/2023 EGFR Routine 03/08/2023 from Last 3 Months or Most Recently Relevant to Health Maintenance Results * HM HEMOGLOBIN A1C (07/26/2023) SCRIBED Hemoglobin A1c 6.8 % Historical Provider MD HEALTH MAINTENANCE Final Result * Lipid panel (07/26/2023) SCRIBED Cholesterol, Total 132 na EXTERNAL LAB SCRIBED HDL 40 na EXTERNAL LAB SCRIBED LDL 68 na EXTERNAL LAB SCRIBED Triglycerides 118 na EXTERNAL LAB Blood Historical Provider MD LAB BLOOD ORDERABLES Rufina l Result EXTERNAL LAB * HM ALBUMIN CREATININE RATIO, URINE (04/30/2023) SCRIBED HM ALBUMIN CREATININE RATIO, URINE 47 EXTERNAL LAB Historical Provider HEALTH MAINTENANCE Final Result EXTERNAL LAB * EGFR (03/08/2023) Pathologist [facility] SCRIBED eGFR in NonAfrican Palestinian 107.3 EXTERNAL LAB Result [facility] Provider HEALTH MAINTENANCE Final Result EXTERNAL LAB from Last 3 Months or Most Recently Relevant to Health Maintenance Insurance [facility] CHOICE PLUS [facility] CLAIMS [facility] CHOICE PLUS Member Subscriber Plan / Payer (Ef fective 2018-Present) Name:Too Tilley Relation to Subscriber:Spouse Name:JACINDA TILLEY Date of :1971 (Home) Address: [address] [place] [address] Payer ID:[id number] (NAIC) Type:[facility] HMO/PPO Address: [place] [id number] [facility] CLAIMS [facility] [place] [place] [address] CLAIMS Care Teams Rubber Trimmer Relationship Specialty Start Date End Date Prudence Rivera NP PCP - General Family Medicine 12/11/23
--- OUTSIDE RECORDS SUMMARY | 2024-03-07 11:08 | XMS_ITS | Encounter Summary ---
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
--- OUTSIDE RECORDS SUMMARY | 2024-03-07 11:08 | XMS_ITS | Encounter Summary ---
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 Gender Identity Not on file Sexual Orientation Not on file documented as of this encounter Miscellaneous Notes * Telephone Encounter - Anitha Dunbar - 09/21/2022 7:50 AM CDT Radiology department is requesting insurance information Document scanned into chart * Telephone Encounter - Ignacio Page - 08/02/2022 10:11 AM CDT Reason for visit: Return Pt Date: 09/07/22 Time: 10:15 Location: [place] [address]) Provider ANNALISE Urrutia Routed: Directly to WATER ATTENDANT * Telephone Encounter - Joselito Musa - 05/21/2022 3:57 PM CDT Records request to PCP for ins authorization for secondary ins () * Telephone Encounter - Joselito Musa - 05/21/2022 3:35 PM CDT Department of Neurological Surgery at [facility] Spine Intake 05/21/22 Too Chu 1975 [id number] Anjelica Calvo PA Referring physician PCP Referred to: First Available: Second Opinion: No Insurance: Yes: Type of insurance [facility] Choice Plus Litigation: No Has the patient had spinal surgery within the last year? No Diagnosis: Back Pain Location (Spinal Area): Lumbar Imaging Done within Last Year: No List ALL Imaging Location: [facility] FAX Records Requested: No HT: 6ft WT: 250lbs BMI: 33.9 Weakness: No Numbness: Yes In left arm Spinal Pain: Dull pain, Shooting Pain, Tingling, lower back, and both leg(s) Incontinence: Yes Duration of symptoms: 1 year Spine surgery - within last 10 years: No Location: [facility] FAX Records Requested: No Physical therapy within last year No Location: [facility] FAX Records Requested: No Injections within last year No Location: [facility] FAX Records Requested: No Are you a current smoker: Yes Reason for visit: New Pt Appt Date: 07/03/22 Time: 9:30am Location: [place] [address]) Provider ANNALISE Urrutia Routed: Directly to WATER ATTENDANT * Telephone Encounter - Sierra Lyons - 05/16/2022 11:24 AM CST Called patient, no answer, left voicemail. RONMENTAL SCIENTIST * Telephone Encounter - Carole Olivares - 02/27/2022 3:06 PM CST Former [facility] patient Seeking new apt Dx: back pain Hx cervical discectomy with fusion in 2013 RONMENTAL SCIENTIST documented in this encounter Plan of Treatment Not on file documented as of this encounter Visit Diagnoses Not on filedocumented in this encounter Care Teams Sql Report Developer Relationship Specialty Start Date End Date Anjelica Calvo PA [address] [place] [address] PCP - General Gastroenterology 09/05/18 12/10/23 documented as of this encounter
--- OUTSIDE RECORDS SUMMARY | 2024-03-07 11:08 | XMS_ITS | Encounter Summary ---
Author Organization [facility] Address [address] [place] [address] Care Team Providers Care Maintenance Mechanic Name Role Phone Anjelica Calvo Primary Care Provider Reason for Referral * Diagnostic Imaging (Routine) - Closed Specialty Diagnoses / Procedures Referred By Contac t Referred To Contact Diagnoses Cervical pain (neck) Procedures XR Spine Cervical 2 or 3 Views Marlin Walker PA Phone: tel: fax: [facility] Referral ID Status Reason Start Date Expiration Date Visits Re quested Visits Authorized [id number] Closed 09/09/2018 03/20/2020 1 1 Reason for Visit * Diagnostic Imaging (Routine) - Closed Specialty Diagnoses / Procedures Referred By Contac t Referred To Contact Diagnoses Cervical pain (neck) Procedures XR Spine Cervical 2 or 3 Views Marlin Walker PA Phone: tel: fax: [facility] Referral ID Status Reason Start Date Expiration Date Visits Re quested Visits Authorized [id number] Closed 09/09/2018 03/20/2020 1 1 Encounter Details Date Type Department Care Team (Latest Contact Info) Description 09/09/2018 3:20 PM CDT - 09/09/2018 11:59 PM CDT Hospital Encounter [facility] Radiology at the [facility] [address] [place] [address] Rahul Jaimes MD [address] [place] [address] Marlin Walker PA [address] [place] [address] Cervical pain (neck) Discharge Disposition: Discharge to home or self care Social History Tobacco Use Types Packs/Day Years Used Date Smoking Tobacco: Every Day Cigarettes Smokeless Tobacco: Never Alcohol Use Standard Drinks/Week Comments Yes 0 (1 standard drink = 0.6 oz pur e alcohol) socially Sex and Gender Information Value Date Recorded Sex Assigned at Not on file 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 Gender Identity Not on file Sexual Orientation Not on file documented as of this encounter Medications at Time of Discharge methylPREDNISolo ne (MEDROL, NEGRO,) 4 mg Dosepack Take as directed on package 1 packet 09/09/2018 09/15/2018 diazePAM (VALIUM) 5 mg tablet Take 5 mg by mouth 2 (two) times a day 0 09/05/2018 07/03/2022 documented as of this encounter Discharge Disposition Disposition Code Departure Means Destination Discharge to home or self care documented in this encounter Plan of Treatment Not on file documented as of this encounter Procedures Procedure Name Priority Date/Time Associated Diagnosis Comments XR SPINE CERVICAL 2 OR 3 VIEWS Schedule Routine, Read Routine (OP Routine) 09/09/2018 3:34 PM CDT Cervical pain (neck) documented in this encounter Results * XR Spine Cervical 2 or 3 Views (09/09/2018 3:34 PM CDT) Anatomical Region Laterality Modality Spine N/A Computed Radiogr aphy 09/09/2018 3:44 PM CDT Impressions 09/09/2018 3:44 PM CDT 1. ??Unchanged C5-C6 anterior discectomy and fusion. 2. ??Progressive mild C4-C5 and C6-C7 degenerative disc disease. Electronically signed by: Jose D Collins M.D. Narrative 09/09/2018 3:44 PM CDT EXAMINATION: 1. ??Cervical spine 2 or 3 views HISTORY: ??Cervical spondylosis FINDINGS: 2 views submitted with comparison 08/05/2013. Redemonstrated is C5-C6 anterior discectomy and fusion. ??There are no fractures. ??There is no prevertebral soft tissue swelling. ??There is mild C4-C5 and C6-C7 degenerative disc disease. Procedure Note Jose D Collins MD - 09/09/2018 EXAMINATION: 1. Cervical spine 2 or 3 views HISTORY: Cervical spondylosis FINDINGS: 2 views submitted with comparison 08/05/2013. Redemonstrated is C5-C6 anterior discectomy and fusion. There are no fractures. There is no prevertebral soft tissue swelling. There is mild C4-C5 and C6-C7 degenerative disc disease. IMPRESSION: 1. Unchanged C5-C6 anterior discectomy and fusion. 2. Progressive mild C4-C5 and C6-C7 degenerative disc disease. Electronically signed by: Jose D Collins M.D. Marlin WHITE IMG XR PROCEDURES Final R esult documented in this encounter Visit Diagnoses Diagnosis Cervical pain (neck) Cervicalgia documented in this encounter Care Teams Maintenance Mechanic Relationship Specialty Start Date End Date Anjelica Calvo PA [address] [place] [address] PCP - General Gastroenterology 09/05/18 12/10/23 documented as of this encounter
--- OUTSIDE RECORDS SUMMARY | 2024-03-07 11:08 | XMS_ITS | Encounter Summary ---
Author Organization [facility] Address [address] [place] [address] Care Team Providers Care Financial Center Manager Name Role Phone Anjelica Calvo Primary Care Provider Reason for Referral * Diagnostic Imaging (Routine) - Closed Specialty Diagnoses / Procedures Referred By Contac t Referred To Contact Diagnoses Neck pain Procedures XR Spine Cervical Complete 4 Or 5 View Renu Urrutia NP [address] [place] [address] Phone: tel: fax: [place] [address] [place] [address] Referral ID Status Reason Start Date Expiration Date Visits Re quested Visits Authorized [id number] Closed 07/03/2022 08/02/2023 1 1 Reason for Visit * Diagnostic Imaging (Routine) - Closed Specialty Diagnoses / Procedures Referred By Contac t Referred To Contact Diagnoses Neck pain Procedures XR Spine Cervical Complete 4 Or 5 View Renu Urrutia NP [address] [place] [address] Phone: tel: fax: [place] [address] [place] [address] Referral ID Status Reason Start Date Expiration Date Visits Re quested Visits Authorized [id number] Closed 07/03/2022 08/02/2023 1 1 Encounter Details Date Type Department Care Team (Latest Contact Info) Description 07/03/2022 10:04 AM CDT - 07/03/2022 11:59 PM CDT Hospital Encounter [facility] [address] 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 Gender Identity Not on file Sexual Orientation Not on file documented as of this encounter Medications at Time of Discharge Medication Sig Dispense Quantity Refills Last Filled Start D ate End Date aspirin 81 mg chewable tablet 04/18/2022 atorvastatin (LIPITOR) 40 mg tablet 04/18/2022 glimepiride (AMARYL) 4 mg tablet 04/18/2022 Januvia 100 mg tablet 04/18/2022 Jardiance 25 mg tablet 04/18/2022 lisinopriL (PRINIVIL,ZESTRIL) 40 mg tablet 04/18/2022 metFORMIN (GLUCOPHAGE) 1,000 mg tablet 06/22/2022 niacin ER (NIASPAN) 1,000 mg CR tablet 06/22/2022 documented as of this encounter Discharge Disposition Disposition Code Departure Means Destination Discharge to home or self care documented in this encounter Plan of Treatment Not on file documented as of this encounter Procedures Procedure Name Priority Date/Time Associated Diagnosis Comments XR SPINE CERVICAL COMPLETE 4 OR 5 VW Schedule Routine, Read Routine (OP Routine) 07/03/2022 10:17 AM CDT Neck pain documented in this encounter Results * XR [...] of the nonfused segments. Dictated by: Saurabh Farrukh Sherwin, M.D. The radiology attending physician has personally reviewed this study, and had reviewed and/or edited this written report and agrees with it. Electronically signed by: Malini Freeman MD us Renu Urrutia RUG SAMPLE BEVELER IMG XR PROCEDURES Final Result documented in this encounter Visit Diagnoses Diagnosis Neck pain Cervicalgia documented in this encounter Care Teams Financial Center Manager Relationship Specialty Start Date End Date Anjelica Calvo PA [address] [place] [address] PCP - General Gastroenterology 09/05/18 12/10/23 documented as of this encounter
--- OUTSIDE RECORDS SUMMARY | 2024-03-07 11:08 | XMS_ITS | Encounter Summary ---
Author Organization [facility] Address [address] [place] [address] Phone Care Team Providers Care Framing And Hanging Name Role Phone Anjelica Calvo Primary Care Provider [phone] Encounter Details Date Type Department Care Team (Late st Contact Info) Description 12/23/2018 10:40 AM CDT Office Visit [facility] Orthopaedic Surgery [address] [facility] Medical Office Building [address] [phone] [place] [address] [place] [address] Radiculitis of right cervical region (Primary Dx) Social History Tobacco Use Types Packs/Day Years Used Date Smoking Tobacco: Every Day Cigarettes Smokeless Tobacco: Never Alcohol Use Standard Drinks/Week Comments Yes 0 (1 standard drink = 0.6 oz pur e alcohol) socially Sex and Gender Information Value Date Recorded Sex Assigned at Not on file 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 Gabapentin prescribed 2. Continue home exercises from prior physical therapy 3. Let us know if you would like to consider options for a cervical epidural steroid injection and we would have you see one of our painter structural steel 4. Otherwise let us know if you develop any weakness in the arm and we would have you follow-up with Dr. Jaimes If you need to reschedule your appointment or your symptoms worsen, please call . Too Castro MD [facility] Department of Orthopedic Surgery Division of Physical Medicine and Rehabiltiation documented in this encounter Ordered Prescriptions Prescription Sig Dispense Quantity Refills Last Filled Start Date End Date gabapentin (NEURONTIN) 300 mg capsule Start one tab at night and increase to two tabs at night after 3 day as tolerated 60 capsule 2 12/23/2018 3 documented in this encounter Progress Notes * Too Castro MD - 12/23/2018 10:40 AM CDT RETURN PATIENT VISIT INTERVAL HISTORY Too Chu is a 43 y.o. who I last saw in May 2017 for a right knee injury. He presents today with neck and radiating right upper extremity pain. He has a history of C5-[address] Mundo Jaimes in 2014. He endorses midline and right-sided neck pain. He has some pain radiating to his right anterior arm intermittently and intermittent diffuse numbness and tingling in his right hand. He denies periscapular pain. His neck pain is more bothersome than radiating upper extremity pain. He has had physical therapy in the past, most recently around one month ago. He is not certain if he hastried gabapentin. He otherwise is not taking any medications for his current symptoms. He had cervical interventional procedures prior to his surgery and recalls a lot of discomfort with those. He denies any current weakness. He has been able to continue to work without limitations. No change in bowel or bladder function. REVIEW OF SYSTEMS Negative except as noted above PHYSICAL EXAMINATION CONSTITUTIONAL: Well-appearing, in no apparent distress EYES: No scleral icterus or conjunctival hemorrhage CARDIOVASCULAR: Skin warm and well-perfused, no peripheral edema RESPIRATORY: Breathing unlabored without accessory muscle use PSYCHIATRIC: Alert, cooperative, appropriate mood and affect SKIN: No lesions or rashes on exposed skin MUSCULOSKELETAL: Tenderness to palpation: None over any structures the cervical region Active cervical range of motion: Full with cervical flexion, extension, turning to both sides and tilting to both sides. He has some pain with extension. No pain with forward flexion. Active shoulder range of motion: Full and pain free with flexion, abduction, internal and external rotation NEUROLOGIC: Sensation: Intact to light touch throughout both upper extremities Strength: Shoulder abduction: right 5/5, left 5/5 Elbow extension: right 5/5, left 5/5 Elbow flexion: right 5/5, left 5/5 Wrist extension: right 5/5, left 5/5 Finger flexion: right 5/5, left 5/5 Finger abduction: right 5/5, left 5/5 Spurling???s: Negative bilaterally REVIEW OF IMAGING/STUDIES X-rays cervical spine today, which I ordered and personally reviewed with him: C5-6 ACDF with progressive degenerative change 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 TREATMENT/PLAN I prescribed gabapentin. We discussed physical therapy but he would like to hold off on any furtherPT for now. We also discussed an epidural steroid injection but he would like to hold off on that as well. We discussed red flags. He is welcome to follow up as needed. New Medications Ordered This Visit ??? gabapentin (NEURONTIN) 300 mg capsule Sig: Start one tab at night and increase to two tabs at night after 3 day as tolerated Dispense: 60 capsule Refill: 2 Too Castro MD Advertising Copy Writer [facility] Orthopedics Division of Physical Medicine and Rehabilitation Portions of this note were dictated using M*Modal Fluency Direct speech recognition software. Please excuse any macaroni maker errors. documented in this encounter Plan of Treatment Not on file documented as of this encounter Visit Diagnoses Diagnosis Radiculitis of right cervical region- Primary documented in this encounter Care Teams Framing And Hanging Relationship Specialty Start Date End Date Anjelica Calvo PA [address] [place] [address] PCP - General Gastroenterology 09/05/18 12/10/23 documented as of this encounter
--- OUTSIDE RECORDS SUMMARY | 2024-03-07 11:08 | XMS_ITS | Encounter Summary ---
Author Organization [facility] Address [address] [place] [address] Care Team Providers Care Punch Operator Name Role Phone Anjelica Calvo Primary Care Provider [phone] Reason for Referral * Diagnostic Imaging (Routine) - Closed Specialty Diagnoses / Procedures Referred By Contac t Referred To Contact Diagnoses Low back pain, non-specific Procedures XR Scoliosis 6 or More Views Renu Urrutia NP [address] [place] [address] Phone: tel: fax: [address] [place] [address] Referral ID Status Reason Start Date Expiration Date Visits Re quested Visits Authorized [id number] Closed 06/25/2022 07/25/2023 1 1 Reason for Visit * Diagnostic Imaging (Routine) - Closed Specialty Diagnoses / Procedures Referred By Contac t Referred To Contact Diagnoses Low back pain, non-specific Procedures XR Scoliosis 6 or More Views Renu Urrutia NP [address] [place] [address] Phone: tel: fax: [address] [place] [address] Referral ID Status Reason Start Date Expiration Date Visits Re quested Visits Authorized [id number] Closed 06/25/2022 07/25/2023 1 1 Encounter Details Date Type Department Care Team (Latest Contact Info) Description 07/03/2022 9:00 AM CDT - 07/03/2022 11:59 PM CDT Hospital Encounter [id number] [address] [facility] [address] [place] [address] Low back pain, non-specific Discharge Disposition: Discharge to home or self [...] on file 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 ??Multilevel mild lumbar spondylosis. Dictated by: Hu Lane M.D. The radiology attending physician has personally reviewed this study, and had reviewed and/or edited this written report and agrees with it. Electronically signed by: Ponce Leroy M.D. Narrative 07/03/2022 12:16 PM CDT EXAM: XR SCOLIOSIS ??6 OR MORE VIEWS HISTORY: lumbar pain FINDINGS: 8 radiographs of the spine including lumbar flexion and extension views are submitted for interpretation with comparison to prior cervical spine radiographs dated 09/09/2018. Patient is status post antegrade left femoral vivian fixation of a healed mid femur fracture. ??Patient is status post anterior cervical discectomy and fusion of the upper C5-C6 level. ??Patient is status post left intramedullary fixation of a humerus fracture. No significant spinal curvature, coronal pelvic obliquity, or truncal imbalance. ??Multilevel mild degenerative disc disease throughout the lumbar spine. ??No inducible spondylolisthesis. ??Lower lumbar spine predominant facet arthropathy. ??No compression deformity Procedure Note Ponce Leroy MD - 07/03/2022 EXAM: XR SCOLIOSIS 6 OR MORE VIEWS [...] predominant facet arthropathy. No compression deformity IMPRESSION: 1. Multilevel mild lumbar spondylosis. Dictated by: Hu Gabino Domingo, M.D. The radiology attending physician has personally reviewed this study, and had reviewed and/or edited this written report and agrees with it. Electronically signed by: Ponce Leroy M.D. us Renu Urrutia NURSING EXECUTIVE IMG XR PROCEDURES Final Result documented in this encounter Visit Diagnoses Diagnosis Low back pain, non-specific documented in this encounter Care Teams Punch Operator Relationship Specialty Start Date End Date Anjelica Calvo PA [address] [place] [id number] PCP - General Gastroenterology 09/05/18 12/10/23 documented as of this encounter
--- OUTSIDE RECORDS SUMMARY | 2024-03-07 11:08 | XMS_ITS | Encounter Summary ---
Author Organization [facility] Address [address] [place] [address] Phone Care Team Providers Care Lean Engineer Name Role Phone Anjelica Calvo Primary Care Provider [phone] Encounter Details Date Type Department Care Team (Late st Contact Info) Description 09/07/2022 10:15 AM CDT Office Visit [facility] Neurosurgery [facility] [address] [place] [address] Renu Urrutia, ANNALISE [address] [place] [address] Cervical disc disorder with radiculopathy of cervical region (Primary Dx) Social History Tobacco [...] on file 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 Gender Identity Not on file Sexual Orientation Not on file documented as of this encounter Last Filed Vital Signs Vital Sign Reading Time Taken Comments Blood Pressure 137/81 09/07/2022 10:23 AM CDT Pulse 96 09/07/2022 10:23 AM CDT Temperature - - Respiratory Rate - - Oxygen Saturation - - Inhaled Oxygen Concentration - - Weight 110.7 kg (244 lb) 09/07/2022 10:23 AM CDT Height 182.9 cm (6') 09/07/2022 10:23 AM CDT Body Mass Index 33.09 09/07/2022 10:23 AM CDT documented in this encounter Progress Notes * Renu Urrutia, COMMISSION CLERK - 09/07/2022 10:15 AM CDT September 07, 2022 Interval History: Too Chu is known to myself, last seen back on 07-03-22 in regards to his neck and left arm pains. Patient has tried physical therapy since his last visit and unfortunately this has made his pains worse. Patient continues to use tobacco, is here to rediscuss his symptoms and next steps. He states that his pain is worse with ROM, dayan to the left side. He will get shooting pains and numbness down his left arm to the middle part of his hand. No updated imaging today, next step was to obtain a cervical MRI for possible injection planning. Current Outpatient Medications: amoxicillin 500 mg capsule, , Disp: , Rfl: aspirin 325 mg tablet, , Disp: , [...] mg CR tablet, , Disp: , Rfl: Objective No updated imaging to review PHYSICAL EXAM: C Spine Inspection Cervical: normal findings The patients gait is normal. Palpation Tenderness is present. The patient is experiencing tenderness at the left paraspinal and trapezial area. Range of motion The patient has reduced range of motion. The patient has pain with range of motion. Right strength The patient has 5/5 strength throughout. Left strength The patient has 5/5 strength throughout. Right neurovascular Patient has normal light touch sensation. Left neurovascular C7: decreased sensation. Right reflexes The patient has normal reflexes on the right side of their body. Kumari's reflex: negative Left reflexes The patient has normal reflexes on the left side of their body. Kumari's reflex: negative Physical Exam ASSESSMENT: Encounter Diagnoses Name Primary? Cervical disc disorder with radiculopathy of cervical region Yes PLAN: Patient with ongoing neck and left arm pains despite therapy and medications. I have provided him with a script for a cervical MRI that he may obtain locally and have sent in for my review. I will then contact him with those results and next steps. All questions addressed, he appreciated my time Carbon Copies: Anjelica Calvo PA and Renu Urrutia NP [address] [facility] [address] [place] [address] ANNALISE Caldwell NP documented in this encounter Plan of Treatment Not on file documented as of this encounter Visit Diagnoses Diagnosis Cervical disc disorder with radiculopathy of cervical region- Primary documented in this encounter Historical Medications * This list may reflect changes made after this encounter. Medication Sig Dispense Quantity Refills Last Filled Start D ate End Date amoxicillin 500 mg capsule 09/04/2022 12/11/2023 added in this encounter Care Teams Lean Engineer Relationship Specialty Start Date End Date Anjelica Calvo PA [address] [place] [id number] PCP - General Gastroenterology 09/05/18 12/10/23 documented as of this encounter
--- OUTSIDE RECORDS SUMMARY | 2024-03-07 11:08 | XMS_ITS | Encounter Summary ---
Author Organization [facility] Address [address] [place] [address] Care Team Providers Care Pattern Fitter Name Role Phone Prudence Rivera NP Primary Care Provider [phone] Reason for Visit * Reason Comments Establish Care Pt is here to est eileen re. 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 Gender Identity Not on file Sexual [...] Mass Index 29.57 12/11/2023 1:39 PM CDT documented in this encounter Ordered Prescriptions Prescription Sig Dispense Quantity Refills Last Filled Start Date End Date ibuprofen (ADVIL,MOTRIN) 600 mg tablet Take 1 tablet (600 mg total) by mouth every 6 (six) hours as needed for pain 90 tablet 12/11/2023 cyclobenzaprine (FLEXERIL) 5 mg tablet Take 1 tablet (5 mg total) by mouth 3 (three) times a day as needed for muscle spasms 30 tablet 12/11/2023 documented in this encounter Progress Notes * Prudence Rivera NP - 12/11/2023 1:30 PM CDT Images from the original note were not included. Chief Complaint Patient presents with [facility] Care Pt is here to est care. Subjective: Too Chu is a 48 y.o. male. Patient is being seen today to [facility]. HPI Pt has a hx of DM; [facility]. He states that he had low back pain, but it really has improved now. It seems to flare up every nowand then and he can barely get back up. Past Medical History: Diagnosis Date Arthritis Diabetes mellitus (HCC) Hypercholesteremia Hypertension Personal history of other diseases of the circulatory system History of hypertension - (Added by Conv) Personal history of other endocrine, nutritional and metabolic disease History of diabetes mellitus - (Added by Conv) Type 2 diabetes mellitus (HCC) Social History Tobacco Use Smoking status: Every Day Current packs/day: 0.75 Types: Cigarettes Smokeless tobacco: Never Substance and Sexual Activity Drug use: Never Sexual activity: None Alcohol Use: Not At Risk (09/07/2022) AUDIT-C Frequency of Alcohol Consumption: 2-3 times a week Average Number of Drinks: 1 or 2 Frequency of Binge Drinking: Never Past Surgical History: Procedure Laterality Date CERVICAL FUSION JOINT REPLACEMENT KNEE SURGERY Family History Problem Relation Age of Onset Arthritis Mother Hypertension Mother Gout Mother Diabetes Mother Heart disease Father Arthritis Father Hypertension Father Gout Father Cancer Father Diabetes Father Hypertension Brother Diabetes Brother Hypertension Maternal Grandmother Diabetes Other Diabetes Mellitus - (Added by Conv) Hypertension Other Hypertension - (Added by Conv) Current Outpatient Medications: aspirin 81 mg chewable tablet, , Disp: , Rfl: atorvastatin (LIPITOR) 40 mg tablet, , Disp: , Rfl: fenofibrate (TRIGLIDE) 160 mg tablet, Take 1 tablet (160 mg total) by mouth daily, Disp: , Rfl: glimepiride (AMARYL) 4 mg tablet, , Disp: , Rfl: Januvia 100 mg tablet, , Disp: , Rfl: Jardiance 25 mg tablet, , Disp: , Rfl: lisinopriL (PRINIVIL,ZESTRIL) 40 mg tablet, , Disp: , Rfl: loratadine (CLARITIN) 10 mg tablet, Take 1 tablet (10 mg total) by mouth, Disp: , Rfl: metFORMIN (GLUCOPHAGE) 1,000 mg tablet, , Disp: , Rfl: niacin ER (NIASPAN) 1,000 mg CR tablet, , Disp: , Rfl: omega-3 fatty acids (LOVAZA) 1 gram capsule, Take 2 capsules (2,000 mg total) by mouth, Disp: , Rfl: semaglutide (OZEMPIC) 2 mg/dose (8 mg/3 mL) pen injector injection, Inject under the skin, Disp: , Rfl: cyclobenzaprine (FLEXERIL) 5 mg tablet, Take 1 tablet (5 mg total) by mouth 3 (three) times a day as needed for muscle spasms, Disp: 30 tablet, Rfl: 0 ibuprofen (ADVIL,MOTRIN) 600 mg tablet, Take 1 tablet (600 mg total) by mouth every 6 (six) hours as needed for pain, Disp: 90 tablet, Rfl: 0 No Known Allergies Review of Systems Constitutional: Negative for chills, fever, malaise/fatigue and weight loss. HENT: Negative for ear discharge and ear pain. Eyes: Negative for blurred vision, double vision, pain and discharge. Respiratory: Negative for cough. Cardiovascular: Negative for chest pain, palpitations, claudication and leg swelling. Gastrointestinal: Negative for abdominal pain, heartburn, nausea and vomiting. Genitourinary: Negative for dysuria. Musculoskeletal: Negative for myalgias. Skin: Negative for rash. Neurological: Negative for dizziness, weakness and headaches. BP 136/82 (BP Location: Right arm, Patient Position: Sitting) Pulse 86 Temp 36.7 ??C (98.1 ??F)(Oral) Ht 182.9 cm (6') Wt 98.9 kg (218 lb) SpO2 98% BMI 29.57 kg/m?? Physical Exam Constitutional: General: He is not in acute distress. Appearance: Normal appearance. He is well-developed. Cardiovascular: Rate and Rhythm: Normal rate and regular rhythm. Heart sounds: No murmur heard. Pulmonary: Effort: Pulmonary effort is normal. No respiratory distress. Breath sounds: Normal breath sounds. No wheezing. Skin: General: Skin is warm and dry. Neurological: Mental Status: He is alert and oriented to person, place, and time. Assessment/Plan Diagnoses and all orders for this visit: Controlled type 2 diabetes mellitus without complication, without long-term current use of insulin ([facility] [place] [facility] ([facility] [place] [facility]) (Primary) Assessment & Plan: Last A1c 6.8% in July 2023. Labs scanned into media. Hypertension associated with diabetes ([facility] [place]) Assessment & Plan: Stable/ Improved. Blood pressure is adequately controlled on lisinopril (Prinivil) . We will not make any medication changes today. Will have him follow-up in 6 months for continued monitoring and management Managed by the [facility]. Lumbar back pain Assessment & Plan: I gave her flexeril and ibuprofen to take prn as directed for back pain. He can make appt as neededfor primary care as he [facility] Hyperlipidemia associated with type 2 diabetes mellitus ([facility] [place] [facility]) Assessment & Plan: Lipid abnormalities are stable. Pharmacotherapy as ordered. Continues on atorvastatin Lipids will be reassessed in 6 months. Managed by [facility] Other orders - cyclobenzaprine (FLEXERIL) 5 mg tablet; Take 1 tablet (5 mg total) by mouth 3 (three) times a dayas needed for muscle spasms - ibuprofen (ADVIL,MOTRIN) 600 mg tablet; Take 1 tablet (600 mg total) by mouth every 6 (six) hoursas needed for pain No follow-ups on file. Pt voiced understanding of plan of care and follow up Prudence Rivera NP documented in this encounter Miscellaneous Notes * Assessment & Plan Note - Prudence Rivera NP - 12/14/2023 9:51 PM CDTAssociated Problem(s): Lumbar back pain I gave her flexeril and ibuprofen to take prn as directed for back pain. He can make appt as neededfor primary care as he gets [facility] * Assessment & Plan Note - Prudence Rivera NP - 12/14/2023 9:49 PM CDTAssociated Problem(s): Hypertension associated with diabetes (HCC) Stable/ Improved. Blood pressure is adequately controlled on lisinopril (Prinivil) . We will not make any medication changes today. Will have him follow-up in 6 months for continued monitoring and management [facility] * Assessment & Plan Note - Prudence Rivera NP - 12/14/2023 9:48 PM CDTAssociated Problem(s): Hyperlipidemia associated with type 2 diabetes mellitus (HCC) Lipid abnormalities are stable. Pharmacotherapy as ordered. Continues on atorvastatin Lipids will be reassessed in 6 months. Managed by [facility] * Assessment & Plan Note - Prudence Rivera NP - 12/14/2023 9:47 PM CDTAssociated Problem(s): Controlled type 2 diabetes mellitus without complication, without long-term current use of insulin ([facility] ([facility]) Last A1c 6.8% in July 2023. Labs scanned into media. documented in this encounter Plan of Treatment Not on file documented as of this encounter Visit Diagnoses Diagnosis Controlled type 2 diabetes mellitus without complication, without long-term current use of insulin (CMS/HCC) ([facility])- Primary Hypertension associated with diabetes ([facility]) Unspecified essential hypertension Lumbar back pain Lumbago Hyperlipidemia associated with type 2 diabetes mellitus ([facility]) documented in this encounter Discontinued Medications Medication Sig Discontinue Reason Start Date End Da te amoxicillin 500 mg capsule Therapy completed 09/04/2022 12/11/2023 meloxicam (MOBIC) 15 mg tablet Take 1 tablet (15 mg total) by mouth daily Therapy completed 12/11/2023 documented as of this encounter Historical Medications * This list may reflect changes made after this encounter. fenofibrate (TRIGLIDE) 160 mg tablet Take 1 tablet (160 mg total) by mouth daily loratadine (CLARITIN) 10 mg tablet Take 1 tablet (10 mg total) by mouth 09/24/2023 omega-3 fatty acids (LOVAZA) 1 gram capsule Take 2 capsules (2,000 mg total) by mouth 05/09/2023 semaglutide (OZEMPIC) 2 mg/dose (8 mg/3 mL) pen injector injection Inject under the skin 08/31/2023 meloxicam (MOBIC) 15 mg tablet Take 1 tablet (15 mg total) by mouth daily 12/11/2023 added in this encounter Care Teams Pattern Fitter Relationship Specialty Start Date End Date Prudence Rivera NP PCP - General Family Medicine 12/11/23 documented as of this encounter
--- OUTSIDE RECORDS SUMMARY | 2024-03-07 11:08 | XMS_ITS | Encounter Summary ---
Author Organization [facility] Address [address] [place] [address] Phone Care Team Providers Care Dean Of Admissions Name Role Phone Anjelica Calvo Primary Care Provider [phone] Reason for Referral * Diagnostic Imaging (Routine) - Closed Specialty Diagnoses / Procedures Referred By Contac t Referred To Contact Diagnoses Low back pain, non-specific Procedures XR Scoliosis 6 or More Views Renu Urrutia NP [address] [place] [address] Phone: tel: fax: [address] [address] Referral ID Status Reason Start Date Expiration Date Visits Re quested Visits Authorized [id number] Closed 06/25/2022 07/25/2023 1 1 Encounter Details Date Type Department Care Team (Late st Contact Info) Description 06/25/2022 Orders Only [facility] Neurosurgery [address] [facility] [address] [place] [address] Renu Urrutia NP [address] [place] [address] Low back pain, non-specific (Primary Dx) Social History Tobacco Use Types Packs/Day Years Used Date Smoking Tobacco: Every Day Cigarettes Smokeless Tobacco: Never Alcohol Use Standard Drinks/Week Comments Yes 0 (1 standard drink = 0.6 oz pur e alcohol) socially Sex and Gender Information Value Date Recorded Sex Assigned at Not on file 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 Dictated by: Hu Lane M.D. The radiology attending physician has personally reviewed this study, and had reviewed and/or edited this written report and agrees with it. Electronically signed by: Ponce Leroy M.D. Renu Urrutia ACETYLENE OPERATOR IMG XR PROCEDURES Final Result documented in this encounter Visit Diagnoses Diagnosis Low back pain, non-specific- Primary Low back pain, non-specific documented in this encounter Care Teams Dean Of Admissions Relationship Specialty Start Date End Date Anjelica Calvo PA [address] [place] [address] PCP - General Gastroenterology 09/05/18 12/10/23 documented as of this encounter
--- OUTSIDE RECORDS SUMMARY | 2024-03-07 11:08 | XMS_ITS | Encounter Summary ---
Author Organization [facility] Healthcare Address [address] [place] [address] Care Team Providers Care Family And Consumer Science Professor Name Role Phone Anjelica Calvo Primary Care Provider [phone] Encounter Details Date Type Department Care Team (Latest Contact Info) Description 08/25/2022 11:03 AM CDT - 08/25/2022 11:59 PM CDT Hospital Encounter [facility] [address] [place] [id number] Jose D Tran MD [address] [facility] [place] [place] [address] Discharge Disposition: Discharge to home or self [...] on file 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 Gender Identity Not on file Sexual Orientation Not on file documented as of this encounter Medications at Time of Discharge aspirin 81 mg chewable tablet 04/18/2022 atorvastatin (LIPITOR) 40 mg tablet 04/18/2022 glimepiride (AMARYL) 4 mg tablet 04/18/2022 Januvia 100 mg tablet 04/18/2022 Jardiance 25 mg tablet 04/18/2022 lisinopriL (PRINIVIL,ZESTRIL ) 40 mg tablet 04/18/2022 metFORMIN (GLUCOPHAGE) 1,000 mg tablet 06/22/2022 niacin ER (NIASPAN) 1,000 mg CR tablet 06/22/2022 predniSONE (DELTASONE) 10 mg tablet Take 4 tablets (40 mg) by mouth daily for 3 days, THEN 3 tablets (30 mg) daily for 3 days, THEN 2 tablets (20 mg) daily for 3 days, THEN 1 tablet (10 mg) daily for 3 days. 30 tablet 08/25/2022 09/06/2022 documented as of this encounter Discharge Disposition Disposition Code Departure Means Destination Discharge to home or self care documented in this encounter Plan of Treatment Not on file documented as of this encounter Procedures Procedure Name Priority Date/Time Associated Diagnosis Comments XR SPINE LUMBAR COMPLETE 4 OR MORE VIEWS Schedule Routine, Read Routine (OP Routine) 08/25/2022 11:13 AM CDT Pain of lumbar spine documented in this encounter Results * XR Spine Lumbar Complete 4 View (08/25/2022 11:13 AM CDT) Anatomical Region Laterality Modality Spine N/A Computed Radiogr aphy 08/25/2022 3:27 PM CDT Impressions 08/25/2022 3:27 PM CDT 1. ??Multilevel lumbar spondylosis and lower lumbar facet arthropathy. Electronically signed by: Malini Freeman MD Narrative 08/25/2022 3:27 PM CDT EXAMINATION: XR SPINE LUMBAR 4 OR MORE VIEWS HISTORY: ??Lumbar back pain FINDINGS: 4 views of the lumbar spine are submitted for interpretation with comparison 06/13/2022. Lumbar vertebral body heights are maintained. ??Multilevel degenerative disc disease is greatest and moderate at L4-L5. ??There is lower lumbar facet arthropathy. ??Sagittal alignment is normal. ??No abnormal translation with flexion or extension. ??Arthroscopic calcifications of the abdominal aorta are noted. Procedure Note Beryl Freeman MD - 08/25/2022 EXAMINATION: XR SPINE LUMBAR 4 OR MORE VIEWS HISTORY: Lumbar back pain FINDINGS: 4 views of the lumbar spine are submitted for interpretation with comparison 06/13/2022. Lumbar vertebral body heights are maintained. Multilevel degenerative disc disease is greatest and moderate at L4-L5. There is lower lumbar facet arthropathy. Sagittal alignment is normal. No abnormal translation with flexion or extension. Arthroscopic calcifications of the abdominal aorta are noted. IMPRESSION: 1. Multilevel lumbar spondylosis and lower lumbar facet arthropathy. Electronically signed by: Malini Freeman MD Jose D Tran MD IMG XR PROCEDURES Final Result documented in this encounter Visit Diagnoses Not on filedocumented in this encounter Care Teams Family And Consumer Science Professor Relationship Specialty Start Date End Date Anjelica Calvo PA [address] [place] [address] PCP - General Gastroenterology 09/05/18 12/10/23 documented as of this encounter
--- OUTSIDE RECORDS SUMMARY | 2024-03-07 11:08 | XMS_ITS | Encounter Summary ---
Author Organization [facility] Address [address] [place] [address] Phone Care Team Providers Care Anthropologist Name Role Phone Anjelica Calvo Primary Care Provider [phone] Reason for Visit * Reason Comments Pain Encounter Details Date Type Department Care Team (Late st Contact Info) Description 08/25/2022 11:00 AM CDT Office Visit [facility] Orthopedic [facility]) - [facility] [id number] [place] [phone] Jose D rTan MD [address] [facility] [address] [place] [address] Pain of lumbar spine (Primary Dx) Social History Tobacco Use Types [...] on file 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 Take this medication with food. Do not take other antiinflammatories (such as ibuprofen or naproxen) while taking this medication. You may take acetaminophenas needed. -start working on the exercises provided for you today in clinic. -may use heat or ice as needed -follow up as scheduled with Renu Urrutia NP as scheduled If you have questions, need to cancel or reschedule an appointment, or your symptoms worsen, pleasemessage through Her[employer] or call . Jose D Tran MD [facility] Department of Orthopedic Surgery Division of Physical Medicine and Rehabilitation Portions of this plan were dictated using M Modal Fluency Direct. Board Filler variances may occur. Occasional wrong-word or sound-alike substitutions may have occurred due to the limitations of voice recognition software and hardware. While reading the above note recognize, using context, wheresubstitutions may have occurred. documented in this encounter Ordered Prescriptions Prescription Sig Dispense Quantity Refills Last Filled Start Date End Date predniSONE (DELTASONE) 10 mg tablet Take 4 tablets (40 mg) by mouth daily for 3 days, THEN 3 tablets (30 mg) daily for 3 days, THEN 2 tablets (20 mg) daily for 3 days, THEN 1 tablet (10 mg) daily for 3 days. 30 tablet 08/25/2022 documented in this encounter Progress Notes * Jose D Tran MD - 08/25/2022 11:00 AM CDT ORTHOPEDIC INJURY CLINIC VISIT CHIEF COMPLAINT Low back pain, radiation to the left lower extremity HISTORY OF PRESENT ILLNESS Too Chu is a 47 y.o. male who presents today for the evaluation of the above. He states that he has had several years of low back pain, has seen multiple providers for this previously. He states the pain is typically in the left low back and radiating to the left buttock and upper thigh at times. He is currently having pain that radiates into the thigh. Symptoms are worse with changing from seated or bent over position to standing, as well as with back extension. He follows with Renu Urrutia and Neurosurgery, who most recently has been dealing with his neck. He also saw someone for his low back at the [facility] a couple of days ago who was recommending activities as tolerated at that time. He was recently doing physical therapy for his neck and back, which seem to worsen his symptoms with a physical therapist had suggested discontinuing this. He denies radiating numbness, tingling more distal into the leg. He does have weakness at times, which he feels is related to pain. He notes pain over the left greater trochanter region as well, though this seems to be a secondary issue QUESTIONNAIRE (if applicable) No questionnaires on file. PAST MEDICAL/SURGICAL/SOCIAL/FAMILY HISTORY: Past Medical History: Diagnosis Date Arthritis Diabetes mellitus (HCC) Hypercholesteremia Hypertension Personal history of other diseases of the circulatory system History of hypertension - (Added by TW Conv) Personal history of other endocrine, nutritional and metabolic disease History of diabetes mellitus - (Added by TW Conv) Type 2 diabetes mellitus (HCC) Past Surgical History: Procedure Laterality Date CERVICAL FUSION MEDICATIONS: Current Outpatient Medications Medication Sig Dispense Refill aspirin 325 mg tablet atorvastatin (LIPITOR) 40 mg tablet glimepiride (AMARYL) 4 mg tablet Januvia 100 mg tablet Jardiance 25 mg tablet lisinopriL (PRINIVIL,ZESTRIL) 40 mg tablet metFORMIN (GLUCOPHAGE) 1,000 mg tablet niacin ER (NIASPAN) 1,000 mg CR tablet No current facility-administered medications for this visit. ALLERGIES: No Known Allergies PHYSICAL EXAMINATION: GENERAL: In no acute distress. Pleasant and conversational. PSYCHOLOGICAL: Alert and interactive. Cooperative. HENT: Normocephalic, atraumatic. Hearing intact to conversational tones. EYES: Non-icteric sclera. Moist conjunctivae. RESPIRATORY: Non-labored breathing on room air. CARDIOVASCULAR: Bilateral lower extremities are warm and well perfused. SKIN: No obvious rashes or open wounds. No notable ecchymoses. NEUROLOGIC: 5/5, SI LT MSK: No significant tenderness palpation over the lumbar spine and posterior pelvis. Moderate tenderness palpation over the greater trochanter and just proximal to the greater trochanter over the hipabductors. Early external rotation of the left hip with flexion, mild pain over the greater trochanter with FADIR and TRANG. Negative straight leg raise seated and supine, negative slump sit. Negative thigh thrust. Stinchfield produces greater trochanteric pain on the left. REVIEW OF IMAGING AND DIAGNOSTIC STUDIES I have independently reviewed the following images and/or diagnostic studies and the following is my own interpretation: Lumbar spine radiographs today with moderate bridging osteophytes, facet arthropathy IMPRESSION: Left-sided low back pain with radiation to the left posterior pelvis and upper thigh region. Most consistent with symptomatic facet arthropathy as well as possible radiculitis. He does have greater trochanteric pain syndrome on his exam as well today. PLAN: We discussed our impression, imaging findings, and treatment plan in detail with the patient. They demonstrated understanding of this discussion and were in agreement with the plan. All questions were answered. Activity: As tolerated. He should continue home exercises as previously instructed by his physical therapist; provided him with home exercise print out today focusing on core and pelvic strengthening. Imaging/diagnostics: Radiographs obtained today reviewed above. Medications: steroid course prescribed today Therapy: Home exercise print out provided in clinic today. Follow-up: He will keep his follow-up appointment with Renu Urrutia as scheduled. Jose D Tran MD Tobacco Sweeper Physical Medicine and Rehabilitation Department of Orthopaedics Portions of this note were dictated using M Modal Fluency Direct. Board Filler variances may occur. Occasional wrong-word or sound-alike substitutions may have occurred due to the limitations of voice recognition software and hardware. While reading the above note recognize, using context, wheresubstitutions may have occurred. documented in this encounter Plan of Treatment [...] documented in this encounter Visit Diagnoses Diagnosis Pain of lumbar spine- Primary documented in this encounter Care Teams Anthropologist Relationship Specialty Start Date End Date Anjelica Calvo PA [address] [place] [address] PCP - General Gastroenterology 09/05/18 12/10/23 documented as of this encounter
--- OUTSIDE RECORDS SUMMARY | 2024-03-07 11:09 | XMS_ITS | Encounter Summary ---
Author Organization [facility] Facility Care Team Providers Care Freight Loading Supervisor Name Role Phone Unavailable Primary Care Provider Unavailabl e Encounter Details Date Type Department Care Team (Latest Contact Info) Description 04/21/2013 2:00 PM SPRAYER HAND - 04/21/2013 4:00 PM SPRAYER HAND Hospital Encounter [facility] [place] [address] [place] [phone] Other specified pre-operative examination; Displacement of cervical intervertebral disc without myelopathy; Essential hypertension; Type 2 or unspecified type diabetes mellitus; Obstructive sleep apnea; Obesity; Tobacco use disorder; Encounter for long-term (current) use of other medications Social History Tobacco Use Types Packs/Day Years Used Date Smoking Tobacco: Never Assessed Sex and Gender Information Value Date Recorded Sex Assigned at Not on file 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 Gender Identity Not on file Sexual Orientation Not on file documented as of this encounter Plan of Treatment Not on file documented as of this encounter Procedures Procedure Name Priority Date/Time Associated Diagnosis Comments URINE (AEROBIC) CULTURE, CDR Routine 04/21/2013 3:28 PM SPRAYER HAND PLASMA PROTHROMBIN TIME (PT) Routine 04/21/2013 3:28 PM SPRAYER HAND PLASMA BASIC METABOLIC PANEL Routine 04/21/2013 3:28 PM SPRAYER HAND BLOOD CELL COUNT (CBC) Routine 4 3:28 PM SPRAYER HAND BLOOD ABO, RH, INDIRECT AB SCREEN Routine 04/21/2013 3:28 PM SPRAYER HAND ELECTROCARDIOGRAPHY (ECG) 04/21/2013 ALL MICROBIOLOGY REPORT SECTION Routine 04/21/2013 12:00 AM SPRAYER HAND DISCHARGE LABORATORY CUMULATIVE REPORT Routine 04/21/2013 12:00 AM SPRAYER HAND documented in this encounter Results * Urine (aerobic) culture (04/21/2013 3:28 PM SPRAYER HAND) Urine, clean voided (Unknown) 04/21/2013 3:28 PM SPRAYER HAND 04/21/2013 4:27 PM SPRAYER HAND Narrative HISTORICAL RESULTS - 04/23/2013 8:29 AM SPRAYER HAND No growth Historical Provider LAB MICROBIOLOGY - GENERA L ORDERABLES Final Result Performing Organization Address [facility] de Phone Number HISTORICAL RESULTS * (ABNORMAL) Plasma basic metabolic panel (04/21/2013 3:28 PM SPRAYER HAND) Sodium 140 135 - 145 mmol/L HISTORICAL RESULTS K, pl 3.9 3.3 - 4.9 mmol/L HISTORICAL RESULTS Chloride 100 97 - 110 mmol/L HISTORICAL RESULTS CO2 27 22 - 32 mmol/L HISTORICAL RESULTS A. gap 13 0 - 16 mmol/L HISTORICAL RESULTS Glucose 218(H) 70 - 199 mg/dl HISTORICAL RESULTS BUN 14 8 - 25 mg/dl HISTORICAL RESULTS Creatinine 0.84 0.70 - 1.30 mg/dl HISTORICAL RESULTS Calcium 10.5(H) 8.6 - 10.3 mg/dl HISTORICAL RESULTS Plasma 04/21/2013 3:28 PM SPRAYER HAND Mundo Jaimes MD LAB BLOOD ORDERABLES Final Re sult Performing Organization Address [facility] Co de Phone Number HISTORICAL RESULTS * Plasma prothrombin time (PT) (04/21/2013 3:28 PM SPRAYER HAND) Prothrombin time (PT) 11.1 9.0 - 12.0 seconds HISTORICAL RESULTS INR 1.05 0.90 - 1.20 HISTORIC AL RESULTS Comment: Interpretive Data Inpatient therapeutic ranges* Atrial fibrillation ?2.0-3.0 INR Venous thrombo-embolism ?2.0-3.0 INR Bioprosthetic heart valve ?* Mechanical heart valve, bileaflet or tilting disk,aortic position ? 2.0-3.0 INR All other,or bileaflet or tilting disk, in mitral position ? 2.5-3.5 INR *See the pharmacy resource directory (PHRED) for an updated copy of the Tool Book at [email or web address] Current Interpretive Data was last revised 2011. Plasma 04/21/2013 3:28 PM SPRAYER HAND us Munod Jaimes MD LAB BLOOD ORDERABLES Final Re sult HISTORICAL RESULTS * (ABNORMAL) Blood cell count (CBC) (04/21/2013 3:28 PM SPRAYER HAND) WBC 12.3(H) 3.8 - 9.8 K/cumm HISTORICAL RESULTS RBC 5.16 4.50 - 5.70 M/cumm HISTORICAL RESULTS Hgb 15.5 13.8 - 17.2 g/dl HISTORICAL RESULTS Hct 44.9 40.7 - 50.3 % HISTORICAL RESULTS MCV 86.9 80.0 - 97.6 fl HISTORICAL RESULTS MCH 30.0 26.7 - 33.7 pg HISTORICAL RESULTS MCHC 34.5 32.7 - 35.5 g/dl HISTORICAL RESULTS Rdw 12.9 11.8 - 14.6 % HISTORICAL RESULTS Platelets 286 140 - 440 K/cumm HISTORICAL RESULTS MPV 9.1 6.8 - 10.4 fl HISTORICAL RESULTS Neutrophils 63.8 38.7 - 74.5 % HISTORICAL RESULTS Lymphocytes 25.7 20.0 - 54.3 % HISTORICAL RESULTS Monos 7.7 4.3 - 13.5 % HISTORICAL RESULTS Eosinophils 2.5 0.0 - 6.0 % HISTORICAL RESULTS Basophils 0.3 0.0 - 3.0 % HISTORICAL RESULTS Neutrophils, abs 7.8(H) 1.8 - 6.6 K/cumm HISTORICAL RESULTS Lymphocytes, abs 3.1 1.2 - 3.3 K/cumm HISTORICAL RESULTS Monocytes, absolute 0.9 0.2 - 1.2 K/cumm HISTORICAL RESULTS Eosinophils, abs 0.3 0.0 - 0.5 K/cumm HISTORICAL RESULTS Basophils, abs 0.0 0.0 - 0.2 K/cumm HISTORICAL RESULTS Blood specimen (specimen) 04/21/2013 3:28 PM SPRAYER HAND us Mundo Jaimes MD LAB BLOOD ORDERABLES Final Re sult HISTORICAL RESULTS * Blood ABO, Rh, indirect ab screen (04/21/2013 3:28 PM SPRAYER HAND) ABO, Rho(D) B Negative HISTORI DARÍO RESULTS Danny, indirect Negative HISTORICAL RESULTS Blood specimen (specimen) 04/21/2013 3:28 PM SPRAYER HAND us Mundo Jaimes MD LAB BLOOD ORDERABLES Final Re sult HISTORICAL RESULTS * All Microbiology Report Section (04/21/2013 12:00 AM SPRAYER HAND) 04/21/2013 Narrative HISTORICAL RESULTS - 04/23/2013 10:03 AM SPRAYER HAND ? [facility] ?[facility] ?[place], [place] [address] ? Patient Name: ??BRODY TILLEY ? Med Rec Number: [id number] ? Fin Number: ?[id number] ? Date: ?1975 ? Sex/Age: ? Male 37 years ? Admit Date: ?04/21/2013 ? Discharge Date: 04/21/2013 ? Doctor: ?Jaimes , Mundo M ? Facility: ?[facility] ? Location: ?[facility]AP ?* Abnormal ??A Alert ??f Footnote ??^ Corrected ??L Low ??H High ?i Interp Data ??@ Ref Lab ? Chart Type:Cumulative ?* * * * MICROBIOLOGY - URINE * * * * ?PROCEDURE: Urine Culture ? SOURCE: Urine, clean voided ? COLLECTED: 04/21/13 ??1528 ?BODY SITE: ? STARTED: 04/21/13 ??1627 ? FREE TEXT SOURCE: ? FINAL REPORT ? REPORTED: 04/23/13 0829 ? No growth ? ORDER COMMENTS ? (1)Received in transport media. ? us Historical Provider MD LAB MICROBIOLOGY - GENERA L ORDERABLES Final Result HISTORICAL RESULTS * Discharge Laboratory Cumulative Report (04/21/2013 12:00 AM SPRAYER HAND) 04/21/2013 Narrative HISTORICAL RESULTS - 04/23/2013 11:22 AM SPRAYER HAND ?[facility] ?Department of Laboratories ? [facility] ? [place], [place] [address] Patient Name: ??BRODY TILLEY Rec Number: [id number] Fin Number: ?[id number] Date: ?1975 Sex/Age: ? Male 37 years Admit Date: ?04/21/2013 Discharge Date: 04/21/2013 Doctor: ?Mundo Jaimes Facility: ?[facility] Location: ?[facility]AP Chart Printed: 04/23/2013 11:22 ?? * Abnormal ?? C Critical ?? f Footnote ?? ^ Corrected ?? L Low ?? H High ? i Interp Data ?? @ Reference Lab ? Chart Type:Periodic ? MICROBIOLOGY - ALL TESTS ? PROCEDURE: Urine Culture ?SOURCE: Urine, clean voided COLLECTED: 04/21/13 ??1528 ? BODY SITE: STARTED: 04/21/13 ??1627 FREE TEXT SOURCE: FINAL REPORT REPORTED: 04/23/13828 No growth ORDER COMMENTS (1)Received in transport media. ? MICROBIOLOGY - URINE ? PROCEDURE: Urine Culture ?SOURCE: Urine, clean voided COLLECTED: 04/21/13 ??1528 ? BODY SITE: STARTED: 04/21/13 ??1627 FREE TEXT SOURCE: FINAL REPORT REPORTED: 04/23/13828 No growth ORDER COMMENTS (1)Received in transport media. us Historical Provider LAB BLOOD ORDERABLES Rufina l Result HISTORICAL RESULTS * ELECTROCARDIOGRAPHY (ECG) (04/21/2013) Narrative 04/21/2013 Ordered by an unspecified provider. us Historical Provider ECG ORDERABLES Final Res ult documented in this encounter Visit Diagnoses Diagnosis Other specified pre-operative examination Displacement of cervical intervertebral disc without myelopathy Essential hypertension Unspecified essential hypertension Type 2 or unspecified type diabetes mellitus Obstructive sleep apnea Obstructive sleep apnea (adult) (pediatric) Obesity Obesity, unspecified Tobacco use disorder Encounter for long-term (current) use of other medications documented in this encounter
--- OUTSIDE RECORDS SUMMARY | 2024-03-07 11:09 | XMS_ITS | Encounter Summary ---
Author Organization [facility] Facility Care Team Providers Care Furniture Crater Name Role Phone Unavailable Primary Care Provider Unavailabl e Encounter Details Date Type Department Care Team (Late st Contact Info) Description 08/05/2013 - 08/05/2013 11:59 PM CDT Hospital Encounter [facility] [place] [address] [place] [id number] Follow-up examination, following other surgery; Arthrodesis status Social History Tobacco Use Types Packs/Day Years Used Date Smoking Tobacco: Every Day Sex and Gender Information Value Date Recorded Sex Assigned at Not on file 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 FINAL REPORT ACC# ??Date Time ??Exam [id number] August 05, 2013 10:37:00 [id number] Spine Cerv 3views or less EXAMINATION: ?? Cervical spine 3 views or less HISTORY: Cervical spondylosis FINDINGS: AP, lateral, swimmer's views of the cervical spine were performed comparison made to 06/04/1919. There is instrumented anterior cervical discectomy and fusion at C5-C6. Alignment is straightened. There is no prevertebral soft tissue swelling. Osseous central canal is normal. There is mild unchanged C6-C7 degenerative disc disease. IMPRESSION: ?? Instrumented anterior cervical discectomy and fusion C5-C6 with mild unchanged C6-C7 degenerative disc disease. Requested By: MUNDO LONG M.D. Dictated By: ?? LYNN FARAH M.D. ??on Aug 05 2013 10:55A This document has been electronically signed by: LYNN FARAH M.D. on Aug 05 2013 10:55A Procedure Note Provider, MD Cassidy - 07/15/2016 LYNN FARAH M.D. FINAL REPORT ACC# Date Time Exam [id number] August 05, 2013 10:37:00 [id number] Spine Cerv 3views or less EXAMINATION: Cervical spine 3 views or less HISTORY: Cervical spondylosis FINDINGS: AP, lateral, swimmer's views of the cervical spine were performed comparison made to 06/04/1919. There is instrumented anterior cervical discectomy and fusion at C5-C6. Alignment is straightened. There is no prevertebral soft tissue swelling. Osseous central canal is normal. There is mild unchanged C6-C7 degenerative disc disease. IMPRESSION: Instrumented anterior cervical discectomy and fusion C5-C6 with mild unchanged C6-C7 degenerative disc disease. Requested By: MUNDO LONG M.D. Dictated By: LYNN FARAH M.D. on Aug 05 2013 10:55A This document has been electronically signed by: LYNN FARAH M.D. on Aug 05 2013 10:55A Historical Provider MD MTZ XR PROCEDURES Final R esult documented in this encounter Visit Diagnoses Diagnosis Follow-up examination, following other surgery Arthrodesis status documented in this encounter
--- OUTSIDE RECORDS SUMMARY | 2024-03-07 11:09 | XMS_ITS | Encounter Summary ---
Author Organization [facility] Healthcare Address [address] [place] [address] Care Team Providers Care Industrial Insulator Name Role Phone Unknown, Notinfile Primary Care Provider Unavail able Encounter Details Date Type Department Care Team (Latest Contact Info) Description 03/01/2017 1:19 PM PROCESS ARCHITECT - 03/01/2017 11:59 PM PROCESS ARCHITECT Hospital Encounter [facility] [phone] [place] [address] [place] [address] Discharge Disposition: Discharge to home or self care Social History Tobacco Use Types Packs/Day Years Used Date Smoking Tobacco: Every Day Sex and Gender Information Value Date Recorded Sex Assigned at Not on file 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 Gender Identity Not on file Sexual Orientation Not on file documented as of this encounter Discharge Disposition Disposition Code Departure Means Destination Discharge to home or self care documented in this encounter Plan of Treatment Not on file documented as of this encounter Procedures Procedure Name Priority Date/Time Associated Diagnosis Comments KNEE RADIOGRAPHY, FRONTAL (AP), LATERAL, OBLIQUE Routine 03/01/2017 7:30 PM PROCESS ARCHITECT documented in this encounter Results * KNEE RADIOGRAPHY, FRONTAL (AP), LATERAL, OBLIQUE (03/01/2017 7:30 PM PROCESS ARCHITECT) Anatomical Region Laterality Modality N/A Radiographic Raeann ging 03/01/2017 7:30 PM PROCESS ARCHITECT Narrative 03/01/2017 7:56 PM PROCESS ARCHITECT ZAIDA PRITCHETT M.D. FINAL REPORT ACC# ??Date Time ??Exam [id number] Mar 01, 2017 13:30:00 [id number] Knee 3 views R EXAMINATION: ??Right knee 3 views HISTORY: ??Right knee pain FINDINGS: 3 views of the right knee are performed without comparison. There is normal alignment of the right knee. Joint spaces are normal. No fracture. There is a small right knee joint effusion. The distal aspect of the left femoral intramedullary nail is seen. IMPRESSION: ??1. ??Small right knee joint effusion with normal joint spaces. Electronically signed by: Zaida Pritchett M.D. Requested By: BRODY MEMBRENO M.D. Dictated By: ?? ZAIDA PRITCHETT M.D. ??on Mar 01 2017 ??1:54P This document has been electronically signed by: ZAIDA PRITCHETT M.D. on Mar 01 2017 ??1:54P [id number] PRITCHETT M.D. FINAL REPORT Attending: ??TEMI, ??BRODY Requesting: ??TEMI, ??BRODY Requesting Fax: ?? Attending Fax: ?? Attending ID: ??[id number] Requesting ID: ??[id number] Report To 1 ID: ??[id number] ? Report To 1 Name: ??, ?? Report To 1 FAX: ?? NextGen Order #: ?? Procedure Note Miscellaneous, Not In File - 03/01/2017 ZAIDA PRITCHETT M.D. FINAL REPORT ACC# Date Time Exam [id number] Mar 01, 2017 13:30:00 [id number] Knee 3 views R EXAMINATION: Right knee 3 views HISTORY: Right knee pain FINDINGS: 3 views of the right knee are performed without comparison. There is normal alignment of the right knee. Joint spaces are normal. No fracture. There is a small right knee joint effusion. The distal aspect of the left femoral intramedullary nail is seen. IMPRESSION: 1. Small right knee joint effusion with normal jointspaces. Electronically signed by: Zaida Pritchett M.D. Requested By: BRODY MEMBRENO M.D. Dictated By: ZAIDA PRITCHETT M.D. on Mar 01 2017 1:54P This document has been electronically signed by: ZAIDA PRITCHETT M.D. on Mar 01 2017 1:54P [id number] PRITCHETT M.D. FINAL REPORT Attending: BRODY MEMBRENO Requesting: BRODY MEMBRENO Requesting Fax: Attending Fax: Attending ID: [id number] Requesting ID: [id number] Report To 1 ID: [id number] Report To 1 Name: , Report To 1 FAX: NextGen Order #: Brody Membreno MD IMG XR PROCEDURES Final Result documented in this encounter Visit Diagnoses Not on filedocumented in this encounter Care Teams Industrial Insulator Relationship Specialty Start Date End Date Unknown, Notinfile PCP - General 03/01/17 03/17/17 documented as of this encounter
--- OUTSIDE RECORDS SUMMARY | 2024-03-07 11:09 | XMS_ITS | Encounter Summary ---
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 Role Phone Unavailable Primary Care Provider Unavailabl e Encounter Details Date Type Department Care Team (Latest Contact Info) Description 06/03/2013 - 06/03/2013 11:59 PM CDT Hospital Encounter [facility] [place] [address] [place] [id number] Aftercare following other surgery of musculoskeletal system; Arthrodesis status; Degeneration of cervical intervertebral disc; Acquired postural lordosis Social History Tobacco Use Types Packs/Day Years Used Date Smoking Tobacco: Never Assessed Sex and Gender Information Value Date Recorded Sex Assigned at Not on file 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 FINAL REPORT ACC# ??Date Time ??Exam [id number] Jun 03, 2013 12:35:00 [id number] Spine Cerv 3views or less EXAMINATION: ? Cervical spine 3 views or fewer HISTORY: ??Cervical spondylosis FINDINGS: ??Three view examination of the cervical spine includes a swimmer's projection. There are no prior studies for comparison. There is a discectomy and anterior instrumented fusion at C5-C6 and mild degenerative disc disease at C6-C7. There is hypolordosis but no listhesis. There is no central canal stenosis or fracture. IMPRESSION: ?? Discectomy and anterior instrumented fusion, C5-C6. Requested By: MUNDO LONG M.D. Dictated By: ?? ARGENTINA REYES M.D. ??on Jun 03 2013 12:44P This document has been electronically signed by: ARGENTINA REYES M.D. on Jun 03 2013 12:44P Procedure Note Provider, MD Cassidy - 07/15/2016 ARGENTINA REYES M.D. FINAL REPORT ACC# Date Time Exam [id number] Jun 03, 2013 12:35:00 [id number] Spine Cerv 3views or less EXAMINATION: Cervical spine 3 views or fewer HISTORY: Cervical spondylosis FINDINGS: Three view examination of the cervical spine includes a swimmer's projection. There are no prior studies for comparison. There is a discectomy and anterior instrumented fusion at C5-C6 and mild degenerative disc disease at C6-C7. There is hypolordosis but no listhesis. There is no central canal stenosis or fracture. IMPRESSION: Discectomy and anterior instrumented fusion, C5-C6. Requested By: MUNDO LONG M.D. Dictated By: ARGENTINA REYES M.D. on Jun 03 2013 12:44P This document has been electronically signed by: ARGENTINA REYES M.D. on Jun 03 2013 12:44P us Historical Provider MD MTZ XR PROCEDURES Final R esult documented in this encounter Visit Diagnoses Diagnosis Aftercare following other surgery of musculoskeletal system Arthrodesis status Degeneration of cervical intervertebral disc Acquired postural lordosis Lordosis (acquired) (postural) documented in this encounter
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
--- OUTSIDE RECORDS SUMMARY | 2024-03-07 11:09 | XMS_ITS | Encounter Summary ---
Author Organization [facility] Facility Care Team Providers Care Environmental Designer Name Role Phone Unavailable Primary Care Provider Unavailabl e Encounter Details Date Type Department Care Team (Late st Contact Info) Description 05/04/2013 6:11 AM MOLASSES FEED MIXER - 05/05/2013 2:41 PM MOLASSES FEED MIXER Hospital Encounter [facility] [place] [address] [place] [id number] Spinal stenosis in cervical region; Type 2 or unspecified type diabetes mellitus; Essential hypertension; Other and unspecified hyperlipidemia; Obstructive sleep apnea; Obesity; Body mass index 34.0-34.9, adult; Tobacco use disorder Social History Tobacco Use Types Packs/Day Years Used Date Smoking Tobacco: Never Assessed Sex and Gender Information Value Date Recorded Sex Assigned at Not on file Legal Sex Male 10:19 AM MOLASSES FEED MIXER Gender Identity Not on file Sexual Orientation Not on file documented as of this encounter Last Filed Vital Signs Vital Sign Reading Time Taken Comments Blood Pressure 140/82 05/05/2013 10:00 AM MOLASSES FEED MIXER Pulse 111 05/05/2013 10:00 AM MOLASSES FEED MIXER Temperature - - Respiratory Rate - - Oxygen Saturation 95% 05/05/2013 10: 00 AM MOLASSES FEED MIXER Inhaled Oxygen Concentration - - Weight 113.4 kg (249 lb 15.7 oz) 05/04/2013 3:44 PM MOLASSES FEED MIXER Height 182.9 cm (6') 05/04/2013 3:44 PM MOLASSES FEED MIXER Body Mass Index 33.9 05/04/2013 3:44 PM MOLASSES FEED MIXER documented in this encounter Miscellaneous Notes * Op Note - ProviderCassidy MD - 05/04/2013 12:00 AM CST Patient: Brody Tilley Reg No: [id number] [facility] #: [id number] Admit Dt.: 05/04/2013 : 1975 Pt Type: 100 Room No: OTHER Attending: Mundo Jaimes M.D. Surgeon: Mundo Jaimes M.D. Dictating: Mundo Jaimes M.D. Service Dt: 05/04/2013 OPERATIVE REPORT FIRST FUND DEVELOPMENT MANAGER: Samuel Rodriguez M.D. ANESTHESIA: General endotracheal anesthesia. PREOPERATIVE DIAGNOSIS (ES): 1. Herniated disc C5-6. 2. Cervical radiculopathy. POSTOPERATIVE DIAGNOSIS (ES): 1. Herniated disc C5-6. 2. Cervical radiculopathy. NAME OF OPERATION: 1. Anterior cervical discectomy, C5-6, including bilateral foraminotomies for decompression of the spinal cord and nerve root. 2. Harvesting of bone marrow aspirate via the same incision. 3. Anterior cervical arthrodesis, C5-6, using an 8 mm structural lordotic PEEK spacer, packed with Vitoss BA, reconstituted with bone marrow aspirate. 4. Anterior cervical instrumented fusion C5-6, using an Randal Mambo anterior cervical translational plate. INDICATIONS FOR PROCEDURE: Mr. Tilley is a 37 year-old gentleman who presents with cervical radiculopathy for approximately four years. He has tried physical therapy and injections without benefit. He now presents for operative decompression. Radiographic evaluation shows a herniated disc at C5-6 on the left. The operative risks, benefits and alternatives were discussed at length with Mr. Tilley. He expresses understanding and asked me to proceed with surgery. Please see my dictated office notes for details of these conversations. OPERATIVE FINDINGS: Herniated disc, C5-6 on the left. DESCRIPTION OF PROCEDURE: The patient was brought into the operating room and placed supine on the operating table. After intubation, induction of general anesthesia, as well as placement of appropriate monitoring lines, he was positioned. A gel roll was placed behind his neck to place his neck under gentle extension. All bony prominences were well padded. The anterior cervical region was then prepped and draped in the usual sterile fashion. Anatomic levels were confirmed with lateral fluoroscopy. After infiltration of local anesthesia, a left sided incision was made in a skin crease with the scalpel blade. The underlying platysma was identified and divided. We then developed the avascular plane between the throat and strap muscles medially and the sternocleidomastoid muscle and carotid artery laterally. Prevertebral fascia was stripped from the anterior aspect of the vertebral column. The levels were again confirmed with lateral fluoroscopy. The longus coli was then reflected and self-retaining retractors were applied. The operative microscope was sterilely draped and brought into the field and used for the remainder of the operation. The high speed drill was used to remove the anterior osteophytes at this level. [place] distraction posts were placed. One of the [place] posts was temporarily removed and bone marrow aspirate harvested from the post tract. This was used to reconstitute Vitoss BA for later arthrodesis. The [place] post was then replaced and the disc space placed under distraction. A complete discectomy was then accomplished using a combination of curettes as well as the high speed drill. The posterior osteophyte was removed with the high speed drill. The posterior longitudinal ligament was then identified, divided and resected and generous foraminotomies were accomplished bilaterally. We did find several pieces of disc in the left foramen and lateral recess which were removed. The bilateral nerve roots were identified and completely decompressed. There was a minuscule disc durotomy of the nerve root sleeve on the right side with a trace egress of cerebrospinal fluid which quickly stopped spontaneously. There was no further egress of spinal fluid throughout the remainder of the operation. Satisfied with our decompression, we turned our attention to arthrodesis. The high speed drill was used to decorticate the end plates. The disc space defect was sized and we selected an 8 mm structural lordotic PEEK spacer. This was packed full of Vitoss BA that had been reconstituted with bone marrow aspirate. This space was inserted and counter-sunk. The [place] posts were then removed and the post holes filled with Hemabsorb. The high speed drill was used to further contour the vertebral column to receive a plate. We then performed an anterior cervical instrumented fusion using an Randal P[facility] Campus[facility] anterior cervical translational plate. 15 mm screws were used at all locations. The locking mechanisms were observed to be engaged and lateral fluoroscopy confirmed good positioning of implanted hardware. The wound was then copiously irrigated with antibiotic-containing irrigation and excellent hemostasis was obtained. The self-retaining retractors were removed and the wound closed in layers. The patient tolerated the procedure well and there were no complications. ESTIMATED BLOOD LOSS: 30 milliliters. INTRAOPERATIVE FLUIDS: 1200 milliliters of crystalloid. URINE OUTPUT: Not recorded. SPONGE/INSTRUMENT/NEEDLE COUNTS: Correct times two. CONDITION ON DISCHARGE FROM OPERATING ROOM: The patient was extubated without incident and taken to the Recovery Room in stable condition, moving all extremities at baseline. PRESENT STATEMENT: Please note that I was present and performed the entirety of the operation with Dr. Michael MD. Electronically Signed By Mundo Jaimes M.D. 05/05/2013 04:01 P Gracie FordW/grace #[id number] Editing MT: TD: 05/04/2013 11:17:00 cc: Mundo Jaimes M.D. documented in this encounter Plan of Treatment Not on file documented as of this encounter Procedures Procedure Name Priority Date/Time Associated Diagnosis Comments BLOOD GLUCOSE, POC Routine 05/05/2013 11 :52 AM MOLASSES FEED MIXER BLOOD GLUCOSE, POC Routine 05/05/2013 7: 38 AM MOLASSES FEED MIXER DISCHARGE LABORATORY CUMULATIVE REPORT Routine 05/05/2013 12:00 AM MOLASSES FEED MIXER BLOOD GLUCOSE, POC Routine 05/04/2013 9: 58 PM MOLASSES FEED MIXER BLOOD GLUCOSE, POC Routine 05/04/2013 10 :07 AM MOLASSES FEED MIXER BLOOD ABO, RH, INDIRECT AB SCREEN Routine 05/04/2013 6:30 AM MOLASSES FEED MIXER BLOOD GLUCOSE, POC Routine 05/04/2013 6: 25 AM MOLASSES FEED MIXER BLOOD HEMOGLOBIN A1C Routine 05/04/2013 6:07 AM MOLASSES FEED MIXER BLOOD CELL COUNT (CBC) Routine 05/04/2013 6:07 AM MOLASSES FEED MIXER documented in this encounter Results * Blood glucose, POC (05/05/2013 11:52 AM MOLASSES FEED MIXER) Glucose, POC, bld 196 70 - 199 mg/dl HISTORICAL RESULTS Blood specimen (specimen) 05/05/2013 11:52 AM MOLASSES FEED MIXER Mundo Jaimes MD LAB BLOOD ORDERABLES Final Re sult Performing Organization Address [facility] de Phone Number HISTORICAL RESULTS * Blood glucose, POC (05/05/2013 7:38 AM MOLASSES FEED MIXER) Glucose, POC, bld 187 70 - 199 mg/dl HISTORICAL RESULTS Blood specimen (specimen) 05/05/2013 7:38 AM MOLASSES FEED MIXER us Mundo Jaimes MD LAB BLOOD ORDERABLES Final Re sult Performing Organization Address [facility] de Phone Number HISTORICAL RESULTS * Discharge Laboratory Cumulative Report (05/05/2013 12:00 AM MOLASSES FEED MIXER) 05/05/2013 Narrative HISTORICAL RESULTS - 05/05/2013 3:25 PM MOLASSES FEED MIXER ?[facility] ?Department of Laboratories ? [address] [facility] [place] ? [place], [place] [address] Patient Name: ??[facility]ILLEY[facility] Rec Number: [id number] Fin Number: ?[id number] Date: ?1975 Sex/Age: ? Male 37 years Admit Date: ?05/04/2013 Discharge Date: 05/05/2013 Doctor: ?Mundo Jaimes: ?[facility] Location: ?[id number] Chart Printed: 05/05/2013 15:25 ?? * Abnormal ?? C Critical ?? f Footnote ?? ^ Corrected ?? L Low ?? H High ? i Interp Data ?? @ Reference Lab ?Chart Type:Cumulative ?GLYCATED HEMOGLOBIN TESTING ?Test: Hemoglobin A1C ??Est Average Glucose ? Reference: [4.0-6.0] ? Units: % ? mg/dL 05/04/2013 ?? 06:07:12 ?? 7.4 ??H ?166 ??f 05/04/2013 06:07:12 ??Est Average Glucose: The ADA recommends reporting an estimated Average Glucose (eAG) with all Hemoglobin A1c results using the equation derived from a study of 507 normal and diabetic adults. ??Minority populations were underrepresented and children were not included. ??(Diabetes Care 31:7379-0392, 2008). ??The eAG is not equivalent to a fasting glucose. ? COMPLETE BLOOD COUNT ?Test: WBC ?RBC ?Hgb ? Reference: [3.8-9.8] ??[4.50-5.70] ??[13.8-17.2] ? Units: K/cumm ? M/cumm ? g/dL 05/04/2013 ?? 06:07:12 ?? 13.8 ??H ?5.04 ? 15.2 ?Test: Hct ?Platelet Ct ??MCV ? Reference: [40.7-50.3] ??[140-440] ?[80.0-97.6] ? Units: % ?K/cumm ? fL 05/04/2013 ?? 06:07:12 ?? 43.7 ? 249 ?86.6 ?Test: MCH ?MCHC ? RDW ? Reference: [26.7-33.7] ??[32.7-35.5] ??[11.8-14.6] ? Units: pg ? g/dL ? % 05/04/2013 ?? 06:07:12 ?? 30.1 ? 34.7 ? 12.9 ? COMPLETE BLOOD COUNT ?Test: MPV ? Reference: [6.8-10.4] ? Units: fL 05/04/2013 ?? 06:07:12 ?? 9.2 ? AUTOMATED WHITE CELL DIFFERENTIAL ?Test: Neut Pct Auto ??Lymph Pct Auto ??[place] Pct Auto ? Reference: [38.7-74.5] ?[20.0-54.3] ? [4.3-13.5] ? Units: % ?% ? % 05/04/2013 ?? 06:07:12 ?? 60.8 ? 27.9 ?7.7 ?Test: Eos Pct Auto ??Baso Pct Auto ??Neut Abs Auto ? Reference: [0.0-6.0] ? [0.0-3.0] ?[1.8-6.6] ? Units: % ? % ?K/cumm 05/04/2013 ?? 06:07:12 ?? 3.2 ? 0.4 ?8.4 ??H ?Test: Lymph Abs Auto ??[place] Abs Auto ??Eos Abs Auto ? Reference: [1.2-3.3] ? [0.2-1.2] ?[0.0-0.5] ? Units: K/cumm ?K/cumm ? K/cumm 05/04/2013 ?? 06:07:12 ?? 3.9 ??H ?1.1 ?0.4 ?Test: Baso Abs Auto ? Reference: [0.0-0.2] ? Units: K/cumm 05/04/2013 ?? 06:07:12 ?? 0.1 ? TRANSFUSION MEDICINE ?Test: Indirect Danny. ??ABO/Rh Pat Interp ? Reference: ? Units: 05/04/2013 ?? 06:30:00 ?? Negative ?B Negative ?POINT OF CARE TESTS ? Chemistry ?Test: Glucose POC ? Reference: [70-199] ? Units: mg/dL 05/05/2013 ?? 11:52:00 ?? 196 05/05/2013 ?? 07:38:00 ?? 187 05/04/2013 ?? 21:58:00 ?? 169 05/04/2013 ?? 10:07:00 ?? 172 05/04/2013 ?? 06:25:00 ?? 194 ?? ALL CLINICALLY PERTINENT INFORMATION HAS BEEN PRINTED ON THE PREVIOUS ? PAGE(S). Historical Provider LAB BLOOD ORDERABLES Rufina l Result Performing Organization Address [facility] de Phone Number HISTORICAL RESULTS * Blood glucose, POC (05/04/2013 9:58 PM MOLASSES FEED MIXER) Glucose, POC, bld 169 70 - 199 mg/dl HISTORICAL RESULTS Blood specimen (specimen) 05/04/2013 9:58 PM MOLASSES FEED MIXER us Mundo Jaimes MD LAB BLOOD ORDERABLES Final Re sult Performing Organization Address [facility] de Phone Number HISTORICAL RESULTS * Blood glucose, POC (05/04/2013 10:07 AM MOLASSES FEED MIXER) Glucose, POC, bld 172 70 - 199 mg/dl HISTORICAL RESULTS Blood specimen (specimen) 05/04/2013 10:07 AM MOLASSES FEED MIXER us Mundo Jaimes MD LAB BLOOD ORDERABLES Final Re sult Performing Organization Address [facility] de Phone Number HISTORICAL RESULTS * Blood ABO, Rh, indirect ab screen (05/04/2013 6:30 AM MOLASSES FEED MIXER) ABO, Rho(D) B Negative HISTORI DARÍO RESULTS Danny, indirect Negative HISTORICAL RESULTS Blood specimen (specimen) 05/04/2013 6:30 AM MOLASSES FEED MIXER us Mundo Jaimes MD LAB BLOOD ORDERABLES Final Re sult Performing Organization Address [facility] de Phone Number HISTORICAL RESULTS * Blood glucose, POC (05/04/2013 6:25 AM MOLASSES FEED MIXER) Glucose, POC, bld 194 70 - 199 mg/dl HISTORICAL RESULTS Blood specimen (specimen) 05/04/2013 6:25 AM MOLASSES FEED MIXER us Mundo Jaimes MD LAB BLOOD ORDERABLES Final Re sult Performing Organization Address [facility]/ZIP Co de Phone Number HISTORICAL RESULTS * (ABNORMAL) Blood cell count (CBC) (05/04/2013 6:07 AM MOLASSES FEED MIXER) WBC 13.8(H) 3.8 - 9.8 K/cumm HISTORICAL RESULTS RBC 5.04 4.50 - 5.70 M/cumm HISTORICAL RESULTS Hgb 15.2 13.8 - 17.2 g/dl HISTORICAL RESULTS Hct 43.7 40.7 - 50.3 % HISTORICAL RESULTS MCV 86.6 80.0 - 97.6 fl HISTORICAL RESULTS MCH 30.1 26.7 - 33.7 pg HISTORICAL RESULTS MCHC 34.7 32.7 - 35.5 g/dl HISTORICAL RESULTS Rdw 12.9 11.8 - 14.6 % HISTORICAL RESULTS Platelets 249 140 - 440 K/cumm HISTORICAL RESULTS MPV 9.2 6.8 - 10.4 fl HISTORICAL RESULTS Neutrophils 60.8 38.7 - 74.5 % HISTORICAL RESULTS Lymphocytes 27.9 20.0 - 54.3 % HISTORICAL RESULTS Monos 7.7 4.3 - 13.5 % HISTORICAL RESULTS Eosinophils 3.2 0.0 - 6.0 % HISTORICAL RESULTS Basophils 0.4 0.0 - 3.0 % HISTORICAL RESULTS Neutrophils, abs 8.4(H) 1.8 - 6.6 K/cumm HISTORICAL RESULTS Lymphocytes, abs 3.9(H) 1.2 - 3.3 K/cumm HISTORICAL RESULTS Monocytes, absolute 1.1 0.2 - 1.2 K/cumm HISTORICAL RESULTS Eosinophils, abs 0.4 0.0 - 0.5 K/cumm HISTORICAL RESULTS Basophils, abs 0.1 0.0 - 0.2 K/cumm HISTORICAL RESULTS Blood specimen (specimen) 05/04/2013 6:07 AM MOLASSES FEED MIXER us Mundo Jaimes MD LAB BLOOD ORDERABLES Final Re sult HISTORICAL RESULTS * (ABNORMAL) Blood hemoglobin A1C (05/04/2013 6:07 AM MOLASSES FEED MIXER) Hgb A1C 7.4(H) 4.0 - 6.0 % HISTORICAL RESULTS Estimated average glucose 166 mg/dl HISTORICAL RESULTS Comment: The ADA recommends reporting an estimated Average Glucose (eAG) with all Hemoglobin A1c results using the equation derived from a study of 507 normal and diabetic adults. ??Minority populations were underrepresented and children were not included. ??(Diabetes Care 31:2175-8900, 2008). ??The eAG is not equivalent to a fasting glucose. Blood specimen (specimen) 05/04/2013 6:07 AM MOLASSES FEED MIXER Mundo Jaimes MD LAB BLOOD ORDERABLES Final Re sult [facility] Organization Address City/State/ZIP Co de Phone Number HISTORICAL RESULTS documented in this encounter Visit Diagnoses Diagnosis Spinal stenosis in cervical region Type 2 or unspecified type diabetes mellitus Essential hypertension Unspecified essential hypertension Other and unspecified hyperlipidemia Obstructive sleep apnea Obstructive sleep apnea (adult) (pediatric) Obesity Obesity, unspecified Body mass index 34.0-34.9, adult Body Mass Index 34.0-34.9, adult Tobacco use disorder documented in this encounter
--- OUTSIDE RECORDS SUMMARY | 2024-03-07 11:27 | XMS_ITS | Continuity of Care Document ---
Author Name [facility] Organization [facility] Care Team Providers Care Director [employer] Name Role Phone [facility] Unavailable Unavailable Problems Combined list of problems from Department of Defense and Veterans Affairs facilities. It does not include entries that were removed or entered in error. Problem Status Onset Date Problem Type Date of Resolution Comments Source Abnormal liver function Active Condition [facility] Acute sinusitis Active Condition [facility] Back pain Active Condition [facility] Cervical radiculopathy Active Condition [facility] Chronic pain Active Condition [facility] Diabetes mellitus Active Condition [facility] Erectile dysfunction Active Condition [facility] Hyperlipidemia Active Condition [facility] Hypertension Active Condition [facility] Medical examinations/report s status Active Condition [facility] Shoulder pain Active Condition [facility] Tobacco use Active Condition [facility] Vitamin D deficiency Active Condition [facility] Diagnosis: ICD-10-CM Z12.2 Encntr screen for malignant neoplasm of respiratory organs Active Diagnosis 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 Diagnosis: ICD-10-CM M54.50 Low back pain, unspecified Active Diagnosis [facility] Diagnosis: ICD-10-CM E11.9 Type 2 diabetes mellitus without complications Active Diagnosis [facility] Diagnosis: ICD-10-CM M54.2 Cervicalgia Active Diagnosis [facility] Diagnosis: ICD-10-CM Z23 Encounter for immunization Active Diagnosis [facility] Diagnosis: ICD-10-CM G89.29 Other chronic pain Active Diagnosis [facility] Diagnosis: ICD-10-CM Z72.0 Tobacco use Active Diagnosis [facility] Diagnosis: ICD-10-CM N52.9 Male erectile dysfunction, unspecified Active Diagnosis 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 Active Diagnosis [facility] Diagnosis: ICD-10-CM M54.12 Radiculopathy, cervical region Active Diagnosis [facility] Medications Combined list of outpatient medications from [...] ORAL DISCONT INUED BY PROVIDE R 03/21/2024 [id number] 4 SKYE MUNOZ 2023 90 [facility] ALOGLIPTIN 25MG TAB TAKE ONE TABLET BY MOUTH ONCE A DAY FOR DIABETES ORAL DISCONT INUED 09/05/2023 [id number] 4 SKYE MUNOZ 2022 90 [facility] aspirin 325 mg oral tablet TAKE ONE TABLET DAILY, # 90 EA, 3 total refill(s ), Acute Complet ed 04/16/2023 90.0 Ambulat ory Pharmac y ASPIRIN 81MG TAB,EC TAKE ONE TABLET BY MOUTH ONCE A DAY WITH FOOD FOR PREVENTI ON OF HEART DISEASE ORAL ACTIVE 05/10/2024 [id number] 4 SKYE MUNOZ 2023 120 [facility] ASPIRIN 81MG TAB,EC TAKE ONE TABLET BY MOUTH ONCE A DAY WITH FOOD FOR PREVENTI ON OF HEART DISEASE ORAL DISCONT INUED 03/15/2024 [id number] 4 SKYE MUNOZ 2023 120 [facility] ASPIRIN 81MG TAB,EC TAKE ONE TABLET BY MOUTH ONCE A DAY WITH FOOD FOR PREVENTI ON OF HEART DISEASE ORAL DISCONT INUED 10/27/2023 [id number] 4 Lester HUERTA 2022 120 [facility] atorvastati n 40 mg oral tablet TAKE ONE TABLET DAILY, # 90 EA, 2 total refill(s ), Acute Complet ed 04/16/2023 90.0 Ambulat ory Pharmac y ATORVASTATI N CA 80MG TAB TAKE ONE TABLET BY MOUTH EVERY EVENING FOR HIGH CHOLESTE ROL ORAL SUSPEND ED 02/10/2025 [id number] 5 SKYE MUNOZ N 2024 90 [facility] ATORVASTATI N CA 80MG TAB TAKE ONE TABLET BY MOUTH EVERY EVENING FOR HIGH CHOLESTE ROL ORAL DISCONT INUED 05/01/2024 [id number] 4 SKYE MUNOZ N 2023 90 [facility] ATORVASTATI N CA 80MG TAB TAKE ONE-HALF TABLET BY MOUTH EVERY EVENING FOR HIGH CHOLESTE ROL ORAL DISCONT INUED (EDIT) 09/05/2023 [id number] 4 SKYE MUNOZ N 2022 45 [facility] CAMPHOR/MEN THOL/METHYL SALICYLATE LARGE PATCH APPLY 1 PATCH TO SKIN SITE ONCE A DAY (EXTERNA L USE ONLY) TRANSD ERMAL ACTIVE 02/10/2025 [id number] 4 SKYE MUNOZ N 2023 30 [facility] CHOLECALCIF DANA 50MCG (2,000UNIT) TAB TAKE ONE TABLET BY MOUTH ONCE A DAY ORAL SUSPEND ED 02/10/2025 [id number] 5 SKYE MUNOZ N 2024 100 [facility] CHOLECALCIF DANA 50MCG (2,000UNIT) TAB TAKE ONE TABLET BY MOUTH ONCE A DAY ORAL DISCONT INUED 03/21/2024 [id number] 4 SKYE MUNOZ N 2023 100 [facility] CHOLECALCIF DANA 50MCG (2,000UNIT) TAB TAKE ONE TABLET BY MOUTH ONCE A DAY ORAL DISCONT INUED 08/19/2023 [id number] 3 SKYE MUNOZ N 2022 100 [facility] CYCLOBENZAP RINE HCL 10MG TAB TAKE ONE TABLET BY MOUTH THREE TIMES A DAY MAY CAUSE DROWSINE SS. DO NOT DRINK ALCOHOL WHILE TAKING THIS MEDICATI ON. ORAL 12/19/2023 [id number] 4 GASTON LIND 2023 21 [facility] empaglifloz in 25 mg oral tablet TAKE ONE TABLET DAILY, # 90 EA, 3 total refill(s ), Acute Complet ed 02/20/2023 90.0 Ambulat ory Pharmac y EMPAGLIFLOZ IN 25MG TAB TAKE ONE TABLET BY MOUTH ONCE A DAY FOR DIABETES ORAL ACTIVE 07/26/2024 [id number] 4 Lester HUERTA 2023 90 [facility] EMPAGLIFLOZ IN 25MG TAB TAKE ONE TABLET BY MOUTH ONCE A DAY FOR DIABETES ORAL DISCONT INUED 10/27/2023 [id number] Lester HUERTA 2022 90 [facility] FENOFIBRATE 145MG TAB TAKE ONE-HALF TABLET BY MOUTH ONCE A DAY - TAKE WITH FOOD ORAL ACTIVE 02/10/2025 [id number] 4 SKYE MUNOZ N 2023 45 [facility] FENOFIBRATE 160MG TAB TAKE ONE TABLET BY MOUTH ONCE A DAY FOR HIGH TRIGLYCE RIDES - TAKE WITH FOOD ORAL DISCONT INUED (EDIT) 01/17/2025 [id number] 5 SEN DEWITT 2024 90 [facility] FENOFIBRATE 160MG TAB TAKE ONE TABLET BY MOUTH ONCE A DAY FOR HIGH TRIGLYCE RIDES - TAKE WITH FOOD ORAL DISCONT INUED 04/26/2024 [id number] 4 SEN DEWITT 2023 90 [facility] FLUTICASONE PROPIONATE 50MCG/SPRAY SOLN,NASAL, 16GM INSTILL 1 SPRAY IN NOSTRIL( S) ONCE A DAY (MUST BE USED DIRECTED FOR MINIMUM OF 21 DAYS TO PROVIDE ADEQUATE BENEFITS ) NASAL ACTIVE 02/10/2025 [id number] 4 SKYE MUNOZA N 2023 2 [facility] glimepiride 4 mg oral tablet TAKE TWO TABLETS BY MOUTH EVERY DAY DIRECTED , # 180 EA, 2 total refill(s ), Acute Complet ed 04/16/2023 180.0 Ambulat ory Pharmac y GLIMEPIRIDE 4MG TAB TAKE ONE TABLET BY MOUTH EVERY MORNING TAKE WITH BREAKFAS T OR FIRST FOOD. ORAL ACTIVE 02/10/2025 [id number] 4 SKYE MUNOZA N 2023 90 [facility] GLIMEPIRIDE 4MG TAB TAKE TWO TABLETS BY MOUTH EVERY MORNING FOR DIABETES TAKE WITH BREAKFAS T OR FIRST FOOD. ORAL DISCONT INUED (EDIT) 11/21/2024 [id number] 4 SKYE MUNOZA N 2023 180 [facility] GLIMEPIRIDE 4MG TAB TAKE TWO TABLETS BY MOUTH EVERY MORNING FOR DIABETES TAKE WITH BREAKFAS T OR FIRST FOOD. ORAL DISCONT INUED 09/05/2023 [id number] 4 SKYE MUNOZ N 2022 180 [facility] Januvia 100 mg tablet See dose instruct [...] HIGH BLOOD PRESSURE ORAL SUSPEND ED 02/10/2025 [id number] 5 SKYE MUNOZA N 2024 90 [facility] LISINOPRIL 40MG TAB TAKE ONE TABLET BY MOUTH ONCE A DAY FOR HIGH BLOOD PRESSURE ORAL DISCONT INUED 03/21/2024 [id number] 4 SKYE MUNOZA N 2023 90 [facility] LISINOPRIL 40MG TAB TAKE ONE TABLET BY MOUTH ONCE A DAY FOR HIGH BLOOD PRESSURE ORAL DISCONT INUED 09/05/2023 [id number] SKYE MUNOZA N 2022 90 [facility] LORATADINE 10MG TAB TAKE ONE TABLET BY MOUTH ONCE A DAY FOR ALLERGIC RHINITIS ON EMPTY STOMACH ORAL SUSPEND ED 09/24/2024 [id number] 5 SKYE MUNOZA N 2023 90 [facility] LORATADINE 10MG TAB TAKE ONE TABLET BY MOUTH ONCE A DAY FOR ALLERGIC RHINITIS ON EMPTY STOMACH ORAL DISCONT INUED 08/18/2023 [id number] 4 SKYE MUNOZ N 2022 90 [facility] MELOXICAM 15MG TAB TAKE ONE TABLET BY MOUTH ONCE A DAY FOR OSTEOART HRITIS ORAL ACTIVE 11/06/2024 [id number] 4 SKYE MUNOZA N 2023 90 [facility] MELOXICAM 15MG TAB TAKE ONE TABLET BY MOUTH ONCE A DAY FOR OSTEOART HRITIS ORAL DISCONT INUED 05/01/2024 [id number] 4 SKYE MUNOZA N 2023 90 [facility] MENTHOL/MET HYL SALICYLATE (10-15%) LOW CONC. CREAM,TOP APPLY LIGHTLY TO AFFECTED AREA(S) FOUR TIMES A DAY FOR PAIN (EXTERNA L USE ONLY) TOPICA L ACTIVE 05/01/2024 [id number] 4 SKYE MUNOZA N 2023 90 [facility] metFORMIN 1000 mg oral tablet TAKE ONE TABLET BY MOUTH TWICE A DAY, # 180 EA, 3 total refill(s ), Acute Complet ed 04/16/2023 180.0 Ambulat ory Pharmac y METFORMIN HCL 1000MG TAB TAKE ONE TABLET BY MOUTH TWICE A DAY WITH MEALS FOR DIABETES TAKE WITH FOOD. AVOID ALCOHOL. DISCONTI NUE BEFORE GETTING XRAY DYE. ORAL SUSPEND ED 02/10/2025 [id number] 5 SKYE MUNOZ N 2024 180 [facility] METFORMIN HCL 1000MG TAB TAKE ONE TABLET BY MOUTH TWICE A DAY WITH MEALS FOR DIABETES TAKE WITH FOOD. AVOID ALCOHOL. DISCONTI NUE BEFORE GETTING XRAY DYE. ORAL DISCONT INUED 03/21/2024 [id number] 4 SKYE MUNOZA N 2023 180 [facility] METFORMIN HCL 1000MG TAB TAKE ONE TABLET BY MOUTH TWICE A DAY WITH MEALS FOR DIABETES TAKE WITH FOOD. AVOID ALCOHOL. DISCONTI NUE BEFORE GETTING XRAY DYE. ORAL DISCONT INUED 09/05/2023 [id number] 4 SKYE MUNOZ N 2022 180 [facility] METFORMIN HCL 1000MG TAB TAKE ONE TABLET BY MOUTH DAILY. ORAL ACTIVE SKYE MUNOZ N 2022 [facility] NIACIN (EQV-NIASPA N) 1000MG TAB,SA TAKE ONE TABLET BY MOUTH AT BEDTIME AFTER A LOW FAT SNACK ORAL DISCONT INUED BY PROVIDE R 05/01/2024 [id number] SEN DEWITT 2023 90 [facility] NIACIN (EQV-NIASPA N) 1000MG TAB,SA TAKE ONE TABLET BY MOUTH AT BEDTIME FOR HIGH CHOLESTE ROL AFTER A LOW FAT SNACK ORAL DISCONT INUED BY PROVIDE R 09/05/2023 [id number] 4 SKYE MUNOZ MARA N 2022 90 [facility] niacin 1000 mg oral tablet, extended release TAKE ONE TABLET BY MOUTH ONCE DAILY, # 90 EA, 2 total refill(s ), Acute Complet ed 04/17/2023 90.0 Ambulat ory Pharmac y OMEGA-3-ACI D ETHYL ESTERS 1000MG CAP,ORAL TAKE TWO CAPSULES BY MOUTH TWICE A DAY FOR HIGH TRIGLYCE RIDES ORAL ACTIVE 05/09/2024 [id number] SEN DEWITT 2023 120 [facility] SEMAGLUTIDE 0.25MG/0.37 5ML INJ,SOLN,PE N,3ML INJECT 0.5MG UNDER THE SKIN EVERY WEEK FOR DIABETES SUBCUT ANEOUS DISCONT INUED BY JOSE Bernard 06/01/2024 [id number] SEN DEWITT 2023 1 [facility] SEMAGLUTIDE 0.25MG/0.37 5ML INJ,SOLN,PE N,3ML INJECT 0.25MG UNDER THE SKIN EVERY WEEK FOR 4 WEEKS, THEN INJECT 0.5MG EVERY WEEK FOR DIABETES SUBCUT ANEOUS DISCONT INUED 06/01/2024 [id number] SEN DEWITT 2023 1 [facility] SEMAGLUTIDE 1MG/0.75ML INJ,SOLN,PE N,3ML INJECT 1MG UNDER THE SKIN EVERY WEEK FOR DIABETES SUBCUT ANEOUS DISCONT INUED 07/26/2024 [id number] SEN DEWITT 2023 1 [facility] SEMAGLUTIDE 2MG/0.75ML INJ,SOLN,PE N,3ML INJECT 2MG UNDER THE SKIN EVERY WEEK FOR DIABETES SUBCUT ANEOUS ACTIVE 02/28/2025 [id number] 4 SEN DEWITT 2023 3 [facility] SEMAGLUTIDE 2MG/0.75ML INJ,SOLN,PE N,3ML INJECT 2MG UNDER THE SKIN EVERY WEEK FOR DIABETES SUBCUT ANEOUS DISCONT INUED 08/31/2024 [id number] SEN DEWITT 2023 1 [facility] SEMAGLUTIDE 2MG/0.75ML INJ,SOLN,PE N,3ML INJECT 2MG UNDER THE SKIN EVERY WEEK FOR DIABETES SUBCUT ANEOUS DISCONT INUED 07/26/2024 [id number] SEN DEWITT 2023 3 [facility] SILDENAFIL CITRATE 100MG TAB TAKE ONE-HALF TABLET BY MOUTH ONE HOUR PRIOR TO SEXUAL ACTIVITY NEEDED - LIMIT 6 DOSES PER 30 DAYS ORAL ACTIVE 02/10/2025 [id number] 4 TAMMYSKYE TERRY N 2023 9 [facility] SITagliptin 100 mg oral tablet TAKE ONE TABLET BY MOUTH EVERY DAY, # 90 EA, 1 total refill(s ), Acute Complet ed 12/25/2022 90.0 Ambulat ory Pharmac y SODIUM CHLORIDE 0.65% SOLN,NASAL SPRAY USE 1 SPRAY INTO NOSTRIL( S) EVERY 4 HOURS NEEDED NASAL ACTIVE 02/10/2025 [id number] 4 TAMMYSKYE TERRY N 2023 45 [facility] Results Combined list of recent [...] Specimen Type: BLOOD Comment: Test Performed by: [id number] Meter #: [id number] Ordering Provider: TERELL MARQUEZ Report Released Date/Time: Feb 10, 2024 04:17 PM Reporting Lab: [address] [address] Performing Lab: [address] [address] [facility] MICRAL/CR EAT PROFILE (STL) ALBUMIN [MASS/VOLUM E] IN URINE 9.6 mg/L 01/23 Specimen Type: URINE No comment entered. Ordering Provider: KIARA MUNOZ Report Released Date/Time: May 01, 2023 12:17 PM Reporting Lab: [facility] [address] [place] [phone] Performing Lab: [facility] [address] [place] [phone] [facility] MICRAL/CR EAT PROFILE (STL) ALBUMIN/CRE ATININE [MASS RATIO] IN URINE 16 mg/g 0 - 29 01/23 Specimen Type: URINE No comment entered. Ordering Provider: KIARA MUNOZ Report Released Date/Time: May 01, 2023 12:17 PM Reporting Lab: [address] [address] Performing Lab: [address] [address] [facility] MICRAL/CR EAT PROFILE (STL) CREATININE [MASS/VOLUM E] IN URINE 61.8 mg/dL 63 - 166 01/23 L Specimen Type: URINE No comment entered. Ordering Provider: KIARA MUNOZ Report Released Date/Time: May 01, 2023 12:17 PM Reporting Lab: [address] [address] Performing Lab: [address] [address] [facility] COMPREHEN SIVE METABOLIC PANEL CREATININE [MASS/VOLUM E] IN SERUM OR PLASMA 0.95 mg/dL 0.7 - 1.3 01/23 Specimen Type: PLASMA Comment: No hemolysis noted. Ordering Provider: KIARA MUNOZ Report Released Date/Time: May 01, 2023 12:17 PM Reporting Lab: [address] [address] Performing Lab: [address] [address] [facility] COMPREHEN SIVE METABOLIC PANEL UREA NITROGEN [MASS/VOLUM E] IN SERUM OR PLASMA 23.5 mg/dL 9.0 - 25.0 01/23 Specimen Type: PLASMA Comment: No hemolysis noted. Ordering Provider: KIARA MUNOZ Report Released Date/Time: May 01, 2023 12:17 PM Reporting Lab: [address] [address] Performing Lab: [facility] [address] [facility] [address] [facility] COMPREHEN SIVE METABOLIC PANEL GLUCOSE [MASS/VOLUM E] IN SERUM OR PLASMA 110 mg/dL 72 - 99 01/23 H Specimen Type: PLASMA Comment: No hemolysis noted. Ordering Provider: KIARA MUNOZ Report Released Date/Time: May 01, 2023 12:17 PM Reporting Lab: [facility] [address] [facility] [address] Performing Lab: [facility] [address] [facility] [address] [facility] COMPREHEN SIVE METABOLIC PANEL SODIUM [MOLES/VOLU ME] IN SERUM OR PLASMA 144 meq/L 136 - 145 01/23 Specimen Type: PLASMA Comment: No hemolysis noted. Ordering Provider: KIARA MUNOZ Report Released Date/Time: May 01, 2023 12:17 PM Reporting Lab: [facility] [address] [place] [phone] Performing Lab: [place] [id number] [facility] [address] [facility] COMPREHEN SIVE METABOLIC PANEL POTASSIUM [MOLES/VOLU ME] IN SERUM OR PLASMA 4.4 meq/L 3.5 - 5 01/23 Specimen Type: PLASMA Comment: No hemolysis noted. Ordering Provider: KIARA MUNOZ Report Released Date/Time: May 01, 2023 12:17 PM Reporting Lab: [facility] [address] [facility] [address] Performing Lab: [address] [address] [facility] COMPREHEN SIVE METABOLIC PANEL CHLORIDE [MOLES/VOLU ME] IN SERUM OR PLASMA 111 meq/L 98 - 107 01/23 H Specimen Type: PLASMA Comment: No hemolysis noted. Ordering Provider: KIARA MUNOZ Report Released Date/Time: May 01, 2023 12:17 PM Reporting Lab: [facility] [address] [facility] [address] Performing Lab: [facility] [address] [facility] [address] [facility] COMPREHEN SIVE METABOLIC PANEL CARBON DIOXIDE, TOTAL [MOLES/VOLU ME] IN SERUM OR PLASMA 24 meq/L 22 - 31 01/23 Specimen Type: PLASMA Comment: No hemolysis noted. Ordering Provider: KIARA MUNOZ Report Released Date/Time: May 01, 2023 12:17 PM Reporting Lab: [facility] [address] [place] [phone] Performing Lab: [address] [address] [facility] COMPREHEN SIVE METABOLIC PANEL CALCIUM [MASS/VOLUM E] IN SERUM OR PLASMA 10.4 mg/dL 8.4 - 10.4 01/23 Specimen Type: PLASMA Comment: No hemolysis noted. Ordering Provider: KIARA MUNOZ Report Released Date/Time: May 01, 2023 12:17 PM Reporting Lab: [facility] [address] [facility] [address] Performing Lab: [facility] [address] [place] [phone] [facility] COMPREHEN SIVE METABOLIC PANEL PROTEIN [MASS/VOLUM E] IN SERUM OR PLASMA 7.2 g/dL 6 - 8.6 01/23 Specimen Type: PLASMA Comment: No hemolysis noted. Ordering Provider: KIARA MUNOZ Report Released Date/Time: May 01, 2023 12:17 PM Reporting Lab: [facility] [address] [place] [phone] Performing Lab: [facility] [address] [place] [phone] [facility] COMPREHEN SIVE METABOLIC PANEL ALBUMIN [MASS/VOLUM E] IN SERUM OR PLASMA 4.5 g/dL 3.4 - 5 01/23 Specimen Type: PLASMA Comment: No hemolysis noted. Ordering Provider: KIARA MUNOZ Report Released Date/Time: May 01, 2023 12:17 PM Reporting Lab: [facility] [address] [place] [phone] Performing Lab: [address] [address] [facility] COMPREHEN SIVE METABOLIC PANEL BILIRUBIN.T OTAL [MASS/VOLUM E] IN SERUM OR PLASMA 0.4 mg/dL 0.2 - 1.2 01/23 Specimen Type: PLASMA Comment: No hemolysis noted. Ordering Provider: KIARA MUNOZ Report Released Date/Time: May 01, 2023 12:17 PM Reporting Lab: [address] [address] Performing Lab: [phone] [place] [address] COMPREHEN SIVE METABOLIC PANEL ALKALINE PHOSPHATASE [ENZYMATIC ACTIVITY/VO LUME] IN SERUM OR PLASMA 29 U/L 40 - 150 01/23 L Specimen Type: PLASMA Comment: No hemolysis noted. Ordering Provider: KIARA MUNOZ Report Released Date/Time: May 01, 2023 12:17 PM Reporting Lab: [address] [address] Performing Lab: [address] [address] [facility] COMPREHEN SIVE METABOLIC PANEL ASPARTATE AMINOTRANSF ERASE [ENZYMATIC ACTIVITY/VO LUME] IN SERUM OR PLASMA 23 U/L 5 - 34 01/23 Specimen Type: PLASMA Comment: No hemolysis noted. Ordering Provider: KIARA MUNOZ Report Released Date/Time: May 01, 2023 12:17 PM Reporting Lab: [address] [address] Performing Lab: [address] [address] [facility] COMPREHEN SIVE METABOLIC PANEL ALANINE AMINOTRANSF ERASE [ENZYMATIC ACTIVITY/VO LUME] IN SERUM OR PLASMA 29 U/L 8 - 40 01/23 Specimen Type: PLASMA Comment: No hemolysis noted. Ordering Provider: KIARA MUNOZ Report Released Date/Time: May 01, 2023 12:17 PM Reporting Lab: [address] [address] Performing Lab: [address] [address] [facility] COMPREHEN SIVE METABOLIC PANEL GLOMERULAR FILTRATION RATE/1.73 SQ M.PREDICTED [VOLUME RATE/AREA] IN SERUM, PLASMA OR BLOOD BY CREATININE- BASED FORMULA (CKD-EPI 2020) 97.5 60 01/23 Specimen Type: PLASMA Comment: No hemolysis noted. Ordering Provider: KIARA MUNOZ Report Released Date/Time: May 01, 2023 12:17 PM Reporting Lab: [address] [address] Performing Lab: [phone] [place] [address] HGA1C HEMOGLOBIN A1C/HEMOGLO BIN.TOTAL IN BLOOD 5.8 4.0 - 6.0 01/23 Specimen Type: BLOOD No comment entered. Ordering Provider: KIARA MUNOZ Report Released Date/Time: May 01, 2023 12:17 PM Reporting Lab: [address] [address] Performing Lab: [address] [address] [facility] LIPID PANEL (STL) CHOLESTEROL [MASS/VOLUM E] IN SERUM OR PLASMA 95 mg/dL 0 - 200 01/23 Specimen Type: PLASMA Comment: No hemolysis noted. Ordering Provider: KIARA MUNOZ Report Released Date/Time: May 01, 2023 12:17 PM Reporting Lab: [address] [address] Performing Lab: [address] [address] [facility] LIPID PANEL (STL) TRIGLYCERID E [MASS/VOLUM E] IN SERUM OR PLASMA 57 mg/dL 0 - 150 01/23 Specimen Type: PLASMA Comment: No hemolysis noted. Ordering Provider: KIARA MUNOZ Report Released Date/Time: May 01, 2023 12:17 PM Reporting Lab: [address] [address] Performing Lab: [place] [id number] LIPID PANEL (STL) CHOLESTEROL IN LDL [MASS/VOLUM E] IN SERUM OR PLASMA BY CALCULATION 49 mg/dL 01/23 Specimen Type: PLASMA Comment: No hemolysis noted. Ordering Provider: KIARA MUNOZ Report Released Date/Time: May 01, 2023 12:17 PM Reporting Lab: [address] [address] Performing Lab: [place] [id number] LIPID PANEL (STL) CHOLESTEROL IN HDL [MASS/VOLUM E] IN SERUM OR PLASMA 35 mg/dL 40 01/23 L Specimen Type: PLASMA Comment: No hemolysis noted. Ordering Provider: KIARA MUNOZ Report Released Date/Time: May 01, 2023 12:17 PM Reporting Lab: [address] [address] Performing Lab: [place] [phone] [facility] PROST. SPECIFIC AG.(PB-ST L) PROSTATE SPECIFIC AG [...] May 01, 2023 12:17 PM Reporting Lab: [address] [place] [address] Performing Lab: [address] VITAMIN D, 25-HYDROX Y 25-HYDROXYV ITAMIN [...] May 01, 2023 12:17 PM Reporting Lab: [place] [id number] Performing Lab: [address] HGA1C HEMOGLOBIN A1C/HEMOGLO BIN.TOTAL IN BLOOD 6.8 4.0 - 6.0 07/25 H Specimen Type: BLOOD No comment entered. Ordering Provider: ROBIN DEWITT Report Released Date/Time: July 26, 2023 12:26 PM Reporting Lab: [place] [phone] Performing Lab: [address] [id number] [place] [address] LIPID PANEL (STL) CHOLESTEROL [MASS/VOLUM E] IN SERUM OR PLASMA 132 mg/dL 0 - 200 07/25 Specimen Type: PLASMA No comment entered. Ordering Provider: ROBIN DEWITT Report Released Date/Time: July 26, 2023 12:26 PM Reporting Lab: [place] [id number] Performing Lab: [address] [id number] LIPID PANEL (STL) TRIGLYCERID E [MASS/VOLUM E] IN SERUM OR PLASMA 118 mg/dL 0 - 150 07/25 Specimen Type: PLASMA No comment entered. Ordering Provider: ROBIN DEWTIT Report Released Date/Time: July 26, 2023 12:26 PM Reporting Lab: [address] [address] Performing Lab: [address] [address] [facility] LIPID PANEL (STL) CHOLESTEROL IN LDL [MASS/VOLUM E] IN SERUM OR PLASMA BY CALCULATION 68 mg/dL 07/25 Specimen Type: PLASMA No comment entered. Ordering Provider: ROBIN DEWITT Report Released Date/Time: July 26, 2023 12:26 PM Reporting Lab: [address] [address] Performing Lab: [address] [address] [facility] [facility] LIPID PANEL (STL) CHOLESTEROL IN HDL [MASS/VOLUM E] IN SERUM OR PLASMA 40 mg/dL 40 07/25 Specimen Type: PLASMA No comment entered. Ordering Provider: ROBIN DEWITT Report Released Date/Time: July 26, 2023 12:26 PM Reporting Lab: [address] [address] Performing Lab: [address] [address] [facility] GLUCOSE,B LOOD-poct (L) GLUCOSE [MASS/VOLUM E] IN BLOOD BY AUTOMATED TEST STRIP 120 mg/dL 72 - 99 05/01 H Specimen Type: BLOOD Comment: Test Performed by: [id number] Meter #: [id number] Ordering Provider: KIARA MUNOZ Report Released Date/Time: May 01, 2023 04:01 PM Reporting Lab: [address] [address] Performing Lab: [address] [address] [facility] Vital Signs Combined list of inpatient and outpatient Vital Signs from Department of Defense and Veterans Affairs, ranging from 12 months to all on record, depending upon the facility. Vital Sign Value Date Comments Source No data available for this section Ambulatory Pharm acy SYSTOLIC BLOOD PRESSURE 170 02/10/20 13:59:34 [facility] DIASTOLIC BLOOD PRESSURE 98 024 13:59:34 [facility] PULSE OXIMETRY 96 02/10/2024 13:59:34 [facility] WEIGHT 221.5 02/10/2024 13:59:34 [facility] BMI 30kg/m2 02/10/2024 13:59:34 [facility] PAIN 5 02/10/2024 13:59:34 [facility] HEIGHT 72 02/10/2024 13:59:34 [facility] TEMPERATURE 98 02/10/2024 13:59:34 [facility] PULSE 86 02/10/2024 13:59:34 [facility] RESPIRATION 18 02/10/2024 13:59:34 [facility] SYSTOLIC BLOOD PRESSURE 112 11/19/19 24 10:00:00 [facility] DIASTOLIC BLOOD PRESSURE 76 024 10:00:00 [facility] PAIN 4 11/19/2023 10:00:00 [facility] TEMPERATURE 98.4 11/19/2023 10:00:00 [facility] PULSE 87 11/19/2023 10:00:00 [facility] RESPIRATION 16 11/19/2023 10:00:00 [facility] SYSTOLIC BLOOD PRESSURE 144 07/26/19 24 12:02:00 [facility] DIASTOLIC BLOOD PRESSURE 80 024 12:02:00 [facility] PULSE OXIMETRY 96 07/26/2023 12:02:00 [facility] WEIGHT 244 07/26/2023 12:02:00 [facility] BMI 33kg/m2 07/26/2023 12:02:00 [facility] PAIN 2 07/26/2023 12:02:00 [facility] TEMPERATURE 97.6 07/26/2023 12:02:00 [facility] PULSE 89 07/26/2023 12:02:00 [facility] RESPIRATION 18 07/26/2023 12:02:00 [facility] SYSTOLIC BLOOD PRESSURE 133 05/01/19 24 11:29:49 [facility] DIASTOLIC BLOOD PRESSURE 86 024 11:29:49 [facility] PULSE OXIMETRY 96 05/01/2023 11:29:49 [facility] WEIGHT 259 05/01/2023 11:29:49 [facility] BMI 35kg/m2 05/01/2023 11:29:49 [facility] PAIN 3 05/01/2023 11:29:49 [facility] HEIGHT 72 05/01/2023 11:29:49 [facility] TEMPERATURE 97.6 05/01/2023 11:29:49 [facility] PULSE 92 05/01/2023 11:29:49 [facility] RESPIRATION 18 05/01/2023 11:29:49 [facility] SYSTOLIC BLOOD PRESSURE 146 04/26/19 15:18:24 [facility] DIASTOLIC BLOOD PRESSURE 68 024 15:18:24 [facility] PULSE OXIMETRY 94 04/26/2023 15:18:24 [facility] WEIGHT 256.2 04/26/2023 15:18:24 [facility] BMI 35kg/m2 04/26/2023 15:18:24 [facility] PAIN 4 04/26/2023 15:18:24 [facility] TEMPERATURE 97.4 04/26/2023 15:18:24 [facility] PULSE 105 04/26/2023 15:18:24 [facility] RESPIRATION 18 04/26/2023 15:18:24 [facility] Encounters Combined list of: 1) Encounters from Department of [facility] Affairs facilities going back up to thelast 18 months. 2) Encounters from the Department of Defense facilities going back up to 280 months. Location Location Details Encounter Type Encounter Number Reason For Visit Attending Provider ADM Date DC Date Status Disposition Source [facility] OFFICE O/P EST LOW 20-29 MIN [id number] Diagnos is: ICD-10- CM M54.12 Radicul opathy, cervica l region< br/> ROSI MUNOZ N 09/13 [facility] Outpatient Encounter [id number] SELENE PLAZA L 09/13 [facility] Outpatient Encounter [id number] 10/02 [facility] Outpatient Encounter [id number] Diagnos is: ICD-10- CM 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< br/> JOHN RAMAN RIL L 10/03 [facility] OFF/OP CONSLTJ NEW/EST HI 55 [id number] Diagnos is: ICD-10- CM E11.9 Type 2 diabete s mellitu s without complic ations< br/> CHRISSIE KELLEY M 10/26 [facility] MTMS BY PHARM FAMILY MANAGER 15 MIN [id number] Diagnos is: ICD-10- CM E11.9 Type 2 diabete s mellitu s without complic ations< br/> CHRISSIE HUERTA E 10/26 [facility] AUTOMATIC BP MONITOR, DIAL [id number] Diagnos is: ICD-10- CM I10 Essenti al (primar y) hyperte nsion<b r/> JOHN RAMAN RIL L 10/26 [facility] Encounter [id number] 11/02 [facility] Outpatient Encounter [id number] 11/09 [facility] Outpatient Encounter [id number] 11/13 [facility] OFF/OP CNSLTJ NEW/EST LOW 30 [id number] Diagnos is: ICD-10- CM D72.829 Elevate d white blood cell count, unspeci fied
NETO MCGILL 12/05 [facility] Outpatient Encounter [id number] 12/27 [facility] OFFICE O/P EST MOD 30-39 MIN [id number] Diagnos is: ICD-10- CM M54.2 Cervica lgia
SAW,GUNNAR HN 01/16 [facility] Outpatient Encounter [id number] ROSI MUNOZ ROHIT N 02/27 [facility] Outpatient Encounter [id number] ROSI MUNOZ ROHIT N 03/21 [facility] Outpatient Encounter [id number] Diagnos is: ICD-10- CM N52.9 Male erectil e dysfunc tion, unspeci fied
ROSI MUNOZ ROHIT N 03/21 [facility] Outpatient Encounter [id number] Diagnos is: ICD-10- CM Z72.0 Tobacco use<br/ > NANO ,NETO M 04/24 [facility] OFFICE O/P NEW MOD 45 MIN [id number] Diagnos is: ICD-10- CM E78.5 Hyperli pidemia , unspeci fied
ROBIN DEWITT M 04/26 [facility] N [facility] OFFICE O/P EST MOD 30 MIN [id number] Diagnos is: ICD-10- CM G89.29 Other chronic pain
ROSI MUNOZ N 05/01 [facility] QNHP OL DIG ASSMT&MGMT 5-10 [id number] Diagnos is: ICD-10- CM E78.5 Hyperli pidemia , unspeci fied
NICHOLAS CHANDLER 05/02 [facility] QNHP OL DIG ASSMT&MGMT 5-10 [id number] Diagnos is: ICD-10- CM E78.5 Hyperli pidemia , unspeci fied
NICHOLAS CHANDLER [facility] FLU IMM NO ADMIN DOC MAYANK [id number] Diagnos is: ICD-10- CM Z23 Encount er for immuniz ation<b r/> TRISTAN BRASWELL RA 05/09 [facility] QNHP OL DIG ASSMT&MGMT 5-10 [id number] Diagnos is: ICD-10- CM E11.9 Type 2 diabete s mellitu s without complic ations< br/> SHWETHA ESPARZA 06/04 [facility] HC PRO PHONE CALL 5-10 MIN [id number] Diagnos is: ICD-10- CM E11.9 Type 2 diabete s mellitu s without complic ations< br/> SHIRLEY ARAGON M 07/09 [facility] OFFICE O/P EST MOD 30 MIN [id number] Diagnos is: ICD-10- CM M54.2 Cervica lgia
DANISHAAP RIL L 07/23 [facility] Outpatient Encounter [id number] 07/24 [facility] OFFICE O/P EST MOD 30 MIN [id number] Diagnos is: ICD-10- CM E11.9 Type 2 diabete s mellitu s without complic ations< br/> DEWITTSENG M 07/25 [facility] Outpatient Encounter [id number] HALLEY JOHANSEN R 07/28 [facility] Outpatient Encounter [id number] 08/25 [facility] Outpatient Encounter [id number] 10/07 [facility] EMERGENCY DEPT VISIT LOW MDM [id number] Diagnos is: ICD-10- CM M54.50 Low back pain, unspeci fied
MUDALLAL,O MAR 11/18 [facility] En[facility] [id number] 01/16 [facility] Outpatient Encounter [id number] SELENE PLAZA L 01/22 [facility] Outpatient Encounter [id number] 02/02 [facility] Outpatient Encounter [id number] 02/06 [facility] OFFICE O/P EST MOD 30 MIN [id number] Diagnos is: ICD-10- CM M54.51 Vertebr ogenic low back pain
ROSI MUNOZ N 02/09 [facility] Outpatient Encounter [id number] 02/09 [facility] FUNDUS PHOTOGRAPH Y W/I&R [id number] Diagnos is: ICD-10- CM Z13.5 Encount er for screeni ng for eye and ear disorde rs
STACIE MARQUEZ 02/09 [facility] Outpatient Encounter [id number] Diagnos is: ICD-10- CM Z13.5 Encount er for screeni ng for eye and ear disorde rs
STACIE MARQUEZ C 02/09 [facility] OFFICE O/P EST MOD 30 MIN [id number] Diagnos is: ICD-10- CM E78.5 Hyperli pidemia , unspeci fied
VICTORIANO,MEHD IA 03/02 [facility] OFF/OP CNSLTJ NEW/EST LOW 30 [id number] Diagnos is: ICD-10- CM Z12.2 Encntr screen for maligna nt neoplas m of respira tory organs< br/> Leonid SEGURA JR 03/02 [facility] Procedures Combined list of: 1) Procedures from Department of [facility] facilities going back [facility] to [facility], not all [place] non-surgical procedures are included; 2) All procedures from the Department of [facility] facilities. 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 Social History Type Response Date Comment Sourc e Tobacco smoking status NHIS [place]-TOBACCO USE EVERY DAY CIGARETTES 02/10/2024 [facility] History of tobacco use [place]-TO[place]AC[place] NEVER USED OTHER TYPE 02/10/2024 [facility] History of tobacco use [place]-TOBACCO USER EVERY DAY 08/17/2022 [facility] History of tobacco use [place] USE INSURANCE CLAIMS SPECIALIST NO 08/27/2018 [facility] This section is an empty social history [...] List of future care activities from Department [facility] facilities. Additional future care activities may be listed in the Assessment and Plan section. Date/Time Care Activity Care Activity Detail Facili ty 03/10/2024 AMBULATORY - MEDICINE AMBULATORY - MEDICI NE [facility] 03/10/2024 AMBULATORY - REHAB MEDICINE AMBULATORY - REHAB MEDICINE [facility] 04/09/2024 AMBULATORY - NONE AMBULATORY - NONE [facility] 07/20/2024 AMBULATORY - MEDICINE AMBULATORY - MEDICI NE [facility] 08/10/2024 AMBULATORY - MEDICINE AMBULATORY - MEDICI NE [facility] 02/10/2024 Consult Order PT OUTPT STL Con s Stagecraft Professor's Choice [facility] 03/02/2024 Laboratory - Nut And Bolt Assembler ry Order LIPID PANEL (STL) GREEN LI/HEP BLD/PLAS PLASMA SP [facility] 03/02/2024 Laboratory - Nut And Bolt Assembler ry Order HGA1C BLOOD SP [facility] 04/09/2024 Imaging - CT Scan Order LDCT ASIF G CANCER SCREENING [facility] Functional Status Combined list of recent functional and cognitive assessments recorded at Department of Defense and Veterans Affairs (VA).VA Functional [place] Measurement (FIM) Scale: 1 = Total Assistance (Subject = 0% +), 2 = Maximal Assistance (Subject = 25% +), 3 = Moderate Assistance (Subject = 50% +), 4 = Minimal Assistance (Subject = 75% +), 5 = Supervision, 6 = Modified [place] (Device), 7 = Complete [place] (Timely, Safely). Assessment Date/Time Source Assessment Type Assessment Skill Assessment Score Assessment Details No data available for this section
--- OUTSIDE RECORDS SUMMARY | 2024-03-07 11:29 | XMS_ITS | Encounter Summary ---
Author Organization [facility] Address [address] [place] [address]. [place], [place] [address] [place] [address] Care Team Providers Care Transporter Driver Name Role Phone Unavailable Primary Care Provider Unavailabl e Encounter Details Date Type Department Care Team (Latest Contact Info) Description 08/21/2012 Abstract [facility] Medical Group Social History Tobacco Use Types [...]
--- OUTSIDE RECORDS SUMMARY | 2024-03-07 11:29 | XMS_ITS | Encounter Summary ---
Author Organization [facility] Address [address] [place] [address]. [place], [place] [address] [place] [address] Care Team Providers Care Warehouse Administrator Name Role Phone Samuel Jeffries MD Primary Care Provider [phone] Reason for Referral * Sleep Lab (Routine) - Closed Specialty Diagnoses / Procedures Referred By Davon johns Referred To Contact [facility] Sleep Disorders Diagnoses JIMENA (obstructive sleep apnea) Procedures Diagnostic PSG (56578, 23740) Christian Grier MD [address] [place] [address] Phone: tel: fax: [facility] [address] [place] [address] Phone: tel: fax: Referral ID Status Reason Start Date Expiration Date Visits Re quested Visits Authorized [id number] Closed 09/05/2022 03/04/2023 1 1 Reason for Visit * Reason Comments Obstructive Sleep Apnea * Auth/Cert (Routine) Specialty Diagnoses / Procedures Referred By Contac t Referred To Contact Referral ID Status Reason Start Date Expiration Date Visits Re quested Visits Authorized [id number] 1 1 Encounter Details Date Type Department Care Team (Latest Contact Info) Description 11/02/2022 8:29 PM CDT - 11/02/2022 11:59 PM CDT Hospital Encounter [facility] [address] [place], [place] [id number] Christian Grier MD [address] [place] [address] [place] [address] Obstructive Sleep Apnea Discharge Disposition: Home or [...] CDTAssociated Order(s): POLYSOMNOGRAPHY 4 OR MORE PARAMETERS [facility]???[place] SPLIT NIGHT POLYSOMNOGRAM INTERPRETATION PATIENT NAME: [...] exacerbatesnoring and other sleep-related issues, such as CHIEF PHYSICAL THERAPIST depressants, especially at bedtime. This document was electronically signed by: Logan Garcia M.D. on 11/29/2022 at 10:50 AM. documented in this encounter Plan of Treatment Not on file documented as of this encounter Procedures Procedure Name Priority Date/Time Associated Diagnosis Comments POLYSOMNOGRAPHY 4 OR MORE PARAMETERS Routine 11/02/2022 8:30 PM CDT JIMENA (obstructive sleep apnea) documented in this encounter Results * Diagnostic PSG (18279, 43002) (11/02/2022 8:30 PM CDT) Narrative [facility] - 11/02/2022 8:30 PM CDT Logan Garcia MD ? 11/29/2022 ??2:31 PM ??[facility] ?[place], [place] ?SPLIT NIGHT POLYSOMNOGRAM INTERPRETATION ? PATIENT [...] snoring and other sleep-related issues, such as CHIEF PHYSICAL THERAPIST depressants, especially at bedtime. This document was electronically signed by: Logan Garcia M.D. on 11/29/2022 at 10:50 AM. us Christian Grier MD SLEEP CENTER ORDERABLES Final R esult [facility] [address] [place] [address], documented in this encounter Visit Diagnoses Diagnosis JIMENA (obstructive sleep apnea) Obstructive sleep apnea (adult) (pediatric) documented in this encounter Care Teams Warehouse Administrator Relationship Specialty Start Date End Date Samuel Jeffries MD [address] [place] [address] PCP - General FAMILY PRACTICE 11/02/22 documented as of this encounter
--- OUTSIDE RECORDS SUMMARY | 2024-03-07 11:29 | XMS_ITS | Encounter Summary ---
Author Organization [facility] Address [address] [place] [address]. [place], [place] [address] [place] [address] Care Team Providers Care Executive Vice President And Chief Operating Officer Name Role Phone Unavailable Primary Care Provider Unavailabl e Encounter Details Date Type Department Care Team (Latest Contact Info) Description 08/26/[address] [facility] Medical Group Social History Tobacco Use [...]
--- OUTSIDE RECORDS SUMMARY | 2024-03-07 11:29 | XMS_ITS | Encounter Summary ---
Author Organization [facility] Address [address] [place] [address]. [place] [address] [place] [address] Care Team Providers Care Closet Organizer Name Role Phone Samuel Jeffries MD Primary Care Provider [phone] Encounter Details Date Type Department Care Team [...] on filedocumented in this encounter Care Teams Closet Organizer Relationship Specialty Start Date End Date Samuel Jeffries MD [address] [place] [address] PCP - General FAMILY PRACTICE 11/02/22 documented as of this encounter
--- OUTSIDE RECORDS SUMMARY | 2024-03-07 11:29 | XMS_ITS | Encounter Summary ---
Author Organization [facility] Address [address] [place] [address]. 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 MRI C SPINE [...] MONTH AFTER CORTISONE SHOT.. 4 YEARS AGO [facility] [place]...HAD TRACTION 4 DAYS AGO NO HELP CURRENTLY IN P.T. NO CHIRO DR.YANG DIAS MGMT FOUR YEARS AGO..HAD INJECTIONS THAT HELPED. RECENTLY...HAD 2ND INJECTION 1-2 WEEKS AGO HELPED NECK AND LEFT ARM PAIN 50% VICODIN 10/325MG TID PRN AND BACLOFEN DAILY FOR THE LAST 4-6 WEEKS. 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 He has been referred [...] History ?? Tobacco Use 305.1 1PPD Vitals [id number] 03:57PM Heart Rate 88 Systolic 108 Diastolic [...] Harris M.D.; Oct 27 2012 4:54PM (Author) CTOR DATA documented in this encounter Plan of Treatment Not on file documented as of this encounter Visit Diagnoses Not on filedocumented in this encounter
--- OUTSIDE RECORDS SUMMARY | 2024-03-07 11:29 | XMS_ITS | Encounter Summary ---
Author Organization [facility] Address [address] [place] [address]. [place], [place] [address] [place] [address] Care Team Providers Care Blanket Inspector Name Role Phone Unavailable Primary Care Provider Unavailabl e Encounter Details Date Type Department Care Team (Latest Contact Info) Description 10/15/2012 Abstract [facility] Medical Group Social History Tobacco [...]
--- OUTSIDE RECORDS SUMMARY | 2024-03-07 11:29 | XMS_ITS | Clinical Summary ---
Author Organization [facility] Address [address] [place] [address]. [place] [address] [place] [address] Care Team Providers Care Overlock Hemmer Name Role Phone Samuel Jeffries MD Primary Care Provider [phone] Social History Tobacco Use Types Packs/Day Years [...] patient's age to complete this topic Insurance [facility] Socializr [facility] Care Teams Overlock Hemmer Relationship Specialty Start Date End Date Samuel Jeffries MD [address] [place] [address] PCP - General FAMILY PRACTICE 11/02/22
--- OUTSIDE RECORDS SUMMARY | 2024-03-07 11:29 | XMS_ITS | Encounter Summary ---
Author Organization [facility] Address [address] [place] [address]. [place], [place] [address] [place] [address] Care Team Providers Care Machine Shop Helper Name Role Phone Unavailable Primary Care Provider Unavailabl e Encounter Details Date Type Department Care Team (Late st Contact Info) Description 04/21/1996 Abstract [facility] CONVERSION [address] [place] [address] , Generic Conversion, Social History Tobacco Use [...]
--- OUTSIDE RECORDS SUMMARY | 2024-03-07 11:29 | XMS_ITS | Encounter Summary ---
Author Organization [facility] Address [address] [place] [address]. [place], [place] [address] [place] [address] Care Team Providers Care Fabrication Engineer Name Role Phone Unavailable Primary Care Provider Unavailabl e Reason for Referral * Sleep Lab (Routine) - Closed Specialty Diagnoses / Procedures Referred By Davon johns Referred To Contact [facility] Sleep Disorders Diagnoses JIMENA (obstructive sleep apnea) Procedures Diagnostic PSG (07072, 72879) Christian Grier MD [address] [place] [address] Phone: tel: fax: [facility] [address] [place] [address] Phone: tel: fax: Referral ID Status Reason Start Date Expiration Date Visits Re quested Visits Authorized [id number] Closed 09/05/2022 03/04/2023 1 1 Encounter Details Date Type Department Care Team (Late st Contact Info) Description 09/05/[address] [facility] [address] [place], [place] [id number] Rosaline Brooks, [facility] Social History Tobacco Use Types Packs/Day Years Used Date Smoking Tobacco: Never Assessed Sex and Gender Information Value Date Recorded Sex Assigned at Not on file Legal Sex Male 5:41 PM CDT Gender Identity Not on file Sexual Orientation Not on file documented as of this encounter Plan of Treatment Not on file documented as of this encounter Results * Diagnostic PSG (27573, 79561) (11/02/2022 8:30 PM CDT) Narrative [facility] - 11/02/2022 8:30 PM CDT Logan Garcia MD ? 11/29/2022 ??2:31 PM ??[facility] ?[place], [place] ?SPLIT NIGHT POLYSOMNOGRAM INTERPRETATION ? PATIENT [...] snoring and other sleep-related issues, such as LAND CLASSIFIER depressants, especially at bedtime. This document was electronically signed by: Logan Garcia M.D. on 11/29/2022 at 10:50 AM. Christian Grier MD SLEEP CENTER ORDERABLES Final R esult [facility] [address] [place] [address], [place] [phone] documented in this encounter Visit Diagnoses Diagnosis JIMENA (obstructive sleep apnea)- Primary Obstructive sleep apnea (adult) (pediatric) JIMENA (obstructive sleep apnea) Obstructive sleep apnea (adult) (pediatric) documented in this encounter
--- OUTSIDE RECORDS SUMMARY | 2024-03-07 11:30 | XMS_ITS | Encounter Summary ---
Author Organization [facility] Address [address] [place] [address] Phone Care Team Providers Care Radio Presenter Name Role Phone Anjelica Calvo Primary Care Provider [phone] Encounter Details Date Type Department Care Team (Late st Contact Info) Description 11/06/2018 Orders Only [facility] [address] [facility] Medical Office Building [address] [place] [id number] Marlin Walker PA [address] [place], [place] [id number] Cervical radiculopathy (Primary Dx) Social History Tobacco Use Types Packs/Day Years Used Date Smoking Tobacco: Every Day Cigarettes Smokeless Tobacco: Never Alcohol Use Standard Drinks/Week Comments Yes 0 (1 standard drink = 0.6 oz pur e alcohol) socially Sex and Gender Information Value Date Recorded Sex Assigned at Not on file 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
--- OUTSIDE RECORDS SUMMARY | 2024-03-07 11:30 | XMS_ITS | Encounter Summary ---
Author Organization [facility] Address [address] [place] [address] Care Team Providers Care Tumbler Plater Name Role Phone Anjelica Calvo Primary Care Provider [phone] Reason for Referral * Diagnostic Imaging (Routine) - Closed Specialty Diagnoses / Procedures Referred By Contac t Referred To Contact Diagnoses Cervical pain (neck) Procedures XR Spine Cervical 2 or 3 Views Marlin Walker PA Phone: tel: fax: [facility] Referral ID Status Reason Start Date Expiration Date Visits Re quested Visits Authorized [id number] Closed 09/09/2018 03/20/2020 1 1 Reason for Visit * Diagnostic Imaging (Routine) - Closed Specialty Diagnoses / Procedures Referred By Contac t Referred To Contact Diagnoses Cervical pain (neck) Procedures XR Spine Cervical 2 or 3 Views Marlin Walker PA Phone: tel: fax: [facility] Referral ID Status Reason Start Date Expiration Date Visits Re quested Visits Authorized [id number] Closed 09/09/2018 03/20/2020 1 1 Encounter Details Date Type Department Care Team (Latest Contact Info) Description 09/09/2018 3:20 PM CDT - 09/09/2018 11:59 PM CDT Hospital Encounter [facility] at the [facility] [address] [place] [address] Rahul Jaimes MD [address] [place] [address] Marlin Walker PA [address] [place] [address] Cervical pain (neck) Discharge Disposition: Discharge to home or self care Social History Tobacco Use Types Packs/Day Years Used Date Smoking Tobacco: Every Day Cigarettes Smokeless Tobacco: Never Alcohol Use Standard Drinks/Week Comments Yes 0 (1 standard drink = 0.6 oz pur e alcohol) socially Sex and Gender Information Value Date Recorded Sex Assigned at Not on file 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
--- OUTSIDE RECORDS SUMMARY | 2024-03-07 11:30 | XMS_ITS | Encounter Summary ---
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
--- OUTSIDE RECORDS SUMMARY | 2024-03-07 11:30 | XMS_ITS | Encounter Summary ---
Author Organization [facility] Facility Care Team Providers Care Mud Mixer Helper Name Role Phone Unavailable Primary Care Provider Unavailabl e Encounter Details Date Type Department Care Team (Late st Contact Info) Description 08/05/2013 - 08/05/2013 11:59 PM CDT Hospital Encounter [facility] [place] [address] [place] [address] Follow-up examination, following other surgery; Arthrodesis status Social History Tobacco Use Types Packs/Day Years Used Date Smoking Tobacco: Every Day Sex and Gender Information Value Date Recorded Sex Assigned at Not on file Legal Sex Male 10:19 AM CHAPTER RELATIONS ADMINISTRATOR Gender Identity Not on file Sexual Orientation [...] M.D. FINAL REPORT ACC# ??Date Time ??Exam [id number] August 05, 2013 10:37:00 08328 Spine Cerv 3views or less EXAMINATION: ?? [...] M.D. FINAL REPORT ACC# Date Time Exam [id number] August 05, 2013 10:37:00 48831 Spine Cerv 3views or less EXAMINATION: Cervical [...]
--- OUTSIDE RECORDS SUMMARY | 2024-03-07 11:30 | XMS_ITS | Encounter Summary ---
Author Organization [facility] Address [address] [place] [address] Care Team Providers Care Toll Gate Tender Name Role Phone Unknown, Notinfile Primary Care Provider Unavail able Encounter Details Date Type Department Care Team (Latest Contact Info) Description 03/01/2017 1:19 PM FLIGHT COORDINATOR - 03/01/2017 11:59 PM FLIGHT COORDINATOR Hospital Encounter [facility] OP INTERIM [phone] [place] [address] [place] [address] Discharge Disposition: Discharge to home or self care Social History Tobacco Use Types Packs/Day Years Used Date Smoking Tobacco: Every Day Sex and Gender Information Value Date Recorded Sex Assigned at Not on file Legal Sex Male 10:19 AM FLIGHT COORDINATOR Gender Identity Not on file Sexual Orientation Not on file documented as of this encounter Discharge Disposition Disposition Code Departure Means Destination Discharge to home or self care documented in this encounter Plan of Treatment Not on file documented as of this encounter Procedures Procedure Name Priority Date/Time Associated Diagnosis Comments KNEE RADIOGRAPHY, FRONTAL (AP), LATERAL, OBLIQUE Routine 03/01/2017 7:30 PM FLIGHT COORDINATOR documented in this encounter Results * KNEE RADIOGRAPHY, FRONTAL (AP), LATERAL, OBLIQUE (03/01/2017 7:30 PM FLIGHT COORDINATOR) Anatomical Region Laterality Modality N/A Radiographic Raeann ging 03/01/2017 7:30 PM FLIGHT COORDINATOR Narrative 03/01/2017 7:56 PM FLIGHT COORDINATOR ZAIDA PRITCHETT M.D. FINAL REPORT ACC# ??Date Time ??Exam [id number] Mar 01, 2017 13:30:00 22821 Knee 3 views R EXAMINATION: ??Right knee [...] PRITCHETT M.D. on Mar 01 2017 ??1:54P [id number] PRITCHETT M.D. FINAL REPORT Attending: ??TEMI, ??BRODY Requesting: ??TEMI, ??BRODY Requesting Fax: ?? Attending Fax: ?? Attending ID: ??[id number] Requesting ID: ??[id number] Report To 1 ID: ??[id number] ? Report To 1 Name: ??, ?? Report To 1 FAX: ?? NextGen Order #: ?? Procedure Note Miscellaneous, Not In File - 03/01/2017 ZAIDA PRITCHETT M.D. FINAL REPORT ACC# Date Time Exam [id number] Mar 01, 2017 13:30:00 22682 Knee 3 views R EXAMINATION: Right knee [...] PRITCHETT M.D. on Mar 01 2017 1:54P [id number] PRITCHETT M.D. FINAL REPORT Attending: BRODY MEMBRENO Requesting: BRODY MEMBRENO Requesting Fax: Attending Fax: Attending ID: [id number] Requesting ID: [id number] Report To 1 ID: [id number] Report To 1 Name: , Report To 1 FAX: NextGen Order #: Brody Membreno MD IMG XR PROCEDURES Final Result documented in this encounter Visit Diagnoses Not on filedocumented in this encounter Care Teams Toll Gate Tender Relationship Specialty Start Date End Date Unknown, Notinfile PCP - General 03/01/17 03/17/17 documented as of this encounter
--- OUTSIDE RECORDS SUMMARY | 2024-03-07 11:30 | XMS_ITS | Encounter Summary ---
Author Organization [facility] Address [address] [place] [address] Phone Care Team Providers Care Can Striper Name Role Phone Anjelica Calvo Primary Care Provider [phone] Reason for Referral * Diagnostic Imaging (Routine) - Closed Specialty Diagnoses / Procedures Referred By Contac t Referred To Contact Diagnoses Low back pain, non-specific Procedures XR Scoliosis 6 or More Views Renu Urrutia NP [address] [place] [address] Phone: tel: fax: [address] [address] Referral ID Status Reason Start Date Expiration Date Visits Re quested Visits Authorized [id number] Closed 06/25/2022 07/25/2023 1 1 Encounter Details Date Type Department Care Team (Late st Contact Info) Description 06/25/2022 Orders Only [facility] Neurosurgery [address] [facility] Medical Office Building [address] [place] [address] Renu Urrutia NP [address] [place] [address] Low back pain, non-specific (Primary Dx) Social History Tobacco Use Types Packs/Day Years Used Date Smoking Tobacco: Every Day Cigarettes Smokeless Tobacco: Never Alcohol Use Standard Drinks/Week Comments Yes 0 (1 standard drink = 0.6 oz pur e alcohol) socially Sex and Gender Information Value Date Recorded Sex Assigned at Not on file Legal Sex Male 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 Renu Urrutia TECHNOLOGY EDUCATION INSTRUCTOR IMG XR PROCEDURES Final Result documented in this encounter Visit Diagnoses Diagnosis Low back pain, non-specific- Primary Low back pain, non-specific documented in this encounter Care Teams Can Striper Relationship Specialty Start Date End Date Anjelica Calvo PA [address] [place] [address] PCP - General Gastroenterology 09/05/18 12/10/23 documented as of this encounter
--- OUTSIDE RECORDS SUMMARY | 2024-03-07 11:30 | XMS_ITS | Encounter Summary ---
Author Organization [facility] Address [address] [place] [address] Phone Care Team Providers Care Mushroom Farmer Name Role Phone Anjelica Calvo Primary Care Provider [phone] Encounter Details Date Type Department Care Team (Late st Contact Info) Description 09/03/2022 Orders Only [facility] Neurosurgery [address] 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
--- OUTSIDE RECORDS SUMMARY | 2024-03-07 11:30 | XMS_ITS | Encounter Summary ---
Author Organization [facility] Address [address] [place] [address] Care Team Providers Care Cellophane Worker Name Role Phone Anjelica Calvo Primary Care Provider [phone] Reason for Referral * Diagnostic Imaging (Routine) - Closed Specialty Diagnoses / Procedures Referred By Contac t Referred To Contact Diagnoses Low back pain, non-specific Procedures XR Scoliosis 6 or More Views Renu Urrutia NP [address] [place] [address] Phone: tel: fax: [address] [place] [address] Referral ID Status Reason Start Date Expiration Date Visits Re quested Visits Authorized [id number] Closed 06/25/2022 07/25/2023 1 1 Reason for Visit * Diagnostic Imaging (Routine) - Closed Specialty Diagnoses / Procedures Referred By Contac t Referred To Contact Diagnoses Low back pain, non-specific Procedures XR Scoliosis 6 or More Views Renu Urrutia NP [address] [place] [address] Phone: tel: fax: [address] [place] [address] Referral ID Status Reason Start Date Expiration Date Visits Re quested Visits Authorized [id number] Closed 06/25/2022 07/25/2023 1 1 Encounter Details Date Type Department Care Team (Latest Contact Info) Description 07/03/2022 9:00 AM CDT - 07/03/2022 11:59 PM CDT Hospital Encounter [facility] Radiology [address] 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 us Renu Urrutia UNIT TRUST MANAGER IMG XR PROCEDURES Final Result documented in this encounter Visit Diagnoses Diagnosis Low back pain, non-specific documented in this encounter Care Teams Cellophane Worker Relationship Specialty Start Date End Date Anjelica Calvo PA [address] [place] [address] PCP - General Gastroenterology 09/05/18 12/10/23 documented as of this encounter
--- OUTSIDE RECORDS SUMMARY | 2024-03-07 11:30 | XMS_ITS | Encounter Summary ---
Author Organization [facility] Facility Care Team Providers Care Director Of Labor And Delivery Name Role Phone Unavailable Primary Care Provider Unavailabl e Encounter Details Date Type Department Care Team (Latest Contact Info) Description 04/21/2013 2:00 PM MATERIAL CUTTER - 04/21/2013 4:00 PM MATERIAL CUTTER Hospital Encounter [facility] [place] [address] [place] [address] Other specified pre-operative examination; Displacement of cervical [...] on file Legal Sex Male 10:19 AM MATERIAL CUTTER Gender Identity Not on file Sexual Orientation Not on file documented as of this encounter Plan of Treatment Not on file documented as of this encounter Procedures Procedure Name Priority Date/Time Associated Diagnosis Comments URINE (AEROBIC) CULTURE, CDR Routine 04/21/2013 3:28 PM MATERIAL CUTTER PLASMA PROTHROMBIN TIME (PT) Routine 04/21/2013 3:28 PM MATERIAL CUTTER PLASMA BASIC METABOLIC PANEL Routine 04/21/2013 3:28 PM MATERIAL CUTTER BLOOD CELL COUNT (CBC) Routine 4 3:28 PM MATERIAL CUTTER BLOOD ABO, RH, INDIRECT AB SCREEN Routine 04/21/2013 3:28 PM MATERIAL CUTTER ELECTROCARDIOGRAPHY (ECG) 04/21/2013 ALL MICROBIOLOGY REPORT SECTION Routine 04/21/2013 12:00 AM MATERIAL CUTTER DISCHARGE LABORATORY CUMULATIVE REPORT Routine 04/21/2013 12:00 AM MATERIAL CUTTER documented in this encounter Results * Urine (aerobic) culture (04/21/2013 3:28 PM MATERIAL CUTTER) Urine, clean voided (Unknown) 04/21/2013 3:28 PM MATERIAL CUTTER 04/21/2013 4:27 PM MATERIAL CUTTER Narrative HISTORICAL RESULTS - 04/23/2013 8:29 AM MATERIAL CUTTER No growth Historical Provider LAB MICROBIOLOGY - GENERA L ORDERABLES Final Result Performing Organization Address [facility] de Phone Number HISTORICAL RESULTS * (ABNORMAL) Plasma basic metabolic panel (04/21/2013 3:28 PM MATERIAL CUTTER) Sodium 140 135 - 145 mmol/L HISTORICAL [...] mg/dl HISTORICAL RESULTS Plasma 04/21/2013 3:28 PM MATERIAL CUTTER Mundo Jaimes MD LAB BLOOD ORDERABLES Final Re sult Performing Organization Address [facility] Co de Phone Number HISTORICAL RESULTS * Plasma prothrombin time (PT) (04/21/2013 3:28 PM MATERIAL CUTTER) Prothrombin time (PT) 11.1 9.0 - 12.0 [...] updated copy of the Tool Book at [email or web address] Current Interpretive Data was last revised 2011. Plasma 04/21/2013 3:28 PM MATERIAL CUTTER us Mundo Jaimes MD LAB BLOOD ORDERABLES Final Re sult HISTORICAL RESULTS * (ABNORMAL) Blood cell count (CBC) (04/21/2013 3:28 PM MATERIAL CUTTER) WBC 12.3(H) 3.8 - 9.8 K/cumm HISTORICAL [...] RESULTS Blood specimen (specimen) 04/21/2013 3:28 PM MATERIAL CUTTER us Mundo Jaimes MD LAB BLOOD ORDERABLES Final Re sult HISTORICAL RESULTS * Blood ABO, Rh, indirect ab screen (04/21/2013 3:28 PM MATERIAL CUTTER) ABO, Rho(D) B Negative HISTORI DARÍO RESULTS Danny, indirect Negative HISTORICAL RESULTS Blood specimen (specimen) 04/21/2013 3:28 PM MATERIAL CUTTER us Mundo Jaimes MD LAB BLOOD ORDERABLES Final Re sult HISTORICAL RESULTS * All Microbiology Report Section (04/21/2013 12:00 AM MATERIAL CUTTER) 04/21/2013 Narrative HISTORICAL RESULTS - 04/23/2013 10:03 AM MATERIAL CUTTER ? [facility] ?[facility] ?[place], [place] [address] ? Patient Name: ??BRODY TILLEY ? Med Rec Number: [id number] ? Fin Number: ?[id number] ? Date: ?1975 ? Sex/Age: ? Male 37 years ? Admit Date: ?04/21/2013 ? Discharge Date: 04/21/2013 ? Doctor: ?Jaimes , Mundo M ? Facility: ?[facility] ? Location: ?CPAP ?* Abnormal ??A Alert [...] Discharge Laboratory Cumulative Report (04/21/2013 12:00 AM MATERIAL CUTTER) 04/21/2013 Narrative HISTORICAL RESULTS - 04/23/2013 11:22 AM MATERIAL CUTTER ?[facility] ?Department of Laboratories ? [facility] ? [place], [place] [address] Patient Name: ??BRODY TILLEY Rec Number: [id number] Fin Number: ?[id number] Date: ?1975 Sex/Age: ? Male 37 years Admit Date: ?04/21/2013 Discharge Date: 04/21/2013 Doctor: ?Mundo Jaimes Facility: ?[facility] Location: ?CPAP Chart Printed: 04/23/2013 11:22 ?? [...]
--- OUTSIDE RECORDS SUMMARY | 2024-03-07 11:30 | XMS_ITS | Encounter Summary ---
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 Gender Identity Not on file Sexual Orientation Not on file documented as of this encounter Miscellaneous Notes * Telephone Encounter - Anitha Dunbar - 09/21/2022 7:50 AM CDT Radiology department is requesting insurance information Document scanned into chart * Telephone Encounter - Ignacio Page - 08/02/2022 10:11 AM CDT Reason for visit: Return Pt Date: 09/07/22 Time: 10:15 Location: [place] [address]) Provider ANNALISE Urrutia Routed: Directly to [employer] SYSTEMS ADMINISTRATOR * Telephone Encounter - Joselito Musa - 05/21/2022 3:57 PM CDT Records request to PCP for ins authorization for secondary ins () * Telephone Encounter - Joselito Musa - 05/21/2022 3:35 PM CDT Department of Neurological Surgery at [facility] Spine Intake 05/21/22 Too Chu 1975 [id number] Anjelica Calvo PA Referring physician PCP Referred to: First Available: Second Opinion: No Insurance: Yes: Type of insurance [facility] Choice Plus Litigation: No Has the patient [...] Pt Appt Date: 07/03/22 Time: 9:30am Location: [place] [address]) Provider ANNALISE Urrutia Routed: Directly to [employer] SYSTEMS ADMINISTRATOR * Telephone Encounter - Sierra Lyons - 05/16/2022 11:24 AM CST Called patient, no answer, left voicemail. NDER PRESS OPERATOR * Telephone Encounter - Carole Olivares - 02/27/2022 3:06 PM CST [facility] patient Seeking new apt Dx: back pain Hx cervical discectomy with fusion in 2013 NDER PRESS OPERATOR documented in this encounter Plan of Treatment Not on file documented as of this encounter Visit Diagnoses Not on filedocumented in this encounter Care Teams Casket Inspector Relationship Specialty Start Date End Date Anjelica Calvo PA [address] [place] [address] PCP - General Gastroenterology 09/05/18 12/10/23 documented as of this encounter
--- OUTSIDE RECORDS SUMMARY | 2024-03-07 11:30 | XMS_ITS | Encounter Summary ---
Author Organization [facility] Address [address] [place] [address] Phone Care Team Providers Care Bombsight Specialist Name Role Phone Anjelica Calvo Primary Care Provider [phone] Reason for Referral * Diagnostic Imaging (Routine) - Closed Specialty Diagnoses / Procedures Referred By Davon t Referred To Contact Diagnoses Cervical pain (neck) Procedures XR Spine Cervical 2 or 3 Views Marlin Walker PA Phone: tel: fax: [facility] Referral ID Status Reason Start Date Expiration Date Visits Re quested Visits Authorized [id number] Closed 09/09/2018 03/20/2020 1 1 Reason for Visit * Reason Comments Pain Pain Encounter Details Date Type Department Care Team (Late st Contact Info) Description 09/09/2018 3:00 PM CDT Office Visit [facility] Orthopaedic Surgery [address] [place] [address] Marlin aWlker PA [address] [place] [address] Cervical pain (neck) (Primary Dx) Social History Tobacco Use Types Packs/Day Years Used Date Smoking Tobacco: Every Day Cigarettes Smokeless Tobacco: Never Alcohol Use Standard Drinks/Week Comments Yes 0 (1 standard drink = 0.6 oz pur e alcohol) socially Sex and Gender Information Value Date Recorded Sex Assigned at Not on file Legal Sex Male 10:19 AM CLINICAL TRANSPLANT COORDINATOR Gender Identity Not on file Sexual [...] C5-6 diske[facility] Jaimes, who presents for evaluation [...] Rahul Jaimes. Marlin Walker PA-C Sports Medicine [facility] Department of Orthopaedic Surgery Portions of this note were dictated using SmartHub Direct speech recognition software. Please excuse any meteorologist in charge errors. documented in this encounter Plan of [...] 07/03/2022 added in this encounter Care Teams Bombsight Specialist Relationship Specialty Start Date End Date Anjelica Calvo PA [address] [place] [address] PCP - General Gastroenterology 09/05/18 12/10/23 documented as of this encounter
--- OUTSIDE RECORDS SUMMARY | 2024-03-07 11:30 | XMS_ITS | Encounter Summary ---
Author Organization [facility] Healthcare Address [address] [place] [address] Care Team Providers Care Mental Health Case Manager Name Role Phone Prudence Rivera NP Primary Care Provider [phone] Reason for Visit * Reason Comments Establish Care Pt is here to est eileen re. Encounter Details Date Type Department Care Team (Late st Contact Info) Description 12/11/2023 1:30 PM CDT Office Visit 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 Chief Complaint Patient presents with [facility] Pt is here to est care. Subjective: Too Chu is a 48 y.o. male. Patient is being seen today [facility]. HPI Pt has a hx of DM; [...] complication, without long-term current use of insulin ([facility]) ([facility]) (Primary) Assessment & Plan: Last A1c 6.8% in July 2023. Labs scanned into media. Hypertension associated with diabetes ([facility]) Assessment & Plan: Stable/ Improved. Blood pressure is adequately controlled on lisinopril (Prinivil) . We will not make any medication changes today. Will have him follow-up in 6 months for continued monitoring and management Managed by the [place]. Lumbar back pain Assessment & Plan: I gave her flexeril and ibuprofen to take prn as directed for back pain. He can make appt as neededfor primary care as he gets most of his care from the [facility] Hyperlipidemia associated with type 2 diabetes mellitus ([facility]) Assessment & Plan: Lipid abnormalities are stable. Pharmacotherapy as ordered. Continues on atorvastatin Lipids will be reassessed in 6 months. Managed by [place] Other orders - cyclobenzaprine (FLEXERIL) 5 mg [...] be reassessed in 6 months. Managed by [place] * Assessment & Plan Note - Prudence Rivera NP - 12/14/2023 9:47 PM CDTAssociated Problem(s): Controlled type 2 diabetes mellitus without complication, without long-term current use of insulin ([facility]) ([facility]) Last A1c 6.8% in July 2023. Labs scanned into media. documented in this encounter Plan of Treatment Not on file documented as of this encounter Visit Diagnoses Diagnosis Controlled type 2 diabetes mellitus without complication, without long-term current use of insulin (CMS/HCC) ([facility])- Primary Hypertension associated with diabetes ([facility]) Unspecified essential hypertension Lumbar back pain Lumbago Hyperlipidemia associated with type 2 diabetes mellitus ([facility]) documented in this encounter Discontinued Medications [...] 12/11/2023 added in this encounter Care Teams Mental Health Case Manager Relationship Specialty Start Date End Date Prudence Rivera NP PCP - General Family Medicine 12/11/23 documented as of this encounter
--- OUTSIDE RECORDS SUMMARY | 2024-03-07 11:30 | XMS_ITS | Encounter Summary ---
Author Organization [facility] Address [address] [place] [address] Phone Care Team Providers Care Career Discovery Teacher Name Role Phone Anjelica Calvo Primary Care Provider [phone] Reason for Visit * Reason Comments Pain Encounter Details Date Type Department Care Team (Late st Contact Info) Description 08/25/2022 11:00 AM CDT Office Visit [facility] - [facility] [address] [place] [address] Jose D Tran MD [address] [place] [address] Pain of lumbar spine (Primary Dx) Social [...] on file Legal 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 Jose D Tran MD [facility] Department of Orthopedic Surgery Division of Physical Medicine and Rehabilitation Portions of this plan were dictated using M Modal Fluency Direct. Community Engagement Coordinator variances may occur. Occasional wrong-word or sound-alike [...] someone for his low back at the [place] a couple of days ago who was [...] Urrutia as scheduled. Jose D Tran MD Cardiology Consultant Physical Medicine and Rehabilitation Department of Orthopaedics Portions of this note were dictated using M Modal Fluency Direct. Community Engagement Coordinator variances may occur. Occasional wrong-word or sound-alike [...] Primary documented in this encounter Care Teams Career Discovery Teacher Relationship Specialty Start Date End Date Anjelica Calvo PA [address] [place] [address] PCP - General Gastroenterology 09/05/18 12/10/23 documented as of this encounter
--- OUTSIDE RECORDS SUMMARY | 2024-03-07 11:30 | XMS_ITS | Encounter Summary ---
Author Organization [facility] Address [address] [place] [address] Phone Care Team Providers Care Training Facilitator Name Role Phone Anjelica Calvo Primary Care Provider [phone] Encounter Details Date Type Department Care Team (Late st Contact Info) Description 09/07/2022 10:15 AM CDT Office Visit [facility] Neurosurgery 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
--- OUTSIDE RECORDS SUMMARY | 2024-03-07 11:30 | XMS_ITS | Encounter Summary ---
Author Organization [facility] Facility Care Team Providers Care Safety Deposit Boxes Custodian Name Role Phone Unavailable Primary Care Provider Unavailabl e Encounter Details Date Type Department Care Team (Late st Contact Info) Description 05/04/2013 6:11 AM KEYPUNCH OPERATOR - 05/05/2013 2:41 PM KEYPUNCH OPERATOR Hospital Encounter [facility] [place] [address] [place] [address] Spinal stenosis in cervical region; Type 2 or unspecified type diabetes mellitus; Essential hypertension; Other and unspecified hyperlipidemia; Obstructive sleep apnea; Obesity; Body mass index 34.0-34.9, adult; Tobacco use disorder Social History Tobacco Use Types Packs/Day Years Used Date Smoking Tobacco: Never Assessed Sex and Gender Information Value Date Recorded Sex Assigned at Not on file Legal Sex Male 10:19 AM KEYPUNCH OPERATOR Gender Identity Not on file Sexual Orientation Not on file documented as of this encounter Last Filed Vital Signs Vital Sign Reading Time Taken Comments Blood Pressure 140/82 05/05/2013 10:00 AM KEYPUNCH OPERATOR Pulse 111 05/05/2013 10:00 AM KEYPUNCH OPERATOR Temperature - - Respiratory Rate - - Oxygen Saturation 95% 05/05/2013 10: 00 AM KEYPUNCH OPERATOR Inhaled Oxygen Concentration - - Weight 113.4 kg (249 lb 15.7 oz) 05/04/2013 3:44 PM KEYPUNCH OPERATOR Height 182.9 cm (6') 05/04/2013 3:44 PM KEYPUNCH OPERATOR Body Mass Index 33.9 05/04/2013 3:44 PM KEYPUNCH OPERATOR documented in this encounter Miscellaneous Notes * Op Note - ProviderCassidy MD - 05/04/2013 12:00 AM CST Patient: Brody Tilley Reg No: [id number] [facility] #: [id number] Admit Dt.: 05/04/2013 : 1975 Pt Type: 100 Room No: OTHER Attending: Mundo Jaimes M.D. Surgeon: Mundo Jaimes M.D. Dictating: Mundo Jaimes M.D. Service Dt: 05/04/2013 OPERATIVE REPORT FIRST FIRE EXTINGUISHER REPAIRER: Samuel Rodriguez M.D. ANESTHESIA: General endotracheal anesthesia. [...] remove the anterior osteophytes at this level. [place] distraction posts were placed. One of the [place] posts was temporarily removed and bone marrow aspirate harvested from the post tract. This was used to reconstitute Vitoss BA for later arthrodesis. The [place] post was then replaced and the disc [...] This space was inserted and counter-sunk. The [place] posts were then removed and the post holes filled with Hemabsorb. The high speed drill was used to further contour the vertebral column to receive a plate. We then performed an anterior cervical instrumented fusion [facility]. 15 mm screws [...] Jaimes M.D. 05/05/2013 04:01 P Gracie FordW/grace #[id number] Editing MT: TD: 05/04/2013 11:17:00 cc: Mundo Jaimes M.D. documented in this encounter Plan of Treatment Not on file documented as of this encounter Procedures Procedure Name Priority Date/Time Associated Diagnosis Comments BLOOD GLUCOSE, POC Routine 05/05/2013 11 :52 AM KEYPUNCH OPERATOR BLOOD GLUCOSE, POC Routine 05/05/2013 7: 38 AM KEYPUNCH OPERATOR DISCHARGE LABORATORY CUMULATIVE REPORT Routine 05/05/2013 12:00 AM KEYPUNCH OPERATOR BLOOD GLUCOSE, POC Routine 05/04/2013 9: 58 PM KEYPUNCH OPERATOR BLOOD GLUCOSE, POC Routine 05/04/2013 10 :07 AM KEYPUNCH OPERATOR BLOOD ABO, RH, INDIRECT AB SCREEN Routine 05/04/2013 6:30 AM KEYPUNCH OPERATOR BLOOD GLUCOSE, POC Routine 05/04/2013 6: 25 AM KEYPUNCH OPERATOR BLOOD HEMOGLOBIN A1C Routine 05/04/2013 6:07 AM KEYPUNCH OPERATOR BLOOD CELL COUNT (CBC) Routine 05/04/2013 6:07 AM KEYPUNCH OPERATOR documented in this encounter Results * Blood glucose, POC (05/05/2013 11:52 AM KEYPUNCH OPERATOR) Glucose, POC, bld 196 70 - 199 mg/dl HISTORICAL RESULTS Blood specimen (specimen) 05/05/2013 11:52 AM KEYPUNCH OPERATOR Mundo Jaimes MD LAB BLOOD ORDERABLES Final Re sult Performing Organization Address [facility] de Phone Number HISTORICAL RESULTS * Blood glucose, POC (05/05/2013 7:38 AM KEYPUNCH OPERATOR) Glucose, POC, bld 187 70 - 199 mg/dl HISTORICAL RESULTS Blood specimen (specimen) 05/05/2013 7:38 AM KEYPUNCH OPERATOR us Mundo Jaimes MD LAB BLOOD ORDERABLES Final Re sult Performing Organization Address [facility] de Phone Number HISTORICAL RESULTS * Discharge Laboratory Cumulative Report (05/05/2013 12:00 AM KEYPUNCH OPERATOR) 05/05/2013 Narrative HISTORICAL RESULTS - 05/05/2013 3:25 PM KEYPUNCH OPERATOR ?[facility] ?Department of Laboratories ? One [facility] [place] ? [place], [place] [address] Patient Name: ??[facility] Rec Number: [id number] Fin Number: ?[id number] Date: ?1975 Sex/Age: ? Male 37 years Admit Date: ?05/04/2013 Discharge Date: 05/05/2013 Doctor: ?Mundo Jaimes: ?[facility] Location: ?[id number] Chart Printed: 05/05/2013 15:25 ?? * Abnormal [...] and children were not included. ??(Diabetes Care 31:1762-0637, 2008). ??The eAG is not equivalent to [...] ?Test: Neut Pct Auto ??Lymph Pct Auto ??Ziebach Pct Auto ? Reference: [38.7-74.5] ?[20.0-54.3] ? [4.3-13.5] ? Units: % ?% ? % 05/04/2013 ?? 06:07:12 ?? 60.8 ? 27.9 ?7.7 ?Test: Eos Pct Auto ??Baso Pct Auto ??Neut Abs Auto ? Reference: [0.0-6.0] ? [0.0-3.0] ?[1.8-6.6] ? Units: % ? % ?K/cumm 05/04/2013 ?? 06:07:12 ?? 3.2 ? 0.4 ?8.4 ??H ?Test: Lymph Abs Auto ??Ziebach Abs Auto ??Eos Abs Auto ? Reference: [...] ORDERABLES Rufina l Result Performing Organization Address [facility] de Phone Number HISTORICAL RESULTS * Blood glucose, POC (05/04/2013 9:58 PM KEYPUNCH OPERATOR) Glucose, POC, bld 169 70 - 199 mg/dl HISTORICAL RESULTS Blood specimen (specimen) 05/04/2013 9:58 PM KEYPUNCH OPERATOR us Mundo Jaimes MD LAB BLOOD ORDERABLES Final Re sult Performing Organization Address [facility] de Phone Number HISTORICAL RESULTS * Blood glucose, POC (05/04/2013 10:07 AM KEYPUNCH OPERATOR) Glucose, POC, bld 172 70 - 199 mg/dl HISTORICAL RESULTS Blood specimen (specimen) 05/04/2013 10:07 AM KEYPUNCH OPERATOR us Mundo Jaimes MD LAB BLOOD ORDERABLES Final Re sult Performing Organization Address [facility] de Phone Number HISTORICAL RESULTS * Blood ABO, Rh, indirect ab screen (05/04/2013 6:30 AM KEYPUNCH OPERATOR) ABO, Rho(D) B Negative HISTORI DARÍO RESULTS Danny, indirect Negative HISTORICAL RESULTS Blood specimen (specimen) 05/04/2013 6:30 AM KEYPUNCH OPERATOR us Mundo Jaimes MD LAB BLOOD ORDERABLES Final Re sult Performing Organization Address [facility] de Phone Number HISTORICAL RESULTS * Blood glucose, POC (05/04/2013 6:25 AM KEYPUNCH OPERATOR) Glucose, POC, bld 194 70 - 199 mg/dl HISTORICAL RESULTS Blood specimen (specimen) 05/04/2013 6:25 AM KEYPUNCH OPERATOR us Mundo Jaimes MD LAB BLOOD ORDERABLES Final Re sult Performing Organization Address [facility]/ZIP Co de Phone Number HISTORICAL RESULTS * (ABNORMAL) Blood cell count (CBC) (05/04/2013 6:07 AM KEYPUNCH OPERATOR) WBC 13.8(H) 3.8 - 9.8 K/cumm HISTORICAL [...] RESULTS Blood specimen (specimen) 05/04/2013 6:07 AM KEYPUNCH OPERATOR us Mundo Jaimes MD LAB BLOOD ORDERABLES Final Re sult HISTORICAL RESULTS * (ABNORMAL) Blood hemoglobin A1C (05/04/2013 6:07 AM KEYPUNCH OPERATOR) Hgb A1C 7.4(H) 4.0 - 6.0 % HISTORICAL RESULTS Estimated average glucose 166 mg/dl HISTORICAL RESULTS Comment: The ADA recommends reporting an estimated Average Glucose (eAG) with all Hemoglobin A1c results using the equation derived from a study of 507 normal and diabetic adults. ??Minority populations were underrepresented and children were not included. ??(Diabetes Care 31:6043-4379, 2008). ??The eAG is not equivalent to a fasting glucose. Blood specimen (specimen) 05/04/2013 6:07 AM KEYPUNCH OPERATOR Mundo Jaimes MD LAB BLOOD ORDERABLES Final Re sult [facility] Organization Address City/State/ZIP Co de Phone Number [...]
--- OUTSIDE RECORDS SUMMARY | 2024-03-07 11:30 | XMS_ITS | Encounter Summary ---
Author Organization [facility] Address [address] [place] [address] Phone Care Team Providers Care Gut Dropper Name Role Phone Anjelica Calvo Primary Care Provider [phone] Encounter Details Date Type Department Care Team (Late st Contact Info) Description 12/23/2018 10:40 AM CDT Office Visit [facility] Orthopaedic Surgery [address] [facility] Medical Office Building [address] [phone] [place] [address] [place] [address] Radiculitis of right cervical region (Primary Dx) Social History Tobacco Use Types Packs/Day Years Used Date Smoking Tobacco: Every Day Cigarettes Smokeless Tobacco: Never Alcohol Use Standard Drinks/Week Comments Yes 0 (1 standard drink = 0.6 oz pur e alcohol) socially Sex and Gender Information Value Date Recorded Sex Assigned at Not on file 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 Otherwise let us know if you develop any weakness in the arm and we would have you follow-up with Dr. Jaimes If you need to reschedule your appointment or your symptoms worsen, please call . Too Castro MD [facility] Department of Orthopedic Surgery Division [...] 60 capsule Refill: 2 Too Castro MD Subway Guard [facility] Orthopedics Division of Physical Medicine and Rehabilitation Portions of this note were dictated using M*Modal Fluency Direct speech recognition software. Please excuse any manager strategy & account errors. documented in this encounter Plan of Treatment Not on file documented as of this encounter Visit Diagnoses Diagnosis Radiculitis of right cervical region- Primary documented in this encounter Care Teams Gut Dropper Relationship Specialty Start Date End Date Anjelica Calvo PA [address] [place] [address] PCP - General Gastroenterology 09/05/18 12/10/23 documented as of this encounter
--- OUTSIDE RECORDS SUMMARY | 2024-03-07 11:30 | XMS_ITS | Clinical Summary ---
Author Organization [facility] Address [address] [place] [address] Care Team Providers Care Tobacco Packing Machine Operator Name Role Phone Prudence Rivera NP Primary Care Provider [phone] Allergies No known active allergies Medications Jardiance [...] gets most of his care from the [place] Knee pain 03/01/2017 Herniated disc, cervical 12/11/2012 [...] be reassessed in 6 months. Managed by [place] Hypertension associated with diabetes 12/11/2012 Assessment & Plan (12/14/2023 9:49 PM CDT): Stable/ Improved. Blood pressure is adequately controlled on lisinopril (Prinivil) . We will not make any medication changes today. Will have him follow-up in 6 months for continued monitoring and management Managed by the [place]. 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 Gender Identity Not on file Sexual Orientation [...] [facility] SCRIBED eGFR in NonAfrican Tuvaluan 107.3 EXTERNAL LAB Result [facility] Provider HEALTH MAINTENANCE Final Result EXTERNAL LAB from Last 3 Months or Most Recently Relevant to Health Maintenance Insurance [facility] CHOICE PLUS [facility] HMO/PPO Address: [address] [address] [place] [address] [facility] CLAIMS [facility] CHOICE [facility]US [facility] HMO/PPO Address: [place] [id number] [facility] CLAIMS [facility] CHOICE PLUS [facility] HMO/PPO Address: [facility] [address] [place], [place] [id number] [address] CLAIMS Care Teams Tobacco Packing Machine Operator Relationship Specialty Start Date End Date Prudence Rivera NP PCP - General Family Medicine 12/11/23
--- OUTSIDE RECORDS SUMMARY | 2024-03-07 11:30 | XMS_ITS | Encounter Summary ---
Author Organization [facility] Facility Care Team Providers Care Curriculum Writer Name Role Phone Unavailable Primary Care Provider Unavailabl e Encounter Details Date Type Department Care Team (Latest Contact Info) Description 06/03/2013 - 06/03/2013 11:59 PM CDT Hospital Encounter [facility] [place] [address] [place] [address] Aftercare following other surgery of musculoskeletal system; Arthrodesis status; Degeneration of cervical intervertebral disc; Acquired postural lordosis Social History Tobacco Use Types Packs/Day Years Used Date Smoking Tobacco: Never Assessed Sex and Gender Information Value Date Recorded Sex Assigned at Not on file Legal Sex Male 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 FINAL REPORT ACC# ??Date Time ??Exam [id number] Jun 03, 2013 12:35:00 [id number] Spine Cerv 3views or less EXAMINATION: ? [...] M.D. FINAL REPORT ACC# Date Time Exam [id number] Jun 03, 2013 12:35:00 [id number] Spine Cerv 3views or less EXAMINATION: Cervical [...]
--- OUTSIDE RECORDS SUMMARY | 2024-03-07 11:30 | XMS_ITS | Encounter Summary ---
Author Organization [facility] Address [address] [place] [address] Phone Care Team Providers Care Board Of Directors Name Role Phone Anjelica Calvo Primary Care Provider [phone] Reason for Referral * Diagnostic Imaging (Routine) - Closed Specialty Diagnoses / Procedures Referred By Contac t Referred To Contact Diagnoses Neck pain Procedures XR Spine Cervical Complete 4 Or 5 View Renu Urrutia NP [address] [place] [address] Phone: tel: fax: [address] [address] Referral ID Status Reason Start Date Expiration Date Visits Re quested Visits Authorized [id number] Closed 07/03/2022 08/02/2023 1 1 * Consultation (Routine) - Closed Specialty Diagnoses / Procedures Referred By Contac t Referred To Contact Neurosurgery Diagnoses Lumbar back pain Renu Urrutia NP [address] [place] [address] Phone: tel: fax: [facility] (All Locations) Referral ID Status Reason Start Date Expiration Date V isits Requested Visits Authorized [id number] Closed Specialty Services Required 05/21/2022 06/20/2023 1 1 Question Answer Please select the performing region: [facility] (All Locations) [[id number]] # of visits: 1 Reason for Visit * Consultation (Routine) - Closed Specialty Diagnoses / Procedures Referred By Davon t Referred To Contact Neurosurgery Diagnoses Lumbar back pain Renu Urrutia NP [address] [place] [address] Phone: tel: fax: [facility] (All Locations) Referral ID Status Reason Start Date Expiration Date V isits Requested Visits Authorized [id number] Closed Specialty Services Required 05/21/2022 06/20/2023 1 1 Encounter Details Date Type Department Care Team (Late st Contact Info) Description 07/03/2022 9:30 AM CDT Office Visit [facility] Neurosurgery [address] [place] [address] Medical Office Building [address] [place] [address] Renu Urrutia NP [address] [place] [address] Lumbar back pain (Primary Dx); Localized swelling, [...] on file 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
--- OUTSIDE RECORDS SUMMARY | 2024-03-07 11:30 | XMS_ITS | Referral Summary ---
Author Organization [facility] Address [address] [place] [address] Care Team Providers Care Commercial Loan Underwriter Name Role Phone Prudence Rivera NP Primary Care Provider [phone] Encounters Date Type Department Care Team Description 12/11/2023 1:30 PM CDT Office Visit [facility] Primary Care at [address] [address] Prudence Rivera NP Controlled type [...] complication, without long-term current use of insulin ([facility]) 12/11/2012 Assessment & Plan (12/14/2023 9:47 PM CDT): Last A1c 6.8% in July 2023. Labs scanned into media. Hyperlipidemia associated with type 2 diabetes marianela jeffers 12/11/2012 Assessment & Plan (12/14/2023 9:48 PM CDT): Lipid abnormalities are stable. Pharmacotherapy as ordered. Continues on atorvastatin Lipids will be reassessed in 6 months. 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 Gender Identity Not on file Sexual Orientation [...] Final Result * Lipid panel (07/26/2023) Pathologist [facility] SCRIBED Cholesterol, Total 132 na EXTERNAL LAB SCRIBED HDL 40 na EXTERNAL LAB SCRIBED LDL 68 na EXTERNAL LAB SCRIBED Triglycerides 118 na EXTERNAL LAB Blood Result [facility] Provider LAB BLOOD ORDERABLES Rufina l Result Performing Organization Address City/[facility]/ZIP Co de Phone Number EXTERNAL LAB * HM ALBUMIN CREATININE RATIO, URINE (04/30/2023) SCRIBED HM ALBUMIN CREATININE RATIO, URINE 47 EXTERNAL LAB Result [facility] Provider HEALTH MAINTENANCE Final Result EXTERNAL LAB * EGFR (03/08/2023) Pathologist [facility] SCRIBED eGFR in NonAfrican Peruvian 107.3 EXTERNAL LAB Result [facility] Provider HEALTH MAINTENANCE Final Result EXTERNAL LAB from Last 3 Months or Most Recently Relevant to Health Maintenance Insurance [facility] CHOICE PLUS CLAIMS CHOICE PLUS Member Subscriber Plan / Payer (Ef fective 2018-Present) Name:Too Tilley Relation to Subscriber:Spouse Name:JACINDA TILLEY Date of :1971 (Home) Address: [id number] [address] Payer ID:[id number] (NAIC) Type:[facility] HMO/PPO Address: [address] CLAIMS [facility] CHOICE PLUS [facility] CLAIMS Care Teams Commercial Loan Underwriter Relationship Specialty Start Date End Date Prudence Rivera NP PCP - General Family Medicine 12/11/23
--- OUTSIDE RECORDS SUMMARY | 2024-03-07 11:30 | XMS_ITS | Encounter Summary ---
Author Organization [facility] Address [address] [place] [address] Care Team Providers Care Oil Spraying Machine Operator Name Role Phone Anjelica Calvo Primary Care Provider [phone] Encounter Details Date Type Department Care Team (Latest Contact Info) Description 08/25/2022 11:03 AM CDT - 08/25/2022 11:59 PM CDT Hospital Encounter 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
--- OUTSIDE RECORDS SUMMARY | 2024-03-07 11:30 | XMS_ITS | Encounter Summary ---
Author Organization [facility] Address [address] [place] [address] Care Team Providers Care Screen Tender Name Role Phone Anjelica Calvo Primary Care Provider [phone] Reason for Referral * Diagnostic Imaging (Routine) - Closed Specialty Diagnoses / Procedures Referred By Contac t Referred To Contact Diagnoses Neck pain Procedures XR Spine Cervical Complete 4 Or 5 View Renu Urrutia NP [address] [place] [address] Phone: tel: fax: [place] [address] [place] [address] Referral ID Status Reason Start Date Expiration Date Visits Re quested Visits Authorized [id number] Closed 07/03/2022 08/02/2023 1 1 Reason for Visit * Diagnostic Imaging (Routine) - Closed Specialty Diagnoses / Procedures Referred By Contac t Referred To Contact Diagnoses Neck pain Procedures XR Spine Cervical Complete 4 Or 5 View Renu Urrutia NP [address] [place] [address] Phone: tel: fax: [place] [address] [place] [address] Referral ID Status Reason Start Date Expiration Date Visits Re quested Visits Authorized [id number] Closed 07/03/2022 08/02/2023 1 1 Encounter Details Date Type Department Care Team (Latest Contact Info) Description 07/03/2022 10:04 AM CDT - 07/03/2022 11:59 PM CDT Hospital Encounter [id number] [address] [facility] [address] [place] [address] Neck pain Discharge Disposition: Discharge to home [...] on file 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
== END 2024-02-29 10:34 | disposition home or self-care (01) ==
PROVIDERS: Emergency Provider Nurse Practitioner Family; PCP Family Medicine
DX: J06.9 Acute upper respiratory infection, unspecified (principal); E78.5 Hyperlipidemia, unspecified; I25.10 Atherosclerotic heart disease of native coronary artery without angina pectoris; E11.9 Type 2 diabetes mellitus without complications; I10 Essential (primary) hypertension; F17.210 Nicotine dependence, cigarettes, uncomplicated
CPT/HCPCS: 71046; 99213; G0463

== ENCOUNTER 2024-07-07 08:16 | Emergency (ER) | payer OTHER, SELFPAY ==
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
--- OUTSIDE RECORDS SUMMARY | 2024-07-07 08:25 | XMS_ITS | Encounter Summary ---
Author Name [facility] [place] Organization [facility] [place] Address [address] [place] [address] Care Team Providers Care Applied Researcher Name Role Phone SANDRA MUNOZ Primary Care [...] ION RX PLAN Apr 11, 2019 [id number] [phone] Christoph TILLEY SPOUSE [facility] Mar 11, 2017 [id number] [phone] Nino TILLEY SPOUSE [facility] Mar 11, 2019 [id number] [phone] Nino TILLEY SPOUSE [facility] POINT OF SERVICE [facility] Mar 11, 2017 [id number] [phone] Nino TILLEY SPOUSE Selected Encounter This section includes the information on record at CT for the Encounter. Date/Time Encounter Type Encounter Description Reason Provider Source Mar 02, 2024 08:00 AM OFFICE O/P EST MOD 30 MIN ENDOCRINOLOGY ICD-10-CM E78.5 Hyperlipidemia, unspecified ELIZ PASTRANA IHNino Encounter Template Text not used by CT Assessments - Encounter Diagnoses This section includes the primary and secondary diagnoses documented for the Encounter. Date/Time Primary/Secondary Diagnosis Diagnosis Name Provider Source Mar 10, 2024 07:06 PM PRIMARY Hyperlipidemia, unspecified ELIZ PASTRANA [facility] Mar 10, 2024 07:06 PM SECONDARY Other obesity due to excess calories ELIZ PASTRANA [facility] Plan of Treatment: Future Appointments (+ 6 months) and Future Tests (+/- 45 days) The Plan of Treatment section includes future care activities for the [facility] This section includes future appointments and future orders which are active, pending or scheduled. Future Appointments This section includes appointments that were scheduled to occur 6 months from the date of the Encounter, up to a maximum of 20 appointments. The data comes from all [facility]. Appointment Date/Time Appointment Type Appointme nt Facility Name Mar 10, 2024 08:30 AM AMBULATORY - MEDICINE [facility] Mar 10, 2024 09:30 AM AMBULATORY - REHAB MEDICIN E [facility] Apr 01, 2024 10:00 AM AMBULATORY - REHAB MEDICIN E [facility] Apr 09, 2024 08:00 AM AMBULATORY - NONE [facility] Apr 15, 2024 08:30 AM AMBULATORY - REHAB MEDICIN [facility] July 20, 2024 09:00 AM AMBULATORY - MEDICINE [facility] Aug 10, 2024 10:00 AM AMBULATORY - MEDICINE [facility] Active, Pending, and Scheduled Orders This section includes a listing of several types of active, pending, and scheduled orders, including clinic medications orders, diagnostic test orders, procedure orders and consult orders; where the start date of the order is 45 days before the date of the Encounter or 45 days after the date of theEncounter. The data comes from all [facility]. Test Date/Time Test Type Test Details Facility Name Mar 02, 2024 12:00 AM Laboratory - Chemi stry Order HGA1C BLOOD SP [facility] Mar 02, 2024 12:00 AM Laboratory - Chemi stry Order LIPID PANEL (STL) GREEN LI/HEP BLD/PLAS PLASMA SP [facility] Lab Results: +/- 30 days of [...] Type Result - Unit Interpretation Reference Range Specimen Type Comment Feb 10, 2024 02:07 PM [facility] GLUCOSE,BLOOD-poct (STL) BLOOD Specimen Type: BLOOD Comment: Test Performed by: [id number] Meter #: [id number] Ordering Provider: TERELL MARQUEZ Report Released Date/Time: Feb 10, 2024 04:17 PM Reporting Lab: [address] [id number] Performing Lab: [address] [id number] GLUCOSE,BLOOD-poct (STL) 118 mg/dL H 72-99 Encounter Notes: All associated encounter notes This section contains the clinical notes associated to the Encounter. Date/Time Encounter Note(s) Provider Source Mar 02, 2024 07:58 AM [facility] NOTE: LOCAL TITLE: ENDOCRINOLOGY OUTPATIENT FOLLOW UP STL STANDARD TITLE: ENDOCRINOLOGY OUTPATIENT NOTE DATE OF NOTE: MAR 02, 2024@07:58 ENTRY DATE: MAR 02, 2024@07:58:56 AUTHOR: ELIZ PASTRANA EXP COSIGNER: URGENCY: STATUS: COMPLETED ENDOCRINOLOGY VIRTUAL VISIT The [place] was educated about the use of Clinical Video Telehealth for this encounter. The [place] also understands that a video-technology is being used for this visit. The [place] consents to be seen today using Clinical Video Telehealth. Emergency Services contact [phone] Full name and last 4 of SSN verified Patient location during visit: Home [id number] [place] [address] Emergency number confirmed. Follow up: hypertriglyceridemia HPI: 48 year old male with a medical history of HTN, DM2, HLD who presnts for follow up for hypertriglyceridemia. [place] reports that overall he is doing well. He is compliant with his medications. He does not have any acute complaints. He continues to lose weight on ozempic. He continues to adhere to dietary and lifestyle changes. 1.) Hypertriglyceridemia: No prior pancreatitis He thinks [...] <=150 [657] 2.)T2DM: Duration: 20 yrs A1c: 5.8 Regimen: ozempic 2 mg, metformin 1 g qhs, glimepiride 4 mg BID, jardiance 25 mg Had hypoglycemia two times over past month No prior DKA/HHNS Bg: he does not check bg at home Diet: see above, has reduced appetite from ozempic Exercise/Weight: lost 12 lbs since 05/04, walking daily Alcohol/smokin drinks/week, cigs/day Denies prior pancreatitis, personal or FH of MTC/MEN syndrome Complications: Optho: no known retinopathy, teleretinal screen 02/10/2024 negative [facility] Macrovascular: no TX/CVA, no chest pain Neuropathy: no and no prior amputations Nephropathy: none, UACR 32 on lisinopril 40 mg HLD:LDL 69 on lipitor 80 mg Family history: Father-HF, Both-diabetes SOCIAL HISTORY: Marital status: Tobacco: yes ETOH:yes 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 ROS: 10-pt ROS neg except HPI Active Outpatient Medications (including Supplies): Active Outpatient Medications Status 1) ASPIRIN 81MG EC TAB TAKE ONE TABLET BY MOUTH ONCE A DAY WITH ACTIVE FOOD Indication: FOR PREVENTION OF HEART DISEASE 2) ATORVASTATIN CALCIUM 80MG TAB TAKE ONE TABLET BY MOUTH EVERY ACTIVE (S) EVENING Indication: FOR HIGH CHOLESTEROL 3) CHOLECALCIF 50MCG (D3-2,000UNIT) TAB TAKE ONE TABLET BY ACTIVE (S) MOUTH ONCE A DAY Indication: FOR VITAMIN D DEFICIENCY 4) EMPAGLIFLOZIN 25MG TAB TAKE ONE TABLET BY MOUTH ONCE A DAY ACTIVE Indication: FOR DIABETES 5) FENOFIBRATE 145MG TAB TAKE ONE-HALF TABLET BY MOUTH ONCE A ACTIVE DAY - TAKE WITH FOOD Indication: FOR HIGH TRIGLYCERIDES 6) FLUTICASONE PROP 50MCG 120D NASAL INHL INSTILL 1 SPRAY IN ACTIVE NOSTRIL(S) ONCE A DAY (MUST BE USED DIRECTED FOR MINIMUM OF 21 DAYS TO PROVIDE ADEQUATE BENEFITS) Indication: FOR CHRONIC RHINOSINUSITIS 7) GLIMEPIRIDE 4MG TAB TAKE ONE TABLET BY MOUTH EVERY MORNING ACTIVE TAKE WITH BREAKFAST OR FIRST FOOD. Indication: FOR DIABETES 8) LISINOPRIL 40MG TAB TAKE ONE TABLET BY MOUTH ONCE A DAY ACTIVE (S) Indication: FOR HIGH BLOOD PRESSURE 9) LORATADINE 10MG TAB TAKE ONE TABLET BY MOUTH ONCE A DAY ON ACTIVE (S) EMPTY STOMACH Indication: FOR ALLERGIC RHINITIS 10) MELOXICAM 15MG TAB TAKE ONE TABLET BY MOUTH ONCE A DAY ACTIVE Indication: FOR OSTEOARTHRITIS 11) MENTHOL/M-SALICYLATE 10-15% TOP CREAM APPLY LIGHTLY TO ACTIVE AFFECTED AREA(S) FOUR TIMES A DAY (EXTERNAL USE ONLY) Indication: FOR PAIN 12) METFORMIN HCL 1000MG TAB TAKE ONE TABLET BY MOUTH TWICE A ACTIVE (S) DAY WITH MEALS TAKE WITH FOOD. AVOID ALCOHOL. DISCONTINUE BEFORE GETTING XRAY DYE. Indication: FOR DIABETES 13) DWVNF-1-TRYA ETHYL ESTERS 1000MG CAP TAKE TWO CAPSULES BY ACTIVE MOUTH TWICE A DAY Indication: FOR HIGH TRIGLYCERIDES 14) SALONPAS PAIN RELIEF PATCH LARGE APPLY 1 PATCH TO SKIN SITE ACTIVE ONCE A DAY (EXTERNAL USE ONLY) Indication: FOR PAIN 15) SEMAGLUTIDE 2MG/0.75ML INJ PEN 3ML INJECT 2MG UNDER THE SKIN ACTIVE EVERY WEEK Indication: FOR DIABETES 16) SILDENAFIL CITRATE 100MG TAB TAKE ONE-HALF TABLET BY MOUTH ACTIVE ONE HOUR PRIOR TO SEXUAL ACTIVITY NEEDED - LIMIT 6 DOSES PER 30 DAYS Indication: FOR ERECTILE DYSFUNCTION 17) SODIUM CHLORIDE 0.65% SOLN NASAL SPRAY USE 1 SPRAY INTO ACTIVE NOSTRIL(S) EVERY 4 HOURS NEEDED Indication: FOR NASAL CONGESTION Pending Outpatient Medications Status 1) SEMAGLUTIDE 2MG/0.75ML INJ PEN 3ML INJECT 2MG UNDER THE SKIN PENDING EVERY WEEK Indication: FOR DIABETES Active Non-[facility] Medications Status 1) Non-VA METFORMIN HCL 1000MG TAB 1000MG BY MOUTH DAILY. ACTIVE Indication: FOR DIABETES 19 Total Medications PAST HISTORY: 1) Diabetes mellitus 2) Hypertension 3) Shoulder pain 4) Abnormal liver function 5) Medical examinations/reports status 6) Cervical radiculopathy 7) Vitamin D deficiency 8) Tobacco use 9) Erectile dysfunction 10) Chronic pain 11) Back pain 12) Acute sinusitis 13) Hyperlipidemia OBJECTIVE: VVC Physical Exam Home vitals: GENERAL: No acute distress. Sitting comfortably Respiratory: Regular respiratory rate. Musculoskeletal: No joint deformity or effusion apparent on video Neuro: Alert and orientated SKIN: No obvious rash or ecchymosis. Objective: HGA1C 5.8 % 01/24/2024 08:29 HGA1C 6.8 H % 07/26/2023 12:36 HGA1C 7.3 H % 03/08/2023 08:56 HGA1C 7.0 H % 08/17/2022 10:34 SODIUM 144 mEq/L 01/24/2024 08:29 POTASSIUM 4.4 mEq/L 01/24/2024 08:29 CHLORIDE 111 H mEq/L 01/24/2024 08:29 UREA NITROGEN 23.5 mg/dL 01/24/2024 08:29 CREATININE 0.95 mg/dL 01/24/2024 08:29 CALCIUM 10.4 mg/dL 01/24/2024 08:29 CARBON DIOXIDE 24 mEq/L 01/24/2024 08:29 GLUCOSE 110 H mg/dL 01/24/2024 08:29 EGFR (CKD-EPI 2020) 97.5 01/24/2024 08:29 CREATuF: 61.8 (01/24/24 08:36) M/CREAT: 16 (01/24/24 08:36) MICRAL: 9.6 (01/24/24 08:36) No MICRAL/CREAT RATIO (STL) data found TRIGLYCERIDE 57 mg/dL 01/24/2024 08:29 CHOLESTEROL 95 mg/dL 01/24/2024 08:29 HDL(New) 35 L mg/dL 01/24/2024 08:29 DIRECT LDL comment mg/dl 04/30/2023 08:17 CALCULATED LDL 49 mg/dL 01/24/2024 08:29 TSH 0.643 uIU/mL 04/30/2023 08:17 Allergies: Patient has answered NKA Assessment/Plan: 48 year old male with a medical history of HTN, DM2, HLD who presnts for follow up for hypertriglyceridemia. 1. Type 2 diabetes, well controlled, a1c goal is < 7% - most recent a1c is 5.8 in 01/2024 - continue metformin 1 g BID, glimepiride 4 mg BID, jardiance 25 mg, ozempic 2 mg weekly - reduce glimeperide from 4 mg bid to 4 mg daily given hypoglycemia and instructed to stop completed if further episodes of hypoglycemia. - Optho: no known retinopathy, teleretinal screen 02/2024, [facility] Macrovascular: no TX/CVA, no chest pain Neuropathy:no and no prior amputations Nephropathy: UACR 47 on lisinopril 40 mg HLD:LDL 69 on lipitor 80 mg - repeat a1c in 6 months 2. Hypertriglyceridemia: likely genetic with dietary contribution. - Reviewed foods to reduce and avoid alcohol - No prior pancreatitis -continue lipitor 80 mg, fenofibrate 160 mg, fish oil 1000 mg daily -dietary guidelines provided -check lipids in 6 months RTC 6 months Patient verbalized understanding and has no questions. /es/ Mehdia Ariella, MD Endocrinology Fellow Signed: 03/02/2024 08:24 ELIZ PASTRANA [facility]
--- OUTSIDE RECORDS SUMMARY | 2024-07-07 08:25 | XMS_ITS | Encounter Summary ---
Author Name [facility] [place] [facility] [place] Organization [facility] [place] [facility] Address [address] [place] [address] Care Team Providers Care Clinical Program Manager Name Role Phone SANDRA MUNOZ Primary [...] ION RX PLAN Apr 11, 2019 [id number] [phone] Christoph TILLEY SPOUSE [facility] Mar 11, 2017 [id number] [phone] Nino TILLEY SPOUSE [facility] Mar 11, 2019 [id number] [phone] Nino TILLEY SPOUSE [facility] POINT OF SERVICE [facility] Mar 11, 2017 [id number] [phone] Nino TILLEY SPOUSE Selected Encounter This section includes the information on record at [place] for the Encounter. Date/Time Encounter Type Encounter Description Reason Provider Source Apr 15, 2024 08:30 AM MANUAL THERAPY 1/> [facility] ICD-10-CM 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 NENA SIMS Nino Encounter Template Text not used by [place] Assessments - Encounter Diagnoses This section includes the primary and secondary diagnoses documented for the Encounter. Date/Time Primary/Secondary Diagnosis Diagnosis Name Provider Source Apr 15, 2024 12:28 PM PRIMARY Vertebrogenic low back pain YOMAIRA FRANCOIS [facility] Plan of Treatment: Future Appointments (+ 6 months) and Future Tests (+/- 45 days) The Plan of Treatment section includes future care activities for the patient from [facility] [place] [facility] This section includes future appointments and future orders which are active, pending or scheduled. Future Appointments This section includes appointments that were scheduled to occur 6 months from the date of the Encounter, up to a maximum of 20 appointments. The data comes from all [place] treatment facilities. Appointment Date/Time Appointment Type Appointme nt Facility Name July 20, 2024 09:00 AM AMBULATORY - MEDICINE [facility] Aug 10, 2024 10:00 AM AMBULATORY - MEDICINE [facility] Active, Pending, and Scheduled Orders This section includes a listing of several types of active, pending, and scheduled orders, including clinic medications orders, diagnostic test orders, procedure orders and consult orders; where the start date of the order is 45 days before the date of the Encounter or 45 days after the date of theEncounter. The data comes from all [place] treatment [facility]. Test Date/Time Test Type Test Details Facility Name Mar 02, 2024 12:00 AM Laboratory - Chemi stry Order LIPID PANEL (STL) GREEN LI/HEP BLD/PLAS PLASMA SP [facility] Mar 02, 2024 12:00 AM Laboratory - Chemi stry Order HGA1C BLOOD SP [facility] Apr 20, 2024 12:00 AM Laboratory - Chemi stry Order OCCULT BLOOD FIT X1 SCREEN STOOL FECES [facility] Radiology Reports: +/- 30 days of the [...] the Encounter. The data comes from all [place] treatment facilities. Date/Time Radiology Report Provider Source Apr 09, 2024 07:49 AM LDCT LUNG CANCER SCREENING: BRODY TILLEY [id number] -1975 M Exm Date: APR 09, 2024@07:49 Req Phys: ELIE SEGURA JR Pat Loc: [facility]-VVC PULM LCS IMELDA TECHNICAL LEAD (R Img Loc: [facility]-CT IMAGING [facility] Service: [facility], [facility] [address] [place] [address] (Case [id number] COMPLETE) LDCT LUNG CANCER SCREENING (CT Detailed) CPT:19231 Reason for Study: Screening Clinical History: Responsible Attending: katalina Attending Contact Number: [phone] Resident Contact Number: Patient is age 55-80? [...] 09, 2024 Date Verified: APR 09, 2024 Wire Mill Operator E-Sig:/[email or web address]/JM CARVER Report: EXAM: LDCT LUNG CANCER SCREENING ADDITIONAL HISTORY: Baseline screening COMPARISON: None PROTOCOL: Screening protocol, low dose, non-contrast CT chest was performed at the local [place] facility in accordance with Lung-Rads 2021. Additional coronal and sagittal reconstructions. MIP reconstructions [...] N/A. Primary Interpreting Staff: JM CARVER MD (Wire Mill Operator) /JM ROSENTHAL [facility] Encounter Notes: All associated encounter notes This section contains the clinical notes associated to the Encounter. Date/Time Encounter Note(s) Provider Source Apr 15, 2024 07:54 AM PHYSICAL MEDICINE REHAB NOTE: LOCAL TITLE: PT DAILY STL STANDARD TITLE: PHYSICAL MEDICINE REHAB NOTE DATE OF NOTE: APR 15, 2024@07:54 ENTRY DATE: APR 15, 2024@07:54:54 AUTHOR: YOMAIRA FRANCOIS EXP COSIGNER: URGENCY: STATUS: COMPLETED Physical Therapy Daily Note Primary Therapist: Nena Sims DPT Seen By: Yomaira Francois PTA Current PC Provider: SANDRA MUNOZ LIMITED EXTENSION OF FOREARM (0%) From Service: [facility] PACT B4 PCP Requesting Provider: SANDRA [...] Acute sinusitis 13) Hyperlipidemia Chart Review: Imaging: ---- Referring provider: SANDRA MUNOZ Start of Care: 03/10/24 Reevaluation due: 04/10/24 POC through: 06/08/24 Visits to date: 3 (04/15/24) No shows/cancellations: 0 Treatment time: 40 mins. Therapeutic exercise: 30 mins. ther act: mins manual therapy: 10 mins. self care: mins SUBJECTIVE: Vet was feeling better but symptoms are flared today following installing a cat door. Pain is up. Pt reports c/o ongoing low back pain [...] Rating (0-10): Current: 5/10 Best: 2/10 Worst: /10 --Pt. goal(s): Pt reports to get rid of back pain to transfer withotu sxs, sit / stand , standing up from a flexed position The Revised Oswestry Disability Index Score: 03/10/24: 74% OBJECTIVE: OBJECTIVE MEASURES: 04/01/2024 Posture (standing): swayback posture , tall pelvis [...] swayback posture heel drop test : negative Treatment: Therapeutic exercise: 30 mins. Pt was instructed in and demonstrated independence with current HEP x 1 including: Added to hep today (see in HEP) -supine posterior pelvic tilt -Supine march in posterior pelvic tilt -Supine lower trunk rotations -Hamstring stretch with stretchout strap (ordered today) -Supine Figure 4. Manual Therapy: 10 mins. [x] seated lumbar flexion mobilization with movement / belt at L3,4,5 segmental levels 3 reps each 30 sec hold with gentle rotation Access Code: [email or web address] URL: [email or web address] Date: 04/15/2024 Prepared by: Yomaira Francois Exercises - Supine March - 1 x daily - 7 x weekly - 3 sets - 5 reps - Quadruped Rocking Backward - 2 x daily - 7 x weekly - 2 sets - 5 reps - Supine Posterior Pelvic Tilt - 1 x daily - 7 x weekly - 3 sets - 10 reps - 10 hold - Supine March with Posterior Pelvic Tilt - 1 x daily - 7 x weekly - 3 sets - 10 reps - Supine Lower Trunk Rotation - 1 x daily - 7 x weekly - 3 sets - 10 reps - Supine Hamstring Stretch with Strap - 1 x daily - 7 x weekly - 1 sets - 4 reps - 30 hold - Supine Figure 4 Piriformis Stretch - 1 x daily - 7 x weekly - 3 sets - 10 reps ther act [] sit to stand with cues for BLE > lumbar spine [] standing position / leaning forward with hip hinge [] kneeling lat stretch 3x 30 sec [] seated eccentric abdominal in chair 5 reps x 2 sets Education Teaching Outcomes: [x] Good; [] Fair; [] Poor [x] Patient acknowledged understanding of instruction [x] use of TENS unit, no contraindications reproted next visit [] marching with kettlebell weight low ab bracing [] walking with less swayback posture [] eccentric shoulder flexion with weight [] anti rotation side stepping with low ab bracing ASSESSMENT: returns to therapy today with less severity [...] progress towards goals 2/2 chronicity of LBP. ---- ----- presents to therapy with increased paraspinal recruitment, less sxs with flexion, increased paraspinal recruitment with return from forward bend, swayback posture, increased dominance of parapsinals with trunk stabilization. increased time discussing trasnfers with BLE and hips > Lumbar spine. stiffness noted in latissimus bilaterally Instructed on an initial written HEP, mg good understanding. Would benefit from a course of therapy to address impairments and decrease pain with transfers, standing / walking / sitting intermittent chronic LBP barriers to learning: none Movement impairment: lumbar extension rotation Goals: Short term: 4 weeks 1) Pt. will demonstrate independence with current HEP x 1 (in progress) 2) Pt. will report pain at worst 7/10 with transfers (in progress) 3) Pt. to demonstrate independence with proper sitting and sleeping postures (in progress) intermodal customer service: 8 weeks 1) Pt to demonstrate independence with final HEP x 1 (in progress) 2) Pt. to report pain at worst 6/10 with transfers (in progress) 3) Pt. to score 63% on The Revised Oswestry Disability Index indicating improved function with ADL's (in progress) --CONTINUED SKILLED THERAPY NEEDED TO ADDRESS THE [...] modalities prn, gait and balance training /es/ YOMAIRA FRANCOIS PTA Physical Therapist Sign Hanger Signed: 04/15/2024 12:28 YOMAIRA FRANCOIS [facility]
--- OUTSIDE RECORDS SUMMARY | 2024-07-07 08:26 | XMS_ITS ---
Author Name [facility] [place] [facility] [place] Address [address] [place] [address] Care Team Providers Care Security Inspector Name Role Phone SANDRA MUNOZ Primary Care [...] ION RX PLAN Apr 11, 2019 [id number] [phone] Christoph TILLEY SPOUSE [facility] Mar 11, 2017 [id number] [phone] Nino TILLEY SPOUSE [facility] Mar 11, 2019 [id number] [phone] Nino TILLEY SPOUSE [facility] POINT OF SERVICE [facility] Mar 11, 2017 [id number] [id number] Nino TILLEY SPOUSE Selected Encounter This section includes the information on record at [place] for the Encounter. Date/Time Encounter Type Encounter Description Reason Provider Source Nov 19, 2023 09:49 AM EMERGENCY DEPT VISIT LOW MDM EMERGENCY DEPT ICD-10-CM M54.50 Low back pain, unspecified MUDALLAL,GASTON IHE Encounter Template Text not used by [place] Assessments - Encounter Diagnoses This section includes the primary and secondary diagnoses documented for the Encounter. Date/Time Primary/Secondary Diagnosis Diagnosis Name Provider Source Nov 19, 2023 11:09 AM PRIMARY Low back pain, unspecified MUDALLAL,GASTON [facility] Plan of Treatment: Future Appointments (+ 6 months) and Future Tests (+/- 45 days) The Plan of Treatment section includes future care activities for the patient from all [place] [facility]. This section includes future appointments and future orders which are active, pending or scheduled. Future Appointments This section includes appointments that were scheduled to occur 6 months from the date of the Encounter, up to a maximum of 20 appointments. The data comes from all [facility]. Appointment Date/Time Appointment Type Appointme nt Facility Name Feb 10, 2024 02:00 PM AMBULATORY - MEDICINE [facility] Feb 10, 2024 03:00 PM AMBULATORY - NONE [facility] Mar 02, 2024 08:00 AM AMBULATORY - MEDICINE [facility] Mar 02, 2024 09:00 AM AMBULATORY - MEDICINE [facility] Mar 10, 2024 08:30 AM AMBULATORY - MEDICINE [facility] Mar 10, 2024 09:30 AM AMBULATORY - REHAB MEDICIN E [facility] Apr 01, 2024 10:00 AM AMBULATORY - REHAB MEDICIN E [facility] Apr 09, 2024 08:00 AM AMBULATORY - NONE [facility] Apr 15, 2024 08:30 AM AMBULATORY - REHAB MEDICIN E [facility] Vital Signs: All taken on the encounter date This section contains inpatient and outpatient Vital Signs collected on the date of the Encounter. Date/Time Temperature Pulse Blood Pressure Respiratory Rate SP02 Pain Height Weight Body Mass Index Source Nov 19, 2023 10:00 AM 98.4 87 112/76 16 4 [facility] Encounter Notes: All associated encounter notes This section contains the clinical notes associated to the Encounter. Date/Time Encounter Note(s) Provider Source Nov 19, 2023 10:12 AM PHYSICIAN EMERGENC Y DEPT NOTE: LOCAL TITLE: EMERGENCY DEPARTMENT STL STANDARD TITLE: PHYSICIAN EMERGENCY DEPT NOTE DATE OF NOTE: NOV 19, 2023@10:12 ENTRY DATE: NOV 19, 2023@10:12:44 AUTHOR: GASTON LIND COSIGNER: URGENCY: STATUS: COMPLETED TRIAGE CHIEF COMPLAINT: [...] ALCOHOL. DISCONTINUE BEFORE GETTING XRAY DYE. 10) [id number]-4-DNYI ETHYL ESTERS 1000MG CAP TAKE TWO ACTIVE [...] medication list with the patient and/or his/her care-quality control analyst. Any medication discrepancies have been resolved. Patient [...] ALL PRESCRIBED MEDICATIONS DIRECTED. FOLLOW-UP WITH PRIMARY FILENET ARCHITECT/SPECIALIST: routine in 1-2 weeks if not improving, [...] ALCOHOL. DISCONTINUE BEFORE GETTING XRAY DYE. 10) SGMHF-1-EFIF ETHYL ESTERS 1000MG CAP TAKE TWO ACTIVE [...] Signed: 11/19/2023 10:15 GASTON LIND [facility] Nov 19, 2023 09:59 AM [...] ALCOHOL. DISCONTINUE BEFORE GETTING XRAY DYE. 10) FHPBZ-2-JMBB ETHYL ESTERS 1000MG CAP TAKE TWO ACTIVE [...] Erectile dysfunction 10) Chronic pain Suicide Screen: [place] Suicide Severity Rating Scale (C-SSRS) screener 1. [...] to responses to other questions. /bennett/ TANYA HOPKINS BSN RN REGISTERED NURSE Signed: 11/19/2023 10:00 TANYA HOPKINS [facility]
--- OUTSIDE RECORDS SUMMARY | 2024-07-07 08:26 | XMS_ITS | Encounter Summary ---
Author Name [facility] [place] [facility] Address [address] [place] [address] Care Team Providers Care Brush Stainer Name Role Phone SANDRA MUNOZ Primary Care [...] ION RX PLAN Apr 11, 2019 [id number] [phone] Christoph TILLEY SPOUSE [facility] Mar 11, 2017 [id number] [phone] Nino TILLEY SPOUSE [facility] Mar 11, 2019 [id number] [phone] Nino TILLEY SPOUSE [facility] POINT OF SERVICE [facility] Mar 11, 2017 [id number] [phone] Nino TILLEY SPOUSE Selected Encounter This section includes the information on record at [place] for the Encounter. Date/Time Encounter Type Encounter Description Reason Provider Source Feb 10, 2024 02:00 PM OFFICE O/P EST MOD 30 MIN PRIMARY CARE/MEDICINE ICD-10-CM 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 SANDRA MUNOZ Nino Encounter Template Text not used by [place] Assessments - Encounter Diagnoses This section includes the primary and secondary diagnoses documented for the Encounter. Date/Time Primary/Secondary Diagnosis Diagnosis Name Provider Source Feb 10, 2024 03:01 PM PRIMARY Vertebrogenic low back pain SANDRA MUNOZ [facility] Feb 10, 2024 03:01 PM SECONDARY Acute sinusitis, unspecified SANDRA MUNOZ [facility] Feb 10, 2024 03:01 PM SECONDARY Essential (primary) hypertension SANDRA MUNOZ [facility] Feb 10, 2024 03:01 PM SECONDARY Hyperlipidemia, unspecified SANDRA MUNOZ [facility] Feb 10, 2024 03:01 PM SECONDARY Male erectile dysfunction, unspecified SANDRA MUNOZ [facility] Feb 10, 2024 03:01 PM SECONDARY Type 2 diabetes mellitus without complications [facility] Plan of Treatment: Future Appointments (+ 6 months) and Future Tests (+/- 45 days) The Plan of Treatment section includes future care activities for the patient from all [place] [facility]. This section includes future appointments and future orders which are active, pending or scheduled. Future Appointments This section includes appointments that were scheduled to occur 6 months from the date of the Encounter, up to a maximum of 20 appointments. The data comes from all [place] treatment facilities. Appointment Date/Time Appointment Type Appointme nt Facility Name Mar 02, 2024 08:00 AM AMBULATORY - MEDICINE [facility] Mar 02, 2024 09:00 AM AMBULATORY - MEDICINE [facility] Mar 10, 2024 08:30 AM AMBULATORY - MEDICINE [facility] Mar 10, 2024 09:30 AM AMBULATORY - REHAB MEDICIN E [facility] Apr 01, 2024 10:00 AM AMBULATORY - REHAB MEDICIN E [facility] Apr 09, 2024 08:00 AM AMBULATORY - NONE [facility] Apr 15, 2024 08:30 AM AMBULATORY - REHAB MEDICIN E [facility] July 20, 2024 09:00 AM AMBULATORY - MEDICINE [facility] Aug 10, 2024 10:00 AM AMBULATORY - MEDICINE [facility] Active, Pending, and Scheduled Orders This section includes a listing of several types of active, pending, and scheduled orders, including clinic medications orders, diagnostic test orders, procedure orders and consult orders; where the start date of the order is 45 days before the date of the Encounter or 45 days after the date of theEncounter. The data comes from all [place] treatment facilities. Test Date/Time Test Type Test Details Facility Name Mar 02, 2024 12:00 AM Laboratory - Chemi stry Order LIPID PANEL (STL) GREEN LI/HEP BLD/PLAS PLASMA SP [facility] Mar 02, 2024 12:00 AM Laboratory - Chemi stry Order HGA1C BLOOD SP [facility] Lab Results: +/- 30 days of [...] Type Comment Feb 10, 2024 02:07 PM [facility] GLUCOSE,BLOOD-poct (STL) BLOOD Specimen Type: BLOOD Comment: Test Performed by: [id number] Meter #: [id number] Ordering Provider: TERELL MARQUEZ Report Released Date/Time: Feb 10, 2024 04:17 PM Reporting Lab: [address] [address] Performing Lab: [address] [address] GLUCOSE,BLOOD-poct (STL) 118 mg/dL H 72-99 Jan 24, 2024 08:36 AM [facility] MICRAL/CREAT PROFILE (STL) URINE Specimen Typ e: URINE No comment entered. Ordering Provider: SANDRA MUNOZ Report Released Date/Time: May 01, 2023 12:17 PM Reporting Lab: [facility] [address] [facility] [address] Performing Lab: [facility] [address] [facility] [address] URINE ALBUMIN (PB-STL) 9.6 mg/L uACR (STL) 16 mg/g 0-29 CREATININE URINE/OTHERS 61.8 mg/dL L 63-16 6 Jan 24, 2024 08:29 AM [facility] LIPID PANEL (STL) PLASMA Specimen Type: PLASM A Comment: No hemolysis noted. Ordering Provider: SANDRA MUNOZ Report Released Date/Time: May 01, 2023 12:17 PM Reporting Lab: [facility] [address] Performing Lab: [address] [address] CHOLESTEROL 95 mg/dL 0-200 TRIGLYCERIDE 57 mg/dL 0-150 CALCULATED LDL 49 mg/dL HDL(New) 35 mg/dL L >40 Jan 24, 2024 08:29 AM [facility] COMPREHENSIVE METABOLIC PANEL PLASMA Specimen Type: PLASMA Comment: No hemolysis noted. Ordering Provider: SANDRA MUNOZ Report Released Date/Time: May 01, 2023 12:17 PM Reporting Lab: [facility] [address] [facility] [address] Performing Lab: [place] [address] [facility] [address] CREATININE 0.95 mg/dL 0.7-1.3 UREA NITROGEN 23.5 [...] 08:29 AM [facility] HGA1C BLOOD Specimen Type: BLOOD No comment entered. Ordering Provider: SANDRA MUNOZ Report Released Date/Time: May 01, 2023 12:17 PM Reporting Lab: [facility] [address] [facility] [address] Performing Lab: [address] [address] HGA1C 5.8 4.0-6.0 Jan 24, 2024 08:29 AM [facility] PROST. SPECIFIC AG.(PB-STL) SERUM Specimen Ty pe: SERUM Comment: The listed sex of this patient may not be a typical indication for this test. Therefore, reference ranges or interpretive criteria listed may not be valid. Clinical correlation suggested. Ordering Provider: SANDRA MUNOZ Report Released Date/Time: May 01, 2023 12:17 PM Reporting Lab: [address] [address] Performing Lab: [address] [address] PROST. SPECIFIC AG.(PB-STL) 0.508 ng/mL 0-4 Jan 24, 2024 08:29 AM [facility] VITAMIN D, 25-HYDROXY SERUM Specimen Type: SE RUM Comment: The listed sex of this patient may not be a typical indication for this test. Therefore, reference ranges or interpretive criteria listed may not be valid. Clinical correlation suggested. Ordering Provider: SANDRA MUNOZ Report Released Date/Time: May 01, 2023 12:17 PM Reporting Lab: [address] [address] Performing Lab: [address] [address] VITAMIN D, 25-HYDROXY 30.5 ng/mL 30-96 Vital Signs: All taken on the encounter date This section contains inpatient and outpatient Vital Signs collected on the date of the Encounter. Date/Time Temperature Pulse Blood Pressure Respiratory Rate SP02 Pain Height Weight Body Mass Index Source Feb 10, 2024 02:11 PM 155/88 [facility] Feb 10, 2024 01:59 PM 98 86 170/98 18 96 5 72 221.5 30 [facility] Social History: Smoking Status (Most current) and Tobacco Use (All prior to encounter date) This section includes the most current, and the historical, smoking and tobacco- related health factors from the [place] facility where the Encounter took place. Current Smoking Status This section includes the most current smoking, or tobacco-related health factor, from the [place] facility where the Encounter took place. Date/Time Current Smoking Status Comment Facil ity Feb 10, 2024 02:00 PM VA-TOBACCO USE [place] [employer] CIGARETTES [facility] Tobacco Use History This section includes a history of the smoking, or tobacco-related health factors, that were collected on or before the date of the Encounter. The data comes from the [place] facility where the Encounter took place. Date/Time Smoking Status/Tobacco Use Comment F acility Feb 10, 2024 02:00 PM VA-TOBACCO SCREEN FOLLOW-UP [facility] Feb 10, 2024 02:00 PM VA-TOBACCO USE ADVICE [facility] Feb 10, 2024 02:00 PM VA-TOBACCO USE MATERIAL CONTROL SUPERVISOR NO [facility] Feb 10, 2024 02:00 PM VA-TOBACCO USE [place] [employer] DAY CIGARETTES [facility] Feb 10, 2024 02:00 PM VA-TOBACCO USE MED NO [facility] Aug 17, 2022 09:00 AM VA-TOBACCO USE 30 YEARS OR MORE [facility] Aug 17, 2022 09:00 AM VA-TOBACCO USE ADVICE [facility] Aug 17, 2022 09:00 AM VA-TOBACCO USE MATERIAL CONTROL SUPERVISOR NO [facility] Aug 17, 2022 09:00 AM VA-TOBACCO USE MED NO [facility] Aug 17, 2022 09:00 AM VA-TOBACCO USE [place] 30 MIN OF WAKEUP [facility] Aug 17, 2022 09:00 AM VA-TOBACCO USER EVERY DAY [facility] Aug 27, 2018 11:37 AM VA-TOBACCO DOESNT USE [place] 30 MIN WAKEUP [facility] Aug 27, 2018 11:37 AM VA-TOBACCO USE > 1 5 LESS THAN 30 YEARS [facility] Aug 27, 2018 11:37 AM VA-TOBACCO USE ADVICE [facility] Aug 27, 2018 11:37 AM VA-TOBACCO USE MATERIAL CONTROL SUPERVISOR NO [facility] Aug 27, 2018 11:37 AM VA-TOBACCO USE MED NO [facility] Aug 27, 2018 11:37 AM VA-TOBACCO USER EVERY DAY [facility] Encounter Notes: All associated encounter notes This section contains the clinical notes associated to the Encounter. Date/Time Encounter Note(s) Provider Source Apr 20, 2024 01:00 PM ADDENDUM: LOCAL TITLE: Addendum STANDARD TITLE: ADDENDUM DATE OF NOTE: APR 20, 2024@13:00:35 ENTRY DATE: APR 20, 2024@13:00:35 AUTHOR: SANDRA MUNOZ EXP COSIGNER: URGENCY: STATUS: COMPLETED ordered medication. vet is due for FIT test. lab ordered alerting night guard [place] to mail FIT and advise vet to complete test. /bennett/ Sandra Munoz MD. Staff Physcian. Signed: 04/20/2024 13:01 Receipt Acknowledged By: 04/28/2024 08:24 /bennett/ MARY ANN PLAZA LPN LICENSED PRACTICAL NURSE --- Original Document --- 02/10/24 PRIMARY CARE PROVIDER ESTABLISHED VISIT STL: ESTABLISHED PATIENT [id number]: REASON FOR VISIT/CHIEF COMPLAINT: joshua is here [...] muscles. will follow up via phone with SUPERVISOR C[employer]AR[employer] MAKING DEPARTMENT. c/o sinus drainage, yellow discharge. continues to [...] medication list with the patient and/or his/her care-police liaison. Handwritten corrections, additions and/or deletions were made [...] ALCOHOL. DISCONTINUE BEFORE GETTING XRAY DYE. 12) UMQIC-7-WJWN ETHYL ESTERS 1000MG CAP TAKE TWO ACTIVE [...] for CHEST 2 VIEWS PA&LAT, 05/08/[birth year], case [id number] NO PULMONARY INFILTRATE, TUMOR MASS OR HILAR ADENOPATHY. EKG: No data available for: EKG CONSULT STL EKG CONSULTS PB EKG RESULTS MA Result: Above target Follow-up Action: Data results reviewed with patient and/or caregiver. ASSESSMENT/PLAN: gets medication from [facility]. lipid, cmp, hgaic, vit d, psa is [...] muscles. will follow up via phone with SUPERVISOR [employer] MAKING DEPARTMENT. c/o sinus drainage, yellow discharge. continues to [...] probabale mild BL foraminal narrowing at C6/7. [place] declined EMG / NCS. He is not interested in surgery at this time. NS RTC 6 months for follow-up see NS addendum on 11-06-22 to NS note on10-03-22 MRI cervical spine CD from [facility] reviewed. He states he would like to try pain mgmt injections.NS placed Order Vet did not schedule CC Pain management consult. - Leukocytosis: saw heme/onc 12-05-22, likely 2/2 cigarrette smoking. - Severe obstructive sleep apnea: sleep study done at [facility] on 01-02-23. Recommended CPAP of 12.0 [...] pain will get records fron neurosurgery at [facility], joshua has cervical spinr surgery in [...] side effects of prescribed medication and treatments. [place] verbalizes understanding and is in agreement with the plan of care. Patient was instructed to keep all scheduled appointments and contact kiln puller for any additional problems. PREVENTION & SCREENING: [...] Munoz MD. Staff Physcian. Signed: 02/10/2024 15:01 04/28/2024 ADDENDUM STATUS: UNSIGNED You may not VIEW this UNSIGNED Addendum. SANDRA MUNOZ [facility] Feb 10, 2024 02:08 PM NURSING NOTE: [...] you in your life right now? --- 's Response: Life Would you like to discuss any personal problem, family problem, alcohol use, drug use, or a mental or emotional illness? No My [facility] ([facility]), please select appointment type: Face to face: No- Are you interested in getting this done? No Contact provided Primary Care phone number and encouraged to call if any questions or concerns. Review that after hours nurse line [phone] and emergency room are available 01/10 for [...] Not worried about housing near future The [place] reports the following: Within the past 12 months, you worried whether your food would run out before you got money to buy more. Never true Within the past 12 months, the food you bought just didn't last and you didn't have money to get more. Never true Learning Assessment: - * This patient's learning ABILITIES, BARRIERS to learning, CULTURAL and EPISCOPAL beliefs, and learning PREFERENCES were assessed. Following are findings of note: Patient reads well. LANGUAGE Patient reports that German is preferred language for healthcare. Patient reports [...] due to responses to other questions. 5. [place] numb or detached from people, activities, or your surroundings? Response not required due to responses to other questions. 6. [place] guilty or unable to stop blaming yourself or others for the event(s) or any problems the event(s) may have caused? Response not required due to responses to other questions. /bennett/ MARY ANN PLAZA LPN LICENSED PRACTICAL NURSE Signed: 02/10/2024 14:16 MARY ANN PLZAA [facility] Feb 10, 2024 02:07 PM PRIMARY CARE NOTE: LOCAL TITLE: PRIMARY CARE PROVIDER ESTABLISHED VISIT [facility] STANDARD TITLE: PRIMARY CARE NOTE DATE OF NOTE: FEB 10, 2024@14:07 ENTRY DATE: FEB 10, 2024@14:07:12 AUTHOR: SANDRA MUNOZ EXP COSIGNER: URGENCY: STATUS: COMPLETED PRIMARY CARE PROVIDER ESTABLISHED VISIT [facility] Has ADDENDA ESTABLISHED PATIENT [id number]: REASON FOR VISIT/CHIEF COMPLAINT: jit is here for reg scheduled follow up [...] muscles. will follow up via phone with [employer]KING DEPARTMENT. c/o sinus drainage, yellow discharge. continues to [...] medication list with the patient and/or his/her care-police liaison. Handwritten corrections, additions and/or deletions were made [...] ALCOHOL. DISCONTINUE BEFORE GETTING XRAY DYE. 12) [id number] ETHYL ESTERS 1000MG CAP TAKE TWO ACTIVE [...] for CHEST 2 VIEWS PA&LAT, 05/08/[birth year], case [id number] NO PULMONARY INFILTRATE, TUMOR MASS OR HILAR ADENOPATHY. EKG: No data available for: EKG CONSULT STL EKG CONSULTS PB EKG RESULTS MA Result: Above target Follow-up Action: Data results reviewed with patient and/or caregiver. ASSESSMENT/PLAN: [facility] [employer]. lipid, cmp, hgaic, vit d, psa is [...] muscles. will follow up via phone with [employer] DEPARTMENT. c/o sinus drainage, yellow discharge. continues to [...] probabale mild BL foraminal narrowing at C6/7. [place] declined EMG / NCS. He is not interested in surgery at this time. NS RTC 6 months for follow-up see NS addendum on 11-06-22 to NS note on10-03-22 MRI cervical spine CD from [facility] reviewed. He states he would like to try pain mgmt injections.NS placed Order Vet did not schedule CC Pain management consult. - Leukocytosis: saw heme/onc 12-05-22, likely 2/2 cigarrette smoking. - Severe obstructive sleep apnea: sleep study done at [facility] on 01-02-23. Recommended CPAP of 12.0 [...] pain will get records fron neurosurgery at [facility], joshua has cervical spinr surgery in 2015 - Hypertension: bp at goal. taking lisinopril [...] to keep all scheduled appointments and contact kiln puller for any additional problems. PREVENTION & SCREENING: [...] smoking cessation. /bennett/ Sandra Munoz MD. Staff Mere. Signed: 02/10/2024 15:01 04/20/2024 ADDENDUM STATUS: COMPLETED ordered medication. vet is due for FIT test. lab ordered alerting night guard [place] to mail FIT and advise vet to complete test. /bennett/ Sandra Munoz MD. Staff Mere. Signed: 04/20/2024 13:01 Receipt Acknowledged By: 04/28/2024 08:24 /bennett/ MARY ANN PLAZA LPN LICENSED PRACTICAL NURSE 04/28/2024 ADDENDUM STATUS: COMPLETED Spoke with and he agreed to get labs drawn and complete Fit card. /kristen PLAZA LPN LICENSED PRACTICAL NURSE Signed: 04/28/2024 08:25 SANDRA MUNOZ [facility]
--- OUTSIDE RECORDS SUMMARY | 2024-07-07 08:26 | XMS_ITS | Encounter Summary ---
Author Name [facility] [place] [facility] Address [address] [place] [address] Care Team Providers Care Skid Adzer Name Role Phone SANDRA MUNOZ Primary Care [...] ION RX PLAN Apr 11, 2019 [id number] [phone] Christoph TILLEY SPOUSE [facility] Mar 11, 2017 [id number] [phone] Nino TILLEY SPOUSE [facility] Mar 11, 2019 [id number] [phone] Nino TILLEY SPOUSE [facility] Mar 11, 2017 [id number] [phone] Nino TILLEY SPOUSE Selected Encounter This section includes the information on record at [place] for the Encounter. Date/Time Encounter Type Encounter Description Reason Provider Source Mar 02, 2024 09:00 AM OFF/OP CONSLTJ NEW/EST SF 20 PULMONARY/CHEST ICD-10-CM Z12.2 Encntr screen for malignant neoplasm of respiratory organs ELIE SEGURA JR IHE Encounter Template Text not used by [place] Assessments - Encounter Diagnoses This section includes the primary and secondary diagnoses documented for the Encounter. Date/Time Primary/Secondary Diagnosis Diagnosis Name Provider Source Mar 13, 2024 12:48 PM PRIMARY Encntr screen for malignant neoplasm of respiratory organs ELIE SEGURA JR [facility] Plan of Treatment: Future Appointments (+ 6 months) and Future Tests (+/- 45 days) The Plan of Treatment section includes future care activities for the [place] [facility] [place] [facility] This section includes future appointments and future orders which are active, pending or scheduled. Future Appointments This section includes appointments that were scheduled to occur 6 months from the date of the Encounter, up to a maximum of 20 appointments. The data comes from all [facility]. Appointment Date/Time Appointment Type Appointme nt Facility Name Mar 10, 2024 08:30 AM AMBULATORY - MEDICINE [facility] Mar 10, 2024 09:30 AM AMBULATORY - REHAB MEDICIN E [facility] Apr 01, 2024 10:00 AM AMBULATORY - REHAB MEDICIN E [facility] Apr 09, 2024 08:00 AM AMBULATORY - NONE [facility] Apr 15, 2024 08:30 AM AMBULATORY - RE[facility]AB MEDICIN [facility] July 20, 2024 09:00 AM AMBULATORY - MEDICINE [facility] Aug 10, 2024 10:00 AM AMBULATORY - MEDICINE [facility] Active, Pending, and Scheduled Orders This section includes a listing of several types of active, pending, and scheduled orders, including clinic medications orders, diagnostic test orders, procedure orders and consult orders; where the start date of the order is 45 days before the date of the Encounter or 45 days after the date of theEncounter. The data comes from all [facility]. Test Date/Time Test Type Test Details Facility Name Mar 02, 2024 12:00 AM Laboratory - Chemi stry Order HGA1C BLOOD SP [facility] Mar 02, 2024 12:00 AM Laboratory - Chemi stry Order LIPID PANEL (STL) GREEN LI/HEP BLD/PLAS PLASMA SP [facility] Lab Results: +/- 30 days of the encounter This section includes the Chemistry and Hematology Lab Results on record with [place] for the patient. Radiology Reports and Pathology Reports are provided separately, in subsequent sections. Lab Results This section contains the Chemistry/Hematology Results that were resulted 30 days before or 30 daysafter the date of the Encounter. Date/Time Source Result Type Result - Unit Interpretation Reference Range Specimen Type Comment Feb 10, 2024 02:07 PM [facility] GLUCOSE,BLOOD-poct (STL) BLOOD Specimen Type: BLOOD Comment: Test Performed by: [id number] Meter #: [id number] Ordering Provider: TERELL MARQUEZ Report Released Date/Time: Feb 10, 2024 04:17 PM Reporting Lab: [facility] [id number] [facility] [id number] Performing Lab: [address] [id number] GLUCOSE,BLOOD-poct (STL) 118 mg/dL H 72-99 Encounter Notes: All associated encounter notes This section contains the clinical notes associated to the Encounter. Date/Time Encounter Note(s) Provider Source Mar 02, 2024 09:14 AM CONSULT: LOCAL TITLE: LUNG CANCER SCREENING CONSULT STL STANDARD TITLE: CONSULT DATE OF NOTE: MAR 02, 2024@09:14 ENTRY DATE: MAR 02, 2024@09:14:13 AUTHOR: ELIE SEGUAR JR COSIGNER: URGENCY: STATUS: COMPLETED LCS [facility] Clinic Assessment and Plan: He will be enrolled in the LCS program at this time. [place] agrees to this plan of care and we will follow up the results of the next scan which has been ordered. Discussed the following Shared Decision Making items for the LCS program: Stopping the use of tobacco products is one of the most important choices one can make in decreasing chances to developing cancer and improving overall health. He currently is smoking 1 ppd and does not wish to stop. Cessation offerd. Potential health factors that may reduce the benefit of screening and compliance with the LCS program to include comorbidities, 's future compliance with follow up and possible procedures and treatment. Potential benefits of screening to include reduced mortality from lung cancer, LCS can find potential lung cancer prior to symptoms being presented and early treatment of findings. Potential negative consequences of lung cancer screening to include false- positive results, exposure to additional radiation from LDCT's, overdiagnosis in discovering cancer that may not ultimately affect their senior living mortality and the possiblity of invasive procedures and adverse effects that could result from these procedures. [place]: --Is age 50-80: YES --Has a 20+ pack-year smoking habit: YES --Is current smoker or quit within the last 15 years: YES --Does not have a health problem that substantially limits life expectancy, or the ability or willingness to have curative treatment: YES Other information: --[place] has symptoms suspicious for lung cancer that include: None -- has history of Lung or Head and Neck cancer: NO --Number of pack-years: 38 --If quit smoking, number of years since quittin --Shared decision-making has occurred regarding the benefits and risks of the screening program agrees to screening (X) --Incidental finding will be the responsibility of and reported to: PCP ~~~~~~~~~~~~~~~~~~~~~~~~~~ ~~~~~~~~~~~~~~~~~~~~~~~~~~ ~~~~~~~~~~~~~~~~~~~~~~~~~ Interval HPI: 48 year old MALE presents for evaluation of enrollment in the LCS program. [place] is not enrolled in the lung cancer screening program. Floyd has not quit smoking. Floyd has a 38 pack-year history. [place] does not report significant pulmonary symptoms. has not noted an increase in SOB, cough or sputum production. denies unexplained weight loss, hemoptysis or pleuritic chest pain. Floyd has no prior diagnosis of COPD. Floyd does not note breathing is tight if exposed to smoke, dust or fumes. Floyd does not have an albuterol inhaler. Floyd has no personal history of cancer and no family history of lung cancer in first-degree relatives. Father had skin cancer. Floyd has no respiratory limitations. Activity is limited due to stamina. His activity level is light. Activies: Walking, Chores, Mowing yard. [place] is working. 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 Cardiovascular Risk: [place] has no cardiac history with stents, pacemaker, surgery. [place] is on mono therapy for anticoagulation. Past Medical History: 1) Diabetes mellitus 2) Hypertension 3) Shoulder pain 4) Abnormal liver function 5) Medical examinations/reports status 6) Cervical radiculopathy 7) Vitamin D deficiency 8) Tobacco use 9) Erectile dysfunction 10) Chronic pain 11) Back pain 12) Acute sinusitis 13) Hyperlipidemia Veterans social history, family history and review of symptoms was reviewed. Consult specific important items are identified in the History of Present Illness. Medications: Active Outpatient Medications (including Supplies): Active Outpatient Medications (including Supplies): Active Outpatient [...] GETTING XRAY DYE. Indication: FOR DIABETES 13) [id number] ETHYL ESTERS 1000MG CAP TAKE TWO CAPSULES [...] ACTIVE Indication: FOR DIABETES 19 Total Medications Exam Most recent vitals signs were reviewed. GENERAL: The is sitting comfortably in no acute distress. Data/Imaging None on record. was provided with my contact information if any further questions or concerns arise. 31 minutes in [facility] time during this encounter. The patient smokes cigarettes. How many years have you smoked cigarettes? # of years: 38 Average number of packs/day over the entire time patient smoked: Packs/day: 1 Lung Cancer Screening Patient Management *INITIAL SCREENING* - [place] is eligible for lung cancer screening based on age, smoking history and the absence of signs or symptoms of lung cancer. - [place] informed of the interventions to reduce the risk of dying from lung cancer, including quitting smoking and annual lung cancer screening. - [place] informed of the potential harms of screening including: false positives and false negatives, follow-up diagnostic testing, over-diagnosis and radiation exposure. - counseled on the importance of adherence to annual lung cancer LDCT screening, impact of comorbidities and ability or willingness to undergo diagnosis and treatment. - After shared decision making discussion, has agreed to lung cancer screening. /bennett/ TARIK SEGURA MSN, STABLE CLEANER, AIR BRAKE WORKER-BC Lung Cancer Screening Tongue Trimmer. Signed: 03/02/2024 09:29 ELIE SEGURA JR [facility]
--- OUTSIDE RECORDS SUMMARY | 2024-07-07 08:26 | XMS_ITS | Continuity of Care Document ---
Author Name [facility] Organization [facility] Care Team Providers Care Office Messenger Helper Name Role Phone [facility] Unavailable Unavailable Problems Combined list of problems from Department of Defense and Veterans Affairs facilities. It does not include entries that were removed or entered in error. Problem Status Onset Date Problem Type Date of Resolution Comments Source Abnormal liver function Active Condition [facility] Acute sinusitis Active Condition [facility] Back pain Active Condition [facility] Cervical radiculopathy Active Condition [facility] Chronic pain Active Condition [facility] Diabetes mellitus Active Condition [facility] Erectile dysfunction Active Condition [facility] Hyperlipidemia Active Condition [facility] Hypertension Active Condition [facility] Medical examinations/report s status Active Condition [facility] Shoulder pain Active Condition [facility] Tobacco use Active Condition [facility] Vitamin D deficiency Active Condition [facility] Diagnosis: ICD-10-CM 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 Diagnosis [facility] Diagnosis: ICD-10-CM Z12.2 Encntr screen for malignant neoplasm of respiratory organs Active Diagnosis [facility] Diagnosis: ICD-10-CM E78.5 Hyperlipidemia, unspecified Active Diagnosis [facility] Diagnosis: ICD-10-CM Z13.5 Encounter for screening for eye and ear disorders Active Diagnosis [facility] Diagnosis: ICD-10-CM M54.50 Low back pain, unspecified Active Diagnosis [facility] Diagnosis: ICD-10-CM E11.9 Type 2 diabetes mellitus without complications Active Diagnosis [facility] Diagnosis: ICD-10-CM M54.2 Cervicalgia Active Diagnosis [facility] Diagnosis: ICD-10-CM Z23 Encounter for immunization Active Diagnosis [facility] Diagnosis: ICD-10-CM G89.29 Other chronic pain Active Diagnosis [facility] Diagnosis: ICD-10-CM Z72.0 Tobacco use Active Diagnosis [facility] Diagnosis: ICD-10-CM N52.9 Male erectile dysfunction, unspecified Active Diagnosis [facility] Medications Combined list of outpatient medications from [...] ORAL DISCONT INUED BY PROVIDE R 03/21/2024 [id number] 4 SKYE MUNOZ N 2023 90 [facility] aspirin 325 mg oral tablet TAKE ONE TABLET DAILY, # 90 EA, 3 total refill(s ), Acute Complet ed 04/16/2023 3 2023 90.0 Ambulat ory Pharmac y ASPIRIN 81MG TAB,EC TAKE ONE TABLET BY MOUTH ONCE A DAY WITH FOOD FOR PREVENTI ON OF HEART DISEASE ORAL DISCONT INUED 03/15/2024 [id number] 4 SKYE MUNOZ N 2023 120 [facility] ASPIRIN 81MG TAB,EC TAKE ONE TABLET BY MOUTH ONCE A DAY WITH FOOD FOR PREVENTI ON OF HEART DISEASE ORAL DISCONT INUED 10/27/2023 [id number] Lester HUERTA 2022 120 [facility] ASPIRIN 81MG TAB,EC TAKE ONE TABLET BY MOUTH ONCE A DAY WITH FOOD FOR PREVENTI ON OF HEART DISEASE ORAL 05/10/2024 [id number] 4 SKYE MUNOZ N 2023 120 [facility] atorvastati n 40 mg oral tablet TAKE ONE TABLET DAILY, # 90 EA, 2 total refill(s ), Acute Complet ed 04/16/2023 3 2023 90.0 Ambulat ory Pharmac y atorvastati n 40 mg oral tablet TAKE ONE TABLET BY MOUTH EVERY DAY, # 90 EA, 1 total refill(s ), Acute Complet ed 12/25/2022 2 2022 90.0 Ambulat ory Pharmac y ATORVASTATI N CA 80MG TAB TAKE ONE TABLET BY MOUTH EVERY EVENING FOR HIGH CHOLESTE ROL ORAL ACTIVE 02/10/2025 [id number] 5 SKYE MUNOZ N [address] [facility] ATORVASTATI N CA 80MG TAB TAKE ONE TABLET BY MOUTH EVERY EVENING FOR HIGH CHOLESTE ROL ORAL DISCONT INUED 05/01/2024 [id number] 4 SKYE MUNOZ MARA N [address] [facility] ATORVASTATI N CA 80MG TAB TAKE ONE-HALF TABLET BY MOUTH EVERY EVENING FOR HIGH CHOLESTE ROL ORAL DISCONT INUED (EDIT) 09/05/2023 [id number] 4 SKYE MUNOZ N [address] [facility] CAMPHOR/MEN THOL/METHYL SALICYLATE LARGE PATCH APPLY 1 PATCH TO SKIN SITE ONCE A DAY (EXTERNA L USE ONLY) TRANSD ERMAL ACTIVE 02/10/2025 [id number] 4 SKYE MUNOZ MARA N [address] [facility] CHOLECALCIF DANA 50MCG (2,000UNIT) TAB TAKE ONE TABLET BY MOUTH ONCE A DAY ORAL ACTIVE 02/10/2025 [id number] 5 SKYE MUNOZ MARA N [address] [facility] CHOLECALCIF DANA 50MCG (2,000UNIT) TAB TAKE ONE TABLET BY MOUTH ONCE A DAY ORAL DISCONT INUED 03/21/2024 [id number] 4 SKYE MUNOZ MARA N [address] [facility] CYCLOBENZAP RINE HCL 10MG TAB TAKE ONE TABLET BY MOUTH THREE TIMES A DAY MAY CAUSE DROWSINE SS. DO NOT DRINK ALCOHOL WHILE TAKING THIS MEDICATI ON. ORAL 12/19/2023 [id number] GASTON LIND 2023 21 [facility] empaglifloz in 25 mg oral tablet TAKE ONE TABLET DAILY, # 90 EA, 3 total refill(s ), Acute Complet ed 02/20/20232022 90.0 Ambulat ory Pharmac y EMPAGLIFLOZ IN 25MG TAB TAKE ONE TABLET BY MOUTH ONCE A DAY FOR DIABETES ORAL ACTIVE 07/26/2024 [id number] Lester HUERTA [address] [facility] EMPAGLIFLOZ IN 25MG TAB TAKE ONE TABLET BY MOUTH ONCE A DAY FOR DIABETES ORAL DISCONT INUED 10/27/2023 [id number] 4 Lester HUERTA [address] [facility] FENOFIBRATE 145MG TAB TAKE ONE-HALF TABLET BY MOUTH ONCE A DAY - TAKE WITH FOOD ORAL ACTIVE 02/10/2025 [id number] 5 SKYE MUNOZ [address] [facility] FENOFIBRATE 160MG TAB TAKE ONE TABLET BY MOUTH ONCE A DAY FOR HIGH TRIGLYCE RIDES - TAKE WITH FOOD ORAL DISCONT INUED (EDIT) 01/17/2025 [id number] 5 SEN DEWITT 2024 90 [facility] FENOFIBRATE 160MG TAB TAKE ONE TABLET BY MOUTH ONCE A DAY FOR HIGH TRIGLYCE RIDES - TAKE WITH FOOD ORAL DISCONT INUED 04/26/2024 [id number] SEN DEWITT 2023 90 [facility] FLUTIC[facility] PROPIONATE 50MCG/SPRAY SOLN,NASAL, 16GM INSTILL 1 SPRAY IN NOSTRIL( S) ONCE A DAY (MUST BE USED DIRECTED FOR MINIMUM OF 21 DAYS TO PROVIDE ADEQUATE BENEFITS ) NASAL ACTIVE 02/10/2025 [id number] 5 SKYE MUNOZ N [address] [facility] glimepiride 4 mg oral tablet TAKE TWO TABLETS BY MOUTH EVERY DAY DIRECTED , # 180 EA, 2 total refill(s ), Acute Complet ed 04/16/2023 3 2023 180.0 Ambulat ory Pharmac y GLIMEPIRIDE 4MG TAB TAKE ONE TABLET BY MOUTH EVERY MORNING TAKE WITH BREAKFAS T OR FIRST FOOD. ORAL ACTIVE 02/10/2025 [id number] 5 SKYE MUNOZ N [address] [facility] GLIMEPIRIDE 4MG TAB TAKE TWO TABLETS BY MOUTH EVERY MORNING FOR DIABETES TAKE WITH BREAKFAS T OR FIRST FOOD. ORAL DISCONT INUED (EDIT) 11/21/2024 [id number] 4 SKYE MUNOZA N [address] [facility] GLIMEPIRIDE 4MG TAB TAKE TWO TABLETS BY MOUTH EVERY MORNING FOR DIABETES TAKE WITH BREAKFAS T OR FIRST FOOD. ORAL DISCONT INUED 09/05/2023 [id number] 4 SKYE MUNOZ N [address] [facility] Januvia 100 mg tablet See dose instruct ions in comments , # 90 EA, 2 total refill(s ), Acute Complet ed 04/16/2023 3 2023 90.0 Ambulat ory Pharmac y Jardiance 25 mg tablet See dose instruct ions in comments , # 90 EA, 3 total refill(s ), Acute Complet ed 04/16/2023 3 2023 90.0 Ambulat ory Pharmac y lisinopril 40 mg oral tablet TAKE ONE TABLET BY MOUTH EVERY DAY, # 90 EA, 1 total refill(s ), Acute Complet ed 12/25/2022 2 2022 90.0 Ambulat ory Pharmac y lisinopril 40 mg oral tablet TAKE ONE TABLET DAILY, # 90 EA, 2 total refill(s ), Acute Complet ed 04/16/2023 3 2023 90.0 Ambulat ory Pharmac y LISINOPRIL 40MG TAB TAKE ONE TABLET BY MOUTH ONCE A DAY FOR HIGH BLOOD PRESSURE ORAL ACTIVE 02/10/2025 [id number] 5 SKYE MUNOZ N [address] [facility] LISINOPRIL 40MG TAB TAKE ONE TABLET BY MOUTH ONCE A DAY FOR HIGH BLOOD PRESSURE ORAL DISCONT INUED 03/21/2024 [id number] 4 SKYE MUNOZ N [address] [facility] LORATADINE 10MG TAB TAKE ONE TABLET BY MOUTH ONCE A DAY FOR ALLERGIC RHINITIS ON EMPTY STOMACH ORAL ACTIVE 09/24/2024 [id number] 5 SKYE MUNOZ MARA N [address] [facility] LORATADINE 10MG TAB TAKE ONE TABLET BY MOUTH ONCE A DAY FOR ALLERGIC RHINITIS ON EMPTY STOMACH ORAL DISCONT INUED 08/18/2023 [id number] SKYE MUNOZ MARA N [address] [facility] MELOXICAM 15MG TAB TAKE ONE TABLET BY MOUTH ONCE A DAY FOR OSTEOART HRITIS ORAL ACTIVE 04/29/2025 [id number] 5 SKYE MUNOZ MARA N [address] [facility] MELOXICAM 15MG TAB TAKE ONE TABLET BY MOUTH ONCE A DAY FOR OSTEOART HRITIS ORAL DISCONT INUED 11/06/2024 [id number] 4 SKYE MUNOZ MARA N [address] [facility] MELOXICAM 15MG TAB TAKE ONE TABLET BY MOUTH ONCE A DAY FOR OSTEOART HRITIS ORAL DISCONT INUED 05/01/2024 [id number] 4 SKYE MUNOZ MARA N [address] [facility] MENTHOL/MET HYL SALICYLATE (10-15%) LOW CONC. CREAM,TOP APPLY LIGHTLY TO AFFECTED AREA(S) FOUR TIMES A DAY FOR PAIN (EXTERNA L USE ONLY) TOPICA L 05/01/2024 [id number] SKYE MUNOZA N [address] [facility] metFORMIN 1000 mg oral tablet TAKE ONE TABLET BY MOUTH TWICE A DAY, # 180 EA, 3 total refill(s ), Acute Complet ed 04/16/2023 3 2023 180.0 Ambulat ory Pharmac y METFORMIN HCL 1000MG TAB TAKE ONE TABLET BY MOUTH TWICE A DAY WITH MEALS FOR DIABETES TAKE WITH FOOD. AVOID ALCOHOL. DISCONTI NUE BEFORE GETTING XRAY DYE. ORAL ACTIVE 02/10/2025 [id number] 5 SKYE MUNOZA N 2024 180 [facility] METFORMIN HCL 1000MG TAB TAKE ONE TABLET BY MOUTH TWICE A DAY WITH MEALS FOR DIABETES TAKE WITH FOOD. AVOID ALCOHOL. DISCONTI NUE BEFORE GETTING XRAY DYE. ORAL DISCONT INUED 03/21/2024 [id number] 4 SKYE MUNOZA N 2023 180 [facility] METFORMIN HCL 1000MG TAB TAKE ONE TABLET BY MOUTH DAILY. ORAL ACTIVE SKYE MUNOZA N 2022 [facility] NIACIN (EQV-NIASPA N) 1000MG TAB,SA TAKE ONE TABLET BY MOUTH AT BEDTIME AFTER A LOW FAT SNACK ORAL DISCONT INUED BY PROVIDE R 05/01/2024 [id number] SEN DEWITT 2023 90 [facility] niacin 1000 mg oral tablet, extended release TAKE ONE TABLET BY MOUTH ONCE DAILY, # 90 EA, 2 total refill(s ), Acute Complet ed 04/17/2023 3 2023 90.0 Ambulat ory Pharmac y OMEGA-3-ACI D ETHYL ESTERS 1000MG CAP,ORAL TAKE TWO CAPSULES BY MOUTH TWICE A DAY FOR HIGH TRIGLYCE RIDES ORAL 05/09/2024 [id number] SEN DEWITT 2023 120 [facility] SEMAGLUTIDE 0.25MG/0.37 5ML INJ,SOLN,PE N,3ML INJECT 0.5MG UNDER THE SKIN EVERY WEEK FOR DIABETES SUBCUT ANEOUS DISCONT INUED BY PROVIDE R 06/01/2024 [id number] SEN DEWITT 2023 1 [facility] SEMAGLUTIDE 0.25MG/0.37 5ML INJ,SOLN,PE N,3ML INJECT 0.25MG UNDER THE SKIN EVERY WEEK FOR 4 WEEKS, THEN INJECT 0.5MG EVERY WEEK FOR DIABETES SUBCUT ANEOUS DISCONT INUED 06/01/2024 [id number] ESDRASSEN Jolie Matos 2023 1 [facility] SEMAGLUTIDE 1MG/0.75ML INJ,SOLN,PE N,3ML INJECT 1MG UNDER THE SKIN EVERY WEEK FOR DIABETES SUBCUT ANEOUS DISCONT INUED 07/26/2024 [id number] SEN DEWITT 2023 1 [facility] N SEMAGLUTIDE 2MG/0.75ML INJ,SOLN,PE N,3ML INJECT 2MG UNDER THE SKIN EVERY WEEK FOR DIABETES SUBCUT ANEOUS ACTIVE 02/28/2025 [id number] 5 SEN DEWITT 2023 3 [facility] SEMAGLUTIDE 2MG/0.75ML INJ,SOLN,PE N,3ML INJECT 2MG UNDER THE SKIN EVERY WEEK FOR DIABETES SUBCUT ANEOUS DISCONT INUED 08/31/2024 [id number] SEN DEWITT 2023 1 [facility] N SEMAGLUTIDE 2MG/0.75ML INJ,SOLN,PE N,3ML INJECT 2MG UNDER THE SKIN EVERY WEEK FOR DIABETES SUBCUT ANEOUS DISCONT INUED 07/26/2024 [id number] SEN DEWITT 2023 3 [facility] SILDENAFIL CITRATE 100MG TAB TAKE ONE-HALF TABLET BY MOUTH ONE HOUR PRIOR TO SEXUAL ACTIVITY NEEDED - LIMIT 6 DOSES PER 30 DAYS ORAL ACTIVE 02/10/2025 [id number] 5 SKYE MUNOZ N 2023 9 [facility] SITagliptin 100 mg oral tablet TAKE ONE TABLET BY MOUTH EVERY DAY, # 90 EA, 1 total refill(s ), Acute Complet ed 12/25/2022 2 2022 90.0 Ambulat ory Pharmac y SODIUM CHLORIDE 0.65% SOLN,NASAL SPRAY USE 1 SPRAY INTO NOSTRIL( S) EVERY 4 HOURS NEEDED NASAL ACTIVE 04/21/2025 [id number] 5 SKYE MUNOZ N [address] [facility] SODIUM CHLORIDE 0.65% SOLN,NASAL SPRAY USE 1 SPRAY INTO NOSTRIL( S) EVERY 4 HOURS NEEDED NASAL DISCONT INUED 02/10/2025 [id number] 5 SKYE MUNOZ MARA N [address] [facility] Results Combined list of recent chemistry, hematology [...] Specimen Type: BLOOD Comment: Test Performed by: [id number] Meter #: [id number] Ordering Provider: TERELL MARQUEZ Report Released Date/Time: Feb 10, 2024 04:17 PM Reporting Lab: [address] [address] Performing Lab: [address] [address] [facility] MICRAL/CR EAT PROFILE (STL) ALBUMIN [MASS/VOLUM E] IN URINE 9.6 mg/L 01/23 Specimen Type: URINE No comment entered. Ordering Provider: KIARA MUNOZ Report Released Date/Time: May 01, 2023 12:17 PM Reporting Lab: [facility] [address] [facility] [address] Performing Lab: [facility] [address] [place] [phone] [facility] MICRAL/CR EAT PROFILE (STL) ALBUMIN/CRE ATININE [MASS RATIO] IN URINE 16 mg/g 0 - 29 01/23 Specimen Type: URINE No comment entered. Ordering Provider: KIARA MUNOZ Report Released Date/Time: May 01, 2023 12:17 PM Reporting Lab: [facility] [address] [facility] [address] Performing Lab: [facility] [address] [facility] [address] [facility] MICRAL/CR EAT PROFILE (STL) CREATININE [MASS/VOLUM E] IN URINE 61.8 mg/dL 63 - 166 01/23 L Specimen Type: URINE No comment entered. Ordering Provider: KIARA MUNOZ Report Released Date/Time: May 01, 2023 12:17 PM Reporting Lab: [facility] [address] [facility] [address] Performing Lab: [address] [address] [facility] LIPID PANEL (STL) CHOLESTEROL [MASS/VOLUM E] IN SERUM OR PLASMA 95 mg/dL 0 - 200 01/23 Specimen Type: PLASMA Comment: No hemolysis noted. Ordering Provider: KIARA MUNOZ Report Released Date/Time: May 01, 2023 12:17 PM Reporting Lab: [place] [id number] [facility] [address] Performing Lab: [address] [address] [facility] LIPID PANEL (STL) TRIGLYCERID E [MASS/VOLUM E] IN SERUM OR PLASMA 57 mg/dL 0 - 150 01/23 Specimen Type: PLASMA Comment: No hemolysis noted. Ordering Provider: KIARA MUNOZ Report Released Date/Time: May 01, 2023 12:17 PM Reporting Lab: [facility] [address] [facility] [address] Performing Lab: [address] [address] [facility] LIPID PANEL (STL) CHOLESTEROL IN LDL [MASS/VOLUM E] IN SERUM OR PLASMA BY CALCULATION 49 mg/dL 01/23 Specimen Type: PLASMA Comment: No hemolysis noted. Ordering Provider: KIARA MUNOZ Report Released Date/Time: May 01, 2023 12:17 PM Reporting Lab: [facility] [address] [facility] [address] Performing Lab: [address] [address] [facility] LIPID PANEL (STL) CHOLESTEROL IN HDL [MASS/VOLUM E] IN SERUM OR PLASMA 35 mg/dL 40 01/23 L Specimen Type: PLASMA Comment: No hemolysis noted. Ordering Provider: KIARA MUNOZ Report Released Date/Time: May 01, 2023 12:17 PM Reporting Lab: [address] [address] Performing Lab: [address] [address] [facility] COMPREHEN SIVE METABOLIC PANEL CREATININE [MASS/VOLUM E] IN SERUM OR PLASMA 0.95 mg/dL 0.7 - 1.3 01/23 Specimen Type: PLASMA Comment: No hemolysis noted. Ordering Provider: KIARA MUNOZ Report Released Date/Time: May 01, 2023 12:17 PM Reporting Lab: [address] [address] Performing Lab: [address] [address] [facility] COMPREHEN SIVE METABOLIC PANEL UREA NITROGEN [MASS/VOLUM E] IN SERUM OR PLASMA 23.5 mg/dL 9.0 - 25.0 01/23 Specimen Type: PLASMA Comment: No hemolysis noted. Ordering Provider: KIARA MUNOZ Report Released Date/Time: May 01, 2023 12:17 PM Reporting Lab: [address] [address] Performing Lab: [address] [address] [facility] COMPREHEN SIVE METABOLIC PANEL GLUCOSE [MASS/VOLUM E] IN SERUM OR PLASMA 110 mg/dL 72 - 99 01/23 H Specimen Type: PLASMA Comment: No hemolysis noted. Ordering Provider: KIARA MUNOZ Report Released Date/Time: May 01, 2023 12:17 PM Reporting Lab: [facility] [address] [facility] [address] Performing Lab: [facility] [address] [facility] [address] [facility] COMPREHEN SIVE METABOLIC PANEL SODIUM [MOLES/VOLU ME] IN SERUM OR PLASMA 144 meq/L 136 - 145 01/23 Specimen Type: PLASMA Comment: No hemolysis noted. Ordering Provider: KIARA MUNOZ Report Released Date/Time: May 01, 2023 12:17 PM Reporting Lab: [facility] [address] [facility] [address] Performing Lab: [facility] [address] [facility] [address] [facility] COMPREHEN SIVE METABOLIC PANEL POTASSIUM [MOLES/VOLU ME] IN SERUM OR PLASMA 4.4 meq/L 3.5 - 5 01/23 Specimen Type: PLASMA Comment: No hemolysis noted. Ordering Provider: KIARA MUNOZ Report Released Date/Time: May 01, 2023 12:17 PM Reporting Lab: [facility] [address] [facility] [address] Performing Lab: [facility] [address] [facility] [address] [facility] COMPREHEN SIVE METABOLIC PANEL CHLORIDE [MOLES/VOLU ME] IN SERUM OR PLASMA 111 meq/L 98 - 107 01/23 H Specimen Type: PLASMA Comment: No hemolysis noted. Ordering Provider: KIARA MUNOZ Report Released Date/Time: May 01, 2023 12:17 PM Reporting Lab: [facility] [address] [facility] [address] Performing Lab: [facility] [address] [facility] [address] [facility] COMPREHEN SIVE METABOLIC PANEL CARBON DIOXIDE, TOTAL [MOLES/VOLU ME] IN SERUM OR PLASMA 24 meq/L 22 - 31 01/23 Specimen Type: PLASMA Comment: No hemolysis noted. Ordering Provider: KIARA MUNOZ Report Released Date/Time: May 01, 2023 12:17 PM Reporting Lab: [facility] [address] [place], [place] [phone] Performing Lab: [facility] [address] [place] [phone] [facility] COMPREHEN SIVE METABOLIC PANEL CALCIUM [MASS/VOLUM E] IN SERUM OR PLASMA 10.4 mg/dL 8.4 - 10.4 01/23 Specimen Type: PLASMA Comment: No hemolysis noted. Ordering Provider: KIARA MUNOZ Report Released Date/Time: May 01, 2023 12:17 PM Reporting Lab: [address] [address] Performing Lab: [address] [phone] [place] [address] COMPREHEN SIVE METABOLIC PANEL PROTEIN [MASS/VOLUM E] IN SERUM OR PLASMA 7.2 g/dL 6 - 8.6 01/23 Specimen Type: PLASMA Comment: No hemolysis noted. Ordering Provider: KIARA MUNOZ Report Released Date/Time: May 01, 2023 12:17 PM Reporting Lab: [facility] [address] [place] [phone] Performing Lab: [address] [address] [facility] COMPREHEN SIVE METABOLIC PANEL ALBUMIN [MASS/VOLUM E] IN SERUM OR PLASMA 4.5 g/dL 3.4 - 5 01/23 Specimen Type: PLASMA Comment: No hemolysis noted. Ordering Provider: KIARA MUNOZ Report Released Date/Time: May 01, 2023 12:17 PM Reporting Lab: [address] [address] Performing Lab: [address] [address] [facility] COMPREHEN SIVE METABOLIC PANEL BILIRUBIN.T OTAL [MASS/VOLUM E] IN SERUM OR PLASMA 0.4 mg/dL 0.2 - 1.2 01/23 Specimen Type: PLASMA Comment: No hemolysis noted. Ordering Provider: KIARA MUNOZ Report Released Date/Time: May 01, 2023 12:17 PM Reporting Lab: [facility] [address] [place] [address] Performing Lab: [facility] [address] [place] [phone] [facility] COMPREHEN SIVE METABOLIC PANEL ALKALINE PHOSPHATASE [ENZYMATIC ACTIVITY/VO LUME] IN SERUM OR PLASMA 29 U/L 40 - 150 01/23 L Specimen Type: PLASMA Comment: No hemolysis noted. Ordering Provider: KIARA MUNOZ Report Released Date/Time: May 01, 2023 12:17 PM Reporting Lab: [address] [address] Performing Lab: [address] [address] [facility] COMPREHEN SIVE METABOLIC PANEL ASPARTATE AMINOTRANSF ERASE [ENZYMATIC ACTIVITY/VO LUME] IN SERUM OR PLASMA 23 U/L 5 - 34 01/23 Specimen Type: PLASMA Comment: No hemolysis noted. Ordering Provider: KIARA MUNOZ Report Released Date/Time: May 01, 2023 12:17 PM Reporting Lab: [address] [address] Performing Lab: [facility] [address] [place] [phone] [facility] COMPREHEN SIVE METABOLIC PANEL ALANINE AMINOTRANSF ERASE [ENZYMATIC ACTIVITY/VO LUME] IN SERUM OR PLASMA 29 U/L 8 - 40 01/23 Specimen Type: PLASMA Comment: No hemolysis noted. Ordering Provider: KIARA MUNOZ Report Released Date/Time: May 01, 2023 12:17 PM Reporting Lab: [facility] [address] [place] [phone] Performing Lab: [facility] [address] [place] [phone] [facility] COMPREHEN SIVE METABOLIC PANEL GLOMERULAR FILTRATION RATE/1.73 SQ M.PREDICTED [VOLUME RATE/AREA] IN SERUM, PLASMA OR BLOOD BY CREATININE- BASED FORMULA (CKD-EPI 2020) 97.5 60 01/23 Specimen Type: PLASMA Comment: No hemolysis noted. Ordering Provider: KIARA MUNOZ Report Released Date/Time: May 01, 2023 12:17 PM Reporting Lab: [facility] [address] [facility] [address] Performing Lab: [address] [id number] HEMOGLOBIN A1C/HEMOGLO BIN.TOTAL IN BLOOD 5.8 4.0 - 6.0 01/23 Specimen Type: BLOOD No comment entered. Ordering Provider: KIARA MUNOZ Report Released Date/Time: May 01, 2023 12:17 PM Reporting Lab: [facility] [address] [facility] [address] Performing Lab: [place] [id number] [facility] [id number] [place] [address] PROST. SPECIFIC AG.(PB-ST L) PROSTATE SPECIFIC AG [...] May 01, 2023 12:17 PM Reporting Lab: [facility] [address] [place] [id number] Performing Lab: [address] [address] [facility] VITAMIN D, 25-HYDROX Y 25-HYDROXYV ITAMIN D3 [...] 01, 2023 12:17 PM Reporting Lab: [address] [address] Performing Lab: [address] [address] [facility] HGA1C HEMOGLOBIN A1C/HEMOGLO BIN.TOTAL IN BLOOD 6.8 4.0 - 6.0 07/25 H Specimen Type: BLOOD No comment entered. Ordering Provider: ROBIN DEWITT Report Released Date/Time: July 26, 2023 12:26 PM Reporting Lab: [address] [address] Performing Lab: [address] [address] [facility] LIPID PANEL (STL) CHOLESTEROL [MASS/VOLUM E] IN SERUM OR PLASMA 132 mg/dL 0 - 200 07/25 Specimen Type: PLASMA No comment entered. Ordering Provider: ROBIN DEWITT Report Released Date/Time: July 26, 2023 12:26 PM Reporting Lab: [address] [address] Performing Lab: [address] [address] [facility] LIPID PANEL (STL) TRIGLYCERID E [MASS/VOLUM E] IN SERUM OR PLASMA 118 mg/dL 0 - 150 07/25 Specimen Type: PLASMA No comment entered. Ordering Provider: ROBIN DEWITT Report Released Date/Time: July 26, 2023 12:26 PM Reporting Lab: [address] [address] Performing Lab: [address] [address] [facility] LIPID PANEL (STL) CHOLESTEROL IN LDL [MASS/VOLUM E] IN SERUM OR PLASMA BY CALCULATION 68 mg/dL 07/25 Specimen Type: PLASMA No comment entered. Ordering Provider: ROBIN DEWITT Report Released Date/Time: July 26, 2023 12:26 PM Reporting Lab: [address] [address] Performing Lab: [address] [address] [facility] LIPID PANEL (STL) CHOLESTEROL IN HDL [MASS/VOLUM E] IN SERUM OR PLASMA 40 mg/dL 40 07/25 Specimen Type: PLASMA No comment entered. Ordering Provider: ROBIN DEWITT Report Released Date/Time: July 26, 2023 12:26 PM Reporting Lab: [address] [address] Performing Lab: [address] [address] [facility] GLUCOSE,B LOOD-poct (L) GLUCOSE [MASS/VOLUM E] IN BLOOD BY AUTOMATED TEST STRIP 120 mg/dL 72 - 99 05/01 H Specimen Type: BLOOD Comment: Test Performed by: [id number] Meter #: [id number] Ordering Provider: KIARA MUNOZ Report Released Date/Time: May 01, 2023 04:01 PM Reporting Lab: [address] [address] Performing Lab: [address] [address] [facility] Vital Signs Combined list of inpatient and outpatient Vital Signs from Department of Defense and Veterans Affairs, ranging from 12 months to all on record, depending upon the facility. Vital Sign Value Date Comments Source SYSTOLIC BLOOD PRESSURE 170 02/10/20 24 13:59:34 [facility] DIASTOLIC BLOOD PRESSURE 98 024 13:59:34 [facility] PULSE OXIMETRY 96 02/10/2024 13:59:34 [facility] WEIGHT 221.5 02/10/2024 13:59:34 [facility] BMI 30 kg/m2 02/10/2024 13:59:34 [facility] PAIN 5 02/10/2024 13:59:34 [facility] HEIGHT 72 02/10/2024 13:59:34 [facility] TEMPERATURE 98 02/10/2024 13:59:34 [facility] PULSE 86 02/10/2024 13:59:34 [facility] RESPIRATION 18 02/10/2024 13:59:34 [facility] SYSTOLIC BLOOD PRESSURE 112 11/19/19 24 10:00:00 [facility] DIASTOLIC BLOOD PRESSURE 76 024 10:00:00 [facility] PAIN 4 11/19/2023 10:00:00 [facility] TEMPERATURE 98.4 11/19/2023 10:00:00 [facility] PULSE 87 11/19/2023 10:00:00 [facility] RESPIRATION 16 11/19/2023 10:00:00 [facility] SYSTOLIC BLOOD PRESSURE 144 07/26/19 24 12:02:00 [facility] DIASTOLIC BLOOD PRESSURE 80 024 12:02:00 [facility] PULSE OXIMETRY 96 07/26/2023 12:02:00 [facility] WEIGHT 244 07/26/2023 12:02:00 [facility] BMI 33 kg/m2 07/26/2023 12:02:00 [facility] PAIN 2 07/26/2023 12:02:00 [facility] TEMPERATURE 97.6 07/26/2023 12:02:00 [facility] PULSE 89 07/26/2023 12:02:00 [facility] RESPIRATION 18 07/26/2023 12:02:00 [facility] Encounters Combined list of: 1) Encounters from Department of Veterans Affairs facilities going backup to the last 18 months, not all VA inpatient encounters are included; 2) Encounters from the Department of Defense facilities going backup to 280 months. Location Location Details Encounter Type Encounter Number Reason For Visit Attending Provider ADM Date DC Date Status Disposition Source [facility] OFFICE O/P EST MOD 30-39 MIN [id number] Diagnos is: ICD-10- CM M54.2 Cervica lgia [place] 01/16 [facility] Encounter [id number] ROSI MUNOZ ROHIT N 02/27 [facility] Outpatient Encounter [id number] ROSI MUNOZ ROHIT N 03/21 [facility] Outpatient Encounter [id number] Diagnos is: ICD-10- CM N52.9 Male erectil e dysfunc tion, unspeci fied TAMMYROSI ROHIT N 03/21 [facility] Outpatient Encounter [id number] Diagnos is: ICD-10- CM Z72.0 Tobacco use NETO MCGILL 04/24 [facility] OFFICE O/P NEW MOD 45 MIN [id number] Diagnos is: ICD-10- CM E78.5 Hyperli pidemia , unspeci fied ROBIN DEWITT 04/26 [facility] OFFICE O/P EST MOD 30 MIN [id number] Diagnos is: ICD-10- CM G89.29 Other chronic pain TAMMYROSI BEE N 05/01 [facility] QNHP OL DIG ASSMT&MGMT 5-10 [id number] Diagnos is: ICD-10- CM E78.5 Hyperli pidemia , unspeci fied NICHOLAS CHANDLER 05/02 [facility] QNHP OL DIG ASSMT&MGMT 5-10 [id number] Diagnos is: ICD-10- CM E78.5 Hyperli pidemia , unspeci fied NICHOLAS CHANDLER [facility] FLU IMM NO ADMIN DOC MAYANK [id number] Diagnos is: ICD-10- CM Z23 Encount er for immuniz ation FRENCH,VE RA 05/09 [facility] QNHP OL DIG ASSMT&MGMT 5-10 [id number] Diagnos is: ICD-10- CM E11.9 Type 2 diabete s mellitu s without complic ations SHWETHA ESPARZA 06/04 [facility] HC PRO PHONE CALL 5-10 MIN [id number] Diagnos is: ICD-10- CM E11.9 Type 2 diabete s mellitu s without complic ations SHIRLEY ARAGON 07/09 [facility] OFFICE O/P EST MOD 30 MIN [id number] Diagnos is: ICD-10- CM M54.2 Cervica lgia JOHN RAMAN RIL L 07/23 [facility] Outpatient Encounter [id number] 07/24 [facility] OFFICE O/P EST MOD 30 MIN [id number] Diagnos is: ICD-10- CM E11.9 Type 2 diabete s mellitu s without complic ations ROBIN EDWITT 07/25 [facility] Outpatient Encounter [id number] HALLEY JOHANSEN R 07/28 [facility] Outpatient Encounter [id number] 08/25 [facility] Outpatient Encounter [id number] 10/07 [facility] EMERGENCY DEPT VISIT LOW MDM [id number] Diagnos is: ICD-10- CM M54.50 Low back pain, unspeci fied MUDALLAL,O MAR 11/18 [facility] Outpatient Encounter [id number] 01/16 [facility] Outpatient Encounter [id number] SELENE PLAZA L 01/22 [facility] Encounter [id number] 02/02 [facility] Outpatient Encounter [id number] 02/[address] [facility] OFFICE O/P EST MOD 30 MIN [id number] Diagnos is: ICD-10- CM M54.51 Vertebr ogenic low back pain ROSI MUNOZ 02/09 [facility] Outpatient Encounter [id number] 02/09 [facility] FUNDUS PHOTOGRAPH Y W/I&R [id number] Diagnos is: ICD-10- CM Z13.5 Encount er for screeni ng for eye and ear disorde rs STACIE MARQUEZ Buddy 02/09 [facility] Outpatient Encounter [id number] Diagnos is: ICD-10- CM Z13.5 Encount er for screeni ng for eye and ear disorde rs STACIE MARQUEZ Andrea Goodwin 02/09 [facility] OFFICE O/P EST MOD 30 MIN [id number] Diagnos is: ICD-10- CM E78.5 Hyperli pidemia , unspeci fied VICTORIANO,MEHD IA 03/02 [facility] OFF/OP CONSLTJ NEW/EST SF 20 [id number] Diagnos is: ICD-10- CM Z12.2 Encntr screen for maligna nt neoplas m of respira tory organs Leonid SEGURA JR 03/02 [facility] Outpatient Encounter [id number] Diagnos is: ICD-10- CM M54.51 Vertebr ogenic low back pain FRANCISCA MISHRA 03/10 [facility] THERAPEUTI C ACTIVITIES [id number] Diagnos is: ICD-10- CM M54.51 Vertebr ogenic low back pain BONNIE SIMS 03/10 [facility] THERAPEUTI C EXERCISES [id number] Diagnos is: ICD-10- CM M54.51 Vertebr ogenic low back pain BONNIE SIMS 04/[address] [facility] Outpatient Encounter [id number] 04/09 [facility] Outpatient Encounter [id number] Diagnos is: ICD-10- CM Z12.2 Encntr screen for maligna nt neoplas m of respira tory organs Leonid SEGURA JR 04/09 [facility] Outpatient Encounter [id number] Diagnos is: ICD-10- CM Z12.2 Encntr screen for maligna nt neoplas m of respira tory organs SUSAN VARELA 04/10 [facility] MANUAL THERAPY 1/ [facility] [id number] Diagnos is: ICD-10- CM M54.51 Vertebr ogenic low back pain BONNIE SIMS 04/15 [facility] Outpatient Encounter [id number] 04/17 [facility] Outpatient Encounter [id number] 05/[address] [facility] Outpatient Encounter [id number] 06/01 [facility] Procedures Combined list of: 1) Procedures from Department of Veterans Affairs facilities going back up to thelast 18 months, not all VA non-surgical procedures are included; 2) All procedures from the Department of Defense facilities. Procedure Procedure Type Code Date Perfomer Comments Sourc e No data available for this section Ambulato ry Pharmacy NONINVASIVE EAR OR PULSE OXIMETRY FOR OXYGEN SATURATION; SINGLE DETERMINATION 12/31/2001 [facility] Social History Combined list of available smoking, tobacco, and other social history from Department of Defense and Veterans Affairs facilities. Social History Type Response Date Comment Sourc e Tobacco smoking status NHIS VA-TOBACCO USE EVERY DAY CIGARETTES 02/10/2024 [facility] History of tobacco use VA-TOBACCO NEVER USED OTHER TYPE 02/10/2024 [facility] History of tobacco use VA-TOBACCO USER EVERY DAY 08/17/2022 [facility] History of tobacco use VA-TOBACCO USE DOCUMENT CONTROL COORDINATOR NO 08/27/2018 [facility] This section is an empty social history section. DoD Assessment and Plan Combined list of future care activities from Department of Defense and Veterans Affairs facilities (e.g., assessment and plan notes, appointments, orders, and referrals). Additional future care activities may be listed in the Plan of Care section. Result Assessment and Plan Date Source Assessment and Plan No data available for this section 07/07/2024 Ambulatory Pharmacy Plan of Care List of future care activities from Department of Veterans Affairs facilities. Additional future care activities may be listed in the Assessment and Plan section. Date/Time Care Activity Care Activity Detail Facili ty 07/20/2024 AMBULATORY - MEDICINE AMBULATORY - MEDICI [facility] Functional Status Combined list of recent functional and cognitive assessments recorded at Department of Defense and Veterans Affairs (VA).[place] Functional [place] Measurement (FIM) Scale: 1 = Total Assistance (Subject = 0% +), 2 = Maximal Assistance (Subject = 25% +), 3 = Moderate Assistance (Subject = 50% +), 4 = Minimal Assistance (Subject = 75% +), 5 = Supervision, 6 = Modified [place] (Device), 7 = Complete [place] (Timely, Safely). Assessment Date/Time Source Assessment Type Assessment Skill Assessment Score Assessment Details No data available for this section
--- OUTSIDE RECORDS SUMMARY | 2024-07-07 08:26 | XMS_ITS | Encounter Summary ---
Author Name [facility] Affairs ([place]) [facility] Address [address] [place] [address] Care Team Providers Care Substation Maintenance Technician Name Role Phone SANDRA MUNOZ Primary Care [...] ION RX PLAN Apr 11, 2019 [id number] [phone] Christoph TILLEY SPOUSE [facility] Mar 11, 2017 [id number] [phone] Nino TILLEY SPOUSE [facility] Mar 11, 2019 [id number] [phone] Nino TILLEY SPOUSE [facility] POINT OF SERVICE [facility] Mar 11, 2017 [id number] [phone] Nino TILLEY SPOUSE Selected Encounter This section includes the information on record at [place] for the Encounter. Date/Time Encounter Type Encounter Description Reason Provider Source July 24, 2023 10:00 AM OFFICE O/P EST MOD 30 MIN NEUROSURGERY ICD-10-CM M54.2 Cervicalgia BETO RAMAN IHE Encounter Template Text not used by [place] Assessments - Encounter Diagnoses This section includes the primary and secondary diagnoses documented for the Encounter. Date/Time Primary/Secondary Diagnosis Diagnosis Name Provider Source August 06, 2023 07:42 AM PRIMARY Cervicalgia BETO RAMAN [facility] August 06, 2023 07:42 AM SECONDARY Other cervical disc degeneration, unsp cervical region BETO RAMAN [facility] Plan of Treatment: Future Appointments (+ 6 months) and Future Tests (+/- 45 days) The Plan of Treatment section includes future care activities for the patient from all [place] treatmentfareplaced by [facility] ansonities. This section includes future appointments and future orders which are active, pending or scheduled. Future Appointments This section includes appointments that were scheduled to occur 6 months from the date of the Encounter, up to a maximum of 20 appointments. The data comes from all [place] treatment facilities. Appointment Date/Time Appointment Type Appointme nt Facility Name July 26, 2023 12:00 PM AMBULATORY - MEDICINE [facility] Nov 19, 2023 09:49 AM AMBULATORY - MEDICINE [facility] Lab Results: +/- 30 days of the encounter This section includes the Chemistry and Hematology Lab Results on record with [place] for the patient. Radiology Reports and Pathology Reports are provided separately, in subsequent sections. Lab Results This section contains the Chemistry/Hematology Results that were resulted 30 days before or 30 daysafter the date of the Encounter. Date/Time Source Result Type Result - Unit Interpretation Reference Range Specimen Type Comment July 26, 2023 12:36 PM [facility] HGA1C BLOOD Specimen Type: BLOOD No comment entered. Ordering Provider: ROBIN DEWITT Report Released Date/Time: July 26, 2023 12:26 PM Reporting Lab: [facility] [address] [facility] [address] Performing Lab: [facility] [address] [facility] [address] HGA1C 6.8 H 4.0-6.0 July 26, 2023 12:36 PM [facility] LIPID PANEL (STL) PLASMA Specimen Type: PLASM A No comment entered. Ordering Provider: DEWITT,ROBIN M Report Released Date/Time: July 26, 2023 12:26 PM Reporting Lab: [facility] [address] [facility] [address] Performing Lab: [facility] [address] [facility] [address] CHOLESTEROL 132 mg/dL 0-200 TRIGLYCERIDE 118 mg/dL [...] confirmed. Emergency number confirmed. Patient Contact Details: Address:[address] [place] [address], [place] [address] HPI: Too Tilley is a pleasant 48 [...] obtain cervical MRI CD and report from [facility], obtain cervical MRI CD and reports and operative note from [facility] from 2016- present, & consider EMG LUE if MRI did not explain his symptoms. OP report received--> ACDF C5-6 done in 2013. MRI cervical spine done at [facility] in 09/2022--> revealed postsurgical changes at C5-6. [...] is not at that point . 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 IMAGING: [facility] 09/30/22 MRI of the cervical spine Findings: [...] 07, 2022 Date Verified: SEP 07, 2022 Cocoa Milling Machine Operator E-Sig:/ES/SHANE SAXENA Report: INDICATION: evaluate cervical radiculopathy [...] above. Primary Interpreting Staff: SHANE SAXENA, RADIOLOGIST (Cocoa Milling Machine Operator) / NEUROSURGERY IMPRESSION & PLAN: Too Tilley [...] plan of care. /bennett/ BETO RAMAN DNP, CONTENT EDITOR, ERIC NURSE PRACTITIONER, NEUROSURGERY Signed: 07/24/2023 10:18 BETO RAMAN [facility]
--- OUTSIDE RECORDS SUMMARY | 2024-07-07 08:26 | XMS_ITS | Referral Summary ---
Author Organization [facility] Address [address] [place] [address] Care Team Providers Care Mirror Machine Feeder Name Role Phone Prudence Rivera NP Primary Care Provider [phone] Allergies No known active allergies Medications Jardiance [...] gets most of his care from the PA Knee pain 03/01/2017 Herniated disc, cervical 12/11/2012 Cervical radiculopathy 12/11/2012 Controlled type 2 diabetes marianela jeffers without complication, without long-term current use of insulin 12/11/2012 Assessment & Plan (12/14/2023 9:47 PM CDT): Last A1c 6.8% in July 2023. Labs scanned into media. Hyperlipidemia associated with type 2 diabetes marianela jeffers 12/11/2012 Assessment & Plan (12/14/2023 9:48 PM CDT): Lipid abnormalities are stable. Pharmacotherapy as ordered. Continues on atorvastatin Lipids will be reassessed in 6 months. Managed by [place] Hypertension associated with diabetes 12/11/2012 Assessment & Plan (12/14/2023 9:49 PM CDT): Stable/ Improved. Blood pressure is adequately controlled on lisinopril (Prinivil) . We will not make any medication changes today. Will have him follow-up in 6 months for continued monitoring and management Managed by the [place]. 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 Gender Identity Not on file Sexual Orientation Not on file Last Filed Vital Signs Vital Sign Reading Time Taken Comments Blood Pressure 136/82 12/11/2023 1:39 PM CDT Pulse 86 12/11/2023 1:39 PM CDT Temperature 36.7 C (98.1 F) 12/11/2023 1:39 PM CDT Respiratory Rate - - Oxygen Saturation 98% [...] A1C (07/26/2023) SCRIBED Hemoglobin A1c 6.8 % us Historical Provider HEALTH MAINTENANCE Final Result * [...] RATIO, URINE 47 EXTERNAL LAB Historical Provider MD HEALTH MAINTENANCE Final Result EXTERNAL LAB * EGFR (03/08/2023) SCRIBED eGFR in NonAfrican [place]ore[place] 107.3 EXTERNAL LAB Historical Provider HEALTH MAINTENANCE Final Result EXTERNAL LAB from Last 3 Months or Most Recently Relevant to Health Maintenance Insurance [facility] CHO[facility] PLUS [facility] CLAIM[facility]US [facility] CLAIMS [facility] CHO[facility] PLUS [facility] CLAIMS Care Teams Mirror Machine Feeder Relationship Specialty Start Date End Date Prudence Rivera NP PCP - General Family Medicine 12/11/23
--- OUTSIDE RECORDS SUMMARY | 2024-07-07 08:26 | XMS_ITS | Clinical Summary ---
Author Organization [facility] Address [address] [place] [id number] Care Team Providers Care Manager Skilled Name Role Phone Samuel Jeffries MD Primary Care Provider [phone] Social History Tobacco Use Types Packs/Day Years [...] of 3 - 19+ 3-dose series) 1992 Pneumococcal Vaccine: 50+ Years (1 of 1 - PCV) 06/13/2023 Zoster Vaccines (1 of 2) 06/13/2023 COVID-19 Vaccine (3 - 2023-2 5 season) 2023 03/29/2021, 05/13/2020 Meningococcal B Vaccine Aged Out No l onger eligible based on patient's age to complete this topic Meningococcal Vaccine Aged Out No maxx xochitl eligible based on patient's age to complete this topic RSV Immunizations Under 20 Months Aged Out No longer eligible b ased on patient's age to complete this topic Insurance [facility] Care Teams Manager Skilled Relationship Specialty Start Date End Date Samuel Jeffries MD [address] [place] [phone] PCP - General FAMILY PRACTICE 11/02/22
--- OUTSIDE RECORDS SUMMARY | 2024-07-07 08:26 | XMS_ITS | Encounter Summary ---
Author Name [facility] [place] [facility] ([place]) Organization [facility] Address [address] [place] [address] Care Team Providers Care Flap Maker Name Role Phone SANDRA MUNOZ Primary Care [...] ION RX PLAN Apr 11, 2019 [id number] [phone] Christoph TILLEY SPOUSE [facility] Mar 11, 2017 [id number] [phone] Nino TILLEY SPOUSE [facility] Mar 11, 2019 [id number] [phone] Nino TILLEY SPOUSE [facility] POINT OF SERVICE [facility] Mar 11, 2017 [id number] [phone] Nino TILLEY SPOUSE Selected Encounter This section includes the information on record at [place] for the Encounter. Date/Time Encounter Type Encounter Description Reason Provider Source July 26, 2023 12:00 PM OFFICE O/P EST MOD 30 MIN ENDOCRINOLOGY ICD-10-CM E11.9 Type 2 diabetes mellitus without complications ROBIN DEWITT [facility] Encounter Template Text not used by [place] Assessments - Encounter Diagnoses This section includes the primary and secondary diagnoses documented for the Encounter. Date/Time Primary/Secondary Diagnosis Diagnosis Name Provider Source August 04, 2023 08:19 AM PRIMARY Type 2 diabetes mellitus without complications ROBIN DEWITT [facility] August 04, 2023 08:19 AM SECONDARY Essential (primary) hypertension ROBIN DEWITT [facility] August 04, 2023 08:19 AM SECONDARY Hyperlipidemia, unspecified ROBIN DEWITT [facility] Plan of Treatment: Future Appointments (+ 6 months) and Future Tests (+/- 45 days) The Plan of Treatment section includes future care activities for the patient from all [place] [facility]. This section includes future appointments and future orders which are active, pending or scheduled. Future Appointments This section includes appointments that were scheduled to occur 6 months from the date of the Encounter, up to a maximum of 20 appointments. The data comes from all [place] treatment facilities. Appointment Date/Time Appointment Type Appointme nt Facility Name Nov 19, 2023 09:49 AM AMBULATORY - MEDICINE [facility] Lab Results: +/- 30 days of the encounter This section includes the Chemistry and Hematology Lab Results on record with [place] for the patient. Radiology Reports and Pathology Reports are provided separately, in subsequent sections. Lab Results This section contains the Chemistry/Hematology Results that were resulted 30 days before or 30 daysafter the date of the Encounter. Date/Time Source Result Type Result - Unit Interpretation Reference Range Specimen Type Comment July 26, 2023 12:36 PM [facility] HGA1C BLOOD Specimen Type: BLOOD No comment entered. Ordering Provider: ROBIN DEWITT Report Released Date/Time: July 26, 2023 12:26 PM Reporting Lab: [facility] [address] [address] Performing Lab: [place] [id number] [facility] [address] HGA1C 6.8 H 4.0-6.0 July 26, 2023 12:36 PM [facility] LIPID PANEL (STL) PLASMA Specimen Type: PLASM A No comment entered. Ordering Provider: ROBIN DEWITT Report Released Date/Time: July 26, 2023 12:26 PM Reporting Lab: [facility] [address] [facility] [address] Performing Lab: [facility] [address] [facility] [address] CHOLESTEROL 132 mg/dL 0-200 TRIGLYCERIDE 118 mg/dL 0-150 CALCULATED LDL 68 mg/dL HDL(New) 40 mg/dL >40 Vital Signs: All taken on the encounter date This section contains inpatient and outpatient Vital Signs collected on the date of the Encounter. Date/Time Temperature Pulse Blood Pressure Respiratory Rate SP02 Pain Height Weight Body Mass Index Source July 26, 2023 12:02 PM 138/80 [facility] N July 26, 2023 12:02 PM 97.6 89 144/80 18 96 2 244 33 [facility] N Encounter Notes: All associated encounter notes [...] Sandra Munoz MD. Staff Physcian. 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 1.) Type 2 diabetes: He is doing well on ozempic and will increase to optimize weight loss benefits -continue metformin 1 g BID, glimepiride 4 mg BID, jardiance 25 mg -increase ozempic to 1 mg->2 mg Optho: no known retinopathy, teleretinal screen 08/31, normal exam [place] 2023 Macrovascular: no NC/CVA, no chest pain Neuropathy:no and no prior [...] Endocrinology Physician Signed: 07/28/2023 21:25 ROBIN DEWITT [facility] July 26, 2023 11:58 AM ENDOCRINOLOGY [facility]P [facility] NOTE: LOCAL TITLE: ENDOCRINOLOGY OUTPATIENT FOLLOW UP [...] [place] 2023 [place] [facility] Macrovascular: no NC/CVA, no chest pain Neuropathy: no and no prior amputations Nephropathy: none, UACR 32 on lisinopril 40 mg HLD:LDL 69 on lipitor 80 mg Family history: Father-HF, Both-diabetes SOCIAL HISTORY: Marital status: Tobacco: yes ETOH:yes 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
--- OUTSIDE RECORDS SUMMARY | 2024-07-07 08:26 | XMS_ITS | Clinical Summary ---
Author Organization [facility] Address [address] [place] [address] Care Team Providers Care Refrigeration Systems Installer Name Role Phone Prudence Rivera NP Primary Care Provider [phone] Allergies No known active allergies Medications Jardiance [...] gets most of his care from the [place] Knee pain 03/01/2017 Herniated disc, cervical 12/11/2012 [...] be reassessed in 6 months. Managed by [place] Hypertension associated with diabetes 12/11/2012 Assessment & Plan (12/14/2023 9:49 PM CDT): Stable/ Improved. Blood pressure is adequately controlled on lisinopril (Prinivil) . We will not make any medication changes today. Will have him follow-up in 6 months for continued monitoring and management Managed by the [place]. Immunizations Immunization Administration Dates Next Due Influenza, Unspecified 12/11/2023(Deferr ed: Patient Refused),03/11/2023(Deferred: Patient Refused) Tdap 11/09/2023 ZOSTER Recombinant 11/09/2023 Surgical History Surgery Date Site/Laterality Comments CERVICAL FUSION KNEE SURGERY JOINT REPLACEMENT Medical History Medical History Date Comments Personal history of other en docrine, nutritional and metabolic disease History of diabetes mellitus - (Added by HUSAM Conv) Personal history of other di seases [...] Hypertension Mother Diabetes Other 1 Diabetes Mellit us - (Added by TW Conv) Hypertension Other [...] on file 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 Gender Identity Not on file Sexual Orientation [...] Dilated Eye Exam 1975 Foot Exam 1975 Hepatitis B Screening 06/13/1991 Regular Well Visit/Exam 18-64 06/13/1991 Pneumococcal vaccine <65 (1 of 2 - PCV) 1992 Covid-19 Vaccine (3 - season) 2023, 05/13/2020 Zoster Vaccine (2 of 2) 01/04/2024 11/09/2023 Hemoglobin A1C 01/26/2024 07/26/2023 eGFR 03/08/2024 03/08/2023 Albumin Creatinine Ratio, Urine 04/30/2024 Lipid Panel 07/25/2024 07/26/2023, 04/30/2023 Influenza Vaccine (Season Ended) 2024 Depression Screening 12/10/2024 12/11/2023 DTaP/Tdap/Td Vaccine (2 - Td or Tdap) 11/08/2033 Procedures Procedure Name Priority Date/Time Associated Diagnosis Comments HEMOGLOBIN A1C Routine 07/26/2023 LIPID PANEL Routine 07/26/2023 ALBUMIN CREATININE RATIO, URINE Routine 04/30/2023 EGFR Routine 03/08/2023 from Last 3 Months or Most Recently Relevant to Health Maintenance Results * HEMOGLOBIN A1C (07/26/2023) SCRIBED Hemoglobin A1c 6.8 [...] ALBUMIN CREATININE RATIO, URINE 47 EXTERNAL LAB us Historical Provider MD HEALTH MAINTENANCE Final Result EXTERNAL LAB * EGFR (03/08/2023) SCRIBED eGFR in NonAfrican Czech 107.3 EXTERNAL LAB us Historical Provider HEALTH MAINTENANCE Final Result EXTERNAL LAB from Last 3 Months or Most Recently Relevant to Health Maintenance Insurance U[employer] CHOICE PLUS [facility] CLAIMS [facility] CHOICE PLUS Member Subscriber Plan / Payer (Ef fective 2018-Present) Name:Too Tilley Relation to Subscriber:Spouse Name:JACINDA TILLEY Date of :1971 (Home) Address: [address] [place] [address] Payer ID:[id number] (NAIC) Type:[facility] HMO/PPO Address: [address] CLAIMS [facility] CHOICE PLUS CLAIMS Care Teams Refrigeration Systems Installer Relationship Specialty Start Date End Date Prudence Rivera NP PCP - General Family Medicine 12/11/23
--- OUTSIDE RECORDS SUMMARY | 2024-07-07 08:26 | XMS_ITS ---
Author Name [facility] [place] Organization [facility] Address [address] [place] [id number] Care Team Providers Care Web Content Executive Name Role Phone SANDRA MUNOZ Primary Care [...] ION RX PLAN Apr 11, 2019 [id number] [phone] Christoph TILLEY SPOUSE [facility] Mar 11, 2017 [id number] [phone] Nino TILLEY SPOUSE [facility] Mar 11, 2019 [id number] [phone] Nino TILLEY SPOUSE [facility] POINT OF SERVICE [facility] Mar 11, 2017 [id number] [phone] Nino TILLEY SPOUSE Selected Encounter This section includes the information on record at [place] for the Encounter. Date/Time Encounter Type Encounter Description Reason Provider Source Mar 10, 2024 09:30 AM THERAPEUTIC ACTIVITIES PHYSICAL THERAPY ICD-10-CM 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 NENA SIMS Encounter Template Text not used by [place] Assessments - Encounter Diagnoses This section includes the primary and secondary diagnoses documented for the Encounter. Date/Time Primary/Secondary Diagnosis Diagnosis Name Provider Source Mar 10, 2024 12:50 PM PRIMARY Vertebrogenic low back pain NENA SIMS [facility] Plan of Treatment: Future Appointments (+ 6 months) and Future Tests (+/- 45 days) The Plan of Treatment section includes future care activities for the patient from all [place] [facility]. This section includes future appointments and future orders which are active, pending or scheduled. Future Appointments This section includes appointments that were scheduled to occur 6 months from the date of the Encounter, up to a maximum of 20 appointments. The data comes from all [facility]. Appointment Date/Time Appointment Type Appointme nt Facility Name Apr 01, 2024 10:00 AM AMBULATORY - [facility] Apr 09, 2024 08:00 AM AMBULATORY - NONE [facility] Apr 15, 2024 08:30 AM AMBULATORY - REHAB [facility] July 20, 2024 09:00 AM AMBULATORY - MEDICINE [facility] Aug 10, 2024 10:00 AM AMBULATORY - MEDICINE [facility] Active, Pending, and Scheduled Orders This section includes a listing of several types of active, pending, and scheduled orders, including clinic medications orders, diagnostic test orders, procedure orders and consult orders; where the start date of the order is 45 days before the date of the Encounter or 45 days after the date of theEncounter. The data comes from all [facility]. Test Date/Time Test Type Test Details Facility Name Mar 02, 2024 12:00 AM Laboratory - Chemi stry Order HGA1C BLOOD SP [facility] Mar 02, 2024 12:00 AM Laboratory - Chemi stry Order LIPID PANEL (STL) GREEN LI/HEP BLD/PLAS PLASMA SP [facility] Apr 20, 2024 12:00 AM Laboratory - Chemi stry Order OCCULT BLOOD FIT X1 SCREEN STOOL FECES [facility] Lab Results: +/- 30 days [...] Type Comment Feb 10, 2024 02:07 PM [facility] GLUCOSE,BLOOD-poct (STL) BLOOD Specimen Type: BLOOD Comment: Test Performed by: [id number] Meter #: [id number] Ordering Provider: TERELL MARQUEZ Report Released Date/Time: Feb 10, 2024 04:17 PM Reporting Lab: [facility] [address] [place] [id number] Performing Lab: [address] [address] GLUCOSE,BLOOD-poct (STL) 118 mg/dL H 72-99 Radiology Reports: +/- 30 days of the [...] the Encounter. The data comes from all [place] treatment facilities. Date/Time Radiology Report Provider Source Apr 09, 2024 07:49 AM LDCT LUNG CANCER SCREENING: BRODY TILLEY [id number] -[id number] M Exm Date: APR 09, 2024@07:49 Req Phys: ELIE SEGURA JR Pat Loc: [facility] PULM [facility]CS IMELDA WOODY (R Img Loc: [facility]-CT IMAGING [facility] Service: [address] [address] (Case [id number] COMPLETE) LDCT LUNG CANCER SCREENING (CT Detailed) CPT:30627 Reason for Study: Screening Clinical History: Responsible Attending: katalina Attending Contact Number: [id number] Resident Contact Number: Patient is age 55-80? [...] 09, 2024 Date Verified: APR 09, 2024 Die Technician E-Sig:/ES/JM CARVER Report: EXAM: LDCT LUNG CANCER SCREENING ADDITIONAL HISTORY: Baseline screening COMPARISON: None PROTOCOL: Screening protocol, low dose, non-contrast CT chest was performed at the local [place] facility in accordance with Lung-Rads 2021. Additional [...] N/A. Primary Interpreting Staff: JM CARVER MD (Die Technician) /JM ROSENTHAL [facility] Encounter Notes: All associated encounter notes This section contains the clinical notes associated to the Encounter. Date/Time Encounter Note(s) Provider Source Mar 10, 2024 12:47 PM PHYSICAL THERAPY C ONSULT: LOCAL TITLE: PT CONSULT STL STANDARD TITLE: PHYSICAL THERAPY CONSULT DATE OF NOTE: MAR 10, 2024@12:47 ENTRY DATE: MAR 10, 2024@12:47:28 AUTHOR: NENA SIMS EXP COSIGNER: URGENCY: STATUS: COMPLETED Current PC Provider: SANDRA MUNOZ LIMITED EXTENSION OF FOREARM (0%) From Service: [facility] PACT B4 PCP Requesting Provider: SANDRA MUNOZ [...] 04/10/24 POC through: 06/08/24 Visits to date: 1 No shows/cancellations: 0 Treatment time: Total 60 mins. Evaluation 30 mins. Therapeutic exercise: 15 mins. ther act: 10 mins self care: 5 mins SUBJECTIVE: Pt reports c/o ongoing low back pain [...] Rating (0-10): Current: 5/10 Best: 2/10 Worst: 9/10 --Pt. goal(s): Pt reports to get rid of back pain to transfer withotu sxs, sit / stand , standing up from a flexed position The Revised Oswestry Disability Index Score: 03/10/24: 74% OBJECTIVE: Posture (standing): swayback posture , tall pelvis Active Trunk Motions: (*=pain) Right Left forward [...] including: Access Code: [email or web address] [x] Supine March - 1 x daily - 7 x weekly - 3 sets - 5 reps [x] Quadruped Rocking Backward - 2 x daily - 7 x weekly - 2 sets - 5 reps [x] kneeling lat stretch 3x 30 sec ther act [x] sit to stand with cues for BLE > lumbar spine [x] standing position / leaning forward with hip hinge Education Teaching Outcomes: [x] Good; [] Fair; [] Poor [x] Patient acknowledged understanding of instruction [x] use of TENS unit, no contraindications reproted next visit [] marching with kettlebell weight low ab bracing [] walking with less swayback posture [] eccentric shoulder flexion with weight ASSESSMENT: presents to therapy with increased paraspinal recruitment, less sxs with flexion, increased paraspinal recruitment with return from forward bend, swayback posture, increased dominance of parapsinals with trunk stabilization. increased time discussing trasnfers with BLE and hips > Lumbar spine. stiffness noted in latissimus bilaterally Instructed on an initial written mg VALLES good understanding. Would benefit from a course [...] demonstrate independence with current HEP x 1 2) Pt. will report pain at worst 7/10 with transfers 3) Pt. 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 to report pain at worst 6/10 with transfers 3) Pt. to score 63% on The Revised Oswestry Disability Index indicating improved function with ADL's --REHABILITATION POTENTIAL: [] POOR - Limited potential [...] training /es/ NENA SIMS PT, DPT Signed: 03/10/2024 12:50 NENA SIMS [facility]
--- OUTSIDE RECORDS SUMMARY | 2024-07-07 08:28 | XMS_ITS | Continuity of Care Document ---
Author Name [facility] Organization [facility] Care Team Providers Care Photo Engraver Name Role Phone [facility] Unavailable Unavailable Problems Combined list of problems from Department of Defense and Veterans Affairs facilities. It does not include entries that were removed or entered in error. Problem Status Onset Date Problem Type Date of Resolution Comments Source Abnormal liver function Active Condition [facility] Acute sinusitis Active Condition [facility] Back pain Active Condition [facility] Cervical radiculopathy Active Condition [facility] Chronic pain Active Condition [facility] Diabetes mellitus Active Condition [facility] Erectile dysfunction Active Condition [facility] Hyperlipidemia Active Condition [facility] Hypertension Active Condition [facility] Medical examinations/report s status Active Condition [facility] Shoulder pain Active Condition [facility] Tobacco use Active Condition [facility] Vitamin D deficiency Active Condition [facility] Diagnosis: ICD-10-CM 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 Diagnosis [facility] Diagnosis: ICD-10-CM Z12.2 Encntr screen for malignant neoplasm of respiratory organs Active Diagnosis [facility] Diagnosis: ICD-10-CM E78.5 Hyperlipidemia, unspecified Active Diagnosis [facility] Diagnosis: ICD-10-CM Z13.5 Encounter for screening for eye and ear disorders Active Diagnosis [facility] Diagnosis: ICD-10-CM M54.50 Low back pain, unspecified Active Diagnosis [facility] Diagnosis: ICD-10-CM E11.9 Type 2 diabetes mellitus without complications Active Diagnosis [facility] Diagnosis: ICD-10-CM M54.2 Cervicalgia Active Diagnosis [facility] Diagnosis: ICD-10-CM Z23 Encounter for immunization Active Diagnosis [facility] Diagnosis: ICD-10-CM G89.29 Other chronic pain Active Diagnosis [facility] Diagnosis: ICD-10-CM Z72.0 Tobacco use Active Diagnosis [facility] Diagnosis: ICD-10-CM N52.9 Male erectile dysfunction, unspecified Active Diagnosis [facility] Medications Combined list of outpatient medications [...] ORAL DISCONT INUED BY PROVIDE R 03/21/2024 [id number] 4 SKYE MUNOZ N 2023 90 [facility] aspirin 325 mg oral tablet TAKE ONE TABLET DAILY, # 90 EA, 3 total refill(s ), Acute Complet ed 04/16/2023 3 2023 90.0 Ambulat ory Pharmac y ASPIRIN 81MG TAB,EC TAKE ONE TABLET BY MOUTH ONCE A DAY WITH FOOD FOR PREVENTI ON OF HEART DISEASE ORAL DISCONT INUED 03/15/2024 [id number] 4 SKYE MUNOZ N 2023 120 [facility] ASPIRIN 81MG TAB,EC TAKE ONE TABLET BY MOUTH ONCE A DAY WITH FOOD FOR PREVENTI ON OF HEART DISEASE ORAL DISCONT INUED 10/27/2023 [id number] Lester HUERTA 2022 120 [facility] ASPIRIN 81MG TAB,EC TAKE ONE TABLET BY MOUTH ONCE A DAY WITH FOOD FOR PREVENTI ON OF HEART DISEASE ORAL 05/10/2024 [id number] 4 SKYE MUNOZ N 2023 120 [facility] atorvastati n 40 mg oral tablet TAKE [...] FOR HIGH CHOLESTE ROL ORAL ACTIVE 02/10/2025 [id number] 5 SKYE MUNOZ N 2024 90 [facility] ATORVASTATI N CA 80MG TAB TAKE ONE TABLET BY MOUTH EVERY EVENING FOR HIGH CHOLESTE ROL ORAL DISCONT INUED 05/01/2024 [id number] 4 SKYE MUNOZ MARA N 2023 90 [facility] ATORVASTATI N CA 80MG TAB TAKE ONE-HALF TABLET BY MOUTH EVERY EVENING FOR HIGH CHOLESTE ROL ORAL DISCONT INUED (EDIT) 09/05/2023 [id number] 4 SKYE MUNOZ N 2022 45 [facility] CAMPHOR/MEN THOL/METHYL SALICYLATE LARGE PATCH APPLY 1 PATCH TO SKIN SITE ONCE A DAY (EXTERNA L USE ONLY) TRANSD ERMAL ACTIVE 02/10/2025 [id number] 4 SKYE MUNOZ MARA N 2023 30 [facility] CHOLECALCIF DANA 50MCG (2,000UNIT) TAB TAKE ONE TABLET BY MOUTH ONCE A DAY ORAL ACTIVE 02/10/2025 [id number] 5 SKYE MUNOZ MARA N 2024 100 [facility] CHOLECALCIF DANA 50MCG (2,000UNIT) TAB TAKE ONE TABLET BY MOUTH ONCE A DAY ORAL DISCONT INUED 03/21/2024 [id number] 4 SKYE MUNOZ MARA N 2023 100 [facility] CYCLOBENZAP RINE HCL 10MG TAB TAKE ONE TABLET BY MOUTH THREE TIMES A DAY MAY CAUSE DROWSINE SS. DO NOT DRINK ALCOHOL WHILE TAKING THIS MEDICATI ON. ORAL 12/19/2023 [id number] GASTON LIND 2023 21 [facility] empaglifloz in 25 mg oral tablet TAKE ONE TABLET DAILY, # 90 EA, 3 total refill(s ), Acute Complet ed 02/20/20232022 90.0 Ambulat ory Pharmac y EMPAGLIFLOZ IN 25MG TAB TAKE ONE TABLET BY MOUTH ONCE A DAY FOR DIABETES ORAL ACTIVE 07/26/2024 [id number] Lester HUERTA 2023 90 [facility] EMPAGLIFLOZ IN 25MG TAB TAKE ONE TABLET BY MOUTH ONCE A DAY FOR DIABETES ORAL DISCONT INUED 10/27/2023 [id number] Lester HUERTA 2022 90 [facility] FENOFIBRATE 145MG TAB TAKE ONE-HALF TABLET BY MOUTH ONCE A DAY - TAKE WITH FOOD ORAL ACTIVE 02/10/2025 [id number] 5 SKYE MUNOZ 2023 45 [facility] FENOFIBRATE 160MG TAB TAKE ONE TABLET BY MOUTH ONCE A DAY FOR HIGH TRIGLYCE RIDES - TAKE WITH FOOD ORAL DISCONT INUED (EDIT) 01/17/2025 [id number] 5 SEN DEWITT 2024 90 [facility] FENOFIBRATE 160MG TAB TAKE ONE TABLET BY MOUTH ONCE A DAY FOR HIGH TRIGLYCE RIDES - TAKE WITH FOOD ORAL DISCONT INUED 04/26/2024 [id number] SEN DEWITT 2023 90 [facility] FLUTIC[facility] PROPIONATE 50MCG/SPRAY SOLN,NASAL, 16GM INSTILL 1 SPRAY IN NOSTRIL( S) ONCE A DAY (MUST BE USED DIRECTED FOR MINIMUM OF 21 DAYS TO PROVIDE ADEQUATE BENEFITS ) NASAL ACTIVE 02/10/2025 [id number] 5 SKYE MUNOZ N 2023 2 [facility] glimepiride 4 mg oral tablet TAKE TWO TABLETS BY MOUTH EVERY DAY DIRECTED , # 180 EA, 2 total refill(s ), Acute Complet ed 04/16/2023 3 2023 180.0 Ambulat ory Pharmac y GLIMEPIRIDE 4MG TAB TAKE ONE TABLET BY MOUTH EVERY MORNING TAKE WITH BREAKFAS T OR FIRST FOOD. ORAL ACTIVE 02/10/2025 [id number] 5 SKYE MUNOZ N 2023 90 [facility] GLIMEPIRIDE 4MG TAB TAKE TWO TABLETS BY MOUTH EVERY MORNING FOR DIABETES TAKE WITH BREAKFAS T OR FIRST FOOD. ORAL DISCONT INUED (EDIT) 11/21/2024 [id number] 4 SKYE MUNOZA N 2023 180 [facility] GLIMEPIRIDE 4MG TAB TAKE TWO TABLETS BY MOUTH EVERY MORNING FOR DIABETES TAKE WITH BREAKFAS T OR FIRST FOOD. ORAL DISCONT INUED 09/05/2023 [id number] 4 SKYE MUNOZ N 2022 180 [facility] Januvia 100 mg tablet See dose instruct [...] FOR HIGH BLOOD PRESSURE ORAL ACTIVE 02/10/2025 [id number] 5 SKYE MUNOZ N 2024 90 [facility] LISINOPRIL 40MG TAB TAKE ONE TABLET BY MOUTH ONCE A DAY FOR HIGH BLOOD PRESSURE ORAL DISCONT INUED 03/21/2024 [id number] 4 SKYE MUNOZ N 2023 90 [facility] LORATADINE 10MG TAB TAKE ONE TABLET BY MOUTH ONCE A DAY FOR ALLERGIC RHINITIS ON EMPTY STOMACH ORAL ACTIVE 09/24/2024 [id number] 5 SKYE MUNOZ MARA N 2023 90 [facility] LORATADINE 10MG TAB TAKE ONE TABLET BY MOUTH ONCE A DAY FOR ALLERGIC RHINITIS ON EMPTY STOMACH ORAL DISCONT INUED 08/18/2023 [id number] SKYE MUNOZ MARA N 2022 90 [facility] MELOXICAM 15MG TAB TAKE ONE TABLET BY MOUTH ONCE A DAY FOR OSTEOART HRITIS ORAL ACTIVE 04/29/2025 [id number] 5 SKYE MUNOZ MARA N 2024 90 [facility] MELOXICAM 15MG TAB TAKE ONE TABLET BY MOUTH ONCE A DAY FOR OSTEOART HRITIS ORAL DISCONT INUED 11/06/2024 [id number] 4 SKYE MUNOZ MARA N 2023 90 [facility] MELOXICAM 15MG TAB TAKE ONE TABLET BY MOUTH ONCE A DAY FOR OSTEOART HRITIS ORAL DISCONT INUED 05/01/2024 [id number] 4 SKYE MUNOZ MARA N 2023 90 [facility] MENTHOL/MET HYL SALICYLATE (10-15%) LOW CONC. CREAM,TOP APPLY LIGHTLY TO AFFECTED AREA(S) FOUR TIMES A DAY FOR PAIN (EXTERNA L USE ONLY) TOPICA L 05/01/2024 [id number] 4 SKYE MUNOZA N 2023 90 [facility] metFORMIN 1000 mg oral tablet TAKE ONE TABLET BY MOUTH TWICE A DAY, # 180 EA, 3 total refill(s ), Acute Complet ed 04/16/2023 3 2023 180.0 Ambulat ory Pharmac y METFORMIN HCL 1000MG TAB TAKE ONE TABLET BY MOUTH TWICE A DAY WITH MEALS FOR DIABETES TAKE WITH FOOD. AVOID ALCOHOL. DISCONTI NUE BEFORE GETTING XRAY DYE. ORAL ACTIVE 02/10/2025 [id number] 5 SKYE MUNOZA N 2024 180 [facility] METFORMIN HCL 1000MG TAB TAKE ONE TABLET BY MOUTH TWICE A DAY WITH MEALS FOR DIABETES TAKE WITH FOOD. AVOID ALCOHOL. DISCONTI NUE BEFORE GETTING XRAY DYE. ORAL DISCONT INUED 03/21/2024 [id number] 4 SKYE MUNOZA N 2023 180 [facility] METFORMIN HCL 1000MG TAB TAKE ONE TABLET BY MOUTH DAILY. ORAL ACTIVE SKYE MUNOZA N 2022 [facility] NIACIN (EQV-NIASPA N) 1000MG TAB,SA TAKE ONE TABLET BY MOUTH AT BEDTIME AFTER A LOW FAT SNACK ORAL DISCONT INUED BY PROVIDE R 05/01/2024 [id number] SEN DEWITT 2023 90 [facility] niacin 1000 mg oral tablet, extended release TAKE ONE TABLET BY MOUTH ONCE DAILY, # 90 EA, 2 total refill(s ), Acute Complet ed 04/17/2023 3 2023 90.0 Ambulat ory Pharmac y OMEGA-3-ACI D ETHYL ESTERS 1000MG CAP,ORAL TAKE TWO CAPSULES BY MOUTH TWICE A DAY FOR HIGH TRIGLYCE RIDES ORAL 05/09/2024 [id number] 5 SEN DEWITT 2023 120 [facility] SEMAGLUTIDE 0.25MG/0.37 5ML INJ,SOLN,PE N,3ML INJECT 0.5MG UNDER THE SKIN EVERY WEEK FOR DIABETES SUBCUT ANEOUS DISCONT INUED BY PROVIDE R 06/01/2024 [id number] 4 SEN DEWITT 2023 1 [facility] SEMAGLUTIDE 0.25MG/0.37 5ML INJ,SOLN,PE N,3ML INJECT 0.25MG UNDER THE SKIN EVERY WEEK FOR 4 WEEKS, THEN INJECT 0.5MG EVERY WEEK FOR DIABETES SUBCUT ANEOUS DISCONT INUED 06/01/2024 [id number] 4 ESDRASSEN Jolie Matos 2023 1 [facility] SEMAGLUTIDE 1MG/0.75ML INJ,SOLN,PE N,3ML INJECT 1MG UNDER THE SKIN EVERY WEEK FOR DIABETES SUBCUT ANEOUS DISCONT INUED 07/26/2024 [id number] SEN DEWITT 2023 1 [facility] SEMAGLUTIDE 2MG/0.75ML INJ,SOLN,PE N,3ML INJECT 2MG UNDER THE SKIN EVERY WEEK FOR DIABETES SUBCUT ANEOUS ACTIVE 02/28/2025 [id number] 5 SEN DEWITT 2023 3 [facility] SEMAGLUTIDE 2MG/0.75ML INJ,SOLN,PE N,3ML INJECT 2MG UNDER THE SKIN EVERY WEEK FOR DIABETES SUBCUT ANEOUS DISCONT INUED 08/31/2024 [id number] 4 SEN DEWITT 2023 1 [facility] SEMAGLUTIDE 2MG/0.75ML INJ,SOLN,PE N,3ML INJECT 2MG UNDER THE SKIN EVERY WEEK FOR DIABETES SUBCUT ANEOUS DISCONT INUED 07/26/2024 [id number] SEN DEWITT 2023 3 [facility] SILDENAFIL CITRATE 100MG TAB TAKE ONE-HALF TABLET BY MOUTH ONE HOUR PRIOR TO SEXUAL ACTIVITY NEEDED - LIMIT 6 DOSES PER 30 DAYS ORAL ACTIVE 02/10/2025 [id number] 5 SKYE MUNOZ N 2023 9 [facility] SITagliptin 100 mg oral tablet TAKE ONE TABLET BY MOUTH EVERY DAY, # 90 EA, 1 total refill(s ), Acute Complet ed 12/25/2022 2 2022 90.0 Ambulat ory Pharmac y SODIUM CHLORIDE 0.65% SOLN,NASAL SPRAY USE 1 SPRAY INTO NOSTRIL( S) EVERY 4 HOURS NEEDED NASAL ACTIVE 04/21/2025 [id number] 5 SKYE MUNOZ N 2024 45 [facility] SODIUM CHLORIDE 0.65% SOLN,NASAL SPRAY USE 1 SPRAY INTO NOSTRIL( S) EVERY 4 HOURS NEEDED NASAL DISCONT INUED 02/10/2025 [id number] 5 SKYE MUNOZ MARA N 2023 45 [facility] Results Combined list of recent [...] Specimen Type: BLOOD Comment: Test Performed by: [id number] Meter #: [id number] Ordering Provider: TERELL MARQUEZ Report Released Date/Time: Feb 10, 2024 04:17 PM Reporting Lab: [address] [phone] Performing Lab: [address] [address] [facility] MICRAL/CR EAT PROFILE (STL) ALBUMIN [MASS/VOLUM E] IN URINE 9.6 mg/L 01/23 Specimen Type: URINE No comment entered. Ordering Provider: KIARA MUNOZ Report Released Date/Time: May 01, 2023 12:17 PM Reporting Lab: [facility] [address] Performing Lab: [facility] [address] [place] [phone] [facility] MICRAL/CR EAT PROFILE (STL) ALBUMIN/CRE ATININE [MASS RATIO] IN URINE 16 mg/g 0 - 29 01/23 Specimen Type: URINE No comment entered. Ordering Provider: KIARA MUNOZ Report Released Date/Time: May 01, 2023 12:17 PM Reporting Lab: [facility] [address] Performing Lab: [facility] [address] [facility] [address] [facility] MICRAL/CR EAT PROFILE (STL) CREATININE [MASS/VOLUM E] IN URINE 61.8 mg/dL 63 - 166 01/23 L Specimen Type: URINE No comment entered. Ordering Provider: KIARA MUNOZ Report Released Date/Time: May 01, 2023 12:17 PM Reporting Lab: [facility] [address] [facility] [address] Performing Lab: [address] [address] [facility] COMPREHEN SIVE METABOLIC PANEL CREATININE [MASS/VOLUM E] IN SERUM OR PLASMA 0.95 mg/dL 0.7 - 1.3 01/23 Specimen Type: PLASMA Comment: No hemolysis noted. Ordering Provider: KIARA MUNOZ Report Released Date/Time: May 01, 2023 12:17 PM Reporting Lab: [facility] [address] [facility] [address] Performing Lab: [facility] [address] [facility] [address] [facility] COMPREHEN SIVE METABOLIC PANEL UREA NITROGEN [MASS/VOLUM E] IN SERUM OR PLASMA 23.5 mg/dL 9.0 - 25.0 01/23 Specimen Type: PLASMA Comment: No hemolysis noted. Ordering Provider: KIARA MUNOZ Report Released Date/Time: May 01, 2023 12:17 PM Reporting Lab: [facility] [address] [facility] [address] Performing Lab: [facility] [address] [place] [phone] [facility] COMPREHEN SIVE METABOLIC PANEL GLUCOSE [MASS/VOLUM E] IN SERUM OR PLASMA 110 mg/dL 72 - 99 01/23 H Specimen Type: PLASMA Comment: No hemolysis noted. Ordering Provider: KIARA MUNOZ Report Released Date/Time: May 01, 2023 12:17 PM Reporting Lab: [facility] [address] [facility] [address] Performing Lab: [facility] [address] [facility] [phone] [facility] COMPREHEN SIVE METABOLIC PANEL SODIUM [MOLES/VOLU ME] IN SERUM OR PLASMA 144 meq/L 136 - 145 01/23 Specimen Type: PLASMA Comment: No hemolysis noted. Ordering Provider: KIARA MUNOZ Report Released Date/Time: May 01, 2023 12:17 PM Reporting Lab: [facility] [address] [facility] [address] Performing Lab: [facility] [address] [facility] [phone] [place] [address] COMPREHEN SIVE METABOLIC PANEL POTASSIUM [MOLES/VOLU ME] IN SERUM OR PLASMA 4.4 meq/L 3.5 - 5 01/23 Specimen Type: PLASMA Comment: No hemolysis noted. Ordering Provider: KIARA MUNOZ Report Released Date/Time: May 01, 2023 12:17 PM Reporting Lab: [facility] [address] [facility] [address] Performing Lab: [facility] [address] [facility] [address] [facility] COMPREHEN SIVE METABOLIC PANEL CHLORIDE [MOLES/VOLU ME] IN SERUM OR PLASMA 111 meq/L 98 - 107 01/23 H Specimen Type: PLASMA Comment: No hemolysis noted. Ordering Provider: KIARA MUNOZ Report Released Date/Time: May 01, 2023 12:17 PM Reporting Lab: [facility] [address] [facility] [address] Performing Lab: [facility] [address] [facility] [address] [facility] COMPREHEN SIVE METABOLIC PANEL CARBON DIOXIDE, TOTAL [MOLES/VOLU ME] IN SERUM OR PLASMA 24 meq/L 22 - 31 01/23 Specimen Type: PLASMA Comment: No hemolysis noted. Ordering Provider: KIARA MUNOZ Report Released Date/Time: May 01, 2023 12:17 PM Reporting Lab: [facility] [address] [place], [place] [phone] Performing Lab: [facility] [address] [place] [phone] [place] [address] COMPREHEN SIVE METABOLIC PANEL CALCIUM [MASS/VOLUM E] IN SERUM OR PLASMA 10.4 mg/dL 8.4 - 10.4 01/23 Specimen Type: PLASMA Comment: No hemolysis noted. Ordering Provider: KIARA MUNOZ Report Released Date/Time: May 01, 2023 12:17 PM Reporting Lab: [place] [address] Performing Lab: [place] [phone] [place] [address] COMPREHEN SIVE METABOLIC PANEL PROTEIN [MASS/VOLUM E] IN SERUM OR PLASMA 7.2 g/dL 6 - 8.6 01/23 Specimen Type: PLASMA Comment: No hemolysis noted. Ordering Provider: KIARA MUNOZ Report Released Date/Time: May 01, 2023 12:17 PM Reporting Lab: [facility] [address] [place] [phone] Performing Lab: [address] [phone] [place] [address] COMPREHEN SIVE METABOLIC PANEL ALBUMIN [MASS/VOLUM E] IN SERUM OR PLASMA 4.5 g/dL 3.4 - 5 01/23 Specimen Type: PLASMA Comment: No hemolysis noted. Ordering Provider: KIARA MUNOZ Report Released Date/Time: May 01, 2023 12:17 PM Reporting Lab: [facility] [address] [place] [phone] Performing Lab: [facility] [address] [place] [phone] [facility] COMPREHEN SIVE METABOLIC PANEL BILIRUBIN.T OTAL [MASS/VOLUM E] IN SERUM OR PLASMA 0.4 mg/dL 0.2 - 1.2 01/23 Specimen Type: PLASMA Comment: No hemolysis noted. Ordering Provider: KIARA MUNOZ Report Released Date/Time: May 01, 2023 12:17 PM Reporting Lab: [facility] [address] [facility] [address] Performing Lab: [facility] [address] [place] [phone] [facility] COMPREHEN SIVE METABOLIC PANEL ALKALINE PHOSPHATASE [ENZYMATIC ACTIVITY/VO LUME] IN SERUM OR PLASMA 29 U/L 40 - 150 01/23 L Specimen Type: PLASMA Comment: No hemolysis noted. Ordering Provider: KIARA MUNOZ Report Released Date/Time: May 01, 2023 12:17 PM Reporting Lab: [facility] [address] [place] [phone] Performing Lab: [address] [address] [facility] COMPREHEN SIVE METABOLIC PANEL ASPARTATE AMINOTRANSF ERASE [ENZYMATIC ACTIVITY/VO LUME] IN SERUM OR PLASMA 23 U/L 5 - 34 01/23 Specimen Type: PLASMA Comment: No hemolysis noted. Ordering Provider: KIARA MUNOZ Report Released Date/Time: May 01, 2023 12:17 PM Reporting Lab: [facility] [address] [place] [phone] Performing Lab: [facility] [address] [place] [phone] [facility] COMPREHEN SIVE METABOLIC PANEL ALANINE AMINOTRANSF ERASE [ENZYMATIC ACTIVITY/VO LUME] IN SERUM OR PLASMA 29 U/L 8 - 40 01/23 Specimen Type: PLASMA Comment: No hemolysis noted. Ordering Provider: KIARA MUNOZ Report Released Date/Time: May 01, 2023 12:17 PM Reporting Lab: [facility] [address] [place] [phone] Performing Lab: [facility] [address] [place] [phone] [facility] COMPREHEN SIVE METABOLIC PANEL GLOMERULAR FILTRATION RATE/1.73 SQ M.PREDICTED [VOLUME RATE/AREA] IN SERUM, PLASMA OR BLOOD BY CREATININE- BASED FORMULA (CKD-EPI 2020) 97.5 60 01/23 Specimen Type: PLASMA Comment: No hemolysis noted. Ordering Provider: KIARA MUNOZ Report Released Date/Time: May 01, 2023 12:17 PM Reporting Lab: [facility] [address] [place] [phone] Performing Lab: [address] [address] [facility] HGA1C HEMOGLOBIN A1C/HEMOGLO BIN.TOTAL IN BLOOD 5.8 4.0 - 6.0 01/23 Specimen Type: BLOOD No comment entered. Ordering Provider: KIARA MUNOZ Report Released Date/Time: May 01, 2023 12:17 PM Reporting Lab: [address] [address] Performing Lab: [facility] [address] [place] [phone] [facility] LIPID PANEL (STL) CHOLESTEROL [MASS/VOLUM E] IN SERUM OR PLASMA 95 mg/dL 0 - 200 01/23 Specimen Type: PLASMA Comment: No hemolysis noted. Ordering Provider: KIARA MUNOZ Report Released Date/Time: May 01, 2023 12:17 PM Reporting Lab: [facility] [address] [place] [phone] Performing Lab: [facility] [address] [place] [phone] [facility] LIPID PANEL (STL) TRIGLYCERID E [MASS/VOLUM E] IN SERUM OR PLASMA 57 mg/dL 0 - 150 01/23 Specimen Type: PLASMA Comment: No hemolysis noted. Ordering Provider: KIARA MUNOZ Report Released Date/Time: May 01, 2023 12:17 PM Reporting Lab: [facility] [address] [place] [phone] Performing Lab: [address] [address] [facility] LIPID PANEL (STL) CHOLESTEROL IN LDL [MASS/VOLUM E] IN SERUM OR PLASMA BY CALCULATION 49 mg/dL 01/23 Specimen Type: PLASMA Comment: No hemolysis noted. Ordering Provider: KIARA MUNOZ Report Released Date/Time: May 01, 2023 12:17 PM Reporting Lab: [place] [phone] Performing Lab: [address] [phone] [place] [address] LIPID PANEL (STL) CHOLESTEROL IN HDL [MASS/VOLUM E] IN SERUM OR PLASMA 35 mg/dL 40 01/23 L Specimen Type: PLASMA Comment: No hemolysis noted. Ordering Provider: KIARA MUNOZ Report Released Date/Time: May 01, 2023 12:17 PM Reporting Lab: [address] [address] Performing Lab: [phone] [place] [address] PROST. SPECIFIC AG.(PB-ST L) PROSTATE SPECIFIC AG [...] May 01, 2023 12:17 PM Reporting Lab: [address] [address] Performing Lab: [id number] [place] [address] VITAMIN D, 25-HYDROX Y 25-HYDROXYV ITAMIN D3 [...] May 01, 2023 12:17 PM Reporting Lab: [address] [phone] Performing Lab: [address] [address] [facility] HGA1C HEMOGLOBIN A1C/HEMOGLO BIN.TOTAL IN BLOOD 6.8 4.0 - 6.0 07/25 H Specimen Type: BLOOD No comment entered. Ordering Provider: ROBIN DEWITT Report Released Date/Time: July 26, 2023 12:26 PM Reporting Lab: [address] [address] Performing Lab: [address] [address] [facility]IP[facility] ([facility]) CHOLESTEROL [MASS/VOLUM E] IN SERUM OR PLASMA 132 mg/dL 0 - 200 07/25 Specimen Type: PLASMA No comment entered. Ordering Provider: ROBIN DEWITT Report Released Date/Time: July 26, 2023 12:26 PM Reporting Lab: [address] [address] Performing Lab: [address] [address] [facility]IP[facility] ([facility]) TRIGLYCERID E [MASS/VOLUM E] IN SERUM OR PLASMA 118 mg/dL 0 - 150 07/25 Specimen Type: PLASMA No comment entered. Ordering Provider: ROBIN DEWITT Report Released Date/Time: July 26, 2023 12:26 PM Reporting Lab: [address] [address] Performing Lab: [address] [address] [facility] LIPID PANEL ([facility]) CHOLESTEROL IN LDL [MASS/VOLUM E] IN SERUM OR PLASMA BY CALCULATION 68 mg/dL 07/25 Specimen Type: PLASMA No comment entered. Ordering Provider: ROBIN DEWITT Report Released Date/Time: July 26, 2023 12:26 PM Reporting Lab: 34 [address] [address] Performing Lab: [address] [address] [facility] LIPID PANEL (STL) CHOLESTEROL IN HDL [MASS/VOLUM E] IN SERUM OR PLASMA 40 mg/dL 40 07/25 Specimen Type: PLASMA No comment entered. Ordering Provider: ROBIN DEWITT Report Released Date/Time: July 26, 2023 12:26 PM Reporting Lab: [address] [address] Performing Lab: [address] [address] [facility] GLUCOSE,B LOOD-poct (L) GLUCOSE [MASS/VOLUM E] IN BLOOD BY AUTOMATED TEST STRIP 120 mg/dL 72 - 99 05/01 H Specimen Type: BLOOD Comment: Test Performed by: [id number] Meter #: [id number] Ordering Provider: KIARA MUNOZ Report Released Date/Time: May 01, 2023 04:01 PM Reporting Lab: [address] [address] Performing Lab: [address] [address] [facility] Vital Signs Combined list of inpatient and outpatient Vital Signs from Department of Defense and Veterans Affairs, ranging from 12 months to all on record, depending upon the facility. Vital Sign Value Date Comments Source SYSTOLIC BLOOD PRESSURE 170 02/10/20 24 13:59:34 [facility] DIASTOLIC BLOOD PRESSURE 98 024 13:59:34 [facility] PULSE OXIMETRY 96 02/10/2024 13:59:34 [facility] WEIGHT 221.5 02/10/2024 13:59:34 [facility] BMI 30 kg/m2 02/10/2024 13:59:34 [facility] PAIN 5 02/10/2024 13:59:34 [facility] HEIGHT 72 02/10/2024 13:59:34 [facility] TEMPERATURE 98 02/10/2024 13:59:34 [facility] PULSE 86 02/10/2024 13:59:34 [facility] RESPIRATION 18 02/10/2024 13:59:34 [facility] SYSTOLIC BLOOD PRESSURE 112 11/19/19 24 10:00:00 [facility] DIASTOLIC BLOOD PRESSURE 76 024 10:00:00 [facility] PAIN 4 11/19/2023 10:00:00 [facility] TEMPERATURE 98.4 11/19/2023 10:00:00 [facility] PULSE 87 11/19/2023 10:00:00 [facility] RESPIRATION 16 11/19/2023 10:00:00 [facility] SYSTOLIC BLOOD PRESSURE 144 07/26/19 24 12:02:00 [facility] DIASTOLIC BLOOD PRESSURE 80 024 12:02:00 [facility] PULSE OXIMETRY 96 07/26/2023 12:02:00 [facility] WEIGHT 244 07/26/2023 12:02:00 [facility] BMI 33 kg/m2 07/26/2023 12:02:00 [facility] PAIN 2 07/26/2023 12:02:00 [facility] TEMPERATURE 97.6 07/26/2023 12:02:00 [facility] PULSE 89 07/26/2023 12:02:00 [facility] RESPIRATION 18 07/26/2023 12:02:00 [facility] Encounters Combined list of: 1) Encounters from Department of Veterans Affairs facilities going backup to the last 18 months, not all VA inpatient encounters are included; 2) Encounters from the Department of Defense facilities going backup to 280 months. Location Location Details Encounter Type Encounter Number Reason For Visit Attending Provider ADM Date DC Date Status Disposition Source [facility] OFFICE O/P EST MOD 30-39 MIN [id number] Diagnos is: ICD-10- CM M54.2 Cervica lgia [place] 01[facility] En[facility] [id number] ROSI MUNOZ ROHIT N 02/27 [facility] Outpatient Encounter [id number] ROSI MUNOZ ROHIT N 03/21 [facility] Outpatient Encounter [id number] Diagnos is: ICD-10- CM N52.9 Male erectil e dysfunc tion, unspeci fied TAMMYROSI ROHIT N 03/21 [facility] Outpatient Encounter [id number] Diagnos is: ICD-10- CM Z72.0 Tobacco use NETO MCGILL 04/24 [facility] OFFICE O/P NEW MOD 45 MIN [id number] Diagnos is: ICD-10- CM E78.5 Hyperli pidemia , unspeci fied ROBIN DEWITT 04/26 [facility] O/P EST MOD 30 MIN [id number] Diagnos is: ICD-10- CM G89.29 Other chronic pain TAMMYROSI BEE N 05/01 [facility] QNHP OL DIG ASSMT&MGMT 5-10 [id number] Diagnos is: ICD-10- CM E78.5 Hyperli pidemia , unspeci fied NICHOLAS CHANDLER 05/02 [facility] QNHP OL DIG ASSMT&MGMT 5-10 [id number] Diagnos is: ICD-10- CM E78.5 Hyperli pidemia , unspeci fied NICHOLAS CHANDLER [facility] FLU IMM NO ADMIN DOC MAYANK [id number] Diagnos is: ICD-10- CM Z23 Encount er for immuniz ation FRENCH,VE RA 05/09 [facility] QNHP OL DIG ASSMT&MGMT 5-10 [id number] Diagnos is: ICD-10- CM E11.9 Type 2 diabete s mellitu s without complic ations SHWETHA ESPARZA 06/04 [facility] HC PRO PHONE CALL 5-10 MIN [id number] Diagnos is: ICD-10- CM E11.9 Type 2 diabete s mellitu s without complic ations SHIRLEY ARAGON 07/09 [facility] OFFICE O/P EST MOD 30 MIN [id number] Diagnos is: ICD-10- CM M54.2 Cervica lgia JOHN RAMAN RIL L 07/23 [facility] Outpatient Encounter [id number] 07/24 [facility] OFFICE O/P EST MOD 30 MIN [id number] Diagnos is: ICD-10- CM E11.9 Type 2 diabete s mellitu s without complic ations ROBIN DEWITT 07/25 [facility] Outpatient Encounter [id number] HALLEY JOHANSEN R 07/28 [facility] Outpatient Encounter [id number] 08/25 [facility] Outpatient Encounter [id number] 10/07 [facility] EMERGENCY DEPT VISIT LOW MDM [id number] Diagnos is: ICD-10- CM M54.50 Low back pain, unspeci fied MUDALLAL,O MAR 11/18 [facility] Outpatient Encounter [id number] 01/16 [facility] Outpatient Encounter [id number] SELENE PLAZA L 01/22 [facility] En[facility] [id number] 02/02 [facility] Outpatient Encounter [id number] 02/06 [facility] OFFICE O/P EST MOD 30 MIN [id number] Diagnos is: ICD-10- CM M54.51 Vertebr ogenic low back pain ROSI MUNOZ 02/09 [facility] Outpatient Encounter [id number] 02/09 [facility] FUNDUS PHOTOGRAPH Y W/I&R [id number] Diagnos is: ICD-10- CM Z13.5 Encount er for screeni ng for eye and ear disorde rs STACIE MARQUEZ Buddy 02/09 [facility] Outpatient Encounter [id number] Diagnos is: ICD-10- CM Z13.5 Encount er for screeni ng for eye and ear disorde rs STACIE MARQUEZ Andrea Goodwin 02/09 [facility] OFFICE O/P EST MOD 30 MIN [id number] Diagnos is: ICD-10- CM E78.5 Hyperli pidemia , unspeci fied VICTORIANO,MEHD IA 03/02 [facility] OFF/OP CONSLTJ NEW/EST SF 20 [id number] Diagnos is: ICD-10- CM Z12.2 Encntr screen for maligna nt neoplas m of respira tory organs Leonid SEGURA JR 03/02 [facility] Outpatient Encounter [id number] Diagnos is: ICD-10- CM M54.51 Vertebr ogenic low back pain FRANCISCA MISHRA 03/10 [facility] THERAPEUTI C ACTIVITIES [id number] Diagnos is: ICD-10- CM M54.51 Vertebr ogenic low back pain BONNIE SIMS 03/10 [facility] THERAPEUTI C EXERCISES [id number] Diagnos is: ICD-10- CM M54.51 Vertebr ogenic low back pain BONNIE SIMS 04/01 [facility] Outpatient Encounter [id number] 04/09 [facility] Outpatient Encounter [id number] Diagnos is: ICD-10- CM Z12.2 Encntr screen for maligna nt neoplas m of respira tory organs Leonid SEGURA JR 04/09 [facility] Outpatient Encounter [id number] Diagnos is: ICD-10- CM Z12.2 Encntr screen for maligna nt neoplas m of respira tory organs SUSAN VARELA 04/10 [facility] MANUAL THERAPY 1/ [facility] [id number] Diagnos is: ICD-10- CM M54.51 Vertebr ogenic low back pain BONNIE SIMS 04/15 [facility] Outpatient Encounter [id number] 04/17 [facility] Outpatient Encounter [id number] 05/06 [facility] Outpatient Encounter [id number] 06/01 [facility] Procedures Combined list of: 1) Procedures from Department of Veterans Affairs facilities going back up to thelast 18 months, not all VA non-surgical procedures are included; 2) All procedures from the Department of Defense facilities. Procedure Procedure Type Code Date Perfomer Comments Sourc e NONINVASIVE EAR OR PULSE OXIMETRY FOR OXYGEN SATURATION; SINGLE DETERMINATION 12/31/2001 [facility] No data available for this section Ambulato ry Pharmacy Social History Combined list of available smoking, tobacco, and other social history from Department of Defense and Veterans Affairs facilities. 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 Functional Status Combined list of recent functional and cognitive assessments recorded at Department of Defense and Veterans Affairs (VA).[facility] Functional [place]rainfield Measurement (FIM) Scale: 1 = Total Assistance (Subject = 0% +), 2 = Maximal Assistance (Subject = 25% +), 3 = Moderate Assistance (Subject = 50% +), 4 = Minimal Assistance (Subject = 75% +), 5 = Supervision, 6 = Modified [place]field (Device), 7 = Complete [place] (Timely, Safely). Assessment Date/Time Source Assessment Type Assessment Skill Assessment Score Assessment Details No data available for this section
[2024-07-07 08:30] VITALS: BP 130/76; PULSE 87; RESP 18; TEMP 36.5; O2SAT 98
== END 2024-07-07 08:45 | disposition home or self-care (01) ==
PROVIDERS: Emergency Provider Nurse Practitioner Family; PCP Family Medicine
DX: J01.90 Acute sinusitis, unspecified (principal); F17.210 Nicotine dependence, cigarettes, uncomplicated; I25.10 Atherosclerotic heart disease of native coronary artery without angina pectoris; I10 Essential (primary) hypertension; E11.9 Type 2 diabetes mellitus without complications; Z79.84 Long term (current) use of oral hypoglycemic drugs; Z79.85 Long-term (current) use of injectable non-insulin antidiabetic drugs; E78.5 Hyperlipidemia, unspecified; M19.90 Unspecified osteoarthritis, unspecified site
CPT/HCPCS: 99213; G0463